=== PATIENT | female | born 2000 | race Caucasian/White ===

== ENCOUNTER 2018-07-10 19:10 | Emergency (ER) | payer MEDICAID, SELFPAY ==
[2018-07-10 20:30] LABS: Urine Blood NEGATIVE (NEG); Urine Glucose NEGATIVE (NEG); Urine Protein NEGATIVE (NEG); Urine Specific Gravity 1.015 (1.005-1.030)
[2018-07-10 20:41] LABS: ALT/SGPT 15 U/L (12-78); AST/SGOT 12 U/L (15-37); Albumin 4.1 g/dL (3.4-5.0); Alkaline Phosphatase 72 U/L (45-117); BUN Blood Urea Nitrogen 13 mg/dL (7-18); Bicarbonate 26 mmol/L (21-32); Bilirubin Direct 0.1 mg/dL (0-0.2); Bilirubin Total 0.4 mg/dL (0.2-1.0); Glucose Level 86 mg/dL (74-106); Lipase 119 U/L (73-393); Protein, Total 7.8 g/dL (6.4-8.2); Sodium Level 139 mmol/L (136-145)
[2018-07-10 20:44] LABS: Absolute Lymphocytes (CBC) 2.1 K/uL (0.7-4.9); Absolute Monocytes 0.8 K/uL (0.1-1.3); Absolute Neutrophil 5.3 K/uL (1.8-8.0); Basophils % 0.5 % (0-1.3); Eosinophils % 2.4 % (0-4.4); Hematocrit 39.5 % (36.0-45.0); MPV 7.8 fL (7.6-11.3); Monocytes % 9.6 % (3.3-12.3); RBC Red Blood Cell Count 4.46 M/uL (3.86-4.86)
--- NOTE | 2018-07-10 21:12 | EDPHYS ---
Physician Documentation [facility] Name: Lena Doty Age: 18 yrs Sex: Female : 2000 Arrival Date: 07/10/2018 Time: 19:14 Bed 7 Private MD: ED Physician Devang Garrett HPI: 07/10 19:51 This 18 yrs old Female presents to ER via Ambulatory with complaints of abd rn pain. 19:51 The patient presents with abdominal pain in the left upper quadrant. Onset: The rn symptoms/episode began/occurred today. The symptoms do not radiate. Associated signs and symptoms: Pertinent positives: constipation, Pertinent negatives: blood in stools, chest pain, fever, shortness of breath, vaginal discharge, vomiting, vomiting blood. The symptoms are described as intermittent, sharp, stabbing. Modifying factors: The symptoms are alleviated by nothing, the symptoms are aggravated by nothing. Severity of pain: At its worst the pain was mild in the emergency department the pain is unchanged. The patient has not experienced similar symptoms in the past. Reports left upper abd pain, intermittent, no fever/vomiting/diarrhea, + constipation and feels dehydrated. No chest pain/sob/cough. . 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 - Social history:: Smoking status: Patient/guardian denies using tobacco. - Ebola Screening: : Patient negative for fever greater than or equal to 101.5 degrees Fahrenheit, and additional compatible Ebola Virus Disease symptoms Patient denies exposure to infectious person Patient denies travel to an Ebola-affected area in the 21 days before illness onset No symptoms or risks identified at this time. - Family history:: not pertinent. - Hospitalizations: : No recent hospitalization is reported. ROS: 19:51 Constitutional: Negative for fever, chills, and weight loss, Eyes: Negative for injury, rn pain, redness, and discharge, Cardiovascular: Negative for chest pain, palpitations, and edema, Respiratory: Negative for shortness of breath, cough, wheezing, and pleuritic chest pain, Abdomen/GI: + abd pain, + constipation, negative for diarrhea/vomiting. MS/Extremity: Negative for injury and deformity, Skin: Negative for injury, rash, and discoloration, Neuro: Negative for headache, weakness, numbness, tingling, and seizure. Exam: 19:51 Constitutional: This is a well developed, well nourished patient who is awake, alert, rn and in no acute distress. Cardiovascular: Regular rate and rhythm, No pulse deficits. Respiratory: Lungs have equal breath sounds bilaterally, clear to auscultation, No increased work of breathing, no retractions or nasal flaring. Abdomen/GI: soft, mild LUQ tenderness, no rebound, neg abdalla Back: No spinal tenderness. No costovertebral tenderness. Full range of motion. Skin: Warm, dry with normal turgor. Normal color with no rashes, no lesions, and no evidence of cellulitis. MS/ Extremity: Pulses equal, no cyanosis. Neurovascular intact. Full, normal range of motion. Equal circumference. Neuro: Awake and alert, GCS 15, oriented to person, place, time, and situation. Cranial nerves II-XII grossly intact. Motor strength 5/5 in all extremities. Sensory grossly intact. Vital Signs: 19:29 BP 113 / 79; Pulse 71; Resp 18; Temp 98.4; Pulse Ox 99% on R/A; Weight 67.59 kg; Height aj 5 ft. 5 in. (165.10 cm); 21:17 BP 110 / 71; Pulse 68; Resp 18; Pulse Ox 99% on R/A; tl2 19:29 Body Mass Index 24.79 (67.59 kg, 165.10 cm) MDM: 19:40 Patient medically screened. rn 21:10 Differential diagnosis: gastritis, gastroesophageal reflux disease, non-specific abd rn pain, pancreatitis, Peptic Ulcer Disease, Ureterolithiasis, urinary tract infection, constipation, gas-trapping. Data reviewed: vital signs, nurses notes, lab test result(s), and as a result, I will discharge patient. Counseling: I had a detailed discussion with the patient and/or guardian regarding: the historical points, exam findings, and any diagnostic results supporting the discharge/admit diagnosis, lab results, the need for outpatient follow up, to return to the emergency department if symptoms worsen or persist or if there are any questions or concerns that arise at home. Response to treatment: the patient's symptoms have mildly improved after treatment, and as a result, I will discharge patient. Special discussion: Based on the patient's Hx, exam, and Dx evaluation, there is no indication for emergent surgery or inpatient Tx. It is understood by the patient/guardian that if the Sx's persist or worsen they need to return immediately for re-evaluation. I discussed with the patient/guardian in detail that at this point there is no indication for admission to the hospital. It is understood, however, that if the symptoms persist or worsen the patient needs to return immediately for re-evaluation. ED course: Normal bloodwork, recommended dc home with fluids/gas-x/laxatives, as constipation/gas most likely cause. . 07/10 19:51 Order name: Basic Metabolic Panel; Complete Time: 21:05 07/10 19:51 Order name: CBC with Diff; Complete Time: 21: 07/10 19:51 Order name: Hepatic Function; Complete Time: 21: 07/10 19:51 Order name: Lipase; Complete Time: 21: 07/10 20:14 Order name: Urine Dipstick--Ancillary (enter results) 07/10 20:14 Order name: Urine --Ancillary (enter results) 07/10 19:51 Order name: IV Saline Lock; Complete Time: 20:02 07/10 19:51 Order name: Labs collected and sent; Complete Time: 20:02 07/10 19:51 Order name: Urine Test (obtain specimen); Complete Time: 20:59 07/10 19:51 Order name: Urine Dipstick-Ancillary (obtain specimen); Complete Time: 20:59 rn Administered Medications: No medications were administered Disposition: 07/10/18 21:11 Discharged to Home. Impression: Constipation, unspecified, Upper abdominal pain, unspecified. - Condition is Stable. - Discharge Instructions: Abdominal Pain, Adult, Constipation, Adult. - Medication Reconciliation Form, Thank You Letter, Antibiotic Education, Prescription Opioid Use form. - Follow up: Private Physician; When: As needed; Reason: Recheck today's complaints, Re-evaluation by your physician. - Problem is new. - Symptoms have improved. Signatures: Dispatcher [employer] EDMarcelina Barksdale RN RN aj Nieto, Roman, MD MD rn Knox, Taylor, RN RN tl2 Corrections: (The following items were deleted from the chart) 21:20 21:11 07/10/2018 21:11 Discharged to Home. Impression: Constipation, unspecified; Upper tl2 abdominal pain, unspecified. Condition is Stable. Forms are Medication Reconciliation Form, Thank You Letter, Antibiotic Education, Prescription Opioid Use. Follow up: Private Physician; When: As needed; Reason: Recheck today's complaints, Re-evaluation by your physician. Problem is new. Symptoms have improved. rn
--- NOTE | 2018-07-10 21:12 | ER ---
Nurse's Notes [facility] Name: Lena Doty Age: 18 yrs Sex: Female : 2000 Arrival Date: 07/10/2018 Time: 19:14 Bed 7 Private MD: Diagnosis: Constipation, unspecified;Upper abdominal pain, unspecified Presentation: 07/10 19:28 Presenting complaint: Patient states: Reports left lower rib pain that started this am aj and is worse with movement and deep breathing. Denies recent illness or cough. Transition of care: patient was not received from another setting of care. Onset of symptoms was July 10, 2018. Risk Assessment: Do you want to hurt yourself or someone else? Patient reports no desire to harm self or others. Initial Sepsis Screen: Does the patient meet any 2 criteria? No. Patient's initial sepsis screen is negative. Does the patient have a suspected source of infection? No. Patient's initial sepsis screen is negative. Care prior to arrival: None. 19:28 Method Of Arrival: Ambulatory 19:28 Acuity: RALEIGH 4 aj 19:52 Acuity: RALEIGH 3 tl2 Triage Assessment: 19:29 General: Appears in no apparent distress. comfortable, Behavior is calm, cooperative, aj appropriate for age. Pain: Complains of pain in left ninth rib and left tenth rib. Neuro: Level of Consciousness is awake, alert, obeys commands, Oriented to person, place, time, situation, Appropriate for age. Respiratory: Airway is patent Respiratory effort is even, unlabored, Respiratory pattern is regular, symmetrical. Derm: Skin is intact, is healthy with good turgor, Skin is pink, warm \T\ dry. normal. Musculoskeletal: Reports pain in left ninth rib and left tenth rib. 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 - Social history:: Smoking status: Patient/guardian denies using tobacco. - Ebola Screening: : Patient negative for fever greater than or equal to 101.5 degrees Fahrenheit, and additional compatible Ebola Virus Disease symptoms Patient denies exposure to infectious person Patient denies travel to an Ebola-affected area in the 21 days before illness onset No symptoms or risks identified at this time. - Family history:: not pertinent. - Hospitalizations: : No recent hospitalization is reported. Screenin:03 Abuse screen: Denies threats or abuse. Nutritional screening: No deficits noted. tl2 Tuberculosis screening: No symptoms or risk factors identified. Fall Risk None identified. Assessment: 20:03 General: Appears in no apparent distress. comfortable, Behavior is calm, cooperative, tl2 appropriate for age. Pain: Complains of pain in left lateral anterior chest and left breast and left tenth rib and left ninth rib Pain does not radiate. Aggravated by deep breathing. Neuro: Level of Consciousness is awake, alert, obeys commands, Oriented to person, place, time, situation. Cardiovascular: Denies chest pain. Respiratory: Airway is patent Respiratory effort is even, unlabored, Respiratory pattern is regular, symmetrical. GI: No signs and/or symptoms were reported involving the gastrointestinal system. : No signs and/or symptoms were reported regarding the genitourinary system. Derm: Skin is pink, warm \T\ dry. 21:01 Reassessment: Patient appears in no apparent distress at this time. No changes from tl2 previously documented assessment. Patient and/or family updated on plan of care and expected duration. Pain level reassessed. Patient is alert, oriented x 3, equal unlabored respirations, skin warm/dry/pink. awaiting lab results. 21:17 Reassessment: Patient appears in no apparent distress at this time. Patient and/or tl2 family updated on plan of care and expected duration. Pain level reassessed. Patient is alert, oriented x 3, equal unlabored respirations, skin warm/dry/pink. pt verbalized understanding of discharge instructions, need for follow up. Vital Signs: 19:29 BP 113 / 79; Pulse 71; Resp 18; Temp 98.4; Pulse Ox 99% on R/A; Weight 67.59 kg; Height aj 5 ft. 5 in. (165.10 cm); 21:17 BP 110 / 71; Pulse 68; Resp 18; Pulse Ox 99% on R/A; tl2 19:29 Body Mass Index 24.79 (67.59 kg, 165.10 cm) ED Course: 19:14 Patient arrived in ED. am2 19:29 Triage completed. aj 19:29 Arm band placed on left wrist. Patient placed in waiting room, Patient notified of wait aj time. 19:40 Devang Garrett MD is Attending Physician. rn 19:51 Suzanne Hernandez, SARINA is Primary Nurse. tl2 20:03 Patient has correct armband on for positive identification. Placed in gown. Bed in low tl2 position. Call light in reach. Side rails up X 1. 20:03 Urine collected: clean catch specimen. Inserted saline lock: 22 gauge in right tl2 antecubital area, using aseptic technique. Blood collected. 21:17 No provider procedures requiring assistance completed. IV discontinued, intact, tl2 bleeding controlled, No redness/swelling at site. Pressure dressing applied. Administered Medications: No medications were administered Outcome: 21:11 Discharge ordered by . rn 21:17 Discharged to home ambulatory, with family. tl2 21:17 Condition: stable 21:17 Discharge instructions given to patient, Instructed on discharge instructions, follow up and referral plans. Demonstrated understanding of instructions, follow-up care. 21:20 Patient left the ED. tl2 Signatures: Marcelina Butterfield RN RN Devang Sy MD MD rn Knox, Taylor, RN RN tl2 Marcelina Dsouza am2
== END 2018-07-10 21:20 | disposition home or self-care (01) ==
LOC: ER 19:10
DX: K59.00 Constipation, unspecified (principal); R10.12 Left upper quadrant pain; D64.9 Anemia, unspecified
CPT/HCPCS: 36415; 80048; 80076; 81003; 81025; 83690; 85025; 99283

== ENCOUNTER 2018-07-18 18:11 | Emergency (ER) | payer SELFPAY ==
[2018-07-18] MEDS ORDERED: ACETAMINOPHEN 500 MG TAB ONE (18:58)
--- NOTE | 2018-07-18 20:09 | ER ---
Nurse's Notes [facility] Name: Lena Doty Age: 18 yrs Sex: Female : 2000 Arrival Date: 07/18/2018 Time: 18:21 Bed 11 Private MD: None, None Diagnosis: Influenza due to identified novel influenza A virus Presentation: 07/18 18:43 Presenting complaint: Patient states: fever,cough, sore throat that began yesterday. aa5 Transition of care: patient was not received from another setting of care. Onset of symptoms was July 2018. Risk Assessment: Do you want to hurt yourself or someone else? Patient reports no desire to harm self or others. Care prior to arrival: None. 18:43 Method Of Arrival: Ambulatory aa5 18:43 Acuity: RALEIGH 4 aa5 20:38 Initial Sepsis Screen: Does the patient meet any 2 criteria? Temp <36.0*C (96.8*F)) or lp1 > 38.3*C (100.9*F). HR > 90 bpm. Yes Does the patient have a suspected source of infection? Yes: Other: Flu symptoms. 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 - Social history:: Smoking status: Patient/guardian denies using tobacco. - Ebola Screening: : No symptoms or risks identified at this time. Screenin:37 Abuse screen: Denies threats or abuse. Denies injuries from another. Nutritional lp1 screening: No deficits noted. Tuberculosis screening: No symptoms or risk factors identified. Fall Risk None identified. Assessment: 20:00 General: Appears uncomfortable, ill, Behavior is appropriate for age. Pain: Complains lp1 of pain in generalized Pain currently is 8 out of 10 on a pain scale. Quality of pain is described as aching. Neuro: Level of Consciousness is awake, alert, obeys commands. Cardiovascular: Patient's skin is warm and dry. Respiratory: Airway is patent Respiratory effort is even, unlabored, Breath sounds are clear bilaterally. GI: No signs and/or symptoms were reported involving the gastrointestinal system. : No signs and/or symptoms were reported regarding the genitourinary system. EENT: No signs and/or symptoms were reported regarding the EENT system. Derm: Skin is pink, warm \T\ dry. Musculoskeletal: No signs and/or symptoms reported regarding the musculoskeletal system. 20:57 Reassessment: Patient states feeling better. Patient states symptoms have improved. lp1 Vital Signs: 18:44 BP 131 / 81; Pulse 129; Resp 24 S; Temp 103.1(O); Pulse Ox 100% on R/A; Weight 65.77 kg aa5 (R); Height 5 ft. 5 in. (165.10 cm) (R); Pain 9/10; 20:00 BP 103 / 62; Pulse 104; Resp 16; Temp 99.6(O); Pulse Ox 99% on R/A; Pain 8/10; lp1 18:44 Body Mass Index 24.13 (65.77 kg, 165.10 cm) aa5 ED Course: 18:21 Patient arrived in ED. mr 18:22 Federico Hanson MD is Private Physician. mr 18:22 None, None is Private Physician. mr 18:44 Triage completed. aa5 18:44 Arm band placed on. aa5 18:48 Flu and/or RSV swab sent to lab. Strep swab sent to lab. aa5 18:53 Lauren Wallace FNP-C [facility]. snw 18:53 Devang Garrett MD is Attending Physician. snw 19:30 Cristina Mclaughlin, SARINA is Primary Nurse. lp1 20:38 Patient has correct armband on for positive identification. lp1 20:38 No provider procedures requiring assistance completed. Patient did not have IV access lp1 during this emergency room visit. Administered Medications: 18:48 Drug: Tylenol 1000 mg Route: PO; aa5 20:00 Follow up: Response: Temperature is decreased lp1 20:25 Drug: Tamiflu 75 mg Route: PO; lp1 20:56 Follow up: Response: No adverse reaction lp1 20:25 Drug: TORadol 60 mg Route: IM; Site: left deltoid; lp1 20:56 Follow up: Response: Marked relief of symptoms lp1 Outcome: 20:09 Discharge ordered by . snw 20:57 Discharged to home ambulatory. lp1 20:57 Condition: good 20:57 Discharge instructions given to patient, Instructed on discharge instructions, follow up and referral plans. medication usage, Demonstrated understanding of instructions, follow-up care, medications, Prescriptions given X 3. 20:57 Patient left the ED. lp1 Signatures: Lauren Wallace, TUBULAR SPLITTING MACHINE TENDER-C TUBULAR SPLITTING MACHINE TENDER-Csnw Vaishnavi Mackey mr LopezZuleima, RN RN aa5 Cristina Mclaughlin RN RN lp1
--- NOTE | 2018-07-18 20:10 | EDPHYS ---
Physician Documentation [facility] Name: Lena Doty Age: 18 yrs Sex: Female : 2000 Arrival Date: 07/18/2018 Time: 18:21 Bed 11 Private MD: None, None ED Physician Devang Garrett HPI: 07/18 20:37 This 18 yrs old Female presents to ER via Ambulatory with complaints of snw Fever, Sore Throat, Cough. 20:37 The patient reports fever, not measured (subjective). Onset: The symptoms/episode snw began/occurred suddenly, last night. Modifying factors: there are no obvious modifying factors. Associated signs and symptoms: Pertinent positives: chills, cough, decreased appetite, headache, myalgias, nausea, runny nose, sore throat. Severity of symptoms: At their worst the symptoms were severe. The patient has not experienced similar symptoms in the past. The patient has not recently seen a physician. 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 - Social history:: Smoking status: Patient/guardian denies using tobacco. - Ebola Screening: : No symptoms or risks identified at this time. ROS: 20:35 Eyes: Negative for injury, pain, redness, and discharge. snw 20:35 Cardiovascular: Negative for chest pain, palpitations, and edema. 20:35 Abdomen/GI: Negative for abdominal pain, vomiting, diarrhea, and constipation, + nausea Back: Negative for injury and pain, : Negative for injury, bleeding, discharge, and swelling, MS/Extremity: Negative for injury and deformity, Skin: Negative for injury, rash, and discoloration, Neuro: Negative for headache, weakness, numbness, tingling, and seizure. 20:35 Constitutional: Positive for body aches, chills, fatigue, fever, malaise, poor PO intake. 20:35 ENT: Positive for nasal discharge. 20:35 Respiratory: Positive for cough, with no reported sputum. Exam: 20:35 Head/Face: Normocephalic, atraumatic. Eyes: Pupils equal round and reactive to light, snw extra-ocular motions intact. Lids and lashes normal. Conjunctiva and sclera are non-icteric and not injected. Cornea within normal limits. Periorbital areas with no swelling, redness, or edema. ENT: Nares patent. No nasal discharge, no septal abnormalities noted. Tympanic membranes are normal and external auditory canals are clear. Oropharynx with no redness, swelling, or masses, exudates, or evidence of obstruction, uvula midline. Mucous membranes moist. Neck: Trachea midline, no thyromegaly or masses palpated, and no cervical lymphadenopathy. Supple, full range of motion without nuchal rigidity, or vertebral point tenderness. No Meningismus. Chest/axilla: Normal chest wall appearance and motion. Nontender with no deformity. No lesions are appreciated. Cardiovascular: Regular rate and rhythm with a normal S1 and S2. No gallops, murmurs, or rubs. Normal PMI, no JVD. No pulse deficits. Respiratory: Lungs have equal breath sounds bilaterally, clear to auscultation and percussion. No rales, rhonchi or wheezes noted. No increased work of breathing, no retractions or nasal flaring. Abdomen/GI: Soft, non-tender, with normal bowel sounds. No distension or tympany. No guarding or rebound. No evidence of tenderness throughout. Back: No spinal tenderness. No costovertebral tenderness. Full range of motion. Skin: Warm, dry with normal turgor. Normal color with no rashes, no lesions, and no evidence of cellulitis. MS/ Extremity: Pulses equal, no cyanosis. Neurovascular intact. Full, normal range of motion. Neuro: Awake and alert, GCS 15, oriented to person, place, time, and situation. Cranial nerves II-XII grossly intact. Motor strength 5/5 in all extremities. Sensory grossly intact. Cerebellar exam normal. Normal gait. Psych: Awake, alert, with orientation to person, place and time. Behavior, mood, and affect are within normal limits. 20:35 Constitutional: The patient appears alert, awake, febrile, frail, listless, pale, uncomfortable. Vital Signs: 18:44 BP 131 / 81; Pulse 129; Resp 24 S; Temp 103.1(O); Pulse Ox 100% on R/A; Weight 65.77 kg aa5 (R); Height 5 ft. 5 in. (165.10 cm) (R); Pain 9/10; 20:00 BP 103 / 62; Pulse 104; Resp 16; Temp 99.6(O); Pulse Ox 99% on R/A; Pain 8/10; lp1 18:44 Body Mass Index 24.13 (65.77 kg, 165.10 cm) aa5 MDM: 19:36 Patient medically screened. snw 20:36 Data reviewed: vital signs, nurses notes. Data interpreted: Pulse oximetry: on room air snw is 99 %. Interpretation: normal. Counseling: I had a detailed discussion with the patient and/or guardian regarding: the historical points, exam findings, and any diagnostic results supporting the discharge/admit diagnosis, lab results, the need for outpatient follow up, to return to the emergency department if symptoms worsen or persist or if there are any questions or concerns that arise at home. Special discussion: Based on the history and exam findings, there is no indication for further emergent testing or inpatient evaluation. I discussed with the patient/guardian the need to see the primary care provider for further evaluation of the symptoms. 07/18 18:37 Order name: Flu; Complete Time: 19:35 snw 07/18 18:37 Order name: Strep; Complete Time: 19:35 snw 07/18 19:28 Order name: Throat Culture EDMS Administered Medications: 18:48 Drug: Tylenol 1000 mg Route: PO; aa5 20:00 Follow up: Response: Temperature is decreased lp1 20:25 Drug: Tamiflu 75 mg Route: PO; lp1 20:56 Follow up: Response: No adverse reaction lp1 20:25 Drug: TORadol 60 mg Route: IM; Site: left deltoid; lp1 20:56 Follow up: Response: Marked relief of symptoms lp1 Disposition: 07/18/18 20:09 Discharged to Home. Impression: Influenza due to identified novel influenza A virus. - Condition is Stable. - Discharge Instructions: Fever, Adult, Influenza, Adult, Rehydration, Adult. - Prescriptions for Tamiflu 75 mg Oral Capsule - take 1 capsule by ORAL route every 12 hours for 5 days; 10 capsule. Tylenol- Codeine #3 300-30 mg Oral Tablet - take 2 tablets by ORAL route every 6 hours As needed; 20 tablet. promethazine 25 mg Oral Tablet - take 1 tablet by ORAL route every 6 hours As needed; 20 tablet. - Work release form, Medication Reconciliation Form, Thank You Letter, Antibiotic Education, Prescription Opioid Use form. - Follow up: Emergency Department; When: As needed; Reason: Worsening of condition. Follow up: Private Physician; When: 2 - 3 days; Reason: Recheck today's complaints, Continuance of care, Re-evaluation by your physician. Addendum: 07/21/2018 07:18 Co-signature as Attending Physician, Devang Garrett MD. r n Signatures: Dispatcher [employer] EDMS Lauren Wallace, BAG WORKER-C BAG WORKER-Csnw Devang Garrett MD MD rn Zuleima Lopez, RN RN aa5 Cristina Mclaughlin RN RN lp1 Corrections: (The following items were deleted from the chart) 07/18 20:57 20:09 07/18/2018 20:09 Discharged to Home. Impression: Influenza due to identified lp1 novel influenza A virus. Condition is Stable. Forms are Medication Reconciliation Form, Thank You Letter, Antibiotic Education, Prescription Opioid Use. Follow up: Emergency Department; When: As needed; Reason: Worsening of condition. Follow up: Private Physician; When: 2 - 3 days; Reason: Recheck today's complaints, Continuance of care, Re-evaluation by your physician. snw
[2018-07-18] MEDS ORDERED: KETOROLAC 30 MG/ML INJ ONE (20:24)
[2018-07-18] MEDS ORDERED: OSELTAMIVIR 75 MG CAP ONE (20:24)
== END 2018-07-18 20:57 | disposition home or self-care (01) ==
LOC: ER 18:11
DX: J10.1 Influenza due to other identified influenza virus with other respiratory manifestations (principal)
CPT/HCPCS: 87070; 87081; 87804; 96372; 99283

== ENCOUNTER 2018-12-13 03:44 | Inpatient (IN) | payer OTHER, SELFPAY ==
--- OUTSIDE RECORDS SUMMARY | 2018-12-13 03:46 | XMS REPORT ---
:2000 Author Organization [facility] Address [address] [place] [address] Dr. Pearson [address] [place] [id number] Care Team Providers Name Role Phone Unavailable Unavailable Unavailable Problems This patient has no known problems. Allergies, Adverse Reactions, Alerts This patient has no known allergies or adverse reactions. Medications This patient has no known medications.
[2018-12-13] MEDS ORDERED: ACETAMINOPHEN 325 MG TABLET ONE (04:25)
[2018-12-13 05:14] LABS: Urine Blood 1+ (NEG); Urine Glucose NEGATIVE (NEG); Urine Protein 3+ (NEG)
[2018-12-13 05:17] LABS: Urine Bacteria >50 /HPF (<20)
[2018-12-13 05:18] LABS: Urine Culture Reflex Order REFLEXED; Urine RBC <5 /HPF (NONE SEEN)
[2018-12-13] MEDS ORDERED: CEFTRIAXONE/SWI 1gm 1 GM/10 ML SYR ONE (05:47)
[2018-12-13] MEDS ORDERED: NA CHLORIDE 0.9% 1,000 ML ONE ×2 (05:47→07:10)
[2018-12-13 06:01] LABS: Absolute Lymphocytes (CBC) 0.7 K/uL (0.7-4.9); Basophils % 0.7 % (0-1.3); Lymphocytes % 4.5 % (15.3-44.8); MPV 7.3 fL (7.6-11.3); RBC Red Blood Cell Count 3.93 M/uL (3.86-4.86)
[2018-12-13 06:18] LABS: BUN Blood Urea Nitrogen 10 mg/dL (7-18); Bicarbonate 21 mmol/L (21-32); Glucose Level 114 mg/dL (74-106); Potassium 3.3 mmol/L (3.5-5.1); Sodium Level 140 mmol/L (136-145)
--- NOTE | 2018-12-13 07:02 | ER ---
Nurse's Notes [facility] Name: Lena Doty Age: 18 yrs Sex: Female : 2000 Arrival Date: 12/13/2018 Time: 03:48 Bed 5 Private MD: Diagnosis: Other sepsis;Urinary tract infection, site not specified Presentation: 12/13 04:06 Presenting complaint: Patient states: Pt reports fever since yesterday, states the last ea fever she had was 100.3. Pt reports she also has nausea. Transition of care: patient was not received from another setting of care. Onset of symptoms was December 13, 2018. Risk Assessment: Do you want to hurt yourself or someone else? Patient reports no desire to harm self or others. Initial Sepsis Screen: Does the patient meet any 2 criteria? Temp <36.0*C (96.8*F)) or > 38.3*C (100.9*F). HR > 90 bpm. Yes Does the patient have a suspected source of infection? No. Patient's initial sepsis screen is negative. Care prior to arrival: Medication(s) given: Robitussin \T\ 2300. 04:06 Method Of Arrival: Ambulatory ea 04:06 Acuity: R[place] 3 ea Triage Assessment: 04:09 General: Appears uncomfortable, Behavior is calm, cooperative, appropriate for age. ea Pain: Denies pain. Neuro: Level of Consciousness is awake, alert, obeys commands, Oriented to person, place, time, situation. Respiratory: Airway is patent Respiratory effort is even, unlabored, Respiratory pattern is regular, symmetrical. Derm: Skin is pink, warm \T\ dry. 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 - Social history:: Smoking status: Patient/guardian denies using tobacco. - Ebola Screening: : No symptoms or risks identified at this time. Screenin:00 Abuse screen: Denies threats or abuse. Nutritional screening: No deficits noted. ea Tuberculosis screening: No symptoms or risk factors identified. Fall Risk None identified. Assessment: 04:20 General: Appears uncomfortable, Behavior is calm, cooperative, appropriate for age. ea Pain: Complains of pain in back. Neuro: Level of Consciousness is awake, alert, obeys commands, Oriented to person, place, time, situation. Cardiovascular: Patient's skin is warm and dry. Respiratory: Airway is patent Respiratory effort is even, unlabored, Respiratory pattern is regular, symmetrical. Derm: Skin is pink, warm \T\ dry. Musculoskeletal: Circulation, motion, and sensation intact. 05:18 Reassessment: Patient appears in no apparent distress at this time. Patient and/or cc3 family updated on plan of care and expected duration. Pain level reassessed. Patient is alert, oriented x 3, equal unlabored respirations, skin warm/dry/pink. 06:40 Reassessment: Patient appears in no apparent distress at this time. Patient and/or cc3 family updated on plan of care and expected duration. Pain level reassessed. Patient is alert, oriented x 3, equal unlabored respirations, skin warm/dry/pink. Dr. De Jesus at bedside explaining to the patient his plan of care. 07:30 Reassessment: Patient appears in no apparent distress at this time. Patient and/or hb family updated on plan of care and expected duration. Pain level reassessed. Patient is alert, oriented x 3, equal unlabored respirations, skin warm/dry/pink. 08:30 Reassessment: Patient appears in no apparent distress at this time. No changes from previously documented assessment. Patient and/or family updated on plan of care and expected duration. Pain level reassessed. Patient is alert, oriented x 3, equal unlabored respirations, skin warm/dry/pink. 09:15 Reassessment: Patient appears in no apparent distress at this time. No changes from previously documented assessment. Patient and/or family updated on plan of care and expected duration. Pain level reassessed. Patient is alert, oriented x 3, equal unlabored respirations, skin warm/dry/pink. Vital Signs: 03:58 BP 104 / 62; Pulse 95; Resp 19; Temp 101.1(O); Pulse Ox 95% on R/A; Weight 61.23 kg; ea Height 5 ft. 5 in. (165.10 cm); 04:45 BP 113 / 66; Pulse 104; Resp 19 S; Pulse Ox 98% on R/A; cc3 05:51 BP 107 / 72; Pulse 88; Resp 20 S; Temp 101.6(O); Pulse Ox 99% on R/A; cc3 06:30 BP 110 / 65; Pulse 101; Resp 18 S; Temp 101.3(O); Pulse Ox 100% on R/A; cc3 08:00 BP 106 / 64; Pulse 90; Resp 15; Pulse Ox 100% on R/A; hb 09:15 BP 98 / 60; Pulse 84; Resp 14; Temp 97.5(TE); Pulse Ox 100% on R/A; Pain 0/10; hb 03:58 Body Mass Index 22.46 (61.23 kg, 165.10 cm) ea ED Course: 03:48 Patient arrived in ED. ag3 03:51 Juan De Jesus MD is Attending Physician. gs 03:59 Patient has correct armband on for positive identification. Bed in low position. Call ea light in reach. Side rails up X2. 04:00 Daysi Magallanes is Primary Nurse. cc3 04:00 Arm band placed on right wrist. Patient placed in an exam room, on a stretcher, on ea pulse oximetry. 04:08 Triage completed. ea 05:45 Inserted saline lock: 18 gauge in right antecubital area, using aseptic technique. ea Blood collected. 07:00 Report given to SARINA Storey and SARINA Paige. cc3 07:01 Ml Sheffield MD is Hospitalizing Provider. gs 07:48 CBC with Diff Sent. sv 09:27 Grecia Aquino RN is Primary Nurse. hb 09:28 No provider procedures requiring assistance completed. Patient admitted, IV remains in hb place. Administered Medications: 04:15 Drug: Tylenol 650 mg Route: PO; cc3 05:45 Drug: NS 0.9% 1000 ml Route: IV; Rate: 1 bolus; Site: right antecubital; ea 06:50 Follow up: Response: No adverse reaction; IV Status: Completed infusion; IV Intake: cc3 1000ml 05:45 Drug: Rocephin - (cefTRIAXone) 1 grams Route: IVPB; Infused Over: 30 mins; Site: right ea antecubital; 05:50 Follow up: Response: No adverse reaction; IV Status: Completed infusion; IV Intake: [id number] 06:55 Drug: NS 0.9% 1000 ml Route: IV; Rate: 125 ml/hr; Site: right antecubital; ea 07:05 Drug: Ibuprofen 600 mg Route: PO; ea Intake: 05:50 IV: 10ml; Total: 10ml. cc3 06:50 IV: 1000ml; Total: 1010ml. cc3 Outcome: 07:01 Decision to Hospitalize by Provider. 09:28 Admitted to Med/surg accompanied by tech, family with patient, via wheelchair, room hb 229, with chart. 09:28 Condition: stable 09:28 Instructed on the need for admit, Demonstrated understanding of instructions. 10:01 Patient left the ED. Signatures: Cordelia Blankenship, Grecia Ashton RN, RN RN Kaylee Cohen RN RN ea Starr, Gregory, MD MD Daysi Magallanes Denisha Wu 3
--- NOTE | 2018-12-13 07:02 | EDPHYS ---
Physician Documentation [facility] Name: Lena Doty Age: 18 yrs Sex: Female : 2000 Arrival Date: 12/13/2018 Time: 03:48 Bed 5 Private MD: ED Physician Juan De Jesus HPI: 12/13 05:37 This 18 yrs old Female presents to ER via Ambulatory with complaints of Fever.gs 05:37 Onset: The symptoms/episode began/occurred yesterday. Modifying factors: there are no gs obvious modifying factors. Associated signs and symptoms: Pertinent positives: chills, dysuria, Pertinent negatives: altered mental status. Severity of symptoms: At their worst the symptoms were moderate in the emergency department the symptoms are unchanged. The patient has experienced similar episodes in the past, a few times. The patient has not recently seen a physician. 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 - Social history:: Smoking status: Patient/guardian denies using tobacco. - Ebola Screening: : No symptoms or risks identified at this time. ROS: 05:37 All other systems are negative. gs Exam: 05:37 Head/Face: Normocephalic, atraumatic. Eyes: Pupils equal round and reactive to light, gs extra-ocular motions intact. Lids and lashes normal. Conjunctiva and sclera are non-icteric and not injected. Cornea within normal limits. Periorbital areas with no swelling, redness, or edema. ENT: Nares patent. No nasal discharge, no septal abnormalities noted. Tympanic membranes are normal and external auditory canals are clear. Oropharynx with no redness, swelling, or masses, exudates, or evidence of obstruction, uvula midline. Mucous membranes moist. Neck: Trachea midline, no thyromegaly or masses palpated, and no cervical lymphadenopathy. Supple, full range of motion without nuchal rigidity, or vertebral point tenderness. No Meningismus. Chest/axilla: Normal chest wall appearance and motion. Nontender with no deformity. No lesions are appreciated. 05:37 Respiratory: Lungs have equal breath sounds bilaterally, clear to auscultation and percussion. No rales, rhonchi or wheezes noted. No increased work of breathing, no retractions or nasal flaring. Abdomen/GI: Soft, non-tender, with normal bowel sounds. No distension or tympany. No guarding or rebound. No evidence of tenderness throughout. Back: No spinal tenderness. No costovertebral tenderness. Full range of motion. Skin: Warm, dry with normal turgor. Normal color with no rashes, no lesions, and no evidence of cellulitis. MS/ Extremity: Pulses equal, no cyanosis. Neurovascular intact. Full, normal range of motion. Neuro: Awake and alert, GCS 15, oriented to person, place, time, and situation. Cranial nerves II-XII grossly intact. Motor strength 5/5 in all extremities. Sensory grossly intact. Cerebellar exam normal. Normal gait. 05:37 Constitutional: The patient appears alert, awake. 05:37 Cardiovascular: Rate: tachycardic, Rhythm: regular. Vital Signs: 03:58 BP 104 / 62; Pulse 95; Resp 19; Temp 101.1(O); Pulse Ox 95% on R/A; Weight 61.23 kg; ea Height 5 ft. 5 in. (165.10 cm); 04:45 BP 113 / 66; Pulse 104; Resp 19 S; Pulse Ox 98% on R/A; cc3 05:51 BP 107 / 72; Pulse 88; Resp 20 S; Temp 101.6(O); Pulse Ox 99% on R/A; cc3 06:30 BP 110 / 65; Pulse 101; Resp 18 S; Temp 101.3(O); Pulse Ox 100% on R/A; cc3 08:00 BP 106 / 64; Pulse 90; Resp 15; Pulse Ox 100% on R/A; hb 09:15 BP 98 / 60; Pulse 84; Resp 14; Temp 97.5(TE); Pulse Ox 100% on R/A; Pain 0/10; hb 03:58 Body Mass Index 22.46 (61.23 kg, 165.10 cm) ea MDM: 04:02 Patient medically screened. 05:37 Differential diagnosis: viral Infection, URI, UTI, sepsis. Data reviewed: vital signs, nurses notes. Counseling: I had a detailed discussion with the patient and/or guardian regarding: the historical points, exam findings, and any diagnostic results supporting the discharge/admit diagnosis. Response to treatment: the patient's symptoms have mildly improved after treatment. 12/13 04:02 Order name: Influenza Screen (a \T\ B); Complete Time: 06:17 12/13 04:02 Order name: Urine Microscopic Only; Complete Time: 06:17 12/13 05:01 Order name: Urine Dipstick--Ancillary (enter results); Complete Time: 05:20 ar5 12/13 05:01 Order name: Urine --Ancillary (enter results); Complete Time: 05:20 ar5 12/13 05:23 Order name: CBC with Diff 12/13 05:23 Order name: Basic Metabolic Panel 12/13 05:23 Order name: Lactate 12/13 05:23 Order name: CBC with Automated Diff; Complete Time: 06:17 EDMS 12/13 05:23 Order name: Urine Culture EDNY 12/13 04:02 Order name: Urine Dipstick-Ancillary (obtain specimen); Complete Time: 05:46 12/13 07:52 Order name: CONS Pharmacy Consult EDNY 12/13 07:52 Order name: Regular EDMS Administered Medications: 04:15 Drug: Tylenol 650 mg Route: PO; cc3 05:45 Drug: NS 0.9% 1000 ml Route: IV; Rate: 1 bolus; Site: right antecubital; ea 06:50 Follow up: Response: No adverse reaction; IV Status: Completed infusion; IV Intake: cc3 1000ml 05:45 Drug: Rocephin - (cefTRIAXone) 1 grams Route: IVPB; Infused Over: 30 mins; Site: right ea antecubital; 05:50 Follow up: Response: No adverse reaction; IV Status: Completed infusion; IV Intake: [id number] 06:55 Drug: NS 0.9% 1000 ml Route: IV; Rate: 125 ml/hr; Site: right antecubital; ea 07:05 Drug: Ibuprofen 600 mg Route: PO; ea Disposition: 12/13/18 07:01 Hospitalization ordered by Ml Sheffield for Inpatient Admission. Preliminary diagnosis are Other sepsis, Urinary tract infection, site not specified. - Bed requested for Telemetry/MedSurg (Inpatient). - Status is Inpatient Admission. hb - Condition is Stable. - Problem is new. - Symptoms have improved. UTI on Admission? Yes Signatures: Dispatcher [employer] Kate Gold, SARINA BRANCH Grecia Aquino, RN SARINA Kaylee Cohen, RN RN Juan Solares MD MD Daysi Magallanes cc3 Corrections: (The following items were deleted from the chart) 09:07 07:01 Hospitalization Ordered by Ml Sheffield MD for Inpatient Admission. Preliminary diagnosis is Other sepsis; Urinary tract infection, site not specified. Bed requested for Telemetry/MedSurg (Inpatient). Status is Inpatient Admission. Condition is Stable. Problem is new. Symptoms have improved. UTI on Admission? Yes. 10:01 09:07 12/13/2018 07:01 Hospitalization Ordered by Ml Sheffield MD for Inpatient hb Admission. Preliminary diagnosis is Other sepsis; Urinary tract infection, site not specified. Bed requested for Telemetry/MedSurg (Inpatient). Status is Inpatient Admission. Condition is Stable. Problem is new. Symptoms have improved. UTI on Admission? Yes. dw
[2018-12-13] MEDS ORDERED: IBUPROFEN 400 MG TAB ONE (07:10)
[2018-12-13] MEDS ORDERED: IBUPROFEN 200 MG TAB PO ONE (07:10)
[2018-12-13] MEDS ORDERED: MORPHINE 2 MG/ML SYR IV PRN (07:46)
[2018-12-13] MEDS ORDERED: ONDANSETRON 4 MG/2 ML VIAL IV PRN (07:46)
[2018-12-13] MEDS: NA CHLORIDE 0.9% 1,000 ML IV SCH ×4 (08:00→22:16)
[2018-12-13] MEDS: PHENAZOPYRIDINE 100MG TAB PO SCH ×3 (10:53→20:49)
[2018-12-13] MEDS: ACETAMINOPHEN 500 MG TAB PO PRN ×3 (12:42→19:18)
[2018-12-13 21:00] LABS: Urine Appearance CLEAR; Urine Blood NEGATIVE (NEG); Urine Color DK YELLOW; Urine Glucose NEGATIVE (NEG); Urine Protein 1+ (NEG); Urine Specific Gravity 1.015 (1.005-1.030); Urine Urobilinogen >=8.0 mg/dL (0.2-1.0); Urine pH 6.5 (5.0-7.0)
[2018-12-13 21:05] LABS: Urine Bilirubin NEGATIVE (NEG); Urine Microscopic Reflex ORDER UMIC
[2018-12-13 21:18] LABS: Urine Bacteria <20 /HPF (<20); Urine RBC NONE SEEN /HPF (NONE SEEN)
[2018-12-13 21:19] LABS: Urine Culture Reflex Order NOT NEEDED
[2018-12-13] MEDS ORDERED: Levofloxacin500mg IV 500 MG/100 ML BAG IV ONE (21:25)
[2018-12-13] MEDS ORDERED: KETOROLAC 30 MG/ML INJ IV ONE (21:25)
[2018-12-13] MEDS: CEFTRIAXONE/SWI 1gm 1 GM/10 ML SYR IV SCH (22:03)
[2018-12-13] MEDS ORDERED: NA CHLORIDE 0.9% 1,000 ML IV ONE (23:21)
[2018-12-14] MEDS: NA CHLORIDE 0.9% 1,000 ML IV SCH ×3 (00:37→08:16)
[2018-12-14 06:12] LABS: Absolute Lymphocytes (CBC) 1.2 K/uL (0.7-4.9); Basophils % 0.1 % (0-1.3); Eosinophils % 0.1 % (0-4.4); Hematocrit 30.5 % (36.0-45.0); Lymphocytes % 9.5 % (15.3-44.8); MPV 7.6 fL (7.6-11.3); Monocytes % 9.8 % (3.3-12.3); RBC Red Blood Cell Count 3.43 M/uL (3.86-4.86)
[2018-12-14 06:25] LABS: Magnesium 1.9 mg/dL (1.8-2.4); Phosphorus 2.3 mg/dL (2.5-4.9)
--- NOTE | 2018-12-14 06:26 | P.HP ---
Certification for Inpatient Patient admitted to: Observation With expected LOS: <2 Midnights Patient will require the following post-hospital care: None Practitioner: I am a practitioner with admitting privileges, knowledge of patient current condition, hospital course, and medical plan of care. Services: Services provided to patient in accordance with Admission requirements found in Title 42 Section 412.3 of the Code of Federal Regulations Patient History Date of Service: 12/13/18 Reason for admission: Fever/pyelonephritis/sepsis History of Present Illness: Patient is a 18-year-old female came to the hospital with fever, shakes, and chills. She has also been having some flank tenderness. Her symptoms have been getting gradually worse so she came into the ER. In the emergency room showed a temp of a 102 with heart rate in the 120s. She was having a lot of tenderness in her flank region. Her UA came back positive for urinary tract infection. She also had a leukocytosis. Her lactate was normal. She was admitted to the hospital for UTI with possible pyelonephritis and systemic inflammatory response syndrome. She will be treated with IV antibiotics and IV hydration. Will reassess in 12-24 hr and if she is improving possibly discharge her home. If she is not she may need inpatient hospitalization. Allergies No Known Drug Allergies Allergy (Verified 12/13/18 10:42) Unknown No Known All Allergy (Uncoded 12/13/18 10:42) Unknown No Known Allergies Allergy (Uncoded 12/13/18 10:42) Unknown Home Medications: NK [No Home Meds] 12/13/18 - Past Medical/Surgical History Has patient received pneumonia vaccine in the past: No Diabetic: No -: anemia -: on october 16 - Family History Father History Unknown: Yes Mother History Unknown: Yes - Social History Smoking Status: Never smoker Alcohol use: No CD- Drugs: No Caffeine use: Yes Place of Residence: Home Review of Systems 10-point ROS is otherwise unremarkable Physical Examination - Vital Signs Temperature: 97.5 F Blood Pressure: 109/59 Pulse: 85 Respirations: 18 Pulse Ox (%): 97 - Physical Exam General: Alert, In no apparent distress, Oriented x3 HEENT: Atraumatic, PERRLA, Mucous membr. moist/pink, EOMI, Sclerae nonicteric Neck: Supple, 2+ carotid pulse no bruit, No LAD, Without JVD or thyroid abnormality Respiratory: Clear to auscultation bilaterally, Normal air movement Cardiovascular: Regular rate/rhythm, Normal S1 S2 Gastrointestinal: Normal bowel sounds, Soft and benign, Non-distended, Tenderness (Flank tenderness) Musculoskeletal: No clubbing, No swelling, No tenderness Integumentary: No rashes Neurological: Normal gait, Normal speech, Normal strength at 5/5 x4 extr, Normal tone, Sensation intact, Cranial nerves 3-12 intact, Normal affect Lymphatics: No axilla or inguinal lymphadenopathy - Studies Microbiology Data (last 24 hrs): 12/13/18 04:10 Nasopharnyx Influenza Type A Antigen Screen - Final 12/13/18 04:10 Nasopharnyx Influenza Type B Antigen Screen - Final Assessment & Plan - Problems (Diagnosis) (1) UTI (urinary tract infection) Current Visit: Yes Status: Acute (2) Pyelonephritis Current Visit: Yes Status: Acute (3) Systemic inflammatory response syndrome Current Visit: Yes Status: Acute - Plan Plan: 1. IV hydration 2. IV antibiotics 3. Pain control 4. Monitor labs closely 5. If continues to have fever with tachycardia and elevated white count and patient may need inpatient hospitalization. Otherwise if she improves and we may be able to discharge her under observation care 6. GI and DVT prophylaxis Discharge Plan: Home Plan to discharge in: 48 Hours - Advance Directives Does patient have a Living Will: No Does patient have a Durable POA for Healthcare: No - Code Status/Comfort Care Code Status Assessed: Yes Code Status: Full Code Critical Care: No Time Spent Managing PTS Care (In Minutes): 45
[2018-12-14 06:29] LABS: ALT/SGPT 13 U/L (12-78); AST/SGOT 12 U/L (15-37); Albumin 2.7 g/dL (3.4-5.0); Alkaline Phosphatase 63 U/L (45-117); BUN Blood Urea Nitrogen 8 mg/dL (7-18); Bicarbonate 24 mmol/L (21-32); Bilirubin Total 0.5 mg/dL (0.2-1.0); Glucose Level 105 mg/dL (74-106); Potassium 4.1 mmol/L (3.5-5.1); Protein, Total 6.4 g/dL (6.4-8.2); Sodium Level 144 mmol/L (136-145)
--- NOTE | 2018-12-14 07:01 | P.PN ---
Date of Service: 12/13/18 [id number]
--- NOTE | 2018-12-14 07:20 | PN ---
Was notified by nursing staff that patient had spiked a temp of 102.6. Her heart rate was in the 100 s. Admitted her this morning for similar issues. She was found to have a UTI with possible pyelonep hritis. Her lactic acid came back elevated. We are going to go ahead and broaden her antibiotic cov erage and bolus her with IV fluids, repeat lactic acid level. The patient is clinically feeling bett er, but at this time we will go ahead and broaden her coverage for antibiotics. Reassess her in the morning. She, at this time, is admitted under observation care. We may be able to change this to in patient stay if she is not improving. She may even need a dedicated CT scan. VLADIMIR Voice ID: [id number] Report ID: [id number]
[2018-12-14] MEDS ORDERED: IBUPROFEN 400 MG TAB PO PRN (07:46)
[2018-12-14] MEDS: ACETAMINOPHEN 500 MG TAB PO PRN ×2 (08:15→23:35)
[2018-12-14] MEDS: CEFTRIAXONE/SWI 1gm 1 GM/10 ML SYR IV SCH ×2 (08:15→20:36)
[2018-12-14] MEDS: PHENAZOPYRIDINE 100MG TAB PO SCH ×3 (08:16→20:36)
[2018-12-14] MEDS ORDERED: HYDROCODONE/APAP 7.5/325 MG TAB PO PRN (11:28)
[2018-12-14] MEDS ORDERED: TRAMADOL HCL 50 MG TAB PO PRN (11:28)
--- NOTE | 2018-12-14 11:34 | P.PN ---
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 ([facility]) Chief Complaint: Fever/pyelonephritis/sepsis Subjective: Improving (T-max 101.6) Physical Examination - Vital Signs Temperature: 99 F Blood Pressure: 128/74 Pulse: 120 Respirations: 17 Pulse Ox (%): 100 - Physical Exam General: Alert, In no apparent distress, Oriented x3, Cooperative HEENT: Atraumatic Neck: Supple Respiratory: Clear to auscultation bilaterally, Normal air movement Cardiovascular: Abnormal pulses (Sinus tachycardia) Gastrointestinal: Normal bowel sounds, Non-distended, No masses, No rebound, No guarding, Tenderness (Flank pain improved) Musculoskeletal: No erythema, No tenderness, No warmth Neurological: Normal speech, Normal strength at 5/5 x4 extr, Normal tone, Normal affect - Studies Laboratory Data (last 24 hrs) 12/14/18 05:57: Phosphorus 2.3 L, Magnesium 1.9 12/14/18 05:57: Sodium 144, Potassium 4.1, BUN 8, Creatinine 0.60, Glucose 105, Total Bilirubin 0.5, AST 12 L, ALT 13, Alkaline Phosphatase 63 12/14/18 05:57: WBC 12.7 H D, Hgb 10.5 L, Hct 30.5 L, Plt Count 176 D Assessment & Plan Discharge Plan: Home Plan to discharge in: 48 Hours Physician Review Additional Text: Impression: Bilateral pyelonephritis with systemic inflammatory response syndrome Plan: Will continue with IV antibiotic therapy. IV fluids adjusted. Blood and urine cultures obtained. So far urine culture positive for Gram negative rods. Await culture results. Will provide medication for pain, fever. Likely home in the next 48 hr or without fever for at least 24 hr with culture results. Time Spent Managing Pts Care (In Minutes): 55
[2018-12-14] MEDS: NACHLORIDE 0.45% 1,000 ML IV SCH ×2 (12:29→20:37)
[2018-12-14] MEDS ORDERED: ENOXAPARIN 40 MG/0.4 ML SQ SCH (17:00)
[2018-12-15] MEDS: NACHLORIDE 0.45% 1,000 ML IV SCH ×2 (04:25→12:00)
[2018-12-15 05:40] LABS: Absolute Lymphocytes (CBC) 1.3 K/uL (0.7-4.9); Basophils % 0.2 % (0-1.3); Eosinophils % 0.5 % (0-4.4); Lymphocytes % 13.9 % (15.3-44.8); MPV 7.9 fL (7.6-11.3); Monocytes % 10.3 % (3.3-12.3); RBC Red Blood Cell Count 3.16 M/uL (3.86-4.86)
[2018-12-15] MEDS: ACETAMINOPHEN 500 MG TAB PO PRN ×2 (05:44→11:38)
[2018-12-15 05:59] LABS: BUN Blood Urea Nitrogen 3 mg/dL (7-18); Bicarbonate 24 mmol/L (21-32); Glucose Level 97 mg/dL (74-106); Magnesium 1.9 mg/dL (1.8-2.4); Potassium 3.7 mmol/L (3.5-5.1); Sodium Level 141 mmol/L (136-145)
[2018-12-15] MEDS: CEFTRIAXONE/SWI 1gm 1 GM/10 ML SYR IV SCH (08:01)
[2018-12-15] MEDS: PHENAZOPYRIDINE 100MG TAB PO SCH (08:01)
--- NOTE | 2018-12-15 09:43 | P.DS ---
Admission Date: 12/14/18 Discharge Date: 12/15/18 Primary Care Provider: [employer] CONSULTANT-Dr. Lux ([facility]) Disposition: ROUTINE DISCHARGE Discharge Condition: GOOD Reason for Admission: Fever/pyelonephritis/sepsis Consultations: none Procedures: Medical problem list: Bilateral pyelonephritis with systemic inflammatory response syndrome, urine culture positive for E coli Anemia likely iron deficient Brief History of Present Illness: 18-year-old female presented to the emergency room with fever, chills and flank pain. Patient found to have pyelonephritis. Patient was admitted for treatment. Hospital Course: Patient presented with pyelonephritis with systemic inflammatory response syndrome. Patient was treated with IV antibiotic therapy and IV fluids. Patient has done well. White count now within normal range. Patient afebrile for at least 24 hr. Patient without significant pain at this time. Urine culture positive for E. coli. At discharge patient will continue with Bactrim DS 1 pill twice daily for a total of 14 days. Recommend to follow up with her pretzel cooker in 1-2 weeks to follow up this hospitalization. Recommend recheck urine culture to monitor resolution. UTI prevention education will be provided. Patient had mild anemia. Prior to discharge iron and B12 levels will be obtained. Will recommend multi vitamin. Recommend to recheck CBC in 2-4 weeks to monitor her progress. Vital Signs/Physical Exam: Temp Pulse Resp BP Pulse Ox 98.6 F 72 17 106/59 L 99 12/15/18 07:59 12/15/18 07:59 12/15/18 07:59 12/15/18 07:59 12/15/18 07:59 General: Alert, In no apparent distress, Oriented x3, Cooperative HEENT: Atraumatic Neck: Supple Respiratory: Clear to auscultation bilaterally, Normal air movement Cardiovascular: Normal pulses, Regular rate/rhythm Gastrointestinal: Normal bowel sounds, Soft and benign, Non-distended, No tenderness, No masses, No rebound, No guarding Musculoskeletal: No erythema, No tenderness, No warmth Integumentary: No tenderness/swelling, No erythema, No warmth, No cyanosis Neurological: Normal speech, Normal strength at 5/5 x4 extr, Normal tone, Normal affect Laboratory Data at Discharge: WBC 9.6 K/uL (4.3-10.9) D 12/15/18 05:30 Hgb 10.2 g/dL (12.0-15.0) L 12/15/18 05:30 Hct 28.0 % (36.0-45.0) L 12/15/18 05:30 Plt Count 197 K/uL (152-406) 12/15/18 05:30 Sodium 141 mmol/L (136-145) 12/15/18 05:30 Potassium 3.7 mmol/L (3.5-5.1) 12/15/18 05:30 BUN 3 mg/dL (7-18) L 12/15/18 05:30 Creatinine 0.54 mg/dL (0.55-1.3) L 12/15/18 05:30 Glucose 97 mg/dL (74-106) 12/15/18 05:30 Phosphorus 2.3 mg/dL (2.5-4.9) L 12/14/18 05:57 Magnesium 1.9 mg/dL (1.8-2.4) 12/15/18 05:30 Total Bilirubin 0.5 mg/dL (0.2-1.0) 12/14/18 05:57 AST 12 U/L (15-37) L 12/14/18 05:57 ALT 13 U/L (12-78) 12/14/18 05:57 Alkaline Phosphatase 63 U/L (45-117) 12/14/18 05:57 Home Medications: Pnv No.122/Iron/Folic Acid [ Multi Tablet] 1 each PO DAILY #30 tablet Sulfamethoxazole/Trimethoprim [Bactrim Ds Tablet] 1 each PO BID #28 tablet 12/15 New Medications: Pnv No.122/Iron/Folic Acid [ Multi Tablet] 1 each PO DAILY #30 tablet Sulfamethoxazole/Trimethoprim [Bactrim Ds Tablet] 1 each PO BID #28 tablet Patient Discharge Instructions: 1. Recommend to establish care with a PCP to follow up this hospitalization. Otherwise patient can follow up with her pretzel cooker. 2. Patient presented with pyelonephritis with systemic inflammatory response syndrome. Patient was treated with IV antibiotic therapy and IV fluids. Patient has done well. White count now within normal range. Patient afebrile for at least 24 hr. Patient without significant pain at this time. Urine culture positive for E. coli. At discharge patient will continue with Bactrim DS 1 pill twice daily for a total of 14 days. Recommend to follow up with her pretzel cooker in 1-2 weeks to follow up this hospitalization. Recommend recheck urine culture to monitor resolution. UTI prevention education will be provided. 3. Patient had mild anemia. Prior to discharge iron and B12 levels will be obtained. Will recommend multi vitamin. Recommend to recheck CBC in 2-4 weeks to monitor her progress. Diet: Regular Activity: Ad iza Time spent managing pt's care (in minutes): 55
[2018-12-15 10:36] LABS: Ferritin 112.9 ng/mL (8-388)
== END 2018-12-15 13:00 | disposition home or self-care (01) | DRG 690 ==
LOC: ER 03:44 → OBSVTOIN 07:49 → INTOOBSV 07:49 → ERHOLD 07:49 → 2ND 09:51 → OBSVTOIN 12-14 07:15 → 4TH 12-14 21:54
PROVIDERS: ADMIT Hospitalist; ATTEND Hospitalist
DX: N10 Acute pyelonephritis (principal); R65.10 Systemic inflammatory response syndrome (SIRS) of non-infectious origin without acute organ dysfunction; B96.20 Unspecified Escherichia coli [E. coli] as the cause of diseases classified elsewhere; D50.9 Iron deficiency anemia, unspecified
CPT/HCPCS: 36415; 80048; 80053; 81003; 81015; 81025; 82607; 82728; 83540; 83605; 83735; 84100; 84466; 85025; 87040; 87077; 87086; 87088; 87186; 87804; 96361; 96374; 99285; G0378; J0696; J1650; J2270; J2405; J7030

== ENCOUNTER 2019-07-10 15:29 | Emergency (ER) | payer OTHER, SELFPAY ==
--- OUTSIDE RECORDS SUMMARY | 2019-07-10 15:31 | XMS REPORT ---
:2000 [facility] Address [address] [place] [address] Dr. Pearson [address] [place] [address] Care Team Providers Name Role Phone Unavailable Unavailable Unavailable Problems This patient has no known problems. Allergies, Adverse Reactions, Alerts This patient has no known allergies or adverse reactions. Medications This patient has no known medications.
--- OUTSIDE RECORDS SUMMARY | 2019-07-10 15:32 | XMS REPORT | Summary of Care ---
:2000 Author Organization [facility] Address [address] [place] [address] Care Team Providers Name Role Phone Jcak Elizalde MD Primary Care Provider Reason for Visit Reason Comments SPOTTING LMP 11/29/18 Encounter Details Date Type Department Care Team Description 01/15/2019 Telephone [facility] Women's OlguinMiranda MD SPOTTING (LMP 11/29/18) Healthcare- [address] [id number] [phone] Allergies No Known Allergiesdocumented as of this encounter (statuses as of 01/15/2019) Medications Medication Sig Dispensed Refills Start Date End Date Status vitamin w/FA Take 1 tablet by 100 tablet 3 11/04/2017 Active tablet mouth daily. sulfamethoxazole-trime TAKE 1 TABLET BY 0 12/15/2018 Active thoprim 800-160 mg per MOUTH TWICE A DAY tablet FOLIC ACID ORAL Take by mouth. 0 Active documented as of this encounter (statuses as of 01/15/2019) Active Problems Problem Noted Date examination or test, positive result 11/08/2018 Overview: 11/08/18 - HCG 61 11/12/18 - HCG 31 11/12/18 - Ultrasound revealed a uterus measuring 8.9 x 5.5 x 6.3 cm. The endometrial stripe is normal and measures 4 mm. Small amount of fluid is seen in the endometrial cavity. Both ovaries are normal. 11/20/18 - HCG 12/12/18 - HCG <2 documented as of this encounter (statuses as of 01/15/2019) Resolved Problems Problem Noted Date Resolved Date Anemia 11/03/2017 11/08/2018 Multigravida 11/02/2017 11/08/2018 Supervision of high risk in third trimester 11/02/2017 11/08/2018 35 weeks gestation of 11/02/2017 11/08/2018 Liveborn infant by vaginal delivery 11/02/2017 11/08/2018 labor 10/23/2017 11/08/2018 34 weeks gestation of 10/22/2017 11/02/2017 labor in third trimester 10/22/2017 11/08/2018 documented as of this encounter (statuses as of 01/15/2019) Social History Tobacco Use Types Packs/Day Years Used Date Never Smoker Smokeless Tobacco: Never Used Alcohol Use Drinks/Week oz/Week Comments No Sex Assigned at Date Recorded Not on file Job Start Date Occupation Industry Not on file Not on file Not on file Travel History Travel Start Travel End No recent travel history available. documented as of this encounter Last Filed Vital Signs Not on filedocumented in this encounter Plan of Treatment Date Type Specialty Care Team Description 01/17/2019 Initial Obstetrics & Miranda Olguin MD Visit Gynecology [address] [place] [address]. [address] [address] [phone] 02/12/2019 Office Visit Obstetrics & Larisa Vazquez, Gynecology PA-C [address] [place] [phone] Health Maintenance Due Date Last Done Comments MENINGOCOCCAL B VACCINES (1 of 2 - 02/21/2008 Risk Bexsero 2-dose series) VARICELLA VACCINES (1 of 2 - 13+ 2011 2-dose series) HPV VACCINES (1 - Female 3-dose 2013 series) DTaP,Tdap,and Td Vaccines (1 - 2017 Tdap) CHLAMYDIA SCREENING 10/22/2018 10/22/2017 INFLUENZA VACCINE 02/10/2019 MENINGOCOCCAL VACCINE Aged Out No longer eligible based on patient's age to complete this topic PNEUMOCOCCAL 0-64 YEARS COMBINED Aged Out No longer eligible based on SERIES patient's age to complete this topic documented as of this encounter Results Not on filedocumented in this encounter Insurance Payer Benefit Plan / Subscriber ID Effective Phone Address Type Group Dates [facility] [place]-Jake [place] Medicaid HEALTH CHOICE - HEALTH [employer] [id number] [place], [place] MEDICAID [phone] documented as of this encounter Advance Directives Name Relationship Healthcare Agent Relationship Communication Jorge Ayon Spouse Primary healthcare agent
--- OUTSIDE RECORDS SUMMARY | 2019-07-10 15:32 | XMS REPORT | Summary of Care ---
:2000 Author Organization [facility] Address [address] [place] [address] Care Team Providers Name Role Phone Jack Elizalde MD Primary Care Provider Reason for Referral Radiology Services (STAT) Status Reason Specialty Diagnoses / Referred By Referred To Procedures Contact Contact New Request Diagnostic Diagnoses Vaginal bleeding in [place], Alondra Radiology Procedures US FIRST TRIMESTER LESS THAN 14 WEEKS WITH TRANSVAGINAL R, EMNP [address] [place] [address] Radiology Services (STAT) Status Reason Specialty Diagnoses / Referred By Referred To Procedures Contact Contact New Request Diagnostic Diagnoses Vaginal bleeding in [place], Alondra Radiology Procedures US FIRST TRIMESTER LESS THAN 14 WEEKS WITH TRANSVAGINAL R, EMNP [address] [address] Reason for Visit Reason Comments Vaginal Bleeding Auth/Cert Status Reason Specialty Diagnoses / Referred By Referred To Procedures Contact Contact [facility] [address] [place] [address] [place] [address] Encounter Details Date Type Department Care Team Description 01/15/2019 Emergency [facility]-Emergency [place], Alondra R, Vaginal bleeding in (Primary Dx); Department EMNP Threatened miscarriage [address] [place] [address] [address] [place] [address] [facility] [phone] [place] [phone] Allergies No Known Allergiesdocumented as of this [...] Both ovaries are normal. 11/20/18 - HCG 24 12/12/18 - HCG <2 documented as of this encounter (statuses as of 01/15/2019) Resolved Problems Problem Noted Date Resolved Date Anemia 11/03/2017 11/08/2018 Multigravida 11/02/2017 11/08/2018 Supervision of high risk in third trimester 11/02/2017 11/08/2018 35 weeks gestation of 11/02/2017 11/08/2018 Liveborn by vaginal delivery 11/02/2017 11/08/2018 labor 10/23/2017 [...] of this encounter Last Filed Vital Signs Vital Sign Reading Time Taken Comments Blood Pressure 103/73 01/15/2019 2:13 PM CDT Pulse 58 01/15/2019 2:13 PM CDT Temperature 36.9 C (98.4 F) 01/15/2019 11:59 AM CDT Respiratory Rate 18 01/15/2019 2:13 PM CDT Oxygen Saturation 100% 01/15/2019 2:13 PM CDT Inhaled Oxygen Concentration - - Weight 59 kg (130 lb) 01/15/2019 11:59 AM CDT Height - - Body Mass Index - - documented in this encounter Discharge Instructions Alondra Mcguire EMNP - 01/15/2019NO LIFE-THREATENING FINDINGS ON TODAY'S EXAM. SPECIAL INSTRUCTIONS: 1. You will need to contact Dr Olguin's office and schedule visit for beta in 48 hours 2. May take 2 tylenol every 4 hours for pain 3. See attached information 4. Pelvic rest until cleared by Dr Olguin FOLLOW-UP RECOMMENDATIONS: RECOMMEND FOLLOW-UP WITH A PRIMARY CARE PROVIDER OR SPECIALIST IN 2-5 DAYS, ESPECIALLY IF NO IMPROVEMENT IN SYMPTOMS. TO FOLLOW-UP WITHIN THE [facility], TRY THESE OPTIONS (CLINIC APPOINTMENTS AVAILABLE ON [id number] BASIS): 1. SCHEDULE AN APPOINTMENT ONLINE AT [email or web address][facility] 2. OR CALL THE [facility]ESS C[facility] AT OR 3. OR CALL YOUR [facility] PHYSICIAN'S OFFICE DIRECTLY IF YOU ARE ALREADY AN ESTABLISHED [facility] PATIENT. OR, YOU MAY FOLLOW-UP WITH A PROVIDER OF YOUR CHOICE, SUCH : 1. A PHYSICIAN OF YOUR CHOICE 2. [facility], . LOCATIONS IN [facility] 3. [facility], [address] [place] [address]; RETURN TO ER FOR WORSENING OF SYMPTOMS. AttachmentsThe following attachments cannot be sent through Care Everywhere.Possible Miscarriage (Threatened ) (British)Miscarriage, Understanding: During a Miscarriage (British), Bleeding During Early ( British)documented in this encounter Plan of Treatment Date Type Specialty Care Team Description 01/17/2019 Initial Obstetrics & Miranda Olguin MD Visit Gynecology [address] [place] [address] DR. Patel [address] [place] [address] 02/12/2019 Office Visit Obstetrics & Larisa Vazquez, Gynecology PA-C [address] [phone] Health Maintenance Due Date Last Done Comments [...] this topic documented as of this encounter Procedures Procedure Name Priority Date/Time Associated Comments Diagnosis US FIRST STAT 01/15/2019 1:34 Vaginal bleeding in Results for this TRIMESTER LESS THAN PM CDT procedure are in 14 WEEKS WITH the results TRANSVAGINAL section. CBC WITH DIFFERENTIAL STAT 01/15/2019 12:22 Vaginal bleeding in Results for this PM CDT procedure are in the results section. URINALYSIS STAT 01/15/2019 12:22 Vaginal bleeding in Results for this PM CDT procedure are in the results section. TOTAL BETA HCG ASSAY STAT 01/15/2019 12:22 Vaginal bleeding in Results for this PM CDT procedure are in the results section. POCT TEST JAZZY 01/15/2019 12:21 Vaginal bleeding in Results for this PM CDT procedure are in the results section. NOTICE OF PRIVACY Routine 01/15/2019 11:52 PRACTICES AM CDT NOTICE OF PRIVACY Routine 01/15/2019 11:52 PRACTICES AM CDT CONSENT/REFUSAL FOR Routine 01/15/2019 11:51 DIAGNOSIS AND AM CDT TREATMENT documented in this encounter Results US FIRST TRIMESTER LESS THAN 14 WEEKS WITH TRANSVAGINAL (01/15/2019 1 :34 PM CDT) Specimen Impressions Performed At PACS/VR/DOSE No definite intrauterine gestational sac. Continued follow-up with beta-hCG is recommended. Narrative Performed At HISTORY: vaginal bleeding , LMP 11/29/2018, Beta Hcg 13 PACS/VR/DOSE PELVIC ULTRASOUND, TRANSABDOMINAL AND TRANSVAGINAL COMPARISON: Pelvic ultrasound 11/12/2018 FINDINGS: The uterus measures 8.7 x 5.4 by cm. The endometrium has smooth margins and measures 8 mm in thickness. No definite intrauterine gestational sac. Small cystic foci adjacent to the endometrium may represent vessels. Both ovaries appear normal. The right ovary measures 3.3 x 1.2 x 2.5 cm. The left ovary measures 3.6 x 1.8 x 2.9 cm. Trace free fluid is visualized within the pelvis. Procedure Note [facility], Radiant Results Inft User - 01/15/2019 1:47 PM CDT HISTORY: vaginal bleeding , LMP 11/29/2018, Beta Hcg 13 PELVIC ULTRASOUND, TRANSABDOMINAL AND TRANSVAGINAL COMPARISON: Pelvic ultrasound 11/12/2018 FINDINGS: The uterus measures 8.7 x 5.4 by cm. The endometrium has smooth margins and measures 8 mm in thickness. No definite intrauterine gestational sac. Small cystic foci adjacent to the endometrium may represent vessels. Both ovaries appear normal. The right ovary measures 3.3 x 1.2 x 2.5 cm. The left ovary measures 3.6 x 1.8 x 2.9 cm. Trace free fluid is visualized within the pelvis. IMPRESSION No definite intrauterine gestational sac. Continued follow-up with beta-hCG is recommended. Performing Organization Address City/State/Zipcode Phone Number PACS/VR/DOSE TOTAL BETA HCG ASSAY (01/15/2019 12:22 PM CDT) BETA HCG 13.14 Non- female [facility] and male patients: <5 LABORATORY mIU/mL Specimen Blood - ARM, RIGHT Narrative Performed At Gestational AgeRange [facility] (mIU/mL) 1-10Weeks [id number] 11-15 [id number] 16-22 [id number] 1954 23-40 [id number] 1566 Biotin has been reported to cause a negative bias, interpret results relative to patient's use of biotin. Performing Organization Address City/State/Zipcode Phone Number [facility] CLIA: [id number], [address] [place] [address] URINALYSIS (01/15/2019 12:22 PM CDT) APPEARANCE Clear Clear [facility] COLOR Yellow Yellow [facility] PH 6.0 4.8 - 8.0 [facility] SP GRAVITY 1.025 1.003 - 1.030 [facility] GLU U QUAL Negative Negative [facility] BLOOD Moderate (A) Negative [facility] KETONES Negative Negative [facility] PROTEIN Negative Negative [facility] UROBILIN 0.2 mg/dL 0-1.0 mg/dL [facility] BILIRUBIN Negative Negative [facility] NITRITE Negative Negative [facility] LEUK CECY Negative Negative [facility] RBC/HPF >50 (H) 0 - 3 HPF [facility] WBC/HPF 2 0 - 5 HPF [facility] BACTERIA Moderate (A) Negative [facility] MUCOUS Marked (A) Negative LPF [facility] SQ EPITH 2 HPF [facility] CA OXALATE 3 (H) <=1 HPF [facility] Specimen Urine - URINE, CLEAN CATCH Performing Organization Address City/State/Zipcode Phone Number [facility] CLIA: [id number], [address] [place] [address] CBC WITH DIFFERENTIAL (01/15/2019 12:22 PM CDT) WBC 6.23 4.30 - 11.10 [facility] 10*3/L [facility] RBC 3.88 (L) 3.93 - 5.25 [facility] 10*6/L [facility] HGB 11.7 11.6 - 15.0 [facility] g/dL [facility] HCT 35.3 (L) 35.7 - 45.2 % [facility] MCV 91.0 80.6 - 95.5 fL [facility] MCH 30.2 25.9 - 32.8 pg [facility] MCHC 33.1 31.6 - 35.1 [facility] g/dL [facility] RDW-SD 42.6 39.0 - 49.9 fL [facility] RDW-CV 13.0 12.0 - 15.5 % [facility] PLT 260 166 - 358 [facility] 10*3/L [facility] MPV 9.4 (L) 9.5 - 12.9 fL [facility] NRBC/100 WBC 0.0 0.0 - 10.0 /100 [facility] WBCs [facility] NRBC x10^3 <0.01 10*3/L [facility] GRAN MAT (NEUT) % 53.4 % [facility] IMM GRAN % 0.50 % [facility] LYMPH % 32.1 % [facility] MONO % 10.9 % [facility] EOS % 2.6 % [facility] BASO % 0.5 % [facility] GRAN MAT x10^3(ANC) 3.33 1.88 - 7.09 [facility] 10*3/uL [facility] IMM GRAN x10^3 0.03 0.00 - 0.06 [facility] 10*3/uL HOSPITAL LABORATORY LYMPH x10^3 2.00 1.32 - 3.29 [facility] 10*3/uL HOSPITAL LAB[facility]ATORY MONO x10^3 0.68 0.33 - 0.92 [facility] 10*3/uL [facility] EOS x10^3 0.16 0.03 - 0.39 [facility] 10*3/uL HOSPITAL LABORATORY BASO x10^3 0.03 0.01 - 0.07 [facility] 10*3/uL [facility] Specimen Blood - ARM, RIGHT Performing Organization Address City/State/Zipcode Phone Number [facility] CLIA: [id number], [address] [place] [address] POCT TEST (01/15/2019 12:21 PM CDT) POCT PREG Positive On board controls acceptable Yes with C Line POCT PREG LOT # [id number] POCT PREG TEST DATE 06/11/2020 Specimen Urine - URINE, CLEAN CATCH documented in this encounter Visit Diagnoses Diagnosis Vaginal bleeding in - Primary Unspecified antepartum hemorrhage, unspecified as to episode of care Threatened miscarriage Threatened , unspecified as to episode of care documented in this encounter Insurance Payer Benefit Plan / Subscriber ID Effective Phone Address Type Group Dates [facility] xxxxxxxxx 2018-Jake [address] Medicaid HEALTH CHOICE - [place]ALTH CHOICE [place] [id number] MANAGED MEDICAID [place], [place] MEDICAID [phone] documented as of this encounter Advance Directives Name Relationship Healthcare Agent Relationship Communication Jorge Ayon Spouse Primary healthcare agent
[2019-07-10 16:30] LABS: Urine Blood NEGATIVE (NEG); Urine Glucose NEGATIVE (NEG); Urine Protein NEGATIVE (NEG); Urine pH 8.5 (5.0-7.0)
[2019-07-10] MEDS ORDERED: NA CHLORIDE 0.9% 1,000 ML ONE (16:58)
[2019-07-10 17:03] LABS: Absolute Lymphocytes (CBC) 1.4 K/uL (0.7-4.9); Basophils % 0.3 % (0-1.3); Hematocrit 31.3 % (36.0-45.0); Lymphocytes % 22.2 % (15.3-44.8); MPV 7.6 fL (7.6-11.3); RBC Red Blood Cell Count 3.54 M/uL (3.86-4.86)
[2019-07-10 17:27] LABS: BUN Blood Urea Nitrogen 4 mg/dL (7-18); Bicarbonate 25 mmol/L (21-32); Glucose Level 102 mg/dL (74-106); HCG, Quantitative 5952 mIU/mL (1-3); Potassium 3.8 mmol/L (3.5-5.1); Sodium Level 139 mmol/L (136-145)
[2019-07-10] MEDS ORDERED: CEFTRIAXONE/SWI 1gm 1 GM/10 ML SYR ONE (17:47)
--- NOTE | 2019-07-10 17:48 | RAD REPORT ---
EXAM DESCRIPTION: US - OB Limited - 07/10/2019 5:03 pm CLINICAL HISTORY: ABD CRAMPING, age. COMPARISON: Transvaginal OB dated 01/25/2017 FINDINGS: A limited obstetrical ultrasound was requested by referring physician. A single variable presenting gestation is identified. Heart rate normal. Placenta is anterior without previa or abruption. Estimated age is 19 weeks 4 days. Amniotic fluid volume is subjectively n ormal. Cervix is closed.
--- NOTE | 2019-07-10 19:34 | ER ---
Nurse's Notes [facility] Name: Lena Doty Age: 19 yrs Sex: Female : 2000 Arrival Date: 07/10/2019 Time: 15:32 Bed 19 Private MD: Diagnosis: Dysuria; related conditions, unspecified, second trimester Presentation: 07/10 15:49 Presenting complaint: Patient states: I've been having a UTI since March, had jl7 antibiotics but it hasn't gotten any better, now I have green discharge, I haven't been to the doctor since I was 10 week because I'm trying to get on Medicaid. Transition of care: patient was not received from another setting of care. Onset of symptoms was March 2019. Risk Assessment: Do you want to hurt yourself or someone else? Patient reports no desire to harm self or others. Initial Sepsis Screen: Does the patient meet any 2 criteria? No. Patient's initial sepsis screen is negative. Does the patient have a suspected source of infection? No. Patient's initial sepsis screen is negative. Care prior to arrival: None. 15:49 Method Of Arrival: Ambulatory jl7 15:49 Acuity: [place] 3 jl7 15:51 Presenting complaint: Patient states: Pt also reports lower abdominal cramping started jl7 2 days ago. CARE MANAGEMENT COORDINATOR: 15:51 LMP 02/19/2019 jl7 17:37 7, Full Term 2, Premature 0, 4, Living 2 edwar Historical: - Allergies: 15:51 No Known Allergies; jl7 - Home Meds: 15:51 None [Active]; jl7 - PMHx: 15:51 Anemia; jl7 - PSHx: 15:51 Tonsillectomy; jl7 - Immunization history:: Adult Immunizations not up to date. - Coronavirus screen:: The patient has NOT traveled to [place], [place], or [place] in the past 14 days. Proceed with normal triage process as indicated. - Social history:: Smoking status: Patient denies any tobacco usage or history of. - Family history:: not pertinent. - Ebola Screening: : No symptoms or risks identified at this time. Screenin:57 Abuse screen: Denies threats or abuse. Denies injuries from another. Nutritional ph screening: No deficits noted. Tuberculosis screening: No symptoms or risk factors identified. Fall Risk None identified. Assessment: 17:04 General: Appears in no apparent distress. uncomfortable, slender, well groomed, ph Behavior is calm, cooperative, appropriate for age. Pain: Complains of pain in back and abdomen Quality of pain is described as crampy. Neuro: Level of Consciousness is awake, alert, obeys commands, Oriented to person, place, time, situation. Cardiovascular: Capillary refill < 3 seconds in bilateral fingers Patient's skin is warm and dry. Respiratory: Airway is patent Respiratory effort is even, unlabored, Respiratory pattern is regular, symmetrical. GI: Abdomen is round Bowel sounds present X 4 quads. Reports lower abdominal pain, nausea. : Reports cramping, in bilateral lower quadrant(s) lower back discharge, from vagina that is green, yellow, urinary frequency, Denies vaginal bleeding. Derm: Skin is intact, is healthy with good turgor, Skin is pink, warm \T\ dry. 19:15 Reassessment: Patient appears in no apparent distress at this time. Patient and/or wh family updated on plan of care and expected duration. Pain level reassessed. Patient is alert, oriented x 3, equal unlabored respirations, skin warm/dry/pink. 19:15 GI: Abd is soft and non tender. Vital Signs: 15:51 BP 119 / 66; Pulse 75; Resp 16 S; Temp 98.4(O); Pulse Ox 99% on R/A; Weight 63.5 kg jl7 (R); Height 5 ft. 5 in. (165.10 cm) (R); Pain 8/10; 19:15 BP 104 / 63; Pulse 63; Resp 18; Pulse Ox 100% ; wh 15:51 Body Mass Index 23.30 (63.50 kg, 165.10 cm) jl7 ED Course: 15:32 Patient arrived in ED. as 15:50 Triage completed. jl7 15:51 Arm band placed on right wrist. 7 15:54 Jeet Staples MD is Attending Physician. [facility] 15:54 Chrissy Celeste, SARINA is Primary Nurse. ph 16:00 Urine collected: clean catch specimen, cloudy. dh3 16:50 Inserted saline lock: 22 gauge in right antecubital area, using aseptic technique. ph Blood collected. 16:57 Patient has correct armband on for positive identification. Placed in gown. Bed in low ph position. Call light in reach. Side rails up X 1. Pulse ox on. NIBP on. Door closed. Noise minimized. Warm blanket given. 17:03 US OB Limited In Process Unspecified. EDWI 19:34 Jack Isbell MD is Referral Physician. [facility] 19:54 No provider procedures requiring assistance completed. IV discontinued, intact, bleeding controlled, No redness/swelling at site. Administered Medications: 17:14 Drug: NS 0.9% 1000 ml Route: IV; Rate: 1 bolus; Site: right antecubital; ph 19:55 Follow up: Response: No adverse reaction; IV Status: Completed infusion 17:45 Drug: Rocephin 1 grams Route: IV; Rate: per protocol; Site: right antecubital; ph 19:56 Follow up: IV Status: Completed infusion Outcome: 19:34 Discharge ordered by . [facility] 19:55 Discharged to home ambulatory. 19:55 Condition: stable 19:55 Discharge instructions given to patient, Instructed on discharge instructions, follow up and referral plans. medication usage, POC Demonstrated understanding of instructions, follow-up care, medications, POC Prescriptions given X 2. 19:57 Patient left the ED. Signatures: Dispatcher [employer] Jeet Osorio MD MD cha Martinez, Amelia as Hall, Patricia, RN RN Tea Green RN RN jl7 Clarissa Hardy [facility] Isreal Carter
--- NOTE | 2019-07-10 19:34 | EDPHYS ---
Physician Documentation [facility] Name: Lena Doty Age: 19 yrs Sex: Female : 2000 Arrival Date: 07/10/2019 Time: 15:32 Bed 19 Private MD: ED Physician Jeet Staples HPI: 07/10 17:37 This 19 yrs old Female presents to ER via Ambulatory with complaints of edwar Urinary Problem, Vaginal Discharge, Abdominal Cramping - 19 wks preg. 17:37 The patient presents with flank pain, bilaterally, vaginal discharge. Onset: The edwar symptoms/episode began/occurred 2 day(s) ago. Modifying factors: The symptoms are alleviated by nothing, the symptoms are aggravated by nothing. Associated signs and symptoms: The patient has no apparent associated signs or symptoms. Severity of symptoms: At their worst the symptoms were mild, in the emergency department the symptoms are unchanged. The patient is sexually active, reportedly has a single partner. 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 - Coronavirus screen:: The patient has NOT traveled to [place], [place], or [place] in the past 14 days. Proceed with normal triage process as indicated. - Social history:: Smoking status: Patient denies any tobacco usage or history of. - Family history:: not pertinent. - Ebola Screening: : No symptoms or risks identified at this time. ROS: 17:37 Constitutional: Negative for fever, chills, and weight loss, Eyes: Negative for injury, edwar pain, redness, and discharge, ENT: Negative for injury, pain, and discharge, Neck: Negative for injury, pain, and swelling, Cardiovascular: Negative for chest pain, palpitations, and edema, Respiratory: Negative for shortness of breath, cough, wheezing, and pleuritic chest pain, : Negative for injury, bleeding, discharge, and swelling, MS/Extremity: Negative for injury and deformity, Skin: Negative for injury, rash, and discoloration, Neuro: Negative for headache, weakness, numbness, tingling, and seizure, Psych: Negative for depression, anxiety, suicide ideation, homicidal ideation, and hallucinations, Allergy/Immunology: Negative for hives, rash, and allergies, Endocrine: Negative for neck swelling, polydipsia, polyuria, polyphagia, and marked weight changes, Hematologic/Lymphatic: Negative for swollen nodes, abnormal bleeding, and unusual bruising. 17:37 Abdomen/GI: Positive for abdominal cramps. 17:37 Back: Positive for pain at rest. Exam: 17:37 Constitutional: This is a well developed, well nourished patient who is awake, alert, edwar and in no acute distress. Head/Face: Normocephalic, atraumatic. Eyes: Pupils equal round and reactive to light, extra-ocular motions intact. Lids and lashes normal. Conjunctiva and sclera are non-icteric and not injected. Cornea within normal limits. Periorbital areas with no swelling, redness, or edema. ENT: Nares patent. No nasal discharge, no septal abnormalities noted. Tympanic membranes are normal and external auditory canals are clear. Oropharynx with no redness, swelling, or masses, exudates, or evidence of obstruction, uvula midline. Mucous membranes moist. Neck: Trachea midline, no thyromegaly or masses palpated, and no cervical lymphadenopathy. Supple, full range of motion without nuchal rigidity, or vertebral point tenderness. No Meningismus. Chest/axilla: Normal chest wall appearance and motion. Nontender with no deformity. No lesions are appreciated. Cardiovascular: Regular rate and rhythm with a normal S1 and S2. No gallops, murmurs, or rubs. Normal PMI, no JVD. No pulse deficits. Respiratory: Lungs have equal breath sounds bilaterally, clear to auscultation and percussion. No rales, rhonchi or wheezes noted. No increased work of breathing, no retractions or nasal flaring. Back: No spinal tenderness. No costovertebral tenderness. Full range of motion. Skin: Warm, dry with normal turgor. Normal color with no rashes, no lesions, and no evidence of cellulitis. MS/ Extremity: Pulses equal, no cyanosis. Neurovascular intact. Full, normal range of motion. Neuro: Awake and alert, GCS 15, oriented to person, place, time, and situation. Cranial nerves II-XII grossly intact. Motor strength 5/5 in all extremities. Sensory grossly intact. Cerebellar exam normal. Normal gait. 17:37 Abdomen/GI: Inspection: distension, gravid appearance, is noted, Bowel sounds: normal, Palpation: abdomen is soft and non-tender, Liver: no appreciated palpable abnormalities, Hernia: not appreciated. Vital Signs: 15:51 BP 119 / 66; Pulse 75; Resp 16 S; Temp 98.4(O); Pulse Ox 99% on R/A; Weight 63.5 kg jl7 (R); Height 5 ft. 5 in. (165.10 cm) (R); Pain 8/10; 19:15 BP 104 / 63; Pulse 63; Resp 18; Pulse Ox 100% ; wh 15:51 Body Mass Index 23.30 (63.50 kg, 165.10 cm) jl7 MDM: 15:54 Patient medically screened. [facility] 17:39 Data reviewed: vital signs, nurses notes, lab test result(s), radiologic studies, [facility] ultrasound. 07/10 15:54 Order name: Urine Culture [facility] 07/10 16:10 Order name: Quantitative Hcg; Complete Time: 17:35 [facility] 07/10 16:10 Order name: Abo/rh Typing [facility] 07/10 16:10 Order name: Basic Metabolic Panel; Complete Time: 17:35 [facility] 07/10 16:10 Order name: CBC with Diff; Complete Time: 17:35 [facility] 07/10 16:23 Order name: Urine Dipstick--Ancillary (enter results); Complete Time: 17:35 07/10 15:54 Order name: Urine Dipstick-Ancillary (obtain specimen); Complete Time: 16:22 [facility] 07/10 16:10 Order name: IV Saline Lock; Complete Time: 16:44 [facility] 07/10 16:10 Order name: Labs collected and sent; Complete Time: 16:44 [facility] 07/10 16:10 Order name: US OB Limited; Complete Time: 18:05 [facility] 07/10 16:23 Order name: Urine --Ancillary (enter results); Complete Time: 17:35 07/10 16:10 Order name: NPO; Complete Time: 16:44 [facility] Administered Medications: 17:14 Drug: NS 0.9% 1000 ml Route: IV; Rate: 1 bolus; Site: right antecubital; ph 19:55 Follow up: Response: No adverse reaction; IV Status: Completed infusion 17:45 Drug: Rocephin 1 grams Route: IV; Rate: per protocol; Site: right antecubital; ph 19:56 Follow up: IV Status: Completed infusion Disposition: 07/10/19 19:34 Discharged to Home. Impression: Dysuria, related conditions, unspecified, second trimester. - Condition is Stable. - Discharge Instructions: Dysuria, First Trimester of , [id number], First Trimester of , Pelvic Rest. - Prescriptions for Vitamin 27- 0.8 mg Oral Tablet - take 1 tablet by ORAL route once daily; 30 tablet. Macrobid 100 mg Oral Capsule - take 1 capsule by ORAL route every 12 hours for 7 days; 14 capsule. - Medication Reconciliation Form, Thank You Letter, Antibiotic Education, Prescription Opioid Use form. - Follow up: Private Physician; When: 2 - 3 days; Reason: Recheck today's complaints, Continuance of care, Re-evaluation by your physician. Follow up: Jack Isbell; When: 2 - 3 days; Reason: Recheck today's complaints, Re-evaluation by your physician. - Problem is new. - Symptoms have improved. Signatures: Dispatcher [employer] Jeet Osorio MD MD cha Hall, Patricia RN RN Tea Green RN RN [facility] Isreal Carter Corrections: (The following items were deleted from the chart) 17:10 15:54 T's ordered. [facility] 19:57 19:34 07/10/2019 19:34 Discharged to Home. Impression: Dysuria; related conditions, unspecified, second trimester. Condition is Stable. Discharge Instructions: Dysuria, First Trimester of , [id number], First Trimester of , Pelvic Rest. Prescriptions for Vitamin 27-0.8 mg Oral Tablet - take 1 tablet by ORAL route once daily; 30 tablet, Macrobid 100 mg Oral Capsule - take 1 capsule by ORAL route every 12 hours for 7 days; 14 capsule. and Forms are Medication Reconciliation Form, Thank You Letter, Antibiotic Education, Prescription Opioid Use. Follow up: Private Physician; When: 2 - 3 days; Reason: Recheck today's complaints, Continuance of care, Re-evaluation by your physician. Follow up: Jack Isbell; When: 2 - 3 days; Reason: Recheck today's complaints, Re-evaluation by your physician. Problem is new. Symptoms have improved. edwar
[2019-07-11 09:45] VITALS: TEMP 98.4
[2019-07-11 09:46] VITALS: BP 104/63; O2SAT 100
== END 2019-07-10 19:57 | disposition home or self-care (01) ==
LOC: ER 15:29
DX: O26.892 Other specified pregnancy related conditions, second trimester (principal); Z3A.19 19 weeks gestation of pregnancy
CPT/HCPCS: 36415; 76815; 80048; 81003; 81025; 84702; 85025; 86900; 86901; 87086; 87088; 96361; 96365; 96366; 99284; J0696; J7030

== ENCOUNTER 2020-12-03 01:16 | Emergency (ER) | payer SELFPAY ==
--- OUTSIDE RECORDS SUMMARY | 2020-12-03 01:20 | XMS REPORT | Continuity of Care Document ---
:2000 Author Organization [facility] t Address [address] [place] [address] Care Team Providers Name Role Phone Asked, Pcp Primary Care Physician Unavailable MD SHRUTHI MARIE Attending Clinician Unavailable Shruthi Marie MD Attending Clinician Delbert WARREN Attending Clinician DELBERT Attending Clinician Unavailable Selma Brewer MD Attending Clinician SELMA BREWER Attending Clinician Unavailable Doctor Unassigned, Name Attending Clinician Unavailable Enrique Mcneill MD Attending Clinician Lavon VARGAS, R Attending Clinician MD SHRUTHI MARIE Admitting Clinician Unavailable Enrique Mcneill MD Admitting Clinician Payers Payer Name Policy Type Policy Effective Date Expiration Date Sour ce Number FORMERLY [facility] [id number] 2019 [facility] 00:00:00 [facility] CHC/STAR [id number] 20-[facility] MEDICAID - [id number] [address] [facility] - MEDICAID MGD 00:00:00 [facility] [id number] aid Contracted Problems Condition Condition Condition Status Onset Resolution Last Treating Co mments Source Name Details Category Date Date Treatment Clinician Date Menorrhagi Problem Active 2020-09-25 M emoria a with 02:51:28 l regular [place] cycle Menorrhagi a with regular cycle Active Problem 09/25/2020 [facility] [place] Excessive Problem Active 2020-09-25 Me moria bleeding 02:51:28 l in [place] premenopau Excessive tomer period bleeding in premenopau tomer period Active Problem 09/25/2020 [facility] [place] Dysmenorrh Problem Active 2020-09-25 M emoria ea 02:51:28 l Jose Raul Dysmenorrh ea Active Problem [facility] [place] Allergies, Adverse Reactions, Alerts Allergy Allergy Status Severity Reaction(s) Onset Inactive Treating Comm ents Source Name Type Date Date Clinician No Known DA Active [facility] [place] s 00:00: [facility] 00 are [place] N.K.D.A. N.K.D.A. Active Info Not Alberto clem Available 02-23 l 00:00: [place] 00 No Known DA Active U [facility] 01-23 [place] s 00:00: [facility] 00 are [place] Social History Social Habit Start Date Stop Date Quantity Comments Source Sex Assigned At [facility] Tobacco use and 2020-03-08 2020-03-08 Never used [facility] - exposure 00:00:00 00:00:00 [facility] Alcohol intake 2020-03-08 2020-03-08 Current drinker [facility] - 00:00:00 00:00:00 of alcohol [facility] Center (finding) Alcohol Comment 2020-02-18 2020-02-18 soically [facility] - 00:00:00 00:00:00 Medical Center Smoking Status Start Date Stop Date Source Never smoker [facility] Medications Ordered Filled Start Stop Current Ordering Indication Dosage Frequency Signature Comments Components Source Medication Medication Date Date Medication? Clinician (SIG) Name Name cephalexin 2020- No 500mg [id number] Take [address] [facility] (KEFLEX) 03-08 [id number] capsule L ukes - 500 MG 00:00: 23:59 3D (500 mg Medical capsule 00 :00 total) by Center mouth 3 (three) times daily for 7 days. traMADoL Yes 50mg Take [address] [facility] [address] (ULTRAM) 50 02-17 by mouth Luke s - mg tablet 20:42: every 6 Medic al 34 (six) Center hours as needed for Pain. Vital Signs Vital Name Observation Time Observation Value Comments Source Systolic blood 2020-09-29 10:30:00 117 mm[Hg] [place] [facility] pressure Diastolic blood 2020-09-29 10:30:00 76 mm[Hg] [place] [facility] pressure Heart rate 2020-09-29 10:30:00 106 /min Mohan [facility] Respiratory rate 2020-09-29 10:30:00 10 /min [place] [facility] Oxygen saturation in 2020-09-29 10:30:00 99 /min [place] [facility] Arterial blood by Pulse oximetry Body temperature 2020-09-29 10:12:00 38.89 Enma Linda eid [facility] Body height 2020-09-29 09:56:00 167.6 cm [place] [facility] Body weight 2020-09-29 09:56:00 63.504 kg [place] [facility] BMI 2020-09-29 09:56:00 22.60 kg/m2 [place] [facility] Systolic blood 2020-03-08 13:42:00 106 mm[Hg] [facility] Diastolic blood 2020-03-08 13:42:00 58 mm[facility]Hg[facility] Heart rate 2020-03-08 13:42:00 82 /min [facility] Body temperature 2020-03-08 13:42:[address] [facility] Respiratory rate 2020-03-08 13:42:00 16 /min [facility] Oxygen saturation in 2020-03-08 13:10:00 99 /min [facility] - Arterial blood by Medical Ce nter Pulse oximetry Body height 2020-03-08 11:56:[address] [facility] Body weight 2020-03-08 11:56:00 64.864 kg [facility] BMI 2020-03-08 11:56:00 23.08 kg/m2 [facility] Weight 2020-02-24 20:30:00 [facility] Raul Diastolic (mm Hg) 2020-02-24 20:30:00 Mem orial [place] Systolic (mm Hg) 2020-02-24 20:30:00 Alberto rial [place] Procedures Procedure Date / Time Performing Clinician Source Performed URINALYSIS, AUTOMATED 2020-09-29 10:48:00 Leodan Marie WITH MICROSCOPY Shruthi HCG QUALITATIVE, URINE 2020-09-29 10:48:00 Leodan Marie [facility] SCREEN Shruthi COVID-19 QUALITATIVE PCR 2020-09-29 10:37:00 Leodan Marie INFLUENZA ANTIGEN 2020-09-29 10:35:00 Leodan Marie XR CHEST 1 VW PORTABLE 2020-09-29 10:18:58 Leodan Marie [facility] Jane CBC W/PLT COUNT & AUTO 2020-03-08 13:02:00 Delbert [facility] BASIC METABOLIC PANEL 2020-03-08 13:02:00 Delbert [facility] URINE CULTURE 2020-03-08 11:48:00 Delbert [facility] SCREEN, URINE 2020-03-08 11:48:00 Delbert [facility] URINALYSIS W/ 2020-03-08 11:48:00 Delbert [facility] TRANSFUSION SERVICE 2020 18:08:04 Provider, Default [facility] - REPORT - SCAN Scanning [facility] TRANSFUSION SERVICE 2020-02-19 18:07:38 Provider, Default [facility] REPORT - SCAN Scanning [facility] US PELVIS WITH ENDOVAG 2020-02-19 00:14:00 Saji Brewer [facility] - WITH DOPPLER [facility] ABORH, MANUAL 2020-02-18 23:15:[address] [facility] URINALYSIS W/ REFLEX 2020-02-18 21:16:00 Saji Brewer [facility] URINE CULTURE [facility] CBC W/PLT COUNT & AUTO 2020-02-18 21:15:[address] [facility] DIFFERENTIAL [facility] COMPREHENSIVE METABOLIC 2020-02-18 21:15:00 Saji Brewer [facility] PANEL [facility] HCG, SERUM, QUALITATIVE 2020-02-18 21:15:[address] [facility] TYPE AND SCREEN, 2020-02-18 21:15:00 Saji Brewer [facility] AUTOMATED [facility] Plan of Care Planned Activity Planned Date Details Comments Source Future Scheduled 2029-10-17 DTAP/TDAP/TD [facility] - Test 00:00:00 VACCINES (2 - Td) Medical Ce nter [code = DTAP/TDAP/TD VACCINES (2 - Td)] Future Scheduled 2021-01-10 INFLUENZA VACCINE [place] [facility] Test 00:00:00 [code = INFLUENZA VACCINE] Future Scheduled 2020-06-[address] [facility] - Test 00:00:00 (12+) [code = [facility] DEPRESSION SCREENING (12+)] Future Scheduled 2020-02-[address] [facility] - Test 00:00:00 (#1) [code = [facility] INFLUENZA VACCINE (#1)] Future Scheduled 2019 Screening for [facility]an [facility] Test 00:00:00 malignant neoplasm of cervix (procedure) [code = 199955759] Future Scheduled [address] [facility] - Test 00:00:00 malignant neoplasm Medical C enter of cervix (procedure) [code = 485887567] Future Scheduled 2016-02-21 Hepatitis C Mohan [facility] Test 00:00:00 screening (procedure) [code = 844882638] Future Scheduled 2016-02-[address] [facility] - Test 00:00:00 SCREENING [code = Medical Ce nter HEPATITIS C SCREENING] Future Scheduled 2014 CHLAMYDIA SCREENING [place] [facility] Test 00:00:00 [code = CHLAMYDIA SCREENING] Future Scheduled 2010 COVID-19 VACCINE (1) Susana ston [facility] Test 00:00:00 [code = COVID-19 VACCINE (1)] Encounters Start End Encounter Admission Attending Care Care Encounter Source Date/Time Date/Time Type Type Clinicians Facility Department ID 2020-09-29 2020-09-29 Emergency BRITTANY, [facility] [id number] [place] 00:00:00 00:00:00 LEODAN 344 Method i 2020-02-24 2020-02-24 Outpatient Jordan Pierce [id number] [facility]inic 15:30:00 15:30:00 Aron Sharp MD al Works PA PA 2020-02-18 2020-02-19 Emergency [facility] [id number] [place] 00:00:00 00:00:00 672 Method i 2019-12-24 2019-12-24 Orders Doctor CARLOS [id number] 00:00:00 00:00:00 Only UnassignedJIM 350.1.13.10 [facility] 4.2.7.2.686 [id number] 2019-11-18 2019-11-21 Hospital CARLOS Mcneill [id number] 18:15:00 13:26:00 Encounter Pelon FERNANDEZ 350.1.13.10 HOSPITAL 4.2.7.2.686 [id number] 2019-11-19 2019-11-19 Telephone DollJOHNNY [id number] 00:00:00 00:00:00 Jenelle Olson [employer] 350.1.13.10 [facility] 4.2.7.2.686 MATERNAL [id number] & CHILD [address] [place] [address] 2019-11-19 2019-11-19 Orders Doctor CARLOS [id number] 00:00:00 00:00:00 Only UnassignedJIM 350.1.13.10 [facility] 4.2.7.2.686 [id number] 2019-11-18 2019-11-18 Orders Doctor CARLOS [id number] 00:00:00 00:00:00 Only UnassignedJIM 350.1.13.10 [facility] 4.2.7.2.686 [id number] Results Test Description Test Time Test Comments Results Result Comments Source SARS-CoV-2 (COVID-19) RNA [Presence] in Respiratory sp ecimen by 2020-09-29 18:08:26 MARLY with probe detection Test Item Value Reference Range Interpretation Comme nts SARS-CoV-2 (COVID-19) RNA [Presence] in Respiratory Detected No t-Detected specimen by MARLY with probe detection (test code = 75392-0) Whether 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 There is no focal consolidation, pleural effusion or pneumothorax. Cardiac silhouette is normal. Visualized osseous structures are without acute abnormality.[id number] [facility]- XR PELVIS 1/2 [id number] 09:11:00 [facility] 2000 Sex: FPatient Name: ALMAS DEY Unit No: [id number] EXAMS: CPT: [id number] XR PELVIS 1/2 VIEWS 18565 Clinical History: Buttock pain. Exam: - XR PELVIS 1/2 VIEWS Technique: AP supine view of the pelvis Comparison: None. Findings: No significant radiographic abnormalities are seen of the pelvic ring, visualized portions of the lower lumbar spine and proximal femurs, joint spaces, and visualized soft tissues. Impression: No significant radiographic abnormalities of the pelvis seen. at 0911 Reported and signed by: Edith Wellington MD CC: MANOLO BELL MD Technologist: MONIQUE JEFF Trscr Dt/Tm: 07/30/2020 (910) by:[email or web address] Orig Print D/T: S: 07/30/2020 (913) BATCH NO: N/A Name: ALMAS DEY Emergency Dept Phys: [facility].21 [place] [address] [facility] : 2000 Age: 20 Sex: [place] [id number] Loc: DELIA Exam Date: 07/30/2020 Status: PRE ER PH: [phone] FAX: PAGE 1 Signed ReportURINALYSIS DIPSTICK POC 2020-07-30 08:51:00 Test Item Value Reference Range Interpretation Comments UA COLOR (test code Yellow YELLOW = COLU) UA APPEARANCE (test Clear CLEAR code = APPU) UA GLUCOSE DIPSTICK NEGATIVE MG/AL NEGATIVE (test code = DGLUU) UA BILIRUBIN 1+ NEGATIVE A DIPSTICK (test code = BILU) UA KETONE DIPSTICK NEGATIVE MG/DL NEGATIVE (test code = KETU) UA SPECIFIC GRAVITY >=1.030 1.000-1.030 (test code = SGU) UA BLOOD DIPSTICK 2+ NEGATIVE A (test code = MICHAEL) UA PH DIPSTICK (test 5.5 4.5-8.5 code = LEROY) UA PROTEIN DIPSTICK NEGATIVE NEGATIVE (test code = PROU) UA UROBILINOGEN 0.2 EU/dL See_Comment [Automated DIPSTICK (test code message] The system = URO) which generated this result transmitted reference range : <=1.0. The reference range was not used to interpret this result as normal/abnormal . UA NITRITE DIPSTICK NEGATIVE NEGATIVE (test code = PETER) UA LEUKOCYTE NEGATIVE NEGATIVE ESTERASE DIPSTICK (test code = LEUU) UA MICROSCOPIC YES NEEDED? (test code = UAMICRO) UA [id number] 08:51:00 Test Item Value Reference Range Interpretation Comments UA WBC (test code = WBCU) NONE SEEN /HPF 0-3 UA RBC (test code = RBCU) 3-5 /HPF 0-3 A UA EPITHELIAL CELLS (test code FEW /LPF NONE-FEW = EPIU) UA BACTERIA (test code = BACU) FEW /HPF NONE SEEN UA MUCUS (test code = MUCU) 1+ /LPF NONE-FEW A URINALYSIS DIPSTICK [id number] 08:43:00 Test Item Value Reference Range Interpretation Comments UA COLOR (test code Yellow YELLOW = COLU) UA APPEARANCE (test Clear CLEAR code = APPU) UA GLUCOSE DIPSTICK NEGATIVE MG/AL NEGATIVE (test code = DGLUU) UA BILIRUBIN 1+ NEGATIVE A DIPSTICK (test code = BILU) UA KETONE DIPSTICK NEGATIVE MG/DL NEGATIVE (test code = KETU) UA SPECIFIC GRAVITY >=1.030 1.000-1.030 (test code = SGU) UA BLOOD DIPSTICK 2+ NEGATIVE A (test code = MICHAEL) UA PH DIPSTICK (test 5.5 4.5-8.5 code = LEROY) UA PROTEIN DIPSTICK NEGATIVE NEGATIVE (test code = PROU) UA UROBILINOGEN 0.2 EU/dL See_Comment [Automated DIPSTICK (test code message] The system = URO) which generated this result transmitted reference range : <=1.0. The reference range was not used to interpret this result as normal/abnormal . UA NITRITE DIPSTICK NEGATIVE NEGATIVE (test code = PETER) UA LEUKOCYTE NEGATIVE NEGATIVE ESTERASE DIPSTICK (test code = LEUU) UA MICROSCOPIC YES NEEDED? (test code = UAMICRO) URINALYSIS DIPSTICK [id number] 08:43:00 Test Item Value Reference Range Interpretation Comments UA COLOR (test code Yellow YELLOW = COLU) UA APPEARANCE (test Clear CLEAR code = APPU) UA GLUCOSE DIPSTICK NEGATIVE MG/AL NEGATIVE (test code = DGLUU) UA BILIRUBIN 1+ NEGATIVE A DIPSTICK (test code = BILU) UA KETONE DIPSTICK NEGATIVE MG/DL NEGATIVE (test code = KETU) UA SPECIFIC GRAVITY >=1.030 1.000-1.030 (test code = SGU) UA BLOOD DIPSTICK 2+ NEGATIVE A (test code = MICHAEL) UA PH DIPSTICK (test 5.5 4.5-8.5 code = LEROY) UA PROTEIN DIPSTICK NEGATIVE NEGATIVE (test code = PROU) UA UROBILINOGEN 0.2 EU/dL See_Comment [Automated DIPSTICK (test code message] The system = URO) which generated this result transmitted reference range : <=1.0. The reference range was not used to interpret this result as normal/abnormal . UA NITRITE DIPSTICK NEGATIVE NEGATIVE (test code = PETER) UA LEUKOCYTE NEGATIVE NEGATIVE ESTERASE DIPSTICK (test code = LEUU) UA MICROSCOPIC YES NEEDED? (test code = UAMICRO) UR HCG [id number] 08:43:00 Test Item Value Reference Range Interpretation Comments UR HCG QUAL (test code = HCGQLU) NEGATIVE NEGATIVE URINALYSIS DIPSTICK [id number] 08:42:00 Test Item Value Reference Range Interpretation Comments UA COLOR (test code Yellow YELLOW = COLU) UA APPEARANCE (test Clear CLEAR code = APPU) UA GLUCOSE DIPSTICK NEGATIVE MG/AL NEGATIVE (test code = DGLUU) UA BILIRUBIN 1+ NEGATIVE A DIPSTICK (test code = BILU) UA KETONE DIPSTICK NEGATIVE MG/DL NEGATIVE (test code = KETU) UA SPECIFIC GRAVITY >=1.030 1.000-1.030 (test code = SGU) UA BLOOD DIPSTICK 2+ NEGATIVE A (test code = MICHAEL) UA PH DIPSTICK (test 5.5 4.5-8.5 code = LEROY) UA PROTEIN DIPSTICK NEGATIVE NEGATIVE (test code = PROU) UA UROBILINOGEN 0.2 EU/dL See_Comment [Automated DIPSTICK (test code message] The system = URO) which generated this result transmitted reference range : <=1.0. The reference range was not used to interpret this result as normal/abnormal . UA NITRITE DIPSTICK NEGATIVE NEGATIVE (test code = PETER) UA LEUKOCYTE NEGATIVE NEGATIVE ESTERASE DIPSTICK (test code = LEUU) URINE [id number] 10:40:00 Test Item Value Reference Range Interpretation Comments CULTURE (BEAKER) (test ESCHERICHIA COLI A > 100,000 col/mL code = 1095) Escherichia col i Amikacin (test code = S 1) Ampicillin + Sulbactam R (test code = 6) Aztreonam (test code = S 32) Cefazolin (test code = S 9) Cefepime (test code = S 51) Cefoxitin (test code = S 68) Ceftazidime (test code S = 27) Ceftriaxone (test code S = 52) Ertapenem (test code = S 38) Gentamicin (test code S = 18) Levofloxacin (test S code = 22) Meropenem (test code = S 34) Nitrofurantoin (test S code = 23) Piperacillin + S Tazobactam (test code = 29) Tobramycin (test code S = 25) Trimethoprim + S Sulfamethoxazole (test code = 47) 20-29,000 col/mL skin floraBasic Metabolic [id number] 13:18:00 Test Item Value Reference Range Interpretation Comments Sodium (test code = 134 meq/L 135-148 L 2951-2) Potassium (test code = 4.1 meq/L 3.6-5.5 2823-3) Chloride (test code = 103 meq/L 98-106 2075-0) CO2 (test code = 27 meq/L 24-32 2028-9) BUN (test code = 10 mg/dL 10-26 3094-0) Creatinine (test code = 0.61 mg/dL 0.5-1.2 2160-0) Glucose (test code = 98 mg/dL 70-110 2345-7) Calcium (test code = 9.0 mg/dL 8.5-10.5 89194-8) EGFR (test code = 123 mL/min/1.73 [place] [address]-7) NOT ACCURATE CREATININE CLEARANCE IN PREDICTING GLOMERULAR FILTRATION RATE . ESTIMATED GFR I S NOT APPLICABLE FOR DIALYSIS PATIEN TS. Lab Interpretation Abnormal (test code = 64777-8) [facility] [id number] 13:18:00 Test Item Value Reference Range Interpretation Comments SODIUM (BEAKER) 134 meq/L 135-148 L (test code = 381) POTASSIUM (BEAKER) 4.1 meq/L 3.6-5.5 (test code = 379) CHLORIDE (BEAKER) 103 meq/L 98-106 (test code = 382) CO2 (BEAKER) (test 27 meq/L 24-32 code = 355) BLOOD UREA NITROGEN 10 mg/dL 10-26 (BEAKER) (test code = 354) CREATININE (BEAKER) 0.61 mg/dL 0.50-1.20 (test code = 358) GLUCOSE RANDOM 98 mg/dL 70-110 (BEAKER) (test code = 652) CALCIUM (BEAKER) 9.0 mg/dL 8.5-10.5 (test code = 697) EGFR (BEAKER) (test 123 mL/min/1.73 ESTIM ATED GFR IS code = 1092) sq m NOT ACCURATE CREATININE CLEARANCE IN PREDICTING GLOMERULAR FILTRATION RATE . ESTIMATED GFR I S NOT APPLICABLE FOR DIALYSIS PATIEN TS. CBC with platelet count + automated [id number] 13:08:00 Test Item Value Reference Range Interpretation Comments WBC (test code = 6690-2) 9.4 See_Comment [A utomated message] The system [employer] generated this result transmitted ref erence range: 4.0 - 10 .0 K/L. The refe rence range was not u sed to interpret this result as normal/abnor mal. RBC (test code = 789-8) 3.96 See_Comment L [Au tomated message] The system [employer] generated this result transmitted ref erence range: 4.00 - 5 .00 M/L. The refe rence range was not u sed to interpret this result as normal/abnor mal. MCHC (test code = 786-4) 34.9 See_Comment [A utomated message] The system [employer] generated this result transmitted ref erence range: 32.0 - 3 6.0 GM/DL. The refe rence range was not u sed to interpret this result as normal/abnor mal. Hematocrit (test code = 34.4 % 36-46 L 4544-3) MCV (test code = 787-2) 86.9 fL 82-99 MCH (test code = 785-6) 30.3 pg 27-33 RDW (test code = 788-0) 12.7 % 12-15 Platelets (test code = 264 See_Comment [Aut omated message] 777-3) The system [employer] generated this result transmitted ref erence range: 150 - 43 0 K/CU MM. The referen ce range was not u sed to interpret this result as normal/abnor mal. MPV (test code = 9.0 fL 6-11.5 26417-2) nRBC (test code = 413) 0 See_Comment [Aut omated message] The system [employer] generated this result transmitted ref erence range: 0 - 0 /1 00 WBC. The refere nce range was not u sed to interpret this result as normal/abnor mal. % Neutros (test code = 79 % 429) % Lymphs (test code = 11 % 430) % Monos (test code = 8 % 431) % Eos (test code = 432) 1 % % Baso (test code = 437) 0 % # Neutros (test code = 7.45 See_Comment [Aut omated message] 670) The system [employer] generated this result transmitted ref erence range: 1.80 - 8 .00 K/L. The refe rence range was not u sed to interpret this result as normal/abnor mal. # Lymphs (test code = 1.05 See_Comment L [Auto mated message] 414) The system [employer] generated this result transmitted ref erence range: 1.48 - 4 .50 K/L. The refe rence range was not u sed to interpret this result as normal/abnor mal. # Monos (test code = 0.76 See_Comment [Autom ated message] 415) The system [employer] generated this result transmitted ref erence range: 0.00 - 1 .30 K/L. The refe rence range was not u sed to interpret this result as normal/abnor mal. # Eos (test code = 416) 0.10 See_Comment [Au tomated message] The system [employer] generated this result transmitted ref erence range: 0.00 - 0 .50 K/L. The refe rence range was not u sed to interpret this result as normal/abnor mal. # Baso (test code = 417) 0.02 See_Comment [A utomated message] The system [employer] generated this result transmitted ref erence range: 0.00 - 0 .20 K/L. The refe rence range was not u sed to interpret this result as normal/abnor mal. Immature 0 % 0-0 Granulocytes-Relative (test code = 2801) Lab Interpretation (test Abnormal code = 42439-7) [facility] W/PLT COUNT & AUTO [id number] 13:08:00 Test Item Value Reference Range Interpretation Comments WHITE BLOOD CELL COUNT (BEAKER) 9.4 K/ L 4.0-10.0 (test code = 775) RED BLOOD CELL COUNT (BEAKER) 3.96 M/ L 4.00-5.00 L (test code = 761) HEMOGLOBIN (BEAKER) (test code = 12.0 GM/DL 12.0-15.5 410) HEMATOCRIT (BEAKER) (test code = 34.4 % 36.0-46.0 L 411) MEAN CORPUSCULAR VOLUME (BEAKER) 86.9 fL 82.0-99.0 (test code = 753) MEAN CORPUSCULAR HEMOGLOBIN 30.3 pg 27.0-33.0 (BEAKER) (test code = 751) MEAN CORPUSCULAR HEMOGLOBIN CONC 34.9 GM/DL 32.0-36.0 (BEAKER) (test code = 752) RED CELL DISTRIBUTION WIDTH 12.7 % 12.0-15.0 (BEAKER) (test code = 412) PLATELET COUNT (BEAKER) (test 264 K/CU MM 150-430 code = 756) MEAN PLATELET VOLUME (BEAKER) 9.0 fL 6.0-11.5 (test code = 754) NUCLEATED RED BLOOD CELLS 0 /100 WBC 0-0 (BEAKER) (test code = 413) NEUTROPHILS RELATIVE PERCENT 79 % (BEAKER) (test code = 429) LYMPHOCYTES RELATIVE PERCENT 11 % (BEAKER) (test code = 430) MONOCYTES RELATIVE PERCENT 8 % (BEAKER) (test code = 431) EOSINOPHILS RELATIVE PERCENT 1 % (BEAKER) (test code = 432) BASOPHILS RELATIVE PERCENT 0 % (BEAKER) (test code = 437) NEUTROPHILS ABSOLUTE COUNT 7.45 K/ L 1.80-8.00 (BEAKER) (test code = 670) LYMPHOCYTES ABSOLUTE COUNT 1.05 K/ L 1.48-4.50 L (BEAKER) (test code = 414) MONOCYTES ABSOLUTE COUNT (BEAKER) 0.76 K/ L 0.00-1.30 (test code = 415) EOSINOPHILS ABSOLUTE COUNT 0.10 K/ L 0.00-0.50 (BEAKER) (test code = 416) BASOPHILS ABSOLUTE COUNT (BEAKER) 0.02 K/ L 0.00-0.20 (test code = 417) IMMATURE GRANULOCYTES-RELATIVE 0 % 0-0 PERCENT (BEAKER) (test code = 2801) Urinalysis w/[id number] 12:23:00 Test Item Value Reference Range Interpretation Comments Color, UA (test code = Yellow 5778-6) Clarity, UA (test code = Cloudy 5767-9) Specific [place], UA 1.025 1.001-1.035 (test code = 5811-5) pH, UA (test code = 6.5 5.0-8.0 5803-2) Protein, UA (test code = 100 mg/dL Negative A 23218-2) Glucose, UA (test code = Negative Negative 365) Ketones, UA (test code = Negative Negative 2514-8) Bilirubin, UA (test code Negative Negative = 92371-8) Blood, UA (test code = Large Negative A 17071-1) Nitrite, UA (test code = Positive Negative A 5802-4) Leukocytes, UA (test Moderate Negative A code = 5799-2) Urobilinogen, UA (test 0.2 mg/dL 0.2-1 code = 30201-6) Bacteria, UA (test code Many = 25734-6) RBC, UA (test code = 20-50 See_Comment [Autom ated message] 799-7) The system [employer] generated this result transmit silvia reference range : /HPF. The refer ence range was not u sed to interpret th is result as normal/abnormal . WBC, UA (test code = >100 See_Comment [Autom ated message] 42448-1) The system Sense.[employer] generated this result transmit silvia reference range : /HPF. The refer ence range was not u sed to interpret th is result as normal/abnormal . SQUAMOUS EPITHELIAL 5-10 See_Comment [Automa silvia message] (test code = 44606-5) The sy stem which generated this result transmit silvia reference range : /HPF. The refer ence range was not u sed to interpret th is result as normal/abnormal . Specimen Source (test code = 2795) Lab Interpretation (test Abnormal code = 72091-8) [facility] [id number] 12:23:00 Test Item Value Reference Range Interpretation Comments COLOR (BEAKER) (test code = 470) Yellow CLARITY (BEAKER) (test code = 469) Cloudy SPECIFIC GRAVITY UA (BEAKER) (test 1.025 1.001-1.035 code = 468) PH UA (BEAKER) (test code = 467) 6.5 5.0-8.0 PROTEIN UA (BEAKER) (test code = 100 mg/dL Negative A 464) GLUCOSE UA (BEAKER) (test code = Negative Negative 365) KETONES UA (BEAKER) (test code = Negative Negative 371) BILIRUBIN UA (BEAKER) (test code = Negative Negative 462) BLOOD UA (BEAKER) (test code = Large Negative A 461) NITRITE UA (BEAKER) (test code = Positive Negative A 465) LEUKOCYTE ESTERASE UA (BEAKER) Moderate Negative A (test code = 466) UROBILINOGEN UA (BEAKER) (test 0.2 mg/dL 0.2-1.0 code = 463) BACTERIA (BEAKER) (test code = Many 517) RBC UA-MANUAL (BEAKER) (test code 20-50 /HPF = 1659) WBC UA-MANUAL (BEAKER) (test code >100 /HPF = 1661) SQUAMOUS EPITHELIAL MANUAL 5-10 /HPF (BEAKER) (test code = 1663) SOURCE(BEAKER) (test code = 2795) Screen, [id number] 11:56:00 Test Item Value Reference Range Interpretation Comments Preg Test, Ur (test code = 2112-1) Negative [facility], [id number] 11:56:00 Test Item Value Reference Range Interpretation Comments TEST URINE (BEAKER) (test Negative code = 583) U/S, PELVIS, WITH ENDOVAG AND [id number] 00:46:00Reason for exam:- >VAGINAL BLEEDING and discomfort post tubal ligationFINAL REPORT U/S, PELVIS, WITH ENDOVAG AND DOPPLER CLINICAL INDICATION: VAGINAL BLEEDING and discomfort post tubal ligation COMPARISON: None TECHNIQUE: Ultrasound imaging of the pelvis was performed transabdominally followed by transvaginal examination. Color and spectral Doppler evaluation was also performed. FINDINGS: Uterus Size: 9.4 x 5.5 x 6.8 cm Masses: None Endometrial thickness: 0.9 cm. Cervix: Unremarkable Adnexa: Right Ovary: Size: 5.4 x 3.3x 3.3cm. Echogenicity: Normal Vascular flow: Preserved Left Ovary: Size: 3.3 x 2.1 x 2.7cm. Echogenicity: Normal Vascular flow: Preserved Free fluid: Moderate volume within the cul-de-sac. Additional findings: None IMPRESSION: Moderate volume free pelvic fluid possibly physiologic. Otherwise, no acute findings. Signed: Toni Lan Verified Date/Time: 02/19/2020 00:46:24 US pelvis with endovag with doppler 2020-02-19 00:46:00Interface, External Ris In - 02/19/2020 12:48 AM CDTFINAL REPORT U/S, PELVIS,WITH ENDOVAG AND DOPPLER CLINICAL INDICATION: VAGINAL BLEEDING and discomfort post tubal ligation COMPARISON: None TECHNIQUE: Ultrasound imaging of the pelvis was performed transabdominally followedby transvaginal examination. Color and spectral Doppler evaluation was also performed. FINDINGS: Uterus Size: 9.4 x 5.5 x 6.8 cm Masses: None Endometrial thickness: 0.9 cm. Cervix: Unremarkable Adnexa: Right Ovary: Size: 5.4 x 3.3 x 3.3cm. Echogenicity: Normal Vascular flow: Preserved Left Ovary: Size: 3.3 x 2.1 x 2.7cm. Echogenicity: Normal Vascular flow: Preserved Free fluid: Moderate volume within the cul-de-sac. Additional findings: None IMPRESSION: Moderate volume free pelvic fluid possibly physiologic. Otherwise, no acute findings. Signed: Toni Lan MDReport Verified Date/Time: 02/19/2020 00:46:24 [facility] ABORH, [id number] 00:09:00 Test Item Value Reference Range Interpretation Comments ABO Grouping (test code = 2588) O Rh Factor (test code = 2589) POS [facility], automated ([facility] and [facility] only) 2020-02-18 22:58:00 Test Item Value Reference Range Interpretation Comments ABO/RH AUTOMATED (BEAKER) (test O POSITIVE code = 2260) Ab Scrn (test code = 890-4) NEGATIVE [facility] CenterComprehensive metabolic [id number] 21:48:00 Test Item Value Reference Range Interpretation Comments Protein, Total (test 8.3 See_Comment [Autom ated code = 2885-2) message] The system which generated this result transmit silvia reference range : 6.0 - 8.5 gm/dL . The reference range was not u sed to interpret th is result as normal/abnormal . Albumin (test code = 4.9 g/dL 3.5-5 83930-3) Alkaline Phosphatase 85 U/L 30-115 (test code = 6768-6) Total Bilirubin (test 0.4 mg/dL 0.1-1.3 code = 1975-2) Sodium (test code = 139 meq/L 607-730 9860-2) Potassium (test code 3.6 meq/L 3.5-5.5 = 2823-3) Chloride (test code = 105 meq/L 98-106 2075-0) CO2 (test code = 23 meq/L 20-31 2028-9) BUN (test code = 7 mg/dL 10-26 L 3094-0) Creatinine (test code 0.71 mg/dL 0.5-1.2 = 2160-0) Glucose (test code = 82 mg/dL 70-110 2345-7) Calcium (test code = 9.9 mg/dL 8.5-10.5 41048-5) AST (test code = 20 U/L 5-40 1920-8) ALT (test code = 12 U/L 6-50 1742-6) EGFR (test code = 104 mL/min/1.73 [place] [address]-4) NOT ACCURATE CREATININE CLEARANCE IN PREDICTING GLOMERULAR FILTRATION RATE . ESTIMATED GFR I S NOT APPLICABLE FOR DIALYSIS PATIEN TS. BEBETO (test code = BEBETO) Assisted Sales Representative ID - [id number] Lab Interpretation Abnormal (test code = 06488-5) [facility] CenterhCG, serum, [id number] 21:48:00 Test Item Value Reference Range Interpretation Comments Preg Test, Serum (test code = Negative 2110-5) [facility] CenterHCG, SERUM, [id number] 21:48:00 Test Item Value Reference Range Interpretation Comments TEST SERUM (BEAKER) (test Negative code = 584) COMPREHENSIVE METABOLIC [id number] 21:48:00 Test Item Value Reference Range Interpretation Comments TOTAL PROTEIN 8.3 gm/dL 6.0-8.5 (BEAKER) (test code = 770) ALBUMIN (BEAKER) 4.9 g/dL 3.5-5.0 (test code = 1145) ALKALINE PHOSPHATASE 85 U/L 30-115 (BEAKER) (test code = 346) BILIRUBIN TOTAL 0.4 mg/dL 0.1-1.3 (BEAKER) (test code = 377) SODIUM (BEAKER) (test 139 meq/L 135-148 code = 381) POTASSIUM (BEAKER) 3.6 meq/L 3.5-5.5 (test code = 379) CHLORIDE (BEAKER) 105 meq/L 98-106 (test code = 382) CO2 (BEAKER) (test 23 meq/L 20-31 code = 355) BLOOD UREA NITROGEN 7 mg/dL 10-26 L (BEAKER) (test code = 354) CREATININE (BEAKER) 0.71 mg/dL 0.50-1.20 (test code = 358) GLUCOSE RANDOM 82 mg/dL 70-110 (BEAKER) (test code = 652) CALCIUM (BEAKER) 9.9 mg/dL 8.5-10.5 (test code = 697) AST (SGOT) (BEAKER) 20 U/L 5-40 (test code = 353) ALT (SGPT) (BEAKER) 12 U/L 6-50 (test code = 347) EGFR (BEAKER) (test 104 ESTIMATE D GFR IS code = 1092) mL/min/1.73 sq NOT ACCURA TE m CREATININE CLEARANCE IN PREDICTING GLOMERULAR FILTRATION RATE . ESTIMATED GFR I S NOT APPLICABLE FOR DIALYSIS PATIEN TS. Assisted Sales Representative ID - [id number] w/Microscopic + Reflex to [id number] 21:39:00 Test Item Value Reference Range Interpretation Comments Color, UA (test code Red = 5778-6) Clarity, UA (test Cloudy code = 5767-9) Specific [place], UA 1.013 1.001-1.035 (test code = 5811-5) pH, UA (test code = 6.0 5.0-8.0 5803-2) Protein, UA (test 100 mg/dL Negative A code = 19877-2) Glucose, UA (test Negative Negative code = 365) Ketones, UA (test Negative Negative code = 2514-8) Bilirubin, UA (test Negative Negative code = 92739-9) Blood, UA (test code Large Negative A = 94979-3) Nitrite, UA (test Negative Negative code = 5802-4) Leukocytes, UA (test Negative Negative code = 5799-2) Urobilinogen, UA <1.0 0.2-1 (test code = 08115-0) RBC, UA (test code = 3664 See_Comment [Autom ated 67627-4) message] The system which generated this result transmitted reference range : /HPF. The reference range was not used to interpret this result as normal/abnormal . WBC, UA (test code = 4 See_Comment [Autom ated 5821-4) message] The system which generated this result transmitted reference range : /HPF. The reference range was not used to interpret this result as normal/abnormal . Bacteria, UA (test Rare code = 00482-4) Mucus (test code = Rare 8247-9) Squam Epithel, UA 2 See_Comment [Automate d (test code = message] The 09714-4) system which generated this result transmitted reference range : /HPF. The reference range was not used to interpret this result as normal/abnormal . Specimen Source (test code = 2795) BEBETO (test code = Assisted Sales Representative ID - BEBETO) [auto]Assisted Sales Representative ID - techOperator ID - tech Lab Interpretation Abnormal (test code = 63778-4) [facility]/ REFLEX URINE [id number] 21:39:00 Test Item Value Reference Range Interpretation Comments COLOR (BEAKER) (test code = 470) Red CLARITY (BEAKER) (test code = 469) Cloudy SPECIFIC GRAVITY UA (BEAKER) (test 1.013 1.001-1.035 code = 468) PH UA (BEAKER) (test code = 467) 6.0 5.0-8.0 PROTEIN UA (BEAKER) (test code = 100 mg/dL Negative A 464) GLUCOSE UA (BEAKER) (test code = Negative Negative 365) KETONES UA (BEAKER) (test code = Negative Negative 371) BILIRUBIN UA (BEAKER) (test code = Negative Negative 462) BLOOD UA (BEAKER) (test code = 461) Large Negative A NITRITE UA (BEAKER) (test code = Negative Negative 465) LEUKOCYTE ESTERASE UA (BEAKER) Negative Negative (test code = 466) UROBILINOGEN UA (BEAKER) (test code < mg/dL 0.2-1.0 = 463) RBC UA (BEAKER) (test code = 519) 3664 /HPF WBC UA (BEAKER) (test code = 520) 4 /HPF BACTERIA (BEAKER) (test code = 517) Rare MUCUS (BEAKER) (test code = 1574) Rare SQUAMOUS EPITHELIAL (BEAKER) (test 2 /HPF code = 516) SOURCE(BEAKER) (test code = 2795) Assisted Sales Representative ID - [auto]Assisted Sales Representative ID - techOperator ID - techCBC W/PLT COUNT & AUTO [id number] 21:29:00 Test Item Value Reference Range Interpretation Comments WHITE BLOOD CELL COUNT (BEAKER) 7.6 K/ L 4.0-10.0 (test code = 775) RED BLOOD CELL COUNT (BEAKER) 4.64 M/ L 4.00-5.00 (test code = 761) HEMOGLOBIN (BEAKER) (test code = 13.8 GM/DL 12.0-15.5 410) HEMATOCRIT (BEAKER) (test code = 40.7 % 36.0-46.0 411) MEAN CORPUSCULAR VOLUME (BEAKER) 87.7 fL 82.0-99.0 (test code = 753) MEAN CORPUSCULAR HEMOGLOBIN 29.7 pg 27.0-33.0 (BEAKER) (test code = 751) MEAN CORPUSCULAR HEMOGLOBIN CONC 33.9 GM/DL 32.0-36.0 (BEAKER) (test code = 752) RED CELL DISTRIBUTION WIDTH 13.9 % 12.0-15.0 (BEAKER) (test code = 412) PLATELET COUNT (BEAKER) (test 324 K/CU MM 150-430 code = 756) MEAN PLATELET VOLUME (BEAKER) 9.0 fL 6.0-11.5 (test code = 754) NUCLEATED RED BLOOD CELLS 0 /100 WBC 0-0 (BEAKER) (test code = 413) NEUTROPHILS RELATIVE PERCENT 62 % (BEAKER) (test code = 429) LYMPHOCYTES RELATIVE PERCENT 28 % (BEAKER) (test code = 430) MONOCYTES RELATIVE PERCENT 7 % (BEAKER) (test code = 431) EOSINOPHILS RELATIVE PERCENT 2 % (BEAKER) (test code = 432) BASOPHILS RELATIVE PERCENT 0 % (BEAKER) (test code = 437) NEUTROPHILS ABSOLUTE COUNT 4.76 K/ L 1.80-8.00 (BEAKER) (test code = 670) LYMPHOCYTES ABSOLUTE COUNT 2.14 K/ L 1.48-4.50 (BEAKER) (test code = 414) MONOCYTES ABSOLUTE COUNT (BEAKER) 0.51 K/ L 0.00-1.30 (test code = 415) EOSINOPHILS ABSOLUTE COUNT 0.18 K/ L 0.00-0.50 (BEAKER) (test code = 416) BASOPHILS ABSOLUTE COUNT (BEAKER) 0.02 K/ L 0.00-0.20 (test code = 417) IMMATURE GRANULOCYTES-RELATIVE 0 % 0-0 PERCENT (BEAKER) (test code = 2801) - XR WRIST 3 + V [id number] 03:53:00Patient Name: ALMAS DEY Unit No: [id number] EXAMS: CPT: [id number] XR WRIST 3 + V [place] [address]19 LEFT WRIST 4 VIEWS: CLINICAL HISTORY: Fall FINDINGS:There is a nondisplaced fracture of the distal radial metaphysis with intra-articular involvement.. A nondisplaced fracture of the base of the ulnar styloid process is also present. No joint or soft tissue abnormalities are seen. IMPRESSION: Nondisplaced distal radial and ulnar fractures. at 0353 Reported and signed by: Nilay Fernando MD CC: Eric Mccabe DO Technologist: Edna Grossman Trscr Dt/Tm: 01/24/2020 (0353) by:[email or web address] Orig Print D/T: S:01/24/2020 (0356) BATCH NO: N/A Name: ALMAS DEY Emergency Dept Phys: JOHANNY MccabeParisa [id number] [address] : 1991 Age: 28 Sex: F [place] [address] Loc: T.CELSOS Exam Date: 01/24/2020 Status: REG ER PH: [phone] FAX: PAGE 1 Signed Report- CT C-SPINE W/O [id number] 03:52:00Patient Name: ALMAS DEY Unit No: [id number] EXAMS: CPT: [id number] CT C-SPINE W/O CONT 35513 CT CERVICAL SPINE WITHOUT IV CONTRAST: CLINICAL HISTORY: Fall COMPARISON: None. TECHNIQUE: Axial CT of the cervical spine without contrast was performed. Coronal and sagittal reformatted images are submitted. FINDINGS: Alignment is anatomic. No acute fractures are seen. Disc space and vertebral body heights are well-preserved. [ ] No soft tissue abnormalities are seen. The partially visualized lung apices are clear. IMPRESSION: Negative CT of the cervical spine.. DLP: 312.96 mGy-cm CT dose optimization is achieved for this examination by the use of a CT protocol in accordance with ACR practice standards and adherence to analytical tech's recommendations with automated exposure control. at 0352 Reported and signed by:Nilay Fernando MD CC: Eric Mccabe DO Technologist: Edna Grossman CTDI: 14.84 DLP: 312.96 Trscr Dt/Tm: 01/24/2020 (035) by:[email or web address] Orig Print D/T: S: 01/24/2020 (0355) BATCH NO: N/A Name: ALMAS DEY Emergency Dept Phys: HARLAN[place] [id number] [address] : 1991 Age: 28 Sex: [place] [address] Loc: TLuciaCERS Exam Date: 01/24/2020 Status: REG ER PH: [phone] FAX: PAGE 1 Signed Report- CT HEAD/BRAIN W/O CONT 2020-01-24 03:50:00Patient Name: ALMAS DEY Unit No: [id number] EXAMS: CPT: [id number] CT HEAD/BRAIN W/O CONT 08652 CT HEAD WITHOUT CONTRAST: CLINICAL HISTORY: Fall TECHNIQUE: Axial CT imaging of the brain was performed without IV contrast. Sagittal and coronal reformatted images are submitted. FINDINGS: The ventricles are normal in size and shape. No evidence of an intra-axial or extra-axial mass is seen, and no shift of the midline structures is present. There is no intracranial hemorrhage or extra-axial fluid collection. No calvarial fracture is seen. The visualized paranasal sinuses are clear. IMPRESSION: Negative CT of the brain. DLP: 290.78 mGy-cm CT dose optimization is achieved for this examination by the use of a CT protocol in accordance with ACR practice standards and adherence to analytical tech's recommendations with automated exposure control. at 0350 Reported and signed by: Nilay Fernando MD CC: Eric Mccabe DO Technologist: Edna Grossman CTDI: 20.39 DLP: 290.78 Trscr Dt/Tm: 01/24/2020 (0350) by:[email or web address] Orig Print D/T: S: 01/24/2020 (0353) BATCH NO: N/A Name: ALMAS DEY [facility] Emergency Dept Phys: [place] [address] [facility] : 1991 Age: 28 Sex: [place] [address] Loc: ApoloniaLuciaDEON Exam Date: 01/24/2020 Status: REG ER PH: [phone] FAX: PAGE 1 Signed Report
[2020-12-03 02:04] LABS: Absolute Lymphocytes (CBC) 2.6 K/uL (0.7-4.9); Basophils % 0.5 % (0-1.3); Hematocrit 38.5 % (36.0-45.0); Lymphocytes % 29.7 % (15.3-44.8); MPV 7.7 fL (7.6-11.3); RBC Red Blood Cell Count 4.44 M/uL (3.86-4.86)
[2020-12-03 02:16] LABS: Protime INR 0.9
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
--- NOTE | 2020-12-03 02:20 | EDPHYS ---
Physician Documentation [facility] Name: Lena Doty Age: 20 yrs Sex: Female : 2000 Arrival Date: 12/03/2020 Time: : Bed 2 Private MD: ED Physician Jeet Staples HPI: 12/03 01:33 This 20 yrs old Female presents to ER via Unassigned with complaints of edwar vomiting, cough and ams. 01:33 The patient presents to the emergency department with nausea, vomiting, that is edwar continuous. Onset: The symptoms/episode began/occurred just prior to arrival. Possible causes: etoh, drugs. The symptoms are aggravated by nothing. The symptoms are alleviated by nothing. The patient or guardian reports cough. Onset: The symptoms/episode began/occurred yesterday. Severity of symptoms: At their worst the symptoms were mild, in the emergency department the symptoms are unchanged. Associated signs and symptoms: Pertinent positives: nausea, vomiting. Modifying factors: The symptoms are alleviated by nothing. Severity of symptoms: At their worst the symptoms were mild moderate in the emergency department the symptoms have improved moderately. Associated signs and symptoms: Pertinent positives: vomiting. Historical: - Allergies: 01:30 No Known Allergies; jb4 - Home Meds: 01:30 None [Active]; jb4 - PMHx: 01:30 Anemia; jb4 - PSHx: 01:30 Tonsillectomy; jb4 - Immunization history:: Adult Immunizations up to date. - Social history:: Smoking status: unknown. - Family history:: not pertinent. ROS: 01:33 Constitutional: Negative for fever, chills, and weight loss, Eyes: Negative for injury, edwar pain, redness, and discharge, ENT: Negative for injury, pain, and discharge, Neck: Negative for injury, pain, and swelling, Cardiovascular: Negative for chest pain, palpitations, and edema, Respiratory: Negative for shortness of breath, cough, wheezing, and pleuritic chest pain, Abdomen/GI: Negative for abdominal pain, nausea, vomiting, diarrhea, and constipation, Back: Negative for injury and pain, : Negative for injury, bleeding, discharge, and swelling, MS/Extremity: Negative for injury and deformity, Skin: Negative for injury, rash, and discoloration, Psych: Negative for depression, anxiety, suicide ideation, homicidal ideation, and hallucinations, Allergy/Immunology: Negative for hives, rash, and allergies, Endocrine: Negative for neck swelling, polydipsia, polyuria, polyphagia, and marked weight changes, Hematologic/Lymphatic: Negative for swollen nodes, abnormal bleeding, and unusual bruising. :33 Neuro: Positive for altered mental status, weakness. Exam: :33 Constitutional: This is a well developed, well nourished patient who is awake, alert, edwar and in no acute distress. Head/Face: Normocephalic, atraumatic. Eyes: Pupils equal round and reactive to light, extra-ocular motions intact. Lids and lashes normal. Conjunctiva and sclera are non-icteric and not injected. Cornea within normal limits. Periorbital areas with no swelling, redness, or edema. ENT: Nares patent. No nasal discharge, no septal abnormalities noted. Tympanic membranes are normal and external auditory canals are clear. Oropharynx with no redness, swelling, or masses, exudates, or evidence of obstruction, uvula midline. Mucous membranes moist. Neck: Trachea midline, no thyromegaly or masses palpated, and no cervical lymphadenopathy. Supple, full range of motion without nuchal rigidity, or vertebral point tenderness. No Meningismus. Chest/axilla: Normal chest wall appearance and motion. Nontender with no deformity. No lesions are appreciated. Cardiovascular: Regular rate and rhythm with a normal S1 and S2. No gallops, murmurs, or rubs. Normal PMI, no JVD. No pulse deficits. Respiratory: Lungs have equal breath sounds bilaterally, clear to auscultation and percussion. No rales, rhonchi or wheezes noted. No increased work of breathing, no retractions or nasal flaring. Abdomen/GI: Soft, non-tender, with normal bowel sounds. No distension or tympany. No guarding or rebound. No evidence of tenderness throughout. Back: No spinal tenderness. No costovertebral tenderness. Full range of motion. Female : Normal external genitalia. Skin: Warm, dry with normal turgor. Normal color with no rashes, no lesions, and no evidence of cellulitis. MS/ Extremity: Pulses equal, no cyanosis. Neurovascular intact. Full, normal range of motion. Psych: Awake, alert, with orientation to person, place and time. Behavior, mood, and affect are within normal limits. 01:33 Neuro: Orientation: to person, place, situation, Not oriented to situation, Mentation: slow to respond, Memory: unable to test, Cranial nerves: is grossly normal based on the patient's age, no acute changes, Cerebellar function: unable to test, Motor: moves all fours, Sensation: no obvious gross deficits, appropriate no acute changes, numbness, Gait: not tested. Deep tendon reflexes are 2+ (normal) in the bilateral brachioradialis, bicep, tricep and patellar and Achilles tendons, Babinski testing is normal, seizure activity, is not displayed by the patient. Vital Signs: 01:30 BP 123 / 82; Pulse 90; Resp 16; Temp 98.1(O); Pulse Ox 100% ; Weight 63.5 kg (R); jb4 Height 5 ft. 0 in. (152.40 cm) (R); Pain 0/10; 03:00 BP 117 / 77; Pulse 92; Resp 16; Pulse Ox 100% on R/A; 4 01:30 Body Mass Index 27.34 (63.50 kg, 152.40 cm) 4 MDM: 01:28 Patient medically screened. edwar 01:37 Differential diagnosis: gastritis. Differential Diagnosis: Bronchitis Viral Syndrome edwar Pneumonia. Data reviewed: vital signs, nurses notes, lab test result(s), radiologic studies, plain films. Data interpreted: manager monitoring: rate is 100 beats/min, rhythm is regular, Pulse oximetry: on room air is 95 %. Test interpretation: by ED physician or midlevel provider: ECG, plain radiologic studies. Counseling: I had a detailed discussion with the patient and/or guardian regarding: the historical points, exam findings, and any diagnostic results supporting the discharge/admit diagnosis, lab results, radiology results, the need for outpatient follow up, for definitive care, a family practitioner. 12/03 01:29 Order name: Acetaminophen [facility] 12/03 00: Order name: Basic Metabolic Panel 12/03: Order name: CBC with Diff 12/03: Order name: ETOH Level 12/03: Order name: Hepatic Function 12/03: Order name: PT-INR [facility] 12/03 00: Order name: Ptt, Activated [facility] 06/24 01:29 Order name: Salicylate [facility] 12/03 01:29 Order name: Urine Drug Screen [facility] 12/03 01:29 Order name: Acetaminophen [facility] 12/03 01:29 Order name: Basic Metabolic Panel [facility] 12/03 01:29 Order name: CBC with Diff [facility] 12/03 01:29 Order name: ETOH Level [facility] 12/03 01:29 Order name: Hepatic Function [facility] 12/03 01:29 Order name: PT-INR [facility] 12/03 01:29 Order name: Ptt, Activated [facility] 12/03 01:29 Order name: Salicylate [facility] 12/03 01:29 Order name: Urine Drug Screen [facility] 12/03 02:11 Order name: CBC with Automated Diff; Complete Time: 02:19 EDMS 12/03 02:24 Order name: Salicylates Level; Complete Time: 02:26 EDFL 12/03 02:25 Order name: Alcohol Serum/Plasma; Complete Time: 02:26 EDMS 12/03 02:29 Order name: Protime (+INR); Complete Time: 02:40 EDFL 12/03 02:29 Order name: PTT, Activated Partial Thromb; Complete Time: 02:40 EDMS 12/03 02:32 Order name: Urine Dipstick-Ancillary; Complete Time: 02:40 EDMS 12/03 02:37 Order name: Basic Metabolic Panel; Complete Time: 02:40 EDMS 12/03 02:37 Order name: Liver (Hepatic) Function; Complete Time: 02:40 EDMS 12/03 02:37 Order name: Acetaminophen Level; Complete Time: 02:40 EDMS 12/03 02:41 Order name: Urine --Ancillary (enter results) [facility] 12/03 02:48 Order name: Urine --Ancillary EDFL 12/03 03:01 Order name: Urine Drug Screen [facility] 12/03 01:29 Order name: EKG; Complete Time: 01:30 [facility] 12/03 01:29 Order name: IV Saline Lock; Complete Time: 02:57 [facility] 12/03 01:29 Order name: Labs collected and sent; Complete Time: 02:57 [facility] 12/03 01:29 Order name: Urine Dipstick-Ancillary (obtain specimen); Complete Time: 02:57 [facility] 12/03 01:29 Order name: Urine Test (obtain specimen); Complete Time: 02:57 [facility] 12/03 01:29 Order name: EKG; Complete Time: 01:30 [facility] 12/03 01:29 Order name: Suicide Screening ([place]); Complete Time: 02:57 [facility] 12/03 01:33 Order name: Chest Single View XRAY [facility] Administered Medications: 02:56 Not Given (Patient Refused): NS 0.9% 1000 ml IV at 1 bolus Per protocol; 1000 mL bolus jb4 Disposition: 12/03/20 02:20 Discharged to Home. Impression: Altered mental status, unspecified, Alcohol abuse. - Condition is Stable. - Discharge Instructions: Alcohol Intoxication, Confusion, Substance Use Disorder, Alcohol Abuse and Nutrition. - Medication Reconciliation Form, Thank You Letter, Antibiotic Education, Prescription Opioid Use form. - Follow up: Private Physician; When: 2 - 3 days; Reason: Recheck today's complaints, Continuance of care, Re-evaluation by your physician. - Problem is new. - Symptoms have improved. Signatures: Dispatcher [employer] EDFL Jeet Staples MD MD cha Bryson, James RN RN jb4 Corrections: (The following items were deleted from the chart) 02:25 01:29 EKG - Nurse/Tech ordered. [facility] jb4 02:57 01:29 EKG - Nurse/Tech ordered. [facility] jb 02:57 01:29 IV Saline Lock ordered. [email or web address] 02:57 01:29 Labs collected and sent ordered. [email or web address] 02:58 01:29 Urine Dipstick-Ancillary ordered. [facility] jb4 03:10 02:20 12/03/2020 02:20 Discharged to Home. Impression: Altered mental status, jb4 unspecified; Alcohol abuse. Condition is Stable. Discharge Instructions: Alcohol Intoxication, Confusion, Substance Use Disorder, Alcohol Abuse and Nutrition. Forms are Medication Reconciliation Form, Thank You Letter, Antibiotic Education, Prescription Opioid Use. Follow up: Private Physician; When: 2 - 3 days; Reason: Recheck today's complaints, Continuance of care, Re-evaluation by your physician. Problem is new. Symptoms have improved. [facility]
[2020-12-03 02:32] LABS: Urine Blood Negative (Negative); Urine Glucose Negative (Negative); Urine Protein Negative (Negative)
[2020-12-03 02:36] LABS: ALT/SGPT 17 U/L (12-78); AST/SGOT 14 U/L (15-37); Albumin 4.1 g/dL (3.4-5.0); Alkaline Phosphatase 75 U/L (45-117); BUN Blood Urea Nitrogen 8 mg/dL (7-18); Bicarbonate 26 mmol/L (21-32); Bilirubin Direct < 0.1 mg/dL (0-0.2); Bilirubin Total 0.2 mg/dL (0.2-1.0); Glucose Level 83 mg/dL (74-106); Potassium 3.8 mmol/L (3.5-5.1); Protein, Total 8.3 g/dL (6.4-8.2); Sodium Level 143 mmol/L (136-145)
[2020-12-03 03:01] LABS: Barbiturates NEGATIVE (NEGATIVE); Benzodiazepines NEGATIVE (NEGATIVE); Cocaine NEGATIVE (NEGATIVE); METHAMPHETAM NEGATIVE (NEGATIVE); Methadone NEGATIVE (NEGATIVE); Opiates NEGATIVE (NEGATIVE); Phencyclidine NEGATIVE (NEGATIVE); THC Cannibis NEGATIVE (NEGATIVE)
[2020-12-03 03:25] VITALS: TEMP 98.1; O2SAT 100
[2020-12-03 03:28] VITALS: BP 117/77
--- NOTE | 2020-12-03 08:49 | RAD REPORT ---
EXAM DESCRIPTION: RAD - Chest Single View - 12/03/2020 2:02 am CLINICAL HISTORY: COUGH Chest pain. COMPARISON: No comparisons FINDINGS: Portable technique limits examination quality. The lungs are grossly clear. The heart is normal in size. No displaced fractures. IMPRESSION: No acute intrathoracic process suspected.
== END 2020-12-03 03:10 | disposition home or self-care (01) ==
LOC: ER 01:16
DX: F10.10 Alcohol abuse, uncomplicated (principal)
CPT/HCPCS: 36415; 71045; 80048; 80076; 80307; 80320; 80329; 81003; 81025; 85025; 85610; 85730

== ENCOUNTER 2020-12-21 16:26 | Emergency (ER) | payer OTHER ==
--- OUTSIDE RECORDS SUMMARY | 2020-12-21 16:30 | XMS REPORT | Continuity of Care Document ---
:2000 Author Organization [facility] t Address [address] [place] [address] Care Team Providers Name Role Phone Asked, [...] Effective Date Expiration Date Sour ce Number [facility] [id number] 2019 [facility] 00:00:00 Scientologist CHC/STAR JHCmvanh34253/07/01 [facility] MEDICAID - [id number] 2020 [facility] - MEDICAID MGD 00:00:00 [facility] [id number]/-PresentMedic aid Contracted Problems Condition Condition Condition Status Onset Resolution Last Treating Co mments Source Name Details Category Date Date Treatment Clinician Date Menorrhagi Problem Active 2020-09-25 M emoria a with 02:51:28 l regular Jose Raul cycle Menorrhagi a with regular cycle Active Problem 09/25/2020 [facility] [place] Excessive Problem Active 2020-09-25 Me moria bleeding 02:51:28 l in [place] premenopau Excessive tomer period bleeding in pre[place]op[place] tomer period Active Problem 09/25/2020 [facility] Meza Dysmenorrh Problem Active 2020-09-25 M emoria ea 02:51:28 l [place] Dysmenorrh ea Active Problem [facility] Allergies, Adverse Reactions, Alerts Allergy Allergy Status Severity Reaction(s) Onset Inactive Treating Comm ents Source Name Type Date Date Clinician No Known DA Active U [facility] 2[facility] [facility] 00:00: Health 00 are [place] N.K.D.A. N.K.D.A. Active Info Not Alberto clem Available 9-14 l 00:00: [place] 00 No Known DA Active U [facility] Allergie [address] [facility] 00:00: Health 00 are [place] Social History Social Habit Start Date Stop Date Quantity Comments Source Sex Assigned At [facility] Tobacco use and 2020-03-08 2020-03-08 Never used [facility] - exposure 00:00:00 00:00:00 Medical Center Alcohol intake 2020-03-08 2020-03-08 Current drinker [facility] Reji Hall - 00:00:00 00:00:00 of alcohol Medical Center (finding) Alcohol Comment 2020-02-18 2020-02-18 soically [facility] - 00:00:00 00:00:00 Medical Center Smoking Status Start Date Stop Date Source Never smoker [facility] Medications Ordered Filled Start Stop Current Ordering Indication Dosage Frequency Signature Comments Components Source Medication Medication Date Date Medication? Clinician (SIG) Name Name cephalexin 2020-0 2020- No 500mg [id number] Take [address] [facility] (KEFLEX) 03-08 [id number] capsule L ukes - 500 MG 00:00: [...] blood 2020-09-29 10:30:00 117 mm[Hg] Lindato n Scientologist pressure Diastolic blood 2020-09-29 10:30:00 76 mm[Hg] Elder on Scientologist pressure Heart rate 2020-09-29 10:30:00 106 /min Mohan Scientologist Respiratory rate 2020-09-29 10:30:00 10 /min [place] Scientologist Oxygen saturation in 2020-09-29 10:30:00 99 /min [place] Scientologist Arterial blood by Pulse oximetry Body temperature 2020-09-29 10:12:00 38.89 Enma Linda eid Scientologist Body height 2020-09-29 09:56:00 167.6 cm [place] Scientologist Body weight 2020-09-29 09:56:00 63.504 kg [place] Scientologist BMI 2020-09-29 09:56:00 22.60 kg/m2 [place] Scientologist Systolic blood 2020-03-08 13:42:00 106 mm[Hg] [facility] Diastolic blood 2020-03-08 13:42:00 58 mm[Hg] [facility] Heart rate 2020-03-08 13:42:00 82 /min [facility] Body temperature 2020-03-08 13:42:[address] [facility] Respiratory rate 2020-03-08 13:42:00 16 /min [facility] Oxygen saturation in 2020-03-08 13:10:00 99 /min [facility] - Arterial blood by Medical Ce nter Pulse oximetry Body height 2020-03-08 11:56:[address] [facility] Body weight 2020-03-08 11:56:00 64.864 kg [facility] BMI 2020-03-08 11:56:00 23.08 kg/m2 [facility] Weight 2020-02-24 20:30:00 [facility] Raul Diastolic (mm Hg) 2020-02-24 20:30:00 Mem orial [place] Systolic (mm Hg) 2020-02-24 20:30:00 Alberto rial [place] Procedures Procedure Date / Time Performing Clinician Source Performed URINALYSIS, AUTOMATED 2020-09-29 10:48:00 Leodan Marieist WITH MICROSCOPY Shruthi HCG QUALITATIVE, URINE 2020-09-29 10:48:00 Leodan Marie Scientologist SCREEN Shruthi COVID-19 QUALITATIVE 2020-09-29 10:37:00 Leodan Marie on Scientologist RT-PCR Shruthi INFLUENZA ANTIGEN 2020-09-29 10:35:00 Leodan Marie XR CHEST 1 VW PORTABLE 2020-09-29 10:18:58 Leodan Marie Scientologist Shruthi CBC W/PLT COUNT & AUTO 2020-03-08 13:02:00 Delbert [facility] BASIC METABOLIC PANEL 2020-03-08 13:02:00 Delbert [facility]mer (7) [facility] URINE CULTURE 2020-03-08 11:48:00 Delbert [facility] SCREEN, URINE 2020-03-08 11:48:00 Delbert [facility] URINALYSIS W/ 2020-03-08 11:48:00 Delbert [facility] TRANSFUSION SERVICE 2020 18:08:04 Provider, Default [facility] - REPORT - SCAN Scanning [facility] TRANSFUSION SERVICE 2020-02-19 18:07:38 Provider, Default [facility] REPORT - SCAN Scanning [facility] US PELVIS WITH ENDOVAG 2020-02-19 00:14:00 Saji Brewer [facility] - WITH DOPPLER [facility] ABORH, MANUAL 2020-02-18 23:15:00 Zay Montez [facility] URINALYSIS W/ REFLEX 2020-02-18 21:16:[address] [facility] URINE CULTURE [facility] CBC W/PLT COUNT & AUTO 2020-02-18 21:15:[address] [facility] DIFFERENTIAL [facility] COMPREHENSIVE METABOLIC 2020-02-18 21:15:[address] [facility] PANEL [facility] HCG, SERUM, QUALITATIVE 2020-02-18 21:15:00 Saji Brewer [facility] TYPE AND SCREEN, 2020-02-18 21:15:[address] [facility] AUTOMATED [facility] Plan of Care Planned Activity Planned Date Details Comments Source Future Scheduled 2029-10-17 DTAP/TDAP/TD [facility] Test 00:00:00 VACCINES (2 - Td) Medical Ce nter [code = DTAP/TDAP/TD VACCINES (2 - Td)] Future Scheduled 2021-01-10 INFLUENZA VACCINE [place] Scientologist Test 00:00:00 [code = INFLUENZA VACCINE] Future Scheduled 2020-06-[address] [facility] - Test 00:00:00 (12+) [code = [facility] DEPRESSION SCREENING (12+)] Future Scheduled 2020-02-[address] [facility] - Test 00:00:00 (#1) [code = [facility] INFLUENZA VACCINE (#1)] Future Scheduled 2019 Screening for Mohan Me thodist Test 00:00:00 malignant neoplasm of cervix (procedure) [code = 132580151] Future Scheduled [address] [facility] - Test 00:00:00 malignant neoplasm Medical C enter of cervix (procedure) [code = 349351770] Future Scheduled 2016-02-21 Hepatitis C Mohan Met hodist Test 00:00:00 screening (procedure) [code = 184505467] Future Scheduled 2016-02-[address] [facility] Test 00:00:00 SCREENING [code = Medical Ce nter HEPATITIS C SCREENING] Future Scheduled 2014 CHLAMYDIA SCREENING [place] Scientologist Test 00:00:00 [code = CHLAMYDIA SCREENING] Future Scheduled 2010 COVID-19 VACCINE (1) Susana ston Scientologist Test 00:00:00 [code = COVID-19 VACCINE (1)] Encounters Start End Encounter Admission Attending Care Care Encounter Source Date/Time Date/Time Type Type Clinicians Facility Department ID 2020-09-29 2020-09-29 Emergency [place] [address] [id number] [place] 00:00:00 00:00:[address] 2020-02-24 2020-02-24 Outpatient Jordan Pierce [id number] [facility] 15:30:00 15:30:00 Aron Sharp MD al Works PA PA 2020-02-18 2020-02-19 Emergency [facility] [id number] [place] 00:00:00 00:00:00 672 Method i 2019-12-24 2019-12-24 Orders Doctor CARLOS [id number] 00:00:00 00:00:00 Only Unassigned, JIM 350.1.13.10 [facility] 4.2.7.2.686 [id number] 2019-11-18 2019-11-21 Hospital CARLOS Mcneill 1.2.840.114 [id number] 18:15:00 13:26:00 Encounter Pelon Enrique JIM 350.1.13.10 [facility] 4.2.7.2.686 [id number] 2019-11-19 2019-11-19 Telephone JOHNNY Doll [id number] 00:00:00 00:00:00 Jenelle Olson CNA CAREGIVER 350.1.13.10 [facility] 4.2.7.2.686 MATERNAL [id number] & CHILD [address] [place] [address] 2019-11-19 2019-11-19 Orders Doctor CARLOS 1.2.840.114 [id number] 00:00:00 00:00:00 Only Unassigned, JIM 350.1.13.10 [facility] 4.2.7.2.686 [id number] 2019-11-18 2019-11-18 Orders Doctor CARLOS 1.2.840.114 [id number] 00:00:00 00:00:00 Only Unassigned, JIM 350.1.13.10 [facility] 4.2.7.2.686 [id number] Results Test Description Test Time Test Comments Results Result Comments Source SARS-CoV-2 (COVID-19) RNA [Presence] in Respiratory sp ecimen by 2020-09-29 18:08:26 MARLY with probe detection Test Item Value Reference Range Interpretation Comme nts SARS-CoV-2 (COVID-19) RNA [Presence] in Respiratory Detected No t-Detected specimen by MARLY with probe detection (test code = 28496-9) Whether patient is employed in a healthcare setting (test code = 80843-6) Whether the patient has symptoms related to condition of interest (test code = 39130-3) Patient was hospitalized because of this condition (test code = 16666-0) Whether the patient was admitted to intensive care unit (ICU) for condition of interest (test code = 67767-2) Whether patient resides in a congregate care setting (test code = 92035-1) XR Chest 1 Vw [id number] 10:20:04Hm Interface, Radiology Results Incoming - 09/29/2020 10:23 AM CDT Study:XR CHEST 1 VW PORTABLEHistory: coughCOMPARISON: None.IMPRESSION:A single view of the chest. There is no focal consolidation, pleural effusion or pneumothorax. Cardiac silhouette is normal. Visualized osseous structures are without acute abnormality.[id number] Scientologist- XR PELVIS 1/2 [id number] 09:11:00 [facility] 2000 Sex: FPatient Name: ALMAS DEY Unit No: [id number] EXAMS: CPT: [id number] XR PELVIS 1/2 VIEWS 83908 Clinical History: Buttock pain. Exam: - XR [...] N/A Name: ALMAS DEY Emergency Dept Phys: [facility].21 [place] [address] [facility] : 2000 Age: 20 Sex: F [place], [place] [id number] Ex[facility] Date: 07/30/2020 Status: PRE ER PH: [phone] FAX: PAGE 1 Signed ReportURINALYSIS DIPSTICK POC [...] YES NEEDED? (test code = UAMICRO) UA [id number] 08:51:00 Test Item Value Reference Range Interpretation Comments UA WBC (test code = WBCU) NONE SEEN /HPF 0-3 UA RBC (test code = RBCU) 3-5 /HPF 0-3 A UA EPITHELIAL CELLS (test code FEW /LPF NONE-FEW = EPIU) UA BACTERIA (test code = BACU) FEW /HPF NONE SEEN UA MUCUS (test code = MUCU) 1+ /LPF NONE-FEW A URINALYSIS DIPSTICK [id number] 08:43:00 Test Item Value Reference Range Interpretation [...] NEEDED? (test code = UAMICRO) URINALYSIS DIPSTICK [id number] 08:43:00 Test Item Value Reference Range Interpretation [...] NEEDED? (test code = UAMICRO) UR HCG [id number] 08:43:00 Test Item Value Reference Range Interpretation Comments UR HCG QUAL (test code = HCGQLU) NEGATIVE NEGATIVE URINALYSIS DIPSTICK [id number] 08:42:00 Test Item Value Reference Range Interpretation [...] ESTERASE DIPSTICK (test code = LEUU) URINE [id number] 10:40:00 Test Item Value Reference Range Interpretation [...] = 47) 20-29,000 col/mL skin floraBasic Metabolic [id number] 13:18:00 Test Item Value Reference Range Interpretation [...] Calcium (test code = 9.0 mg/dL 8.5-10.5 01823-2) EGFR (test code = 123 mL/min/1.73 [place] [address]-8) NOT ACCURATE CREATININE CLEARANCE IN PREDICTING GLOMERULAR FILTRATION RATE . ESTIMATED GFR I S NOT APPLICABLE FOR DIALYSIS PATIEN TS. Lab Interpretation Abnormal (test code = 84604-8) [facility] [id number] 13:18:00 Test Item Value Reference Range Interpretation [...] TS. CBC with platelet count + automated [id number] 13:08:00 Test Item Value Reference Range Interpretation Comments WBC (test code = 6690-2) 9.4 See_Comment [A utomated message] The system [employer] generated this result transmitted ref erence range: 4.0 - 10 .0 K/L. The refe rence range was not u sed to interpret this result as normal/abnor mal. RBC (test code = 789-8) 3.96 See_Comment L [Au tomated message] The system [employer] generated this result transmitted ref erence range: 4.00 - 5 .00 M/L. The refe rence range was not u sed to interpret this result as normal/abnor mal. MCHC (test code = 786-4) 34.9 See_Comment [A utomated message] The system [employer] generated this result transmitted ref erence range: [...] See_Comment [Aut omated message] 777-3) The system [employer] generated this result transmitted ref erence range: 150 - 43 0 K/CU MM. The referen ce range was not u sed to interpret this result as normal/abnor mal. MPV (test code = 9.0 fL 6-11.5 61410-5) nRBC (test code = 413) 0 See_Comment [Aut omated message] The system [employer] generated this result transmitted ref erence range: [...] See_Comment [Aut omated message] 670) The system [employer] generated this result transmitted ref erence range: 1.80 - 8 .00 K/L. The refe rence range was not u sed to interpret this result as normal/abnor mal. # Lymphs (test code = 1.05 See_Comment L [Auto mated message] 414) The system [employer] generated this result transmitted ref erence range: 1.48 - 4 .50 K/L. The refe rence range was not u sed to interpret this result as normal/abnor mal. # Monos (test code = 0.76 See_Comment [Autom ated message] 415) The system [employer] generated this result transmitted ref erence range: 0.00 - 1 .30 K/L. The refe rence range was not u sed to interpret this result as normal/abnor mal. # Eos (test code = 416) 0.10 See_Comment [Au tomated message] The system [employer] generated this result transmitted ref erence range: 0.00 - 0 .50 K/L. The refe rence range was not u sed to interpret this result as normal/abnor mal. # Baso (test code = 417) 0.02 See_Comment [A utomated message] The system [employer] generated this result transmitted ref erence range: 0.00 - 0 .20 K/L. The refe rence range was not u sed to interpret this result as normal/abnor mal. Immature 0 % 0-0 Granulocytes-Relative (test code = 2801) Lab Interpretation (test Abnormal code = 61049-3) [facility] W/PLT COUNT & AUTO [id number] 13:08:00 Test Item Value Reference Range Interpretation [...] PERCENT (BEAKER) (test code = 2801) Urinalysis w/[id number] 12:23:00 Test Item Value Reference Range Interpretation Comments Color, UA (test code = Yellow 5778-6) Clarity, UA (test code = Cloudy 5767-9) Specific [place], UA 1.025 1.001-1.035 (test code = 5811-5) pH, UA (test code = 6.5 5.0-8.0 5803-2) Protein, UA (test code = 100 mg/dL Negative A 21245-6) Glucose, UA (test code = Negative Negative 365) Ketones, UA (test code = Negative Negative 2514-8) Bilirubin, UA (test code Negative Negative = 31731-3) Blood, UA (test code = Large Negative A 53088-9) Nitrite, UA (test code = Positive Negative A 5802-4) Leukocytes, UA (test Moderate Negative A code = 5799-2) Urobilinogen, UA (test 0.2 mg/dL 0.2-1 code = 58200-1) Bacteria, UA (test code Many = 11894-8) RBC, UA (test code = 20-50 See_Comment [Autom ated message] 799-7) The system [employer] generated this result transmit silvia reference range : /HPF. The refer ence range was not u sed to interpret th is result as normal/abnormal . WBC, UA (test code = >100 See_Comment [Autom ated message] 88747-7) The system [employer] generated this result transmit silvia reference range : /HPF. The refer ence range was not u sed to interpret th is result as normal/abnormal . SQUAMOUS EPITHELIAL 5-10 See_Comment [Automa silvia message] (test code = 03786-3) The sy stem which generated this result transmit silvia reference range : /HPF. The refer ence range was not u sed to interpret th is result as normal/abnormal . Specimen Source (test code = 2795) Lab Interpretation (test Abnormal code = 18139-1) [facility]/ [id number] 12:23:00 Test Item Value Reference Range Interpretation [...] 1663) SOURCE(BEAKER) (test code = 2795) Screen, [id number] 11:56:00 Test Item Value Reference Range Interpretation Comments Preg Test, Ur (test code = 2112-1) Negative [facility] CenterPREG[facility]NCY SCREEN, [id number] 11:56:00 Test Item Value Reference Range Interpretation Comments TEST URINE (BEAKER) (test Negative code = 583) U/S, PELVIS, WITH ENDOVAG AND [id number] 00:46:00Reason for exam:- >VAGINAL BLEEDING and discomfort [...] physiologic. Otherwise, no acute findings. Signed: Toni Lanort Verified Date/Time: 02/19/2020 00:46:24 US pelvis with [...] Toni Lan MDReport Verified Date/Time: 02/19/2020 00:46:24 [facility] ABORH, [id number] 00:09:00 Test Item Value Reference Range Interpretation Comments ABO Grouping (test code = 2588) O Rh Factor (test code = 2589) POS [facility] and screen, automated ([facility] and [facility] only) 2020-02-18 22:58:00 Test Item Value Reference Range Interpretation Comments ABO/RH AUTOMATED (BEAKER) (test O POSITIVE code = 2260) Ab Scrn (test code = 890-4) NEGATIVE [facility] CenterComprehensive metabolic [id number] 21:48:00 Test Item Value Reference Range Interpretation Comments Protein, Total (test 8.3 See_Comment [Autom ated code = 2885-2) message] The system which generated this result transmit silvia reference range : 6.0 - 8.5 gm/dL . The reference range was not u sed to interpret th is result as normal/abnormal . Albumin (test code = 4.9 g/dL 3.5-5 47936-3) Alkaline Phosphatase 85 U/L 30-115 (test code = 6768-6) Total Bilirubin (test 0.4 mg/dL 0.1-1.3 code = 1975-2) Sodium (test code = 139 meq/L 688-871 4184-2) Potassium (test code 3.6 meq/L 3.5-5.5 = 2823-3) Chloride (test code = 105 meq/L 98-106 2075-0) CO2 (test code = 23 meq/L 20-31 8-9) BUN (test code = 7 mg/dL 10-26 L 3094-0) Creatinine (test code 0.71 mg/dL 0.5-1.2 = 2160-0) Glucose (test code = 82 mg/dL 70-110 2345-7) Calcium (test code = 9.9 mg/dL 8.5-10.5 00370-3) AST (test code = 20 U/L 5-40 1920-8) ALT (test code = 12 U/L 6-50 1742-6) EGFR (test code = 104 mL/min/1.[place] [address]-4) NOT ACCURATE CREATININE CLEARANCE IN PREDICTING GLOMERULAR FILTRATION RATE . ESTIMATED GFR I S NOT APPLICABLE FOR DIALYSIS PATIEN TS. BEBETO (test code = BEBETO) Gas Appliance Adjuster ID - [id number] Lab Interpretation Abnormal (test code = 20054-6) [facility], serum, [id number] 21:48:00 Test Item Value Reference Range Interpretation Comments Preg Test, Serum (test code = Negative 2110-5) [facility], SERUM, [id number] 21:48:00 Test Item Value Reference Range Interpretation Comments TEST SERUM (BEAKER) (test Negative code = 584) COMPREHENSIVE METABOLIC [id number] 21:48:00 Test Item Value Reference Range Interpretation [...] S NOT APPLICABLE FOR DIALYSIS PATIEN TS. Gas Appliance Adjuster ID - [id number] w/Microscopic + Reflex to [id number] 21:39:00 Test Item Value Reference Range Interpretation Comments Color, UA (test code Red = 5778-6) Clarity, UA (test Cloudy code = 5767-9) Specific [place], UA 1.013 1.001-1.035 (test code = 5811-5) pH, UA (test code = 6.0 5.0-8.0 5803-2) Protein, UA (test 100 mg/dL Negative A code = 07997-3) Glucose, UA (test Negative Negative code = 365) Ketones, UA (test Negative Negative code = 2514-8) Bilirubin, UA (test Negative Negative code = 44608-8) Blood, UA (test code Large Negative A = 75361-4) Nitrite, UA (test Negative Negative code = 5802-4) Leukocytes, UA (test Negative Negative code = 5799-2) Urobilinogen, UA <1.0 0.2-1 (test code = 75510-4) RBC, UA (test code = 3664 See_Comment [Autom ated 84840-4) message] The system which generated this result [...] . Bacteria, UA (test Rare code = 39489-1) Mucus (test code = Rare 8247-9) Squam Epithel, UA 2 See_Comment [Automate d (test code = message] The 26951-3) system which generated this result transmitted reference range : /HPF. The reference range was not used to interpret this result as normal/abnormal . Specimen Source (test code = 2795) BEBETO (test code = Gas Appliance Adjuster ID - BEBETO) [auto]Gas Appliance Adjuster ID - techOperator ID - tech Lab Interpretation Abnormal (test code = 04256-2) [facility]/ REFLEX URINE [id number] 21:39:00 Test Item Value Reference Range Interpretation [...] = 516) SOURCE(BEAKER) (test code = 2795) Gas Appliance Adjuster ID - [auto]Gas Appliance Adjuster ID - techOperator [facility] AUTO [id number] 21:29:00 Test Item Value Reference Range Interpretation [...] 2801) - XR WRIST 3 + V [id number] 03:53:00Patient Name: ALMAS DEY Unit No: [id number] EXAMS: CPT: [id number] XR WRIST 3 + [place] [address] LEFT WRIST 4 VIEWS: CLINICAL HISTORY: Fall [...] N/A Name: ALMAS DEY Emergency Dept Phys: George VickAna Cristina [address] : 1991 Age: 28 Sex: F [place] [address] Loc: T.CERS Exam Date: 01/24/2020 Status: REG ER PH: [phone] FAX: PAGE 1 Signed Report- CT C-SPINE W/O [id number] 03:52:00Patient Name: ALMAS DEY Unit No: [id number] EXAMS: CPT: [id number] CT C-SPINE W/O CONT [address] CT CERVICAL SPINE WITHOUT IV CONTRAST: CLINICAL [...] with ACR practice standards and adherence to cdl b driver's recommendations with automated exposure control. at 0352 Reported and signed by:Nilay Fernando MD CC: Eric Mccbae DO Technologist: Edna Grossman CTDI: 14.84 DLP: 312.96 [facility] Dt/Tm: 01/24/2020 (035) by:[email or web address] Orig Print D/T: S: 01/24/2020 (0355) BATCH NO: N/A Name: ALMAS DEY Emergency Dept Phys: [place] [address] : 1991 Age: 28 Sex: [place] [address] Loc: T.CERS Exam Date: 01/24/2020 Status: REG ER PH: [phone] FAX: PAGE 1 Signed Report- CT HEAD/BRAIN W/O CONT 2020-01-24 03:50:00Patient Name: ALMAS DEY Unit No: [id number] EXAMS: CPT: [id number] CT HEAD/BRAIN W/O CONT 11485 CT HEAD WITHOUT CONTRAST: CLINICAL HISTORY: Fall [...] with ACR practice standards and adherence to cdl b driver's recommendations with automated exposure control. at 0350 Reported and signed by: Nilay Fernando MD CC: Eric Mccabe DO Technologist: Edna Grossman CTDI: 20.39 DLP: 290.78 Trscr Dt/Tm: 01/24/2020 (0350) by:[email or web address] Orig Print D/T: S: 01/24/2020 (0353) BATCH NO: N/A Name: ALMAS DEY [facility] Emergency Dept Phys: [place] [address] [facility] : 1991 Age: 28 Sex: [place] [address] Loc: T.CERS Exam Date: 01/24/2020 Status: REG ER PH: [phone] FAX: PAGE 1 Signed Report
[2020-12-21 17:06] LABS: Urine Blood Negative (Negative); Urine Glucose Negative (Negative); Urine Protein 1+ (Negative); Urine pH 6.5 (5.0-7.0)
[2020-12-21 20:40] LABS: Absolute Lymphocytes (CBC) 0.6 K/uL (0.7-4.9); Basophils % 0.1 % (0-1.3); Hematocrit 32.7 % (36.0-45.0); Lymphocytes % 7.9 % (15.3-44.8); MPV 7.8 fL (7.6-11.3)
[2020-12-21] MEDS ORDERED: NA CHLORIDE 0.9% 1,000 ML ONE (20:46)
[2020-12-21] MEDS ORDERED: ONDANSETRON 4 MG/2 ML VIAL ONE (20:46)
[2020-12-21] MEDS ORDERED: KETOROLAC 30 MG/ML INJ ONE (20:46)
--- NOTE | 2020-12-21 21:18 | RAD REPORT ---
EXAM DESCRIPTION: CT - Abdomen Pelvis W Contrast - 12/21/2020 9:00 pm CLINICAL HISTORY: ABD PAIN COMPARISON: No comparisons TECHNIQUE: Biphasic, helical CT imaging of the abdomen and pelvis was performed following 100 ml non -ionic IV contrast. No oral contrast administered. All CT scans are performed using dose optimization technique as appropriate and may include automated exposure control or mA/KV adjustment according to patient size. FINDINGS: No suspicious findings in the lung bases. The liver, spleen, and pancreas show no suspicious findings. Gallbladder and biliary tree are also wi thout suspicious finding. Benign calcifications are seen in the liver parenchyma. Symmetric renal function is seen with no hydronephrosis or suspicious renal mass. No obstructing or n onobstructing calculi. No pyelonephritis or acute parenchymal process. No bladder abnormalities. No a drenal abnormalities. Retroflexed and possibly retroverted uterus normal size. No gross endometrial or myometrial significa nt finding. Ovarian detail is somewhat limited. No dominant ovarian or adnexal finding seen. There is a physiological quantity of free fluid present in the cul de sac. No dilated bowel loops or bowel wall thickening. Appendix remains closely approximated to tip of the cecum. Acute appendicitis is not suspected. Patient has a few diverticula but no diverticulitis. No f ree air, free fluid or inflammatory stranding. No hernia, mass or bulky lymphadenopathy. No suspicious bony findings. IMPRESSION: Contrast enhanced CT abdomen and pelvis showing no acute or emergent finding.
[2020-12-21 21:21] LABS: ALT/SGPT 15 U/L (12-78); AST/SGOT 14 U/L (15-37); Albumin 3.6 g/dL (3.4-5.0); Alkaline Phosphatase 72 U/L (45-117); BUN Blood Urea Nitrogen 10 mg/dL (7-18); Bicarbonate 27 mmol/L (21-32); Bilirubin Direct 0.1 mg/dL (0-0.2); Bilirubin Total 0.8 mg/dL (0.2-1.0); Glucose Level 105 mg/dL (74-106); Lipase 58 U/L (73-393); Potassium 3.3 mmol/L (3.5-5.1); Protein, Total 7.4 g/dL (6.4-8.2); Sodium Level 138 mmol/L (136-145)
--- NOTE | 2020-12-21 21:33 | ER ---
Nurse's Notes [facility] Name: Lena Doty Age: 20 yrs Sex: Female : 2000 Arrival Date: 12/21/2020 Time: 16:30 Bed 28 Private MD: Diagnosis: Nausea with vomiting, unspecified;Diarrhea, unspecified Presentation: 12/21 16:40 Chief complaint: Patient states: R flank pain, N/V/D since yesterday. Fever today. ca1 Ibuprofen taken at 1200. Denies urinary symptoms. Coronavirus screen: Client denies travel out of the [place] in the last 14 days. diarrhea, nausea, vomiting. Client presents with at least one sign or symptom that may indicate coronavirus-19. Standard/surgical mask placed on the client. Provider contacted for isolation considerations. Ebola Screen: Patient negative for fever greater than or equal to 101.5 degrees Fahrenheit, and additional compatible Ebola Virus Disease symptoms Patient denies exposure to infectious person. Patient denies travel to an Ebola-affected area in the 21 days before illness onset. No symptoms or risks identified at this time. Initial Sepsis Screen: Does the patient meet any 2 criteria? No. Patient's initial sepsis screen is negative. Does the patient have a suspected source of infection? No. Patient's initial sepsis screen is negative. Risk Assessment: Do you want to hurt yourself or someone else? Patient reports no desire to harm self or others. Onset of symptoms was December 21, 2020. 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 Flu vaccine is not up to date. - Social history:: Smoking status: Patient denies any tobacco usage or history of. Screenin:33 Abuse screen: Denies threats or abuse. Nutritional screening: No deficits noted. em Tuberculosis screening: No symptoms or risk factors identified. Fall Risk None identified. Assessment: 20:34 General: Appears in no apparent distress. comfortable, Behavior is appropriate for age. em Pain: Complains of pain in anterior aspect of right lateral abdomen. Neuro: Level of Consciousness is awake, alert, obeys commands, Oriented to person, place, time, situation. Cardiovascular: Capillary refill < 3 seconds Patient's skin is warm and dry. Respiratory: Airway is patent Respiratory effort is even, unlabored, Respiratory pattern is regular, symmetrical. GI: Abdomen is flat, Reports nausea, vomiting. : Denies burning with urination. Derm: Skin is intact, is healthy with good turgor, Skin is pink, warm \T\ dry. Musculoskeletal: Capillary refill < 3 seconds, Range of motion: intact in all extremities. 21:39 Reassessment: Patient appears in no apparent distress at this time. Patient and/or em family updated on plan of care and expected duration. Pain level reassessed. Patient is alert, oriented x 3, equal unlabored respirations, skin warm/dry/pink. Vital Signs: 16:40 BP 103 / 63; Pulse 106; Resp 18 S; Temp 98.6(O); Pulse Ox 98% on R/A; Weight 65.77 kg ca1 (R); Height 5 ft. 5 in. (165.10 cm) (R); Pain 8/10; 20:30 BP 112 / 71; Pulse 87; Resp 18; Pulse Ox 99% on R/A; em 16:40 Body Mass Index 24.13 (65.77 kg, 165.10 cm) ca1 ED Course: 16:30 Patient arrived in ED. mr 16:42 Triage completed. ca1 16:42 Arm band placed on right wrist. ca1 19:27 Jeet Devries PA is PHCP. cp 19:27 Devang Garrett MD is Attending Physician. cp 19:33 Jhon Green, RN is Primary Nurse. em 19:33 Patient has correct armband on for positive identification. em 19:37 Attending Physician role handed off by Devang Garrett MD [facility] 19:37 Jeet Staples MD is Attending Physician. [facility] 21:00 CT Abd/Pelvis - IV Contrast Only In Process Unspecified. EDMS 21:39 No provider procedures requiring assistance completed. IV discontinued, intact, em bleeding controlled, No redness/swelling at site. Pressure dressing applied. Administered Medications: 20:31 Drug: Zofran (Ondansetron) 4 mg Route: IVP; Site: left antecubital; em 21:25 Follow up: Response: No adverse reaction em 20:31 Drug: Ketorolac 15 mg Route: IVP; Site: left antecubital; em 21:25 Follow up: Response: No adverse reaction; Marked relief of symptoms em 20:31 Drug: NS 0.9% 1000 ml Route: IV; Rate: 1 bolus; Site: left antecubital; em 21:40 Follow up: IV Status: Completed infusion; IV Intake: 1000ml em 21:31 Drug: Potassium Effervescent Tablet 50 mEq Route: PO; em 21:39 Follow up: Response: No adverse reaction em 21:39 Drug: fentaNYL (PF) 25 mcg Route: IVP; Site: left antecubital; em 21:40 Follow up: Response: No adverse reaction; Marked relief of symptoms; Pain is decreased em 21:39 Drug: Bentyl (dicyclomine) 20 mg Route: PO; em 21:40 Follow up: Response: Medication administered at discharge. em Intake: 21:40 IV: 1000ml; Total: 1000ml. em Outcome: 21:33 Discharge ordered by . cp 21:46 Discharged to home ambulatory. em 21:46 Condition: improved 21:46 Discharge instructions given to patient, Instructed on discharge instructions, follow up and referral plans. medication usage, Demonstrated understanding of instructions, follow-up care, medications, Prescriptions given X 1. 21:46 Patient left the ED. em Signatures: Dispatcher [employer] Jeet Osorio MD MD cha Rivera Vaishnavi Jhon Lang RN RN em Jeet Devries PA PA cp Rajani Camejo RN RN ca1 Corrections: (The following items were deleted from the chart) 16:43 16:42 Home Meds: Unable to obtain; ca1 ca1
--- NOTE | 2020-12-21 21:33 | EDPHYS ---
Physician Documentation [facility] Name: Lena Doty Age: 20 yrs Sex: Female : 2000 Arrival Date: 12/21/2020 Time: 16:30 Bed 28 Private MD: MADDIE Physician Jeet Staples HPI: 12/21 19:55 This 20 yrs old Female presents to ER via Ambulatory with complaints of Back cp Pain, Vomiting, Fever. 19:55 The patient presents with pain that is acute, with no known mechanism of injury. The cp symptoms are located in the right flank. 19:55 Onset: The symptoms/episode began/occurred yesterday. The pain does not radiate. cp Associated signs and symptoms: Pertinent positives: abdominal pain, fever, nausea, vomiting, 1 episode of diarrhea, Pertinent negatives: constipation, dysuria. The problem was sustained from unknown cause. 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 Flu vaccine is not up to date. - Social history:: Smoking status: Patient denies any tobacco usage or history of. ROS: 20:00 Constitutional: Negative for fever. cp 20:00 Eyes: Negative for injury, pain, redness, and discharge. cp 20:00 ENT: Negative for ear pain, sore throat, difficulty swallowing, difficulty handling secretions. 20:00 Cardiovascular: Negative for chest pain, palpitations. 20:00 Respiratory: Negative for cough, shortness of breath, wheezing. 20:00 Abdomen/GI: Positive for abdominal pain, nausea, vomiting, diarrhea, Negative for constipation, active vomiting. 20:00 Back: Positive for flank pain, on the right. 20:00 : Negative for urinary symptoms, vaginal bleeding, vaginal discharge. 20:00 Skin: Negative for rash. 20:00 Neuro: Negative for altered mental status, headache, weakness. 20:00 All other systems are negative. Exam: 20:05 Constitutional: The patient appears in no acute distress, alert, awake, non-toxic, well cp developed, well nourished. 20:05 Head/Face: Normocephalic, atraumatic. cp 20:05 Eyes: Periorbital structures: appear normal, Conjunctiva: normal, no exudate, no injection, Sclera: no appreciated abnormality, Lids and lashes: appear normal, bilaterally. 20:05 ENT: External ear(s): are unremarkable, Nose: is normal, Mouth: Lips: moist, Oral mucosa: moist, Posterior pharynx: Airway: no evidence of obstruction, patent. 20:05 Chest/axilla: Inspection: normal, Palpation: is normal, no crepitus, no tenderness. 20:05 Cardiovascular: Rate: tachycardic, Rhythm: regular. 20:05 Respiratory: the patient does not display signs of respiratory distress, Respirations: normal, no use of accessory muscles, no retractions, labored breathing, is not present, Breath sounds: are clear throughout, no decreased breath sounds. 20:05 Abdomen/GI: Inspection: abdomen appears normal, Bowel sounds: active, all quadrants, Palpation: soft, in all quadrants, moderate abdominal tenderness, in the right lower quadrant and left lower quadrant, rebound tenderness, is not appreciated, voluntary guarding, is elicited in the right lower quadrant and left lower quadrant. 20:05 Back: pain, that is moderate, of the right mid back, ROM is normal. 20:05 Neuro: Orientation: to person, place \T\ time. Mentation: is normal, Motor: moves all fours, strength is normal, Sensation: is normal. Vital Signs: 16:40 BP 103 / 63; Pulse 106; Resp 18 S; Temp 98.6(O); Pulse Ox 98% on R/A; Weight 65.77 kg ca1 (R); Height 5 ft. 5 in. (165.10 cm) (R); Pain 8/10; 20:30 BP 112 / 71; Pulse 87; Resp 18; Pulse Ox 99% on R/A; em 16:40 Body Mass Index 24.13 (65.77 kg, 165.10 cm) ca1 MDM: 19:37 Patient medically screened. [facility] 21:33 Data reviewed: vital signs, nurses notes, lab test result(s), radiologic studies, CT cp scan. 21:33 Counseling: I had a detailed discussion with the patient and/or guardian regarding: the cp historical points, exam findings, and any diagnostic results supporting the discharge/admit diagnosis, lab results, radiology results, to return to the emergency department if symptoms worsen or persist or if there are any questions or concerns that arise at home. 12/21 17:06 Order name: Urine Dipstick-Ancillary; Complete Time: 19:27 EDHI 12/21 17:10 Order name: Urine --Ancillary (enter results); Complete Time: 19:27 eb 12/21 19:49 Order name: Basic Metabolic Panel 12/21 19:49 Order name: CBC with Diff; Complete Time: 21:09 cp 12/21 21:09 Interpretation: Normal except: HGB 11.4; RBC 3.80; HCT 32.7; ALLEY% 86.2; LYM% 7.9; LYMA cp 0.6. 12/21 19:49 Order name: Hepatic Function; Complete Time: 21:22 cp 12/21 21:23 Interpretation: Normal except: AST 14; GLOB 3.8; A/G 0.9. 12/21 19:49 Order name: Lipase; Complete Time: 21:22 12/21 19:49 Order name: CT Abd/Pelvis - IV Contrast Only; Complete Time: 21:21 cp 12/21 19:49 Order name: Basic Metabolic Panel; Complete Time: 21:22 EDHI 12/21 21:23 Interpretation: Normal except: K 3.3. 12/21 19:49 Order name: IV Saline Lock; Complete Time: 20:20 cp 12/21 19:49 Order name: Labs collected and sent; Complete Time: 20:20 cp Administered Medications: 20:31 Drug: Zofran (Ondansetron) 4 mg Route: IVP; Site: left antecubital; em 21:25 Follow up: Response: No adverse reaction em 20:31 Drug: Ketorolac 15 mg Route: IVP; Site: left antecubital; em 21:25 Follow up: Response: No adverse reaction; Marked relief of symptoms em 20:31 Drug: NS 0.9% 1000 ml Route: IV; Rate: 1 bolus; Site: left antecubital; em 21:40 Follow up: IV Status: Completed infusion; IV Intake: 1000ml em 21:31 Drug: Potassium Effervescent Tablet 50 mEq Route: PO; em 21:39 Follow up: Response: No adverse reaction em 21:39 Drug: fentaNYL (PF) 25 mcg Route: IVP; Site: left antecubital; em 21:40 Follow up: Response: No adverse reaction; Marked relief of symptoms; Pain is decreased em 21:39 Drug: Bentyl (dicyclomine) 20 mg Route: PO; em 21:40 Follow up: Response: Medication administered at discharge. em Disposition: 12/22 13:18 Co-signature as Attending Physician, Jeet Staples MD I agree with the assessment and edwar plan of care. Disposition Summary: 12/21/20 21:33 Discharge Ordered Location: Home cp Problem: new cp Symptoms: have improved cp Condition: Stable cp Diagnosis - Nausea with vomiting, unspecified cp - Diarrhea, unspecified cp Followup: cp - With: Private Physician - When: 2 - 3 days - Reason: Worsening of condition Discharge Instructions: - Discharge Summary Sheet cp - Food Choices to Help Relieve Diarrhea, Adult cp - Diarrhea, Adult cp - Nausea and Vomiting, Adult cp Forms: - Medication Reconciliation Form cp - Thank You Letter cp - Antibiotic Education cp - Prescription Opioid Use cp Prescriptions: - promethazine 25 mg Oral Tablet - take 1 tablet by ORAL route every 6 hours As needed; 20 tablet; Refills: 0, cp Product Selection Permitted Signatures: Dispatcher [employer] Jeet Osorio MD MD cha Munoz, Edgar, RN RN em Jeet Devries PA PA cp Rajani Camejo RN RN ca1 Corrections: (The following items were deleted from the chart) 12/21 16:43 16:42 Home Meds: Unable to obtain; ca1 ca1 21:01 19:50 UA MICROSCOPIC+U.LAB.BRZ ordered. EDHI EDMS
[2020-12-21] MEDS ORDERED: POTASSIUM 25 MEQ EFFERV TAB ONE (21:49)
[2020-12-21 21:50] VITALS: TEMP 98.6
[2020-12-21 21:52] VITALS: BP 112/71; O2SAT 99
[2020-12-21] MEDS ORDERED: FENTANYL CITR 100 MCG/2 ML ONE (21:57)
[2020-12-21] MEDS ORDERED: DICYCLOMINE HCL 10 MG CAP ONE (21:57)
[2020-12-24] MEDS ORDERED: ALBUTEROL 2.5 MG/3 ML NEB SOL ONE (21:08)
[2020-12-24] MEDS ORDERED: IPRATROPIUM BROM 0.5MG/2.5ML ONE (21:09)
== END 2020-12-21 21:46 | disposition home or self-care (01) ==
LOC: ER 16:26
DX: R19.7 Diarrhea, unspecified (principal)
CPT/HCPCS: 85025; 80048; 36415; 81025; 80076; 81003; 83690; 74177; J3010; J7030; J2405; 96361; 96374; 96375; 99283

== ENCOUNTER 2021-03-05 16:46 | Emergency (ER) | payer OTHER ==
[2021-03-05 17:59] LABS: Absolute Lymphocytes (CBC) 1.1 K/uL (0.7-4.9); Basophils % 0.2 % (0-1.3); Lymphocytes % 17.4 % (15.3-44.8); MPV 7.4 fL (7.6-11.3); RBC Red Blood Cell Count 2.36 M/uL (3.86-4.86)
[2021-03-05 18:02] LABS: BUN Blood Urea Nitrogen 4 mg/dL (7-18); Bicarbonate 23 mmol/L (21-32); Glucose Level 109 mg/dL (74-106); Potassium 3.8 mmol/L (3.5-5.1); Sodium Level 139 mmol/L (136-145)
[2021-03-05 18:06] LABS: Hematocrit 20.5 % (36.0-45.0)
[2021-03-05] MEDS ORDERED: METOCLOPRAMIDE 10 MG/2mL INJ ONE (18:38)
[2021-03-05] MEDS ORDERED: DIPHENHYDRAMINE 50 MG/ML VIAL ONE (18:39)
[2021-03-05] MEDS ORDERED: KETOROLAC 30 MG/ML INJ ONE (18:39)
[2021-03-05] MEDS ORDERED: NA CHLORIDE 0.9% 1,000 ML ONE (18:40)
[2021-03-05 20:33] LABS: Urine Blood Negative (Negative); Urine Glucose Negative (Negative); Urine Protein Negative (Negative); Urine Specific Gravity 1.015 (1.005-1.030); Urine pH 7.5 (5.0-7.0)
[2021-03-05 20:33] LABS: Protime INR 1.09
[2021-03-05 21:05] LABS: Urine Specific Gravity/Preg 1.015 (1.005-1.030)
[2021-03-06] MEDS ORDERED: NA CHLORIDE 0.9% 250 ML ONE (00:19)
--- NOTE | 2021-03-06 05:59 | EDPHYS ---
Physician Documentation [facility] Name: Lena Doty Age: 21 yrs Sex: Female : 2000 Arrival Date: 03/05/2021 Time: 16:49 Bed 30 Private MD: ED Physician Abdirahman Ayoub HPI: 03/05 17:48 This 21 yrs old Female presents to ER via Ambulatory with complaints of kb Headache, Nausea. 17:48 The patient has not recently seen a physician. kb 17:48 The patient has not experienced similar symptoms in the past. kb 17:49 Pt reports she was recently hospitalized for vaginal bleeding and anemia. States she kb was started on hormones and the bleeding resolved. She tested positive for covid while hospitalized but reports she was asymptomatic. Presents today for dyspnea on exertion, nausea and headache. . 17:50 The patient complains of pain to the forehead. The patient describes the headache as kb constant. Onset: The symptoms/episode began/occurred today. Associated signs and symptoms: Pertinent positives: nausea, FLAHERTY. Severity of symptoms: At its worst the pain was mild, moderate, in the emergency department the pain is unchanged. Headache History: Denies prior headaches. The symptoms are alleviated by nothing. the symptoms are aggravated by nothing. 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 - Social history:: Smoking status: Patient denies any tobacco usage or history of. Patient uses alcohol, occasionally. Patient/guardian denies using alcohol, street drugs. ROS: 17:46 Constitutional: Negative for fever, chills, and weight loss. kb 17:46 Respiratory: Positive for dyspnea on exertion. 17:46 Abdomen/GI: Positive for nausea, Negative for abdominal pain, vomiting, diarrhea. 17:46 Neuro: Positive for headache. 17:46 All other systems are negative. Exam: 17:46 Constitutional: This is a well developed, well nourished patient who is awake, alert, kb and in no acute distress. Head/Face: Normocephalic, atraumatic. ENT: Moist Mucous membranes Respiratory: Respirations even and unlabored. No increased work of breathing, no retractions or nasal flaring. Skin: Warm, dry with normal turgor. Normal color. MS/ Extremity: Pulses equal, no cyanosis. Neurovascular intact. Full, normal range of motion. Neuro: Awake and alert, GCS 15, oriented to person, place, time, and situation. Moves all extremities. Normal gait. Psych: Awake, alert, with orientation to person, place and time. Behavior, mood, and affect are within normal limits. Vital Signs: 16:53 BP 106 / 60; Pulse 96; Resp 19; Temp 99.5; Pulse Ox 96% on R/A; Weight 63.5 kg; Height ap3 5 ft. 5 in. (165.10 cm); Pain 7/10; 18:29 BP 111 / 65; Pulse 107 MON; Resp 20 S; Pulse Ox 100% on R/A; kh1 19:30 BP 101 / 58; Pulse 101; Resp 18; Temp 99.0; Pulse Ox 100% on R/A; cc4 03/06 00:25 BP 95 / 58; Pulse 91; Resp 18; Temp 99.0(O); Pulse Ox 100% on R/A; cc4 00:30 BP 94 / 54; Pulse 89; Resp 18; Temp 98.9; Pulse Ox 100% on R/A; cc4 00:40 BP 98 / 72; Pulse 84; Resp 18; Temp 98.8; Pulse Ox 100% on R/A; cc4 00:45 BP 98 / 65; Pulse 96; Resp 18; Temp 98.6; Pulse Ox 100% on R/A; cc4 01:00 BP 98 / 68; Pulse 97; Resp 18; Temp 98.7(O); Pulse Ox 100% on R/A; cc4 01:25 BP 106 / 59; Pulse 98; Resp 20; Temp 98.3; Pulse Ox 100% on R/A; cc4 01:55 BP 103 / 72; Pulse 90; Resp 16; Temp 98.4; Pulse Ox 100% on R/A; cc4 02:25 BP 108 / 65; Pulse 86; Resp 16; Temp 98.4(O); Pulse Ox 100% on R/A; cc4 02:45 BP 103 / 61; Pulse 96; Resp 18; Temp 98.4(O); Pulse Ox 100% on R/A; cc4 04:20 BP 105 / 63; Pulse 84; Resp 18; Temp 98.6; Pulse Ox 100% on R/A; cc4 04:25 BP 100 / 59; Pulse 90; Resp 18; Temp 98.5; Pulse Ox 100% on R/A; cc4 04:30 BP 101 / 59; Pulse 86; Resp 16; Temp 98.5; Pulse Ox 100% ; cc4 04:45 BP 89 / 59; Pulse 82; Resp 16; Temp 98.2; Pulse Ox 100% on R/A; cc4 05:00 BP 106 / 63; Pulse 86; Resp 16; Temp 98.6; Pulse Ox 100% on R/A; cc4 05:30 BP 97 / 60; Pulse 89; Resp 16; Temp 98.1; Pulse Ox 100% on R/A; cc4 06:00 BP 97 / 59; Pulse 98; Resp 18; Temp 98.2(O); Pulse Ox 100% on R/A; cc4 06:15 BP 103 / 66; Pulse 95; Resp 18; Temp 98.3(O); Pulse Ox 100% on R/A; cc4 03/05 16:53 Body Mass Index 23.30 (63.50 kg, 165.10 cm) ap3 [place] Coma Score: 03/05 17:46 Eye Response: spontaneous(4). Verbal Response: oriented(5). Motor Response: obeys kb commands(6). Total: 15. MDM: 17:18 Patient medically screened. kb 17:46 Data reviewed: vital signs, nurses notes. Data interpreted: Pulse oximetry: on room air kb is 96 %. Interpretation: normal. 18:00 Transition of care: After a detail discussion of the patient's case, care is kb transferred to Giuliano Gutierrez MD. 03/06 05:53 Differential diagnosis: cluster headache, migraine, tension headache, Anemia. mh7 Counseling: I had a detailed discussion with the patient and/or guardian regarding: the historical points, exam findings, and any diagnostic results supporting the discharge/admit diagnosis, lab results, the need for outpatient follow up, an plaster molder, an OB/Gyne specialist, to return to the emergency department if symptoms worsen or persist or if there are any questions or concerns that arise at home. Response to treatment: the patient's symptoms have resolved after treatment, the patient's blood pressure is in an acceptable range, mental status has returned to baseline, the patient no longer shows bradycardia, the patient is not short of breath, the patient is not tachycardic, the patient's pain is gone, the patient's temperature has normalized. ED course: Feels better, well-appearing, no acute distress, vital signs stable, no focal neurological deficits. Headache and nausea have resolved. No vaginal bleeding, chest pain, abdominal pain, shortness of breath. Transfusion has completed with 2 units packed red blood cells. Patient request to be discharged from the ED at this time.. 03/05 17:22 Order name: CBC with Diff; Complete Time: 19:04 03/05 17:22 Order name: Basic Metabolic Panel; Complete Time: 19:04 03/05 19:37 Order name: [facility] (+inr) [facility] 03/05 19:37 Order name: Ptt, Activated [facility] 03/05 19:37 Order name: Protime (+INR); Complete Time: 20:51 [facility] 03/05 19:37 Order name: PTT, Activated Partial Thromb; Complete Time: 20:51 [facility] 03/05 19:38 Order name: PRBC [facility] 03/05 19:38 Order name: ABO/RH typing [facility] 03/05 19:38 Order name: Antibody Screen [facility] 03/05 20:33 Order name: Urine Dipstick-Ancillary; Complete Time: 20:51 [facility] 03/05 20:38 Order name: Urine --Ancillary (enter results); Complete Time: 22:11 [facility] 03/05 17:22 Order name: IV Start; Complete Time: 18:26 03/05 19:36 Order name: Urine Dipstick-Ancillary (obtain specimen); Complete Time: 20:35 [facility] 03/05 19:36 Order name: Urine Test (obtain specimen); Complete Time: 20:35 [facility] 03/05 19:38 Order name: Transfuse [facility] Administered Medications: 06:50 Discontinued: NS 0.9% 1000 ml IV at 1000 ml once cc4 03/05 18:25 Drug: Ketorolac 15 mg Route: IVP; Site: right antecubital; 1 19:30 Follow up: Response: No adverse reaction; Marked relief of symptoms cc4 18:26 Drug: NS 0.9% 1000 ml Route: IV; Rate: 1000 ml; Site: right antecubital; kh1 18:26 Drug: Reglan (metoCLOPramide) 10 mg Route: IVP; Site: right antecubital; 1 19:30 Follow up: Response: No adverse reaction; Marked relief of symptoms cc4 18:26 Drug: Benadryl (diphenhydrAMINE) 12.5 mg Route: IVP; Site: right antecubital; 1 19:30 Follow up: Response: No adverse reaction; Marked relief of symptoms cc4 Disposition: 03/06 17:00 Co-signature as Attending Physician, Giuliano Gutierrez MD I agree with the assessment and kdr plan of care. Disposition Summary: 03/06/21 05:58 Discharge Ordered Location: Home [facility] Problem: an ongoing problem [facility] Symptoms: have improved 7 Condition: Stable 7 Diagnosis - Anemia, unspecified mh7 - Other specified abnormal uterine and vaginal bleeding - Fibroids 7 Followup: 7 - With: Private Physician - When: 1 - 2 days - Reason: Worsening of condition, Recheck today's complaints, Continuance of care, Re-evaluation by your physician Followup: [facility] - With: Hope Muse MD - When: 1 - 2 days - Reason: Worsening of condition, Recheck today's complaints Discharge Instructions: - Discharge Summary Sheet 7 - Anemia mh7 - Blood Transfusion, Adult mh7 - Uterine Fibroids, [id number] mh7 - Metrorrhagia, [id number] [facility] Forms: - Medication Reconciliation Form 7 - Thank You Letter mh7 - Antibiotic Education 7 - Prescription Opioid Use [facility] Signatures: Dispatcher [employer] Shabana Hernandez, SAM-C SAM-Giuliano Wilkins MD MD kdr Prokisch, Amanda, RN RN [email or web address] Abdirahman Ayoub MD MD 7 Sushma Garcia [facility] Farzaneh Topete RN cc4 Corrections: (The following items were deleted from the chart) 03/05 20:23 19:37 TYPE AND SCREEN+BB.LAB.BRZ ordered. EDMS EDMS
--- NOTE | 2021-03-06 05:59 | ER ---
Nurse's Notes [facility] Name: Lena Doty Age: 21 yrs Sex: Female : 2000 Arrival Date: 03/05/2021 Time: 16:49 Bed 30 Private MD: Diagnosis: Anemia, unspecified;Other specified abnormal uterine and vaginal bleeding-Fibroids Presentation: 03/05 16:53 Chief complaint: Patient states: she was recently seen at [address] and was informed there that she has fibroids on her uterus. patient states "they told me my blood was a 7, but they didn't want to infuse because it stabilized". Patient also states that she is COVID positive. She came in today due to increased nausea and headache. Coronavirus screen: Client reports previous positive COVID test result. Date of collection: February 28, 2021. Ebola Screen: No symptoms or risks identified at this time. Initial Sepsis Screen: Does the patient meet any 2 criteria? HR > 90 bpm. Yes Does the patient have a suspected source of infection? Yes: Productive cough/pneumonia. Risk Assessment: Do you want to hurt yourself or someone else? Patient reports no desire to harm self or others. Onset of symptoms was March 04, 2021. 16:53 Method Of Arrival: Ambulatory ap3 16:53 Acuity: [place] 3 ap3 Triage Assessment: 16:57 Headache History: The patient has had previous headaches and this one is more severe ap3 than previous episodes. General: Appears uncomfortable, Behavior is calm, cooperative. Pain: Complains of pain in head Pain currently is 7 out of 10 on a pain scale. Pain began gradually, 1 day ago. Alleviated by rest, Aggravated by increased activity, repositioning, Also complains of nausea. Neuro: Level of Consciousness is awake, alert, obeys commands, Oriented to person, place, time, situation, Appropriate for age Moves all extremities. Speech is normal. Respiratory: Airway is patent Respiratory effort is even, unlabored, Respiratory pattern is regular, symmetrical, Denies cough, shortness of breath. GI: Parent/caregiver reports the patient having nausea, vomiting. 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 - Social history:: Smoking status: Patient denies any tobacco usage or history of. Patient uses alcohol, occasionally. Patient/guardian denies using alcohol, street drugs. Screenin:59 Abuse screen: Denies threats or abuse. Nutritional screening: No deficits noted. ap3 Tuberculosis screening: No symptoms or risk factors identified. 03/06 06:15 Fall Risk None identified. cc4 Assessment: 03/05 19:30 Reassessment: Patient appears in no apparent distress at this time. Received AA\\T\\Ox4; cc4 voices no complaints; awaiting lab results;. 23:50 Reassessment: Patient appears in no apparent distress at this time. No changes from cc4 previously documented assessment. Awakened from sleep; AA\\T\\O x 3; instructed on need for blood with hemoglobin level of 6.9, v/u; consent signed; awaiting T\\T\\CM. 03/06 00:25 Reassessment: No changes from previously documented assessment. Unit # [id number] cc4 PRBC's received from blood bank \\T\\ hung transfusing right AC \\T\\ 100ml/hr/pump with no difficulty. 00:45 Reassessment: No changes from previously documented assessment. Transfusion rate cc4 increased to 150ml/hr/pump; sleeping; VSS; no reactions noted to PRBC's. 02:45 Reassessment: Patient appears in no apparent distress at this time. No changes from cc4 previously documented assessment. Sleeping; arouses easily; reports feeling better; transfusion complete with second unit PRBC's ordered from blood bank; VSS (see vital signs); NADN. 04:20 Reassessment: Patient appears in no apparent distress at this time. No changes from cc4 previously documented assessment. Unit # [id number] PRBC's received from blood bank \\T\\ hung, transfusing \\T\\ 150ml/hr/pump right AC with no difficulty; see posted vital signs; VSS; sleeping; arouses easily; voices no complaints. 06:00 Reassessment: Patient appears in no apparent distress at this time. VSS; sleeping; cc4 arouses easily; reports feeling better; transfusion complete, brett. well. 06:15 Reassessment: Patient appears in no apparent distress at this time. Awake/alert \\T\\ cc4 oriented x 4; VSS; saline lock removed right AC with no bleeding noted \\T\\ dsg applied to site; discharge instructions given with v/u; discharged to home with family; NADN. Vital Signs: 03/05 16:53 BP 106 / 60; Pulse 96; Resp 19; Temp 99.5; Pulse Ox 96% on R/A; Weight 63.5 kg; Height ap3 5 ft. 5 in. (165.10 cm); Pain 7/10; 18:29 BP 111 / 65; Pulse 107 MON; Resp 20 S; Pulse Ox 100% on R/A; kh1 19:30 BP 101 / 58; Pulse 101; Resp 18; Temp 99.0; Pulse Ox 100% on R/A; cc4 03/06 00:25 BP 95 / 58; Pulse 91; Resp 18; Temp 99.0(O); Pulse Ox 100% on R/A; cc4 00:30 BP 94 / 54; Pulse 89; Resp 18; Temp 98.9; Pulse Ox 100% on R/A; cc4 00:40 BP 98 / 72; Pulse 84; Resp 18; Temp 98.8; Pulse Ox 100% on R/A; cc4 00:45 BP 98 / 65; Pulse 96; Resp 18; Temp 98.6; Pulse Ox 100% on R/A; cc4 01:00 BP 98 / 68; Pulse 97; Resp 18; Temp 98.7(O); Pulse Ox 100% on R/A; cc4 01:25 BP 106 / 59; Pulse 98; Resp 20; Temp 98.3; Pulse Ox 100% on R/A; cc4 01:55 BP 103 / 72; Pulse 90; Resp 16; Temp 98.4; Pulse Ox 100% on R/A; cc4 02:25 BP 108 / 65; Pulse 86; Resp 16; Temp 98.4(O); Pulse Ox 100% on R/A; cc4 02:45 BP 103 / 61; Pulse 96; Resp 18; Temp 98.4(O); Pulse Ox 100% on R/A; cc4 04:20 BP 105 / 63; Pulse 84; Resp 18; Temp 98.6; Pulse Ox 100% on R/A; cc4 04:25 BP 100 / 59; Pulse 90; Resp 18; Temp 98.5; Pulse Ox 100% on R/A; cc4 04:30 BP 101 / 59; Pulse 86; Resp 16; Temp 98.5; Pulse Ox 100% ; cc4 04:45 BP 89 / 59; Pulse 82; Resp 16; Temp 98.2; Pulse Ox 100% on R/A; cc4 05:00 BP 106 / 63; Pulse 86; Resp 16; Temp 98.6; Pulse Ox 100% on R/A; cc4 05:30 BP 97 / 60; Pulse 89; Resp 16; Temp 98.1; Pulse Ox 100% on R/A; cc4 06:00 BP 97 / 59; Pulse 98; Resp 18; Temp 98.2(O); Pulse Ox 100% on R/A; cc4 06:15 BP 103 / 66; Pulse 95; Resp 18; Temp 98.3(O); Pulse Ox 100% on R/A; cc4 03/05 16:53 Body Mass Index 23.30 (63.50 kg, 165.10 cm) ap3 Susi Coma Score: 03/05 17:46 Eye Response: spontaneous(4). Verbal Response: oriented(5). Motor Response: obeys kb commands(6). Total: 15. ED Course: 16:49 Patient arrived in ED. mr 16:56 Triage completed. ap3 16:59 Arm band placed on left wrist. ap3 16:59 Patient has correct armband on for positive identification. Pulse ox on. NIBP on. ap3 17:18 Shabana Marley FNP-C is PHCP. kb 17:18 Giuliano Gutierrez MD is Attending Physician. kb 17:20 Romelia Pagan, SARINA is Primary Nurse. ss 19:04 Attending Physician role handed off by Giuliano Gutierrez MD 7 19:04 Abdirahman Ayoub MD is Attending Physician. 7 19:30 No provider procedures requiring assistance completed. cc4 20:28 ABO/RH typing Sent. kh1 20:28 Antibody Screen Sent. kh1 20:28 Protime (+INR) Sent. 1 20:28 PTT, Activated Partial Thromb Sent. kh1 20:28 Protime (+inr) Sent. 1 20:28 Ptt, Activated Sent. [facility] 03/06 05:56 Hope Muse MD is Referral Physician. [facility] 06:15 IV discontinued, intact, bleeding controlled, No redness/swelling at site. Pressure cc4 dressing applied. Administered Medications: 06:50 Discontinued: NS 0.9% 1000 ml IV at 1000 ml once cc4 03/05 18:25 Drug: Ketorolac 15 mg Route: IVP; Site: right antecubital; [facility] 19:30 Follow up: Response: No adverse reaction; Marked relief of symptoms 4 18:26 Drug: NS 0.9% 1000 ml Route: IV; Rate: 1000 ml; Site: right antecubital; [facility] 18:26 Drug: Reglan (metoCLOPramide) 10 mg Route: IVP; Site: right antecubital; [facility] 19:30 Follow up: Response: No adverse reaction; Marked relief of symptoms 4 18:26 Drug: Benadryl (diphenhydrAMINE) 12.5 mg Route: IVP; Site: right antecubital; [facility] 19:30 Follow up: Response: No adverse reaction; Marked relief of symptoms cc4 Outcome: 03/06 05:58 Discharge ordered by . [facility] 06:15 Discharged to home with family. cc4 06:15 Condition: improved 06:15 Discharge instructions given to patient, Instructed on discharge instructions, follow up and referral plans. Demonstrated understanding of instructions, follow-up care. 07:16 Patient left the ED. cc4 Signatures: Shabana Marley, CHIEF OPERATOR LOCK TENDER-C CHIEF OPERATOR LOCK TENDER-Ckangel Vaishnavi Mackey mr Romelia Pagan RN SARINA ss Marcelina Laughlin RN RN ap3 Abdirahman Ayoub MD MD [facility] Sushma Garcia [facility] Farzaneh Topete RN RN cc4
[2021-03-06 07:35] VITALS: O2SAT 100
[2021-03-06 08:00] VITALS: BP 103/66; TEMP 98.3
== END 2021-03-06 07:16 | disposition home or self-care (01) ==
LOC: ER 16:46
PROC: 30233N1 Transfusion of Nonautologous Red Blood Cells into Peripheral Vein, Percutaneous Approach (ICD-10-PCS; principal; 2021-03-06)
DX: D64.9 Anemia, unspecified (principal); N93.9 Abnormal uterine and vaginal bleeding, unspecified; D25.9 Leiomyoma of uterus, unspecified
CPT/HCPCS: 85025; 80048; 36415; 86900; 86850; 81025; 85610; 86901; 85730; 81003; 96375; 96374; 99284; 36430; J2765; J1200; P9016 ×2; J7030

== ENCOUNTER 2021-11-29 07:25 | Emergency (ER) | payer OTHER ==
[~2021-11-29 07:25] MED LIST: NA CHLORIDE 0.9% 250 ML ONE
--- OUTSIDE RECORDS SUMMARY | 2021-11-29 07:29 | XMS REPORT | Continuity of Care Document ---
:2000 Author Organization [facility] t Address [address] [place] [address] Care Team Providers Name Role Phone Asked, Pcp Primary Care Physician Unavailable Carito CRYSTAL Attending Clinician Unavailable RACHAEL Attending Clinician Unavailable RACHAEL Attending Clinician Unavailable Rachael DO Attending Clinician Alesha BRANCH Attending Clinician Unavailable Only, Db Test Attending Clinician Unavailable Mateo VARGSA Attending Clinician MATEO Attending Clinician Unavailable Bonilla VARGAS N Attending Clinician Hemanth BRANCH, A Attending Clinician Unavailable Samantha COTTO Attending Clinician Unavailable BELKYS VILLAREAL Attending Clinician Unavailable KATHARINA OTT Attending Clinician Unavailable Ronaldo Bar Attending Clinician Unavailable Frank WARREN, Shruthi Attending Clinician Delbert WARREN Attending Clinician SELMA ALFONSO Attending Clinician Unavailable Doctor Unassigned, Name Attending Clinician Unavailable Osito WARREN, F Attending Clinician Lavon VARGAS, R Attending Clinician Physician, Primary or Family Admitting Clinician UnavailSamantha Griffith Admitting Clinician Unavailable BELKYS VILLAREAL Admitting Clinician Unavailable Enrique Mcneill MD Admitting Clinician Payers Payer Name Policy Type Policy Number Effective Date Expiration Date Reji murillo [facility] [id number] 2019 [facility] MEDICAID 00:00:00 MEDICAID OF [place] [id number] 2020 00:00:00 Problems Condition Condition Condition Status Onset Resolution Last Treating Co mments Source Name Details Category Date Date Treatment Clinician Date H/O tubal H/O tubal Disease Active Uni vers ligation ligation 9-30 ity of 00:00: [place] 00 Medical [facility] Disease Active U nivers anemia anemia 9-30 ity of 00:00: [place] 00 Medical Branch Menorrhagi Menorrhagi Disease Active U nivers a with a with 9-30 ity of regular regular 00:00: [place] cycle cycle 00 Medical Branch Menorrhagi Problem Active 2020-09-25 M emoria a with 02:51:28 l regular Jose Raul cycle Menorrhagi a with regular cycle Active Problem 09/25/2020 [facility] [place] Excessive Problem Active 2020-09-25 Me moria bleeding 02:51:28 l in [place] pre[place] Excessive tomer period bleeding in premenop[place] tomer period Active Problem 09/25/2020 [facility] [place] Dysmenorrh Problem Active 2020-09-25 M emoria ea 02:51:28 l [place] Dysmenorrh ea Active Problem [facility] [place] Allergies, Adverse Reactions, Alerts Allergy Allergy Status Severity Reaction(s) Onset Inactive Treating Comm ents Source Name Type Date Date Clinician No Known DA Active U [facility] Allergie 2-18 [facility] 00:[facility]: [facility] 00 are [place] No Known DA Active U [facility] Allergie 2-18 Mohan s 00:00: Health 00 are [place] No Known DA Active U 0 [facility] Allergie 8 Rice s 00:00: Health 00 are [place] No Known DA Active U 0 [facility] Allergie 8-14 Rice s 00:00: [facility] 00 are [place] NO KNOWN Drug Active Univers ALLERGIE Class ity of S [facility] NO KNOWN Allergy Active [facility] ALLERGIE S Social History Social Habit Start Date Stop Date Quantity Comments Source History SDOH [facility] Alcohol Frequency [facility] History SDOH [facility] Alcohol Std Medical Cent[facility] r Drinks History SDOH [facility] Alcohol Binge Medical [place] ter Exposure to 2021-10-21 2021-10-31 Not sure [facility]-CoV-2 00:00:00 07:20:00 [facility] (event[facility] Branch Alcohol intake 2021-04-22 2021-04-22 Current University of 00:00:00 00:00:00 non-drinker of [facility] alcohol [facility] (finding) Alcohol Comment 2020-02-18 2020-02-[address] [facility] 00:00:00 00:00:00 [facility] Tobacco use and 2018-11-08 2018-11-08 Never used Universit y of exposure 00:00:00 00:00:00 [facility] [place] [facility] Sex Assigned At [birth year] Universit y of 00:00:00 00:00:00 [facility] [place] [facility] Smoking Status Start Date Stop Date Source Never smoker [facility] Medications Ordered Filled Start Stop Current Ordering Indication Dosage Frequency Signature Comments Components Source Medication Medication Date Date Medication? Clinician (SIG) Name Name NaCl 0.9% 2021- No 1000mL at 999 Uni vers (NS) bolus -22 05-22 mL/hr, ity of infusion 14:15: 14:25 1,000 mL, [place] 1,000 mL 00 :00 IV Medical Infusion, Branch ONCE, 1 dose, On 10/31/21 at 0915, JAZZY medroxyPROG 2020-0 Yes 20mg Take 20 mg Univers ESTERone 10 9-21 by mouth 2 it y of mg tablet 00:00: (two) [place] 00 times Medical daily. Branch medroxyPROG 1-0 Yes 20mg Take 20 mg Univers ESTERone 10 9-21 by mouth 2 it y of mg tablet 00:00: (two) [place] 00 times Medical daily. Branch medroxyPROG 1-0 Yes 20mg Take 20 mg Univers ESTERone 10 9-21 by mouth 2 it y of mg tablet 00:00: (two) [place] 00 times Medical daily. Branch medroxyPROG 2021-0 Yes 20mg Take 20 mg Univers ESTERone 10 9-21 by mouth 2 it y of mg tablet 00:00: (two) [place] 00 times Medical daily. Branch medroxyPROG 2021-0 Yes 20mg Take 20 mg Univers ESTERone 10 9-21 by mouth 2 it y of mg tablet 00:00: (two) [place] 00 times Medical daily. Branch medroxyPROG 2021-0 Yes 20mg Take 20 mg Univers ESTERone 10 9-21 by mouth 2 it y of mg tablet 00:00: (two) [place] 00 times Medical daily. Branch medroxyPROG 2021-0 Yes 20mg Take 20 mg Univers ESTERone 10 9-21 by mouth 2 it y of mg tablet 00:00: (two) [place] 00 times Medical daily. Branch cephalexin 2020-0 2020- No 500mg [id number] Take [address] (KEFLEX) 9-27 10-04 [id number] capsule L ukes 500 MG 00:00: 23:59 3D (500 mg Medical capsule 00 :00 total) by Center mouth 3 (three) times daily for 7 days. traMADoL 2020-0 Yes 50mg Take [address] (ULTRAM) 50 9-08 by mouth Luke s mg tablet 20:42: every 6 Medic al 34 (six) Center hours as needed for Pain. ferrous 2020-0 Yes [id number] 325mg Take 1 Un alexandru sulfate 325 6-11 tablet by ity of mg (65 mg 00:00: mouth 2 [place] iron) 00 (two) Medical tablet times Branch daily. ferrous 2020-0 Yes [id number] 325mg Take 1 Un alexandru sulfate 325 6-11 tablet by ity of mg (65 mg 00:00: mouth 2 [place] iron) 00 (two) Medical tablet times Branch daily. ferrous 2020-0 Yes [id number] 325mg Take 1 Un alexandru sulfate 325 6-11 tablet by ity of mg (65 mg 00:00: mouth 2 [place] iron) 00 (two) Medical tablet times Branch daily. ferrous 2020-0 Yes [id number] 325mg Take 1 Un alexandru sulfate 325 6-11 tablet by ity of mg (65 mg 00:00: mouth 2 [place] iron) 00 (two) Medical tablet times Branch daily. ferrous 2020-0 Yes [id number] 325mg Take 1 Un alexandru sulfate 325 6-11 tablet by ity of mg (65 mg 00:00: mouth 2 [place] iron) 00 (two) Medical tablet times Branch daily. ferrous 2020-0 Yes [id number] 325mg Take 1 Un alexandru sulfate 325 6-11 tablet by ity of mg (65 mg 00:00: mouth 2 [place] iron) 00 (two) Medical tablet times Branch daily. ferrous 2020-0 Yes [id number] 325mg Take 1 Un alexandru sulfate 325 6-11 tablet by ity of mg (65 mg 00:00: mouth 2 [place] iron) 00 (two) Medical tablet times Branch daily. No known No Methodi medications [facility] l Immunizations Ordered Filled Immunization Date Status Comments [facility] e Immunization Name Name TD 2019-10-18 Completed University of 00:00:00 [facility] [place] [facility] TDAP 2019-10-18 Completed University of 00:00:00 [facility] [place] [facility] TDAP 2019-10-18 Completed University of 00:00:00 [facility] [place] [facility] TDAP 2019-10-18 Completed University [facility] 00:00:00 [facility] TDAP 2019-10-18 Completed University of 00:00:00 [facility] TDAP 2019-10-18 Completed University of 00:00:00 [facility] [place] [facility] TDAP 2019-10-18 Completed University of 00:00:00 [facility] HPV 2018-06-19 Completed University of 00:00:00 [place] [facility] HPV 2018-06-19 Completed University of 00:00:00 [place] [facility] HPV 2018-06-19 Completed University of 00:00:00 [place] [facility] HPV 2018-06-19 Completed University of 00:00:00 [place] [facility] HPV 2018-06-19 Completed University of 00:00:00 [place] [facility] HPV 2018-06-19 Completed University of 00:00:00 [place] [facility] HPV 2018-06-19 Completed University of 00:00:00 [facility] HPV 2012-03-19 Completed University of 00:00:00 [place] [facility] HPV 2012-03-19 Completed University of 00:00:00 [place] [facility] HPV 2012-03-19 Completed University of 00:00:00 [place] [facility] HPV 2012-03-19 Completed University of 00:00:00 [place] [facility] HPV 2012-03-19 Completed University of 00:00:00 [place] [facility] HPV 2012-03-19 Completed University of 00:00:00 [facility] [place] [facility] HPV 2012-03-19 Completed University of 00:00:00 [facility] [place] [facility] Vital Signs Vital Name Observation Time Observation Value Comments Source Systolic blood 2021-10-31 14:25:33 120 mm[Hg] Univer sity of pressure [facility] Diastolic blood 2021-10-31 14:25:33 77 mm[Hg] Unive rsity of [facility] Heart rate 2021-10-31 14:25:33 104 /min [facility] Body temperature 2021-10-31 14:25:33 37 [facility] Res[facility] rate 2021-10-31 14:25:33 17 /min [facility] Oxygen saturation in 2021-10-31 14:25:33 100 /min University Arterial blood by [facility] Pulse oximetry [facility] Body weight 2021-10-31 12:21:00 67.132 kg [facility] BMI 2021-10-31 12:21:00 24.63 kg/m2 [facility] HEIGHT 2020-03-08 00:00:00 167.6 cm WEIGHT 2020-03-08 00:00:00 64.864 kg HEIGHT 2020-03-08 00:00:00 167.6 cm WEIGHT 2020-03-08 00:00:00 64.864 kg HEIGHT 2020-02-18 00:00:00 167.6 cm WEIGHT 2020-02-18 00:00:00 64.9 kg HEIGHT 2020-02-18 00:00:00 167.6 cm WEIGHT 2020-02-18 00:00:00 64.9 kg Systolic blood 2020-09-29 15:30:00 117 mm[Hg] Method ist [facility] pressure Diastolic blood 2020-09-29 15:30:00 76 mm[Hg] [facility] pressure Heart rate 2020-09-29 15:30:00 106 /min [facility] Respiratory rate 2020-09-29 15:30:00 10 /min [facility] Oxygen saturation in 2020-09-29 15:30:00 99 /min [facility] Arterial blood by Pulse oximetry Body temperature 2020-09-29 15:12:00 38.89 Enma [facility] Body weight 2020-09-29 14:56:00 63.504 kg [facility] BMI 2020-09-29 14:56:00 22.60 kg/m2 [facility] Body height 2020-09-29 14:56:00 167.6 cm [facility] Systolic blood 2020-03-08 13:42:00 106 mm[Hg] [facility] Diastolic blood 2020-03-08 13:42:00 58 mm[Hg] [facility] Heart rate 2020-03-08 13:42:00 82 /min [facility] Body temperature 2020-03-08 13:42:00 37.11 Enma [facility] Respiratory rate 2020-03-08 13:42:00 16 /min [facility] Oxygen saturation in 2020-03-08 13:10:00 99 /min [facility] Arterial blood by Medical Ce nter Pulse oximetry Body height 2020-03-08 11:56:00 167.6 cm [facility] Body weight 2020-03-08 11:56:00 64.864 kg [facility] BMI 2020-03-08 11:56:00 23.08 kg/m2 [facility] Systolic (mm Hg) 2020-02-24 20:30:00 Alberto hager [place] Weight 2020-02-24 20:30:00 [facility] Diastolic (mm Hg) 2020-02-24 20:30:00 [facility] [place] Procedures Procedure Date / Time Performing Clinician Source Performed POCT TEST 2021-10-31 14:29:00 [facility] 2021-10-31 13:25:00 Rachael [facility] LIPASE 2021-10-31 13:25:00 [facility]EL 2021-10-31 13:25:00 Benny Can[facility] ([id number] (ALB,T.PRO,BILI Medical Branch T,BU/BC,ALT,AST,ALK PHOS) BASIC METABOLIC PANEL 2021-10-31 13:25:00 Rachael, [facility] (NA, K, CL, CO2, Medical Branch GLUCOSE, BUN, CREATININE, CA) ETHANOL 2021-10-31 13:25:00 Rachael [facility] CBC WITH DIFF 2021-10-31 13:25:00 Rachael, [facility] URINALYSIS 2021-10-31 13:25:00 Rachael [facility] URINE DRUG (IMMUNOASSAY) 2021-10-31 13:25:00 Rachael [facility] SCREEN W/O REFLEX URINALYSIS, AUTOMATED 2020-09-29 15:48:00 [facility] WITH MICROSCOPY Shruthi HCG QUALITATIVE, URINE 2020-09-29 15:48:00 [facility] SCREEN Shruthi COVID-19 QUALITATIVE 2020-09-29 15:37:00 [facility] RT-PCR Shruthi INFLUENZA ANTIGEN 2020-09-29 15:35:00 [facility] Shruthi XR CHEST 1 VW PORTABLE 2020-09-29 15:18:58 [facility] Shruthi CBC W/PLT COUNT & AUTO 2020-03-08 13:02:00 [facility] DIFFERENTIAL Center BASIC METABOLIC PANEL 2020-03-08 13:02:00 [facility] (7) Center CBC W/PLT COUNT & AUTO 2020-03-08 13:02:00 [facility] DIFFERENTIAL Center URINE CULTURE 2020-03-08 11:48:00 [facility] SCREEN, URINE 2020-03-08 11:48:00 [facility] URINALYSIS W/ 2020-03-08 11:48:00 [facility] Center Plan of Care Planned Activity Planned Date Details Comments Source Future Scheduled 2029-10-17 DTAP/TDAP/TD [facility] Test 00:00:00 VACCINES (2 - Td) Medical Ce nter [code = DTAP/TDAP/TD VACCINES (2 - Td)] Future Scheduled 2020-06-[address] [facility] Test 00:00:00 (12+) [code = Medical Center DEPRESSION SCREENING (12+)] Future Scheduled 2020-02-[address] [facility] Test 00:00:00 (#1) [code = Medical Center INFLUENZA VACCINE (#1)] Future Scheduled [address] [facility] Test 00:00:00 malignant neoplasm Medical C enter of cervix (procedure) [code = 336521006] Future Scheduled 2016-02-[address] [facility] Test 00:00:00 SCREENING [code = Medical Ce nter HEPATITIS C SCREENING] Future Scheduled CHLAMYDIA [facility]CREENING [facility] Test [code = CHLAMYDIA SCREENING] Future Scheduled COVID-19 VACCINE (1) [facility] Test [code = COVID-19 VACCINE (1)] Future Scheduled [facility] Test screening (procedure) [code = 882369913] Future Scheduled [facility] for [facility] Test malignant neoplasm of cervix (procedure) [code = 579703496] Future Scheduled INFLUENZA VACCINE Method [facility] Hospital Test [code = INFLUENZA VACCINE] Encounters Start End Encounter Admission Attending Care Care Encounter Source Date/Time Date/Time Type Type Clinicians Facility Department ID 2021-02-26 Outpatient [id number] Memoria 18:42:48 [id number] Jose Raul [id number] 2021-02-26 Inpatient HCANC ELOINA [id number] [facility] 18:28:00 [id number] [facility] are [place] 2020-11-06 Inpatient HCATB EO3 [id number] [facility] 20:24:00 [id number] [facility] are [place] 2020-07-30 Inpatient HCATB EO3 [id number] [facility] 08:23:00 [id number] [facility] are [place] 2020-01-24 Inpatient HCATB EO3 [id number] [facility] 03:04:00 [id number] [facility] are [place] 2022-03-11 2022-03-11 Outpatient R BONILLA [facility] [id number] Univers 13:00:00 13:00:00 LAUREN ity of [facility] [place] [facility] 2021-10-31 2021-10-31 Emergency X ANDREW CANO [facility] ERT 1 [id number] Univers 07:22:00 10:50:00 ANDREW CANO ity of [facility] [place] [facility] 2021-10-31 2021-10-31 Emergency Rachael, TRAUMA [id number] Univers 07:22:00 10:50:00 [facility] 350.1.13.10 ity [place]686 [place] [id number] [address] 2021-07-13 2021-07-13 Telephone CARLOS Eduardo [id number] Univers 00:00:00 00:00:00 Viridiana MAXWELLY 350.1.13.10 it y of [facility] 4.2.7.2.686 [place] [id number] [address] 2021-07-12 2021-07-12 Laboratory Only, Ang Db Test [facility] 1.2.8 40.114 [id number] Univers 11:30:00 11:45:00 Only Margaret Galindo [facility] 350.1.13.10 ity of [place] 4.2.7.2.686 [place] NELLA?BLEA [id number] [address] MEDICAL OFFICE BUILDING 2021-07-12 2021-07-12 Outpatient R [facility] [id number] Univers 11:30:00 11:30:00 [id number] ity of [facility] [place] [facility] 2021-07-12 2021-07-12 Outpatient [facility] [id number] Univers 11:30:00 11:30:00 MARGARET stporfirio o f [facility] 2021-06-05 2021-06-05 Telephone CARLOS Eduardo [id number] Univers 00:00:00 00:00:00 Viridiana FERNANDEZ 350.1.13.10 it y of [facility] 4.2.7.2.686 [place] [id number] [address] 2021-06-04 2021-06-04 Outpatient R [facility] [id number] Univers 17:45:00 17:45:00 ity [facility] 2021-06-04 2021-06-04 Laboratory Only, Ang Db Test [facility] 1.2.8 40.114 [id number] Univers 12:30:00 12:45:00 Only Mateo, [facility].1.13.10 [facility] 4.2.7.2.686 [place] NELLA?BLEA [phone] [address] MEDICAL OFFICE BUILDING 2021-06-04 2021-06-04 Outpatient R [facility] [id number] Univers 12:30:00 12:30:00 [id number] ity [facility] 2021-06-04 2021-06-04 Outpatient R [facility] [id number] Univers 12:30:00 12:30:00 [facility] o f [facility] 2021-05-27 2021-05-27 Outpatient R [facility] [id number] Univers 14:15:00 14:15:00 [id number] ity [facility] 2021-05-27 2021-05-27 Outpatient R [facility] [id number] Univers 14:15:00 14:15:00 ity [facility] 2021-05-14 2021-05-14 Outpatient R [facility] [id number] Univers 09:00:00 09:00:00 [id number] [facility] 2021-04-29 2021-04-29 Telephone Bonilla [facility] 1.2.840.114 [id number] Univers 00:00:00 00:00:00 Lauren Arzate SPECIALTY MOLDER 350.1.13.10 it y of [facility] 4.2.7.2.686 [place] MATERNAL [phone] Med ical & CHILD [address] [place] [address] 2021-04-22 2021-04-22 Nurse CARLOS Saxena 1.2.840.114 [id number] Univers 00:00:00 00:00:00 Triage Erica FERNANDEZ 350.1.13.10 i ty [facility] 4.2.7.2.686 [facility] [id number] [place] [address] Branch 2021-04-21 2021-04-21 Outpatient R KIRTI, [facility] 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 [id number] Univers 14:08:00 19:24:00 CHRISTINA elias [facility] 2021-03-01 2021-03-01 Outpatient E MONO HERZOG [facility] MED [id number] [facility] 00:34:00 23:15:00 2021-02-27 2021-02-27 Emergency E CHELSI, [facility] NW 7505 [facility] 13:37:00 20:23:00 AMINAH 2021-02-26 2021-02-26 Emergency EM YosvanyBaljinder [facility] [id number] [facility] 18:28:00 20:22:[address] [place] [address] 2020-09-29 2020-09-29 Emergency Nojanuszinger, 1.2.840.1 [id number] Methodi 09:51:00 13:15:00 Carla Hawkins 26808.1.1 344 s t 3.430.2.7 Hospit a .[id number] l .8 2020-09-29 2020-09-29 Travel 1.2.840.1 [id number] [id number] Methodi 00:00:00 00:00:[address] 3.430.2.7 0.2.7.3.698 Ho spita .[id number] 084.8 l .8 2020-03-08 2020-03-08 Emergency ER Delbert, [facility] [id number] 11:45:27 13:46:00 [facility] 2020-03-08 2020-03-08 Emergency ER [facility] Emergency [id number] [facility] 11:39:00 11:39:00 2020-03-08 2020-03-08 Travel [facility] [id number] [facility] 00:[facility] 00:00:00 [facility] 2020-02-18 2020-02-18 Emergency ER [facility] Emergency [id number] [facility] 20:19:00 20:19:00 2019-12-24 2019-12-24 Orders Doctor CARLOS 1.2.840.114 [id number] 00:00:00 00:00:00 Only Unassigned, JIM 350.1.13.10 [facility] .2.7.2.686 [id number] 2019-11-18 2019-11-21 Hospital CARLOS Mcneill 1.2.840.114 [id number] 18:15:00 13:26:00 Encounter Pelon Nunez JIM [address].1.13.[address] [id number] [id number] 2019-11-19 2019-11-19 Telephone JOHNNY Doll [id number] 00:00:00 00:00:00 Jenelle Olson SPECIALTY MOLDER [address].1.13.[address]686 MATERNAL [id number] & CHILD [address] [place] [address] 2019-11-19 2019-11-19 Orders Doctor CARLOS Nicholson.2.840.114 [id number] 00:00:00 00:00:00 Only Unassigned, JIM 350.1.13.10 [facility] [address]686 [id number] [id number] 2019-11-18 2019-11-18 Orders Doctor CARLOS 1.2.840.114 [id number] 00:00:00 00:00:00 Only Unassigned, JIM 350.1.13.10 [facility] [address]686 [id number] [id number] Results Test Description Test Time Test Comments Results Result Comments Source POCT TEST 2021-10-31 14:29:00 Test Item Value Reference Range Interpretation Comme nts On board controls acceptable with C Line (test code = 3574) NEGATIV E POCT PREG LOT # (test code = 3575) [id number] POCT PREG TEST DATE (test code = 3576) 03/11/2023 Lab Interpretation (test code = 28397-1) Normal [facility] METABOLIC PANEL (NA, K, CL, CO2, GLUCOSE, BUN, CREATININE, CA)2021-10-31 13:48:54 Test Item Value Reference Range Interpretation Comments NA (test code = 143 mmol/L 135-145 4842885832) K (test code = 3.2 mmol/L 3.5-5.0 L 1751541761) CL (test code = 108 mmol/L 98-108 1688956279) CO2 TOTAL (test code = 24 mmol/L 23-31 3361532475) AGAP (test code = 2-16 5224232875) BUN (test code = 2 mg/dL 7-23 L 0525493775) GLUCOSE (test code = 102 mg/dL 70-110 3196348702) CREATININE (test code = 0.66 mg/dL 0.50-1.04 9578478895) CALCIUM (test code = 8.9 mg/dL 8.6-10.6 6613488240) eGFR (test code = mL/min/1.73m2 3657580679) BEBETO (test code = BEBETO) Association of Glomerular Filtration Rate (GFR) and Staging of Kidney Disease* + --+ --+ ------+| GFR (mL/min/1.73 m2) ?| With Kidney Damage ?| ?Without Kidney Damage+ --------+ --------+ +| ?>90 ?| ?Stage one ?| ? Normal ?+ ---+ ---+ -------+| ?60-89 ?| ?Stage two ?| ? Decreased GFR ? + --+ --+ ------+| ?30-59 ?| ?Stage three ?| ? Stage three ? + --+ --+ ------+| ?15-29 ?| ?Stage four ? | ? Stage four ?+ ---+ ---+ -------+| ?<15 (or dialysis) ? ?| ?Stage five ? | ? Stage five ?+ ---+ ---+ -------+ *Each stage assumes the associated GFR level has been in effect for at least three months. ?Stages 1 to 5, with or without kidney disease, indicate chronic kidney disease. Notes: Determination of stages one and two (with eGFR >59mL/min/1.73 m2) requires estimation of kidney damage for at least three months as defined by structural or functional abnormalities of the kidney, manifested by either:Pathological abnormalities or Markers of kidney damage (including abnormalities in the composition of the blood or urine or abnormalities in imaging tests). Lab Interpretation Abnormal (test code = 48363-6) [facility] (ALB,T.PRO,BILI T,BU/BC,ALT,AST,ALK PHOS)2021-10-31 13:48:54 Test Item Value Reference Range Interpretation Comments TOTAL BILI (test code = 9696966680) 0.7 mg/dL 0.1-1.1 BILI UNCON (test code = 7209928740) 0.6 mg/dL 0.1-1.1 BILI CONJ (test code = 3944439344) 0.0 mg/dL 0.0-0.3 T PROTEIN (test code = 6995083263) 7.4 g/dL 6.3-8.2 ALBUMIN (test code = 3162784204) 4.6 g/dL 3.5-5.0 ALK PHOS (test code = 9597408591) 79 U/L 34-122 ALTv (test code = 1742-6) 20 U/L 5-35 AST(SGOT) (test code = 4311486077) 37 U/L 13-40 Lab Interpretation (test code = Normal 37932-5) [facility]54 Test Item Value Reference Range Interpretation Comments LIPASE (test code = 1433435049) 18 U/L 0-220 Lab Interpretation (test code = Normal 06206-6) [facility] 13:48:54 Test Item Value Reference Range Interpretation Comments ALCOHOL (test code = 120 mg/dL 5822905877) BEBETO (test code = Toxic Greater than or BEBETO) equal to 80 mg/dL. NOTE: Whole blood values are approximately 10% to 15% lower than serum and plasma. [facility] [id number] 13:48:54 Test Item Value Reference Range Interpretation Comments CK (test code = 1295594352) 490 U/L 33-194 H Lab Interpretation (test code = Abnormal 45743-9) [facility] WITH [id number] 13:40:37 Test Item Value Reference Range Interpretation Comments WBC (test code = See_Comment [Automated 2890-2) message] The sy stem which generated this result transmitted reference range : 4.30 - 11.10 10*3/?L. The reference range was not used to interpret this result as normal/abnormal . RBC (test code = See_Comment [Automated 789-8) message] The sy stem which generated this result transmitted reference range : 3.93 - 5.25 10*6/?L. The reference range was not used to interpret this result as normal/abnormal . HGB (test code = 10.2 g/dL 11.6-15.0 L 718-7) HCT (test code = 32.5 % 35.7-45.2 L 4544-3) MCV (test code = 81.3 fL 80.6-95.5 787-2) MCH (test code = 25.5 pg 25.9-32.8 L 785-6) MCHC (test code = 31.4 g/dL 31.6-35.1 L 786-4) RDW-SD (test code = 42.3 fL 39.0-49.9 62660-5) RDW-CV (test code = 14.4 % 12.0-15.5 788-0) PLT (test code = See_Comment [Automated 777-3) message] The sy stem which generated this result transmitted reference range : 166 - 358 10*3/ ?L. The reference r evie was not used to interpret this result as normal/abnormal . MPV (test code = 9.4 fL 9.5-12.9 L 87596-6) NRBC/100 WBC (test See_Comment [Automat ed code = 4687358357) message] The system which generated this result transmitted reference range : 0.0 - 10.0 /100 WBCs. The refer ence range was not u sed to interpret th is result as normal/abnormal . NRBC x10^3 (test code <0.01 See_Comment [Auto mated = 4454819206) message] The s ystem which generated this result transmitted reference range : 10*3/?L. The reference range was not used to interpret this result as normal/abnormal . GRAN MAT (NEUT) % 71.1 % (test code = 770-8) IMM GRAN % (test code 0.30 % = 6350125546) LYMPH % (test code = 18.3 % 736-9) MONO % (test code = 9.6 % 5905-5) EOS % (test code = 0.4 % 713-8) BASO % (test code = 0.3 % 706-2) GRAN MAT x10^3(ANC) 5.50 10*3/uL 1.88-7.09 (test code = 8104544769) IMM GRAN x10^3 (test <0.03 0.00-0.06 code = 2255775346) LYMPH x10^3 (test code 1.41 10*3/uL 1.32-3.29 = 731-0) MONO x10^3 (test code 0.74 10*3/uL 0.33-0.92 = 742-7) EOS x10^3 (test code = 0.03 10*3/uL 0.03-0.39 711-2) BASO x10^3 (test code <0.03 0.01-0.07 = 704-7) Lab Interpretation Abnormal (test code = 68623-8) [facility] RFLX MICR CULT IF [id number] 19:43:00 Test Item Value Reference Range Interpretation Comments UA COLOR (test code PEGGY YELLOW A = COLU) UA APPEARANCE (test CLOUDY CLEAR A code = APPU) UA GLUCOSE DIPSTICK NEGATIVE NEGATIVE (test code = DGLUU) UA BILIRUBIN NEGATIVE NEGATIVE DIPSTICK (test code = BILU) UA KETONE DIPSTICK 1+ NEGATIVE A (test code = KETU) UA SPECIFIC GRAVITY 1.017 1.005-1.025 N (test code = SGU) UA BLOOD DIPSTICK 2+ NEGATIVE A (test code = MICHAEL) UA PH DIPSTICK (test 7.0 5.0-8.0 code = LEROY) UA PROTEIN DIPSTICK 2+ NEGATIVE A (test code = PROU) UA UROBILINOGEN NEGATIVE EU/dL 0.1-0.2 DIPSTICK (test code = URO) UA NITRITE DIPSTICK NEGATIVE NEGATIVE (test code = PETER) UA LEUKOCYTE TRACE NEGATIVE A ESTERASE DIPSTICK (test code = LEUU) UA MICROSCOPIC YES NO A NEEDED? (test code = UAMICRO) UA WBC (test code = 3-5 /hpf 0-3 A WBCU) UA RBC (test code = TOO NUMEROUS TO 0-3 A RBCU) CNT /hpf UA BACTERIA (test MANY /HPF NEGATIVE Previously code = BACU) reported result : RARE /HPFEdited by: NCL.AZUL on 02/26/21:1943~~ Corrected Repor t ~~Reason (required): UA SQUAMOUS CELLS Many /HPF FEW (test code = SQU) Indication for culture: Suprapubic PainSpecimen Description: CLEAN CATCHUR HCG [id number] 19:23:00 Test Item Value Reference Range Interpretation Comments UR HCG QUAL (test code = HCGQLU) NEGATIVE NEGATIVE XR Chest 1 Vw [id number] 15:20:04Study:XR CHEST 1 VW PORTABLE History: cough COMPARISON: None. IMPRESSION: A single view of the chest. There is no focal consolidation, pleural effusion or pneumothorax. Cardiac silhouette is normal. Visualized osseous structures are without acute abnormality. [facility]- [id number] Interface, Radiology Results Incoming - 09/29/2020 10:23 AM CDT Study:XR CHEST 1 VW PORTABLEHistory: coughCOMPARISON: None.IMPRESSION:A single view of the chest. There is no focal consolidation, pleural effusion or pneumothorax. Cardiac silhouette is normal. Visualized osseous structures are without acute abnormality.[id number]- [facility]R PELVIS 1/2 [id number] 09:11:00[facility] : 2000 Sex: FPatient Name: ALMAS DEY Unit No: [id number] EXAMS: CPT: [id number] XR PELVIS 1/2 VIEWS 27713 Clinical History: Buttock pain. Exam: - XR [...] (910) by:[email or web address] Orig Print D/T: S: 07/30/2020 (09) BATCH NO: N/A Name: ALMAS DEY Emergency Dept Phys: [facility] [place] [id number] [facility] : 2000 Age: 20 Sex: [place] [address] Loc: [facility] Exam Date: 07/30/2020 Status: PRE ER PH: [phone] FAX: PAGE 1 Signed ReportURINALYSIS DIPSTICK POC [...] YES NEEDED? (test code = UAMICRO) UA [id number] 08:51:00 Test Item Value Reference Range Interpretation Comments UA WBC (test code = WBCU) NONE SEEN /HPF 0-3 UA RBC (test code = RBCU) 3-5 /HPF 0-3 A UA EPITHELIAL CELLS (test code FEW /LPF NONE-FEW = EPIU) UA BACTERIA (test code = BACU) FEW /HPF NONE SEEN UA MUCUS (test code = MUCU) 1+ /LPF NONE-FEW A URINALYSIS DIPSTICK [id number] 08:43:00 Test Item Value Reference Range Interpretation [...] NEEDED? (test code = UAMICRO) URINALYSIS DIPSTICK [id number] 08:43:00 Test Item Value Reference Range Interpretation [...] NEEDED? (test code = UAMICRO) UR HCG [id number] 08:43:00 Test Item Value Reference Range Interpretation Comments UR HCG QUAL (test code = HCGQLU) NEGATIVE NEGATIVE URINALYSIS DIPSTICK [id number] 08:42:00 Test Item Value Reference Range Interpretation [...] ESTERASE DIPSTICK (test code = LEUU) URINE [id number] 10:40:00 Test Item Value Reference Range Interpretation [...] (test code = 47) 20-29,000 col/mL skin floraBASIC METABOLIC [id number] 13:18:00 Test Item Value Reference Range Interpretation [...] NOT APPLICABLE FOR DIALYSIS PATIEN TS. CBC W/PLT COUNT & AUTO [id number] 13:08:00 Test Item Value Reference Range Interpretation [...] 0-0 PERCENT (BEAKER) (test code = 2801) URINALYSIS W/ [id number] 12:23:00 Test Item Value Reference Range Interpretation [...] = 1663) SOURCE(BEAKER) (test code = 2795) SCREEN, [id number] 11:56:00 Test Item Value Reference Range Interpretation Comments TEST URINE (BEAKER) (test Negative code = 583) U/S, PELVIS, WITH ENDOVAG AND [id number] 00:46:00Reason for exam:- >VAGINAL BLEEDING and discomfort [...] Toni Lan MDReport Verified Date/Time: 02/19/2020 00:46:24 HCG, SERUM, [id number] 21:48:00 Test Item Value Reference Range Interpretation Comments TEST SERUM (BEAKER) (test Negative code = 584) COMPREHENSIVE METABOLIC [id number] 21:48:00 Test Item Value Reference Range Interpretation [...] S NOT APPLICABLE FOR DIALYSIS PATIEN TS. Special Needs Tutor ID - [id number] W/ REFLEX URINE [id number] 21:39:00 Test Item Value Reference Range Interpretation [...] = 516) SOURCE(BEAKER) (test code = 2795) Special Needs Tutor ID - [auto]Special Needs Tutor ID - techOperator ID - techCBC W/PLT COUNT & AUTO [id number] 21:29:00 Test Item Value Reference Range Interpretation [...] 2801) - XR WRIST 3 + V [id number] 03:53:00Patient Name: ALMAS DEY Unit No: [id number] EXAMS: CPT: [id number] XR WRIST 3 + V LT [address] LEFT WRIST 4 VIEWS: CLINICAL HISTORY: Fall [...] CC: Eric Mccabe DO Technologist: Edna Grossman [facility] Dt/Tm: 01/24/2020 (035) by:[email or web address] Orig Print D/T: S:01/24/2020 (0356) BATCH NO: N/A Name: ALMAS DEY Emergency Dept Phys: Berny Rome EstelleParisa [address] [place] : 1991 Age: 28 Sex: [place] [address] Loc: [facility] Exam Date: 01/24/2020 Status: REG ER PH: [phone] FAX: PAGE 1 Signed Report- CT C-SPINE W/O [id number] 03:52:00Patient Name: ALMAS DEY Unit No: [id number] EXAMS: CPT: [id number] CT C-SPINE W/O CONT [address] CT CERVICAL SPINE WITHOUT IV CONTRAST: CLINICAL [...] with ACR practice standards and adherence to foaming machine operator's recommendations with automated exposure control. at 0352 Reported and signed by:Nilay Fernando MD CC: Eric Mccabe DO Technologist: Edna Grossman CTDI: 14.84 DLP: 312.96 [facility] Dt/Tm: 01/24/2020 (035) by:[email or web address] Orig Print D/T: S: 01/24/2020 (0355) BATCH NO: N/A Name: ALMAS DEY [facility] Dept Phys: 06 [place] [address] Sandy Saldaña : 1991 Age: 28 Sex: F [place] [address] Loc: T.[facility] Exam Date: 01/24/2020 Status: REG ER PH: [phone] FAX: PAGE 1 Signed Report- CT HEAD/BRAIN W/O CONT 2020-01-24 03:50:00Patient Name: ALMAS DEY Unit No: [id number] EXAMS: CPT: [id number] CT HEAD/BRAIN W/O CONT 54266 CT HEAD WITHOUT CONTRAST: CLINICAL HISTORY: Fall [...] with ACR practice standards and adherence to foaming machine operator's recommendations with automated exposure control. at 0350 Reported and signed by: Nilay Fernando MD CC: Eric Mccabe DO Technologist: Edna Grossman CTDI: 20.39 DLP: 290.78 Trscr Dt/Tm: 01/24/2020 (0350) by:[email or web address] Orig Print D/T: S: 01/24/2020 (0353) BATCH NO: N/A Name: ALMAS DEY [facility] Phys: [place] [address] Sandy Saldaña : 1991 Age: 28 Sex: [place] [address] Loc: [facility] Exam Date: 01/24/2020 Status: REG ER PH: [phone] FAX: PAGE 1 Signed Report"
[2021-11-29] MEDS ORDERED: IBUPROFEN 400 MG TAB ONE (08:05)
[2021-11-29] MEDS ORDERED: IBUPROFEN 200 MG TAB PO ONE (08:05)
[2021-11-29] MEDS ORDERED: NA CHLORIDE 0.9% 1,000 ML ONE (08:05)
[2021-11-29 08:18] LABS: Urine Blood 2+ (Negative); Urine Glucose Negative (Negative); Urine Protein Negative (Negative); Urine Specific Gravity 1.015 (1.005-1.030); Urine pH 8.5 (5.0-7.0)
--- NOTE | 2021-11-29 08:33 | RAD REPORT ---
EXAM DESCRIPTION: RAD - Chest Single View - 11/29/2021 8:20 am CLINICAL HISTORY: COUGH, fever, sore throat COMPARISON: Portable December 03 TECHNIQUE: AP portable chest image was obtained 11/29/2021 8:20 am . FINDINGS: Lungs are clear. Heart and vasculature are normal. No measurable pleural effusion and no p neumothorax. No acute bony abnormality seen. No acute aortic findings suspected. IMPRESSION: No acute cardiopulmonary process.
[2021-11-29 08:37] LABS: Absolute Lymphocytes (CBC) 0.8 K/uL (0.7-4.9); Hematocrit 30.8 % (36.0-45.0); Lymphocytes % 7.4 % (15.3-44.8); MPV 7.4 fL (7.6-11.3); RBC Red Blood Cell Count 3.94 M/uL (3.86-4.86)
[2021-11-29 09:12] LABS: Potassium 3.8 mmol/L (3.5-5.1)
[2021-11-29 09:19] LABS: Albumin 3.7 g/dL (3.4-5.0); Bilirubin Total 0.3 mg/dL (0.2-1.0); Protein, Total 7.5 g/dL (6.4-8.2)
--- NOTE | 2021-11-29 09:36 | ER ---
Nurse's Notes [facility] Name: Lena Doty Age: 21 yrs Sex: Female : 2000 Arrival Date: 11/29/2021 Time: 07:26 Bed 19 Private MD: Diagnosis: Acute upper respiratory infection, unspecified;Fever, unspecified Presentation: 11/29 07:35 Chief complaint: Patient states: fever, weakness, neck pain, sore throat, abdominal maurer pain x2 days. Coronavirus screen: Vaccine status: Patient reports being unvaccinated. Ebola Screen: Patient denies travel to an Ebola-affected area in the 21 days before illness onset. Initial Sepsis Screen: Does the patient meet any 2 criteria? HR > 90 bpm. Does the patient have a suspected source of infection? No. Patient's initial sepsis screen is negative. Risk Assessment: Do you want to hurt yourself or someone else? Patient reports no desire to harm self or others. Onset of symptoms was November 27, 2021. 07:35 Method Of Arrival: Ambulatory maurer 07:35 Acuity: RALEIGH 3 maurer Triage Assessment: 07:40 General: Appears in no apparent distress. Behavior is calm, cooperative. Pain: maurer Complains of pain in abdomen and neck. EENT: Throat is reddened Reports pain when swallowing Pain is 6 out of 10 on a pain scale. Historical: - Allergies: 07:40 No Known Allergies; maurer - Home Meds: 07:40 progesterone micronized Oral [Active]; maurer - PMHx: 07:42 Anemia; maurer - PSHx: 07:40 Ligation of fallopian tube; Tonsillectomy; maurer - Immunization history:: Adult Immunizations up to date. - Social history:: Smoking status: Reported history of juuling and/or vaping. Screenin:41 Abuse screen: Denies threats or abuse. Denies injuries from another. Nutritional maurer screening: No deficits noted. Tuberculosis screening: No symptoms or risk factors identified. Fall Risk None identified. Assessment: 07:41 Respiratory: Airway is patent Respiratory effort is even, unlabored, Breath sounds are maurer clear bilaterally. Vital Signs: 07:35 BP 121 / 76; Pulse 101; Resp 18; Temp 101(O); Pulse Ox 99% on R/A; Weight 68.04 kg; maurer Height 5 ft. 6 in. (167.64 cm); 07:35 Body Mass Index 24.21 (68.04 kg, 167.64 cm) maurer ED Course: 07:26 Patient arrived in ED. am2 07:29 Jeet Staples MD is Attending Physician. edwar 07:33 Grecia Horowitz, RN is Primary Nurse. maurer 07:40 Triage completed. maurer 07:40 Arm band placed on. maurer 07:41 Patient has correct armband on for positive identification. Bed in low position. maurer 07:41 No provider procedures requiring assistance completed. maurer 08:22 Chest Single View XRAY In Process Unspecified. EDMS 10:06 IV discontinued, intact, Pressure dressing applied. maurer Administered Medications: 07:57 CANCELLED (Duplicate Order): Compazine (prochlorperazine) Suppository 25 mg GA once [facility] 08:02 Drug: Motrin (ibuprofen) 600 mg Route: PO; maurer 08:04 Follow up: Response: No adverse reaction maurer 08:21 Drug: NS 0.9% 1000 ml Route: IV; Rate: 1 bolus; Site: right antecubital; maurer Medication: 07:41 VIS not applicable for this client. maurer Outcome: 09:35 Discharge ordered by . [facility] 10:05 Discharged to home ambulatory. maurer 10:05 Condition: good 10:05 Discharge instructions given to patient, Prescriptions given X 1. 10:06 Patient left the ED. maurer Signatures: Dispatcher [employer] EDJeet Zuniga MD MD cha Moreno, Amanda am2 Grecia Horowitz, SARINA RN maurer
--- NOTE | 2021-11-29 09:36 | EDPHYS ---
Physician Documentation [facility] Name: Lena Doty Age: 21 yrs Sex: Female : 2000 Arrival Date: 11/29/2021 Time: 07:26 Bed 19 Private MD: ED Physician Jeet Staples HPI: 11/29 07:56 This 21 yrs old Female presents to ER via Ambulatory with complaints of edwar Fever, Near Syncope, Sore Throat, Neck Pain, <24hrs Old. Historical: - Allergies: 07:40 No Known Allergies; maurer - Home Meds: 07:40 progesterone micronized Oral [Active]; maurer - PMHx: 07:42 Anemia; maurer - PSHx: 07:40 Ligation of fallopian tube; Tonsillectomy; maurer - Immunization history:: Adult Immunizations up to date. - Social history:: Smoking status: Reported history of juuling and/or vaping. ROS: 07:59 Eyes: Negative for injury, pain, redness, and discharge, Neck: Negative for injury, edwar pain, and swelling, Cardiovascular: Negative for chest pain, palpitations, and edema, Respiratory: Negative for shortness of breath, cough, wheezing, and pleuritic chest pain, Abdomen/GI: Negative for abdominal pain, nausea, vomiting, diarrhea, and constipation, Back: Negative for injury and pain, : Negative for injury, bleeding, discharge, and swelling, MS/Extremity: Negative for injury and deformity, Skin: Negative for injury, rash, and discoloration, Neuro: Negative for headache, weakness, numbness, tingling, and seizure, Psych: Negative for depression, anxiety, suicide ideation, homicidal ideation, and hallucinations, Allergy/Immunology: Negative for hives, rash, and allergies, Endocrine: Negative for neck swelling, polydipsia, polyuria, polyphagia, and marked weight changes. 07:59 Constitutional: Positive for body aches, chills, fatigue, fever, malaise. 07:59 ENT: Positive for sinus congestion, sinus pain, sore throat. Exam: 07:59 Head/Face: Normocephalic, atraumatic. Eyes: Pupils equal round and reactive to light, edwar extra-ocular motions intact. Lids and lashes normal. Conjunctiva and sclera are non-icteric and not injected. Cornea within normal limits. Periorbital areas with no swelling, redness, or edema. Neck: Trachea midline, no thyromegaly or masses palpated, and no cervical lymphadenopathy. Supple, full range of motion without nuchal rigidity, or vertebral point tenderness. No Meningismus. Chest/axilla: Normal chest wall appearance and motion. Nontender with no deformity. No lesions are appreciated. Cardiovascular: Regular rate and rhythm with a normal S1 and S2. No gallops, murmurs, or rubs. Normal PMI, no JVD. No pulse deficits. Respiratory: Lungs have equal breath sounds bilaterally, clear to auscultation and percussion. No rales, rhonchi or wheezes noted. No increased work of breathing, no retractions or nasal flaring. Abdomen/GI: Soft, non-tender, with normal bowel sounds. No distension or tympany. No guarding or rebound. No evidence of tenderness throughout. Back: No spinal tenderness. No costovertebral tenderness. Full range of motion. Skin: Warm, dry with normal turgor. Normal color with no rashes, no lesions, and no evidence of cellulitis. MS/ Extremity: Pulses equal, no cyanosis. Neurovascular intact. Full, normal range of motion. Neuro: Awake and alert, GCS 15, oriented to person, place, time, and situation. Cranial nerves II-XII grossly intact. Motor strength 5/5 in all extremities. Sensory grossly intact. Cerebellar exam normal. Normal gait. Psych: Awake, alert, with orientation to person, place and time. Behavior, mood, and affect are within normal limits. 07:59 Constitutional: The patient appears febrile. 07:59 ENT: Posterior pharynx: Airway: normal, no evidence of obstruction, Tonsils: are normal in appearance, Uvula: normal, swelling, is not appreciated, erythema, that is mild, peritonsillar mass, is not appreciated, pooling of secretions, is not appreciated. Vital Signs: 07:35 BP 121 / 76; Pulse 101; Resp 18; Temp 101(O); Pulse Ox 99% on R/A; Weight 68.04 kg; maurer Height 5 ft. 6 in. (167.64 cm); 07:35 Body Mass Index 24.21 (68.04 kg, 167.64 cm) maurer MDM: 07:29 Patient medically screened. edwar 08:04 Differential diagnosis: viral Infection, bacterial infection, URI, bronchitis, edwar pneumonia UTI, gastroenteritis. Data reviewed: vital signs, nurses notes, lab test result(s), radiologic studies, plain films. Data interpreted: monitor car operator: rate is 101 beats/min, rhythm is regular, Pulse oximetry: on room air is 99 %. Test interpretation: by ED physician or midlevel provider: plain radiologic studies. Counseling: I had a detailed discussion with the patient and/or guardian regarding: the historical points, exam findings, and any diagnostic results supporting the discharge/admit diagnosis, lab results, radiology results. 11/29 07:55 Order name: CBC with Diff; Complete Time: 08:52 [facility] 11/29 07:55 Order name: Flu; Complete Time: 09:30 [facility] 11/29 07:55 Order name: Strep; Complete Time: 09:30 [facility] 11/29 07:55 Order name: SARS-COV-2 RT PCR (Document "Date of Onset" if Symptomatic); Complete Time: [facility] 09:36 11/29 07:58 Order name: Comprehensive Metabolic Panel; Complete Time: 09:30 [facility] 11/29 08:17 Order name: Urine --Ancillary (enter results) bd 11/29 07:55 Order name: Chest Single View XRAY; Complete Time: 08:52 [facility] 11/29 07:55 Order name: Urine Dipstick-Ancillary (obtain specimen); Complete Time: 08:21 [facility] 11/29 08:18 Order name: Urine Dipstick-Ancillary; Complete Time: 08:52 [facility] 11/29 09:22 Order name: Throat Culture [facility] 11/29 07:55 Order name: Urine Test (obtain specimen); Complete Time: 08:21 [facility] Administered Medications: 07:57 CANCELLED (Duplicate Order): Compazine (prochlorperazine) Suppository 25 mg CO once edwar 08:02 Drug: Motrin (ibuprofen) 600 mg Route: PO; maurer 08:04 Follow up: Response: No adverse reaction maurer 08:21 Drug: NS 0.9% 1000 ml Route: IV; Rate: 1 bolus; Site: right antecubital; maurer Disposition Summary: 11/29/21 09:35 Discharge Ordered Location: Home edwar Problem: new edwar Symptoms: have improved edwar Condition: Stable edwar Diagnosis - Acute upper respiratory infection, unspecified edwar - Fever, unspecified edwar Followup: edwar - With: Private Physician - When: 2 - 3 days - Reason: Recheck today's complaints, Continuance of care, Re-evaluation by your physician Discharge Instructions: - Discharge Summary Sheet edwar - Fever, Adult edwar - Upper Respiratory Infection, Adult edwar - Viral Respiratory Infection edwar - Cool Mist Vaporizer edwar - Upper Respiratory Infection, Adult, Pifn-oh-Khsy edwar - Cough, Adult [facility] Forms: - Medication Reconciliation Form [facility] - Thank You Letter edwar - Antibiotic Education edwar - Prescription Opioid Use [facility] - Work release form Prescriptions: - Zithromax Z-Joseph 250 mg Oral Tablet - take 1 tablet by ORAL route as directed for 5 days Day 1 - take two (2) tablets edwar one time. Day 2, 3, 4 , 5 take one (1) tablet once daily.; 6 tablet; Refills: 0, Product Selection Permitted Signatures: Dispatcher [employer] Jeet Osorio MD MD cha Au-Stager, Heather, RN RN Corrections: (The following items were deleted from the chart) 07:57 07:55 Compazine (prochlorperazine) Suppository 25 mg CO once ordered. edwar vann
[2021-11-29 09:47] LABS: Urine Specific Gravity/Preg 1.015 (1.005-1.030)
[2021-11-29] MEDS ORDERED: AZITHROMYCIN 250 MG TAB ONE (09:52)
[2021-11-29 10:11] VITALS: BP 121/76; TEMP 101; O2SAT 99
== END 2021-11-29 10:06 | disposition home or self-care (01) ==
LOC: ER 07:25
DX: J06.9 Acute upper respiratory infection, unspecified (principal); Z20.822 Contact with and (suspected) exposure to COVID-19
CPT/HCPCS: 87070; 85025; 36415; 81025; 87081; 81003; 80053; 87804 ×2; 71045; U0003; J7050; J7030; 99283

== ENCOUNTER 2021-12-03 13:41 | Emergency (ER) | payer OTHER ==
--- OUTSIDE RECORDS SUMMARY | 2021-12-03 13:46 | XMS REPORT | Continuity of Care Document ---
:2000 Author Organization [facility] t Address [address] [place] [address] Care Team Providers Name Role Phone Asked, Pcp Primary Care Physician Unavailable Carito CRYSTAL Attending Clinician Unavailable RACHAEL Attending Clinician Unavailable RACHAEL Attending Clinician Unavailable Rachael DO Attending Clinician Alesha BRANCH Attending Clinician Unavailable Only, Db Test Attending Clinician Unavailable Mateo VARGAS Attending Clinician MATEO Attending Clinician Unavailable Crow VARGAS, N Attending Clinician Hemanth BRANCH, A Attending [...] Admitting Clinician UnavailSamantha Griffith Admitting Clinician Unavailable VILLAREALSEUNH Admitting Clinician Unavailable Osito WARREN, F Admitting Clinician Payers Payer Name Policy Type Policy Number Effective Date Expiration Date Reji murillo FORMERLY [facility] [id number] 2019 CHOICE MEDICAID 00:00:00 MEDICAID [facility] [id number] 2020 00:00:00 Problems Condition Condition Condition Status Onset Resolution Last Treating Co mments Source Name Details Category Date Date Treatment Clinician Date H/O tubal H/O tubal Disease Active Uni vers ligation ligation 9-30 ity of 00:00: [place] 00 Medical Branch Disease Active U nivers anemia anemia 9-30 ity of 00:00: [place] 00 Medical Branch Menorrhagi Menorrhagi Disease Active U nivers a with a with 9-30 ity of regular regular 00:00: [place] cycle cycle 00 Medical Branch Menorrhagi Problem Active 2020-09-25 M emoria a with 02:51:28 l regular [place] cycle Menorrhagi a with regular cycle Active Problem 09/25/2020 [facility] of N [place] Excessive Problem Active 2020-09-25 Me moria bleeding 02:51:28 l in Jose Raul premenopau Excessive tomer period bleeding in premenopau [...] Known DA Active U [facility]18 [place] 00:[facility]: Health 00 are [place] No Known DA Active U [facility] 2-18 [place] 00:[facility]: Health 00 are [place] No Known DA Active U 0 [facility] 8-14 [place] 00:00: Health 00 are [place] No Known DA Active U 2019-0 [facility]ie 8-14 [place] 00:[facility]: Health 00 are [place] NO KNOWN Drug Active Univers ALLERGIE Class ity of S [facility] NO KNOWN Allergy Active [facility] ALLERGIE S Social History Social Habit Start Date Stop Date Quantity Comments Source History SDOH [facility] History SDOH [facility] Alcohol Std Medical Cente r Drinks History SDOH [facility] Alcohol Binge Medical [address] ter Exposure to 2021-10-21 2021-10-31 Not sure [facility]-CoV-2 00:00:00 07:20:00 [facility] (event) Branch Alcohol intake 2021-04-22 2021-04-22 Current University of 00:00:00 00:00:00 non-drinker of [facility] alcohol [place] (finding) Alcohol Comment 2020-02-18 2020-02-18 soically ELISABETH Arevalo kes 00:00:00 00:00:00 [facility] Tobacco use and 2018-11-08 2018-11-08 Never used Universit y of exposure 00:00:00 00:00:00 [facility] Sex Assigned At [birth year] Universit y of 00:00:00 00:00:00 [facility] Smoking Status Start Date Stop Date Source Never smoker [facility] Medications Ordered Filled Start Stop Current Ordering Indication Dosage Frequency Signature Comments Components Source Medication Medication Date Date Medication? Clinician (SIG) Name Name NaCl 0.9% 2021- No 1000mL at 999 Uni vers (NS) bolus 10-31 05-22 mL/hr, ity of infusion 14:15: 14:25 [...] [place] 00 times Medical daily. Branch medroxyPROG 1-0 [...] (two) [place] 00 times Medical daily. Branch cephalexin 2020-0 2020- No 500mg [id number] Take [address] [facility] (KEFLEX) 9-27 10-04 [id number] capsule L ukes 500 MG 00:00: 23:59 3D (500 mg Medical capsule 00 :00 total) by Center mouth 3 (three) times daily for 7 days. traMADoL 2020-0 Yes 50mg Take [address] [facility] (ULTRAM) 50 9-08 by mouth Luke s mg tablet 20:42: every 6 Medic al 34 (six) Center hours as needed for Pain. ferrous 2020-0 Yes [id number] 325mg Take 1 Un alexandru sulfate 325 6-11 tablet by ity of mg (65 mg 00:00: mouth 2 [place] iron) 00 (two) Medical tablet times Branch daily. ferrous 2020-0 Yes [id number] 325mg Take 1 Un alexandru sulfate 325 6-11 tablet by ity of mg (65 mg 00:00: mouth 2 [place] iron) 00 (two) Medical tablet times Branch daily. ferrous 2020-0 Yes [id number] 325mg Take 1 Un alexandru sulfate 325 6-11 tablet by ity of mg (65 mg 00:00: mouth 2 [place] iron) 00 (two) Medical tablet times Branch daily. ferrous 2020-0 Yes [id number] 325mg Take 1 Un alexandru sulfate 325 6-11 tablet by ity of mg (65 mg 00:00: mouth 2 [place] iron) 00 (two) Medical tablet times Branch daily. ferrous 2020-0 Yes [id number] 325mg Take 1 Un alexandru sulfate 325 6-11 tablet by ity of mg (65 mg 00:00: mouth 2 [place] iron) 00 (two) Medical tablet times Branch daily. ferrous 2020-0 Yes [id number] 325mg Take 1 Un alexandru sulfate 325 6-11 tablet by ity of mg (65 mg 00:00: mouth 2 [place] iron) 00 (two) Medical tablet times Branch daily. ferrous 2020-0 Yes [id number] 325mg Take 1 Un alexandru sulfate 325 6-11 tablet by ity of mg (65 mg 00:00: mouth 2 [place] iron) 00 (two) Medical tablet times Branch daily. No known No Methodi medications [facility] l Immunizations Ordered Filled Immunization Date Status Comments [facility] e Immunization Name Name TDAP 2019-10-18 Completed University of 00:00:00 [facility] Branch TDAP 2019-10-18 Completed University of 00:00:00 [facility] Branch TDAP 2019-10-18 Completed University of 00:00:00 [facility] Branch TDAP 2019-10-18 Completed University of 00:00:00 [facility] Branch TDAP 2019-10-18 Completed University of 00:00:00 [facility] Branch TDAP 2019-10-18 Completed University of 00:00:00 [facility] Branch TDAP 2019-10-18 Completed University of 00:00:00 [facility] Branch HPV 2018-06-19 Completed University of 00:00:00 [place] [facility] HPV 2018-06-19 Completed University of 00:00:00 [place] [facility] HPV 2018-06-19 Completed University of 00:00:00 [place] [facility] HPV 2018-06-19 Completed University of 00:00:00 [place] [facility] HPV 2018-06-19 Completed University of 00:00:00 [place] [facility] HPV 2018-06-19 Completed University of 00:00:00 [place] [facility] HPV 2018-06-19 Completed University of 00:00:00 [place] [facility] HPV 2012-03-19 Completed University of 00:00:00 [place] [facility] HPV 2012-03-19 Completed University of 00:00:00 [place] [facility] HPV 2012-03-19 Completed University of 00:00:00 [place] [facility] HPV 2012-03-19 Completed University of 00:00:00 [place] [facility] HPV 2012-03-19 Completed University of 00:00:00 [place] [facility] HPV 2012-03-19 Completed University of 00:00:00 [place] [facility] HPV 2012-03-19 Completed University of 00:00:00 [facility] Vital Signs Vital Name Observation Time Observation Value Comments Source Systolic blood 2021-10-31 14:25:33 120 mm[Hg] Univer sity of pressure [facility] Diastolic blood 2021-10-31 14:25:33 77 mm[Hg] Unive rsity of [facility] Heart rate 2021-10-31 14:25:33 104 /min [facility] Body temperature 2021-10-31 14:25:[address] [facility] Respiratory rate 2021-10-31 14:25:33 17 /min [facility] Oxygen saturation in 2021-10-31 14:25:33 100 /min University Arterial blood by [facility] Pulse oximetry [place] Body weight 2021-10-31 12:21:00 67.132 kg [facility] BMI 2021-10-31 12:21:00 24.63 kg/m2 [facility] HEIGHT 2020-03-08 00:00:00 167.6 cm WEIGHT 2020-03-08 00:00:00 64.864 kg HEIGHT 2020-03-08 00:00:00 167.6 cm WEIGHT 2020-03-08 00:00:00 64.864 kg HEIGHT 2020-02-18 00:00:00 167.6 cm WEIGHT 2020-02-18 00:00:00 64.9 kg HEIGHT 2020-02-18 00:00:00 167.6 cm WEIGHT 2020-02-18 00:00:00 64.9 kg Systolic blood 2020-09-29 15:30:00 117 mm[Hg] [facility] pressure Diastolic blood 2020-09-29 15:30:00 76 mm[Hg] [facility] pressure Heart rate 2020-09-29 15:30:00 106 /min [facility] Respiratory rate 2020-09-29 15:30:00 10 /min [facility] Oxygen saturation in 2020-09-29 15:30:00 99 /min [facility] Arterial blood by Pulse oximetry Body temperature 2020-09-29 15:12:[address] [facility] BMI 2020-09-29 14:56:00 22.60 kg/m2 [facility] Body height 2020-09-29 14:56:00 167.6 cm [facility] Body weight 2020-09-29 14:56:00 63.504 kg [facility] Systolic blood 2020-03-08 13:42:00 106 mm[Hg] [facility] Diastolic blood 2020-03-08 13:42:00 58 mm[Hg] [facility] Heart rate 2020-03-08 13:42:00 82 /min [facility] Body temperature 2020-03-08 13:42:00 37.11 Enma [facility] Respiratory rate 2020-03-08 13:42:00 16 /min [facility] Oxygen saturation in 2020-03-08 13:10:00 99 /min [facility] Arterial blood by Medical Ce nter Pulse oximetry Body height 2020-03-08 11:56:00 167.6 cm [facility] Body weight 2020-03-08 11:56:00 64.864 kg [facility] BMI 2020-03-08 11:56:00 23.08 kg/m2 [facility] Diastolic (mm Hg) 2020-02-24 20:30:00 Mem orial [place] Systolic (mm Hg) 2020-02-24 20:30:00 Alberto rial [address] Weight 2020-02-24 20:30:00 [facility] Procedures Procedure Date / Time Performing Clinician Source Performed POCT TEST 2021-10-31 14:29:00 [facility] 2021-10-31 13:25:00 Rachael [facility] LIPASE 2021-10-31 13:25:00 Rachael, [facility] HEPATIC FUNCTION PANEL 2021-10-31 13:25:00 [id number] (ALB,T.PRO,BILI Medical Branch T,BU/BC,ALT,AST,ALK PHOS) BASIC METABOLIC PANEL 2021-10-31 13:25:00 Rachael, [facility] (NA, K, CL, CO2, Medical Branch GLUCOSE, BUN, CREATININE, CA) ETHANOL 2021-10-31 13:25:00 Rachael [facility] CBC WITH DIFF 2021-10-31 13:25:00 Rachael, [facility] URINALYSIS 2021-10-31 13:25:00 Rachael, [facility] URINE DRUG (IMMUNOASSAY) 2021-10-31 13:25:[address] [facility] SCREEN W/O REFLEX URINALYSIS, AUTOMATED 2020-09-29 15:48:00 [facility] WITH MICROSCOPY Shruthi HCG QUALITATIVE, URINE 2020-09-29 15:48:00 [facility] SCREEN Shruthi COVID-19 QUALITATIVE 2020-09-29 15:37:00 [facility] RT-PCR Shruthi INFLUENZA ANTIGEN 2020-09-29 15:35:00 [facility] Shruthi XR CHEST 1 VW PORTABLE 2020-09-29 15:18:58 [facility] Shruthi CBC W/PLT COUNT & AUTO 2020-03-08 13:02:00 [facility] DIFFERENTIAL [place] BASIC METABOLIC PANEL 2020-03-08 13:02:00 [facility] (7) [place] CBC W/PLT COUNT & AUTO 2020-03-08 13:02:00 [facility] DIFFERENTIAL Center URINE CULTURE 2020-03-08 11:48:00 [facility] SCREEN, URINE 2020-03-08 11:48:00 [facility] URINALYSIS W/ 2020-03-08 11:48:00 [facility] Center Plan of Care Planned Activity Planned Date Details Comments Source Future Scheduled 2029-10-17 DTAP/TDAP/TD [facility] Test 00:00:00 VACCINES (2 - Td) Medical Ce nter [code = DTAP/TDAP/TD VACCINES (2 - Td)] Future Scheduled 2020-06-[address] [facility] Test 00:00:00 (12+) [code = [facility] DEPRESSION SCREENING (12+)] Future Scheduled 2020-02-[address] [facility] Test 00:00:00 (#1) [code = Medical Center INFLUENZA VACCINE (#1)] Future Scheduled [address] [facility] Test 00:00:00 malignant neoplasm Medical C enter of cervix (procedure) [code = 978394153] Future Scheduled 2016-02-[address] [facility] Test 00:00:00 SCREENING [code = Medical Ce nter HEPATITIS C SCREENING] Future Scheduled [facility]LAMYDIA [facility] Test [code = CHLAMYDIA SCREENING] Future Scheduled COVID-19 VACCINE (1) [facility] Test [code = COVID-19 VACCINE (1)] Future Scheduled [facility] screening (procedure) [code = 696664215] Future Scheduled Screening for [facility] Test malignant neoplasm of cervix (procedure) [code = 167759178] Future Scheduled INFLUENZA VACCINE [facility] Test [code = INFLUENZA VACCINE] Encounters Start End Encounter Admission Attending Care Care Encounter Source Date/Time Date/Time Type Type Clinicians Facility Department ID 2021-02-26 Outpatient [id number] Memoria 18:42:48 [id number] 2021-02-26 Inpatient HCANC ELOINA [id number] [facility] 18:28:00 [id number] [facility] are [place] 2020-11-06 Inpatient HCATB EO3 [id number] [facility] 20:24:00 [id number] [facility] are [place] 2020-07-30 Inpatient HCATB EO3 [id number] [facility] 08:23:00 [id number] [facility] are [place] 2020-01-24 Inpatient HCATB EO3 [id number] [facility] 03:04:00 [id number] [facility] are [place] 2022-03-11 2022-03-11 Outpatient Whitney CRYSTAL MSPOOJA [facility] [id number] [place] 13:00:00 13:00:00 LAUREN sty of [facility] 2021-10-31 2021-10-31 Emergency X ANDREW CANO [facility] ERT 1 [id number] Univers 07:22:00 10:50:00 ANDREW CANO ity of [facility] 2021-10-31 2021-10-31 Emergency Rachael, TRAUMA [id number] Univers 07:22:00 10:50:00 [facility] 350.1.13.10 ity of [place]2.686 [place] [id number] [facility] 014 [place] 2021-07-13 2021-07-13 Telephone CARLOS Eduardo 1.2.366.035 [id number] Univers 00:00:00 00:00:00 Viridiana FERNANDEZ 350.1.13.10 it y of [facility] 4.2.7.2.686 [place] [id number] [address] 2021-07-12 2021-07-12 Laboratory Only, Ang Db Test [facility] 1.2.8 40.114 [id number] Univers 11:30:00 11:45:00 Only Mateo [facility] 350.1.13.10 ity of [place] 4.2.7.2.686 [place] NELLA?BLEA [id number] [address] MEDICAL OFFICE BUILDING 2021-07-12 2021-07-12 Outpatient [facility] [id number] Univers 11:30:00 11:30:00 [id number] ity of [facility] 2021-07-12 2021-07-12 [facility] [id number] Univers 11:30:00 11:30:00 MARGARET elias o f [facility] 2021-06-05 2021-06-05 Telephone CARLOS Eduardo [id number] Univers 00:00:00 00:00:00 Viridiana FERNANDEZ 350.1.13.10 it y of [facility] 4.2.7.2.686 [place] [id number] [address] 2021-06-04 2021-06-04 Outpatient R [facility] [id number] Univers 17:45:00 17:45:00 ity [facility] 2021-06-04 2021-06-04 Laboratory Only, Ang Db Test [facility] 1.2.8 40.114 [id number] Univers 12:30:00 12:45:00 Only Margaret Galindo [facility] 350.1.13.10 ity [facility] 4.2.7.2.686 [place] NELLA?BLEA [id number] [facility] [address] MEDICAL OFFICE BUILDING 2021-06-04 2021-06-04 Outpatient R [facility] [id number] Univers 12:30:00 12:30:00 [id number] ity [facility] 2021-06-04 2021-06-04 Outpatient [facility] [id number] Univers 12:30:00 12:30:00 MARGARET ity o f [facility] 2021-05-27 2021-05-27 Outpatient R [facility] [id number] Univers 14:15:00 14:15:00 [id number] ity [facility] 2021-05-27 2021-05-27 Outpatient R [facility] [id number] Univers 14:15:00 14:15:00 ity [facility] 2021-05-14 2021-05-14 Outpatient R [facility] [id number] Univers 09:00:00 09:00:00 [id number] ity [facility] 2021-04-29 2021-04-29 Telephone Crow [facility] 1.2.840.114 [id number] Univers 00:00:00 00:00:00 Lauren Arzate ICU MANAGER 350.1.13.10 it y of [facility] 4.2.7.2.686 [place] MATERNAL [id number] Med ical & CHILD [address] [place] [address] 2021-04-22 2021-04-22 Nurse CARLOS Saxena 1.2.840.114 [id number] Univers 00:00:00 00:00:00 Triage Erica Lashell JIM 350.1.13.10 i ty of [facility] 4.2.7.2.686 [place] [id number] [address] 2021-04-21 2021-04-21 Outpatient R KIRTI, [facility] DOCUMENT PREPARER MICROFILMING [id number] Univers 14:08:00 19:24:00 CHRISTINA elias [facility] 2021-03-01 2021-03-01 Outpatient E ROSENDA VILLAREAL [facility] [id number] [facility] 00:34:00 23:15:00 2021-02-27 2021-02-27 Emergency E LATOYA OTT N [id number] NW 13:37:00 20:23:00 AMINAH 2021-02-26 2021-02-26 Emergency EM YosvanyBaljinder [facility] [id number] [facility] 18:28:00 20:22:[address] [place] [address] 2020-09-29 2020-09-29 Emergency Nojanuszinger, 1.2.840.1 [id number] Methodi 09:51:00 13:15:00 Carla Hawkins 14764.1.1 344 s t 3.430.2.7 Hospit a .3.937526 l .8 2020-09-29 2020-09-29 Travel 1.2.840.1 [id number] [id number] Methodi 00:00:00 00:00:[address] 3.430.2.7 0.2.7.3.698 Ho spita .3.832672 084.8 l .8 2020-03-08 2020-03-08 Emergency ER Delbert [facility] [id number] 11:45:27 13:46:00 [facility] 2020-03-08 2020-03-08 Emergency ER [facility] Emergency [id number] [facility] 11:39:00 11:39:00 2020-03-08 2020-03-[address] [facility] [id number] [facility] 00:[facility] 00:00:00 [facility] 2020-02-18 2020-02-18 Emergency ER [facility] Emergency [id number] [facility] 20:19:00 20:19:00 2019-12-24 2019-12-24 Orders Doctor CARLOS 1.2.840.114 [id number] 00:00:00 00:00:00 Only Unassigned, JIM 350.1.13.10 [place] [address].2.7.2.686 [id number] 2019-11-18 2019-11-21 Hospital CARLOS Mcneill 1.2.840.114 [id number] 18:15:00 13:26:00 Encounter Pelon Nunez JIM [address].1.13.[address]686 [id number] 2019-11-19 2019-11-19 Telephone Lavon [facility] [id number] [id number] 00:00:00 00:00:00 Jenelle Olson ICU MANAGER [address].1.13.[address]686 MATERNAL [id number] & CHILD [address] [place] [address] 2019-11-19 2019-11-19 Orders Doctor CARLOS 1.2.840.114 [id number] 00:00:00 00:00:00 Only Unassigned, JIM 350.1.13.10 [place] [address]686 [id number] 009 2019-11-18 2019-11-18 Orders Doctor CARLOS 1.2.840.114 [id number] 00:00:00 00:00:00 Only Unassigned, JIM 350.1.13.10 [place] [address]686 [id number] [id number] Results Test Description Test Time Test Comments Results Result Comments Source POCT TEST 2021-10-31 14:29:00 Test Item Value Reference Range Interpretation Comme nts On board controls acceptable with C Line (test code = 3574) NEGATIV E POCT PREG LOT # (test code = 3575) [id number] POCT PREG TEST DATE (test code = 3576) 03/11/2023 Lab Interpretation (test code = 58839-9) Normal [facility] METABOLIC PANEL (NA, K, CL, CO2, GLUCOSE, BUN, CREATININE, CA)2021-10-31 13:48:54 Test Item Value Reference Range Interpretation Comments NA (test code = 143 mmol/L 135-145 6224579799) K (test code = 3.2 mmol/L 3.5-5.0 L 9983133234) CL (test code = 108 mmol/L 98-108 3777809205) CO2 TOTAL (test code = 24 mmol/L 23-31 7640795103) AGAP (test code = 2-16 8750370136) BUN (test code = 2 mg/dL 7-23 L 5434942993) GLUCOSE (test code = 102 mg/dL 70-110 2588239630) CREATININE (test code = 0.66 mg/dL 0.50-1.04 1257086553) CALCIUM (test code = 8.9 mg/dL 8.6-10.6 2390562189) eGFR (test code = mL/min/1.73m2 0968304034) BEBETO (test code = BEBETO) Association of [...] tests). Lab Interpretation Abnormal (test code = 04958-0) [facility] (00338[facility] (ALB,T.PRO,BILI T,BU/BC,ALT,AST,ALK PHOS)2021-10-31 13:48:54 Test Item Value Reference Range Interpretation Comments TOTAL BILI (test code = 1629083987) 0.7 mg/dL 0.1-1.1 BILI UNCON (test code = 5002369568) 0.6 mg/dL 0.1-1.1 BILI CONJ (test code = 0274321805) 0.0 mg/dL 0.0-0.3 T PROTEIN (test code = 1708149090) 7.4 g/dL 6.3-8.2 ALBUMIN (test code = 4853001275) 4.6 g/dL 3.5-5.0 ALK PHOS (test code = 5152739053) 79 U/L 34-122 ALTv (test code = 1742-6) 20 U/L 5-35 AST(SGOT) (test code = 7950989321) 37 U/L 13-40 Lab Interpretation (test code = Normal 58389-8) [facility] 13:48:54 Test Item Value Reference Range Interpretation Comments LIPASE (test code = 6935517968) 18 U/L 0-220 Lab Interpretation (test code = Normal 42839-9) [facility]22-[facility]22 13:48:54 Test Item Value Reference Range Interpretation Comments ALCOHOL (test code = 120 mg/dL 3831388825) BEBETO (test code = Toxic Greater than or BEBETO) equal to 80 mg/dL. NOTE: Whole blood values are approximately 10% to 15% lower than serum and plasma. [facility] ChildrenCREATINE [id number] 13:48:54 Test Item Value Reference Range Interpretation Comments CK (test code = 2787193124) 490 U/L 33-194 H Lab Interpretation (test code = Abnormal 06982-4) [facility] ChildrenCBC WITH [id number] 13:40:37 Test Item Value Reference Range Interpretation Comments WBC (test code = See_Comment [Automated 6690-2) message] The sy stem which generated this [...] RDW-SD (test code = 42.3 fL 39.0-49.9 71752-5) RDW-CV (test code = 14.4 % 12.0-15.5 788-0) PLT (test code = See_Comment [Automated 777-3) message] The sy stem which generated this result transmitted reference range : 166 - 358 10*3/ ?L. The reference r evie was not used to interpret this result as normal/abnormal . MPV (test code = 9.4 fL 9.5-12.9 L 94977-5) NRBC/100 WBC (test See_Comment [Automat ed code = 9738242352) message] The system which generated this result transmitted reference range : 0.0 - 10.0 /100 WBCs. The refer ence range was not u sed to interpret th is result as normal/abnormal . NRBC x10^3 (test code <0.01 See_Comment [Auto mated = 7756229863) message] The s ystem which generated this result transmitted reference range : 10*3/?L. The reference range was not used to interpret this result as normal/abnormal . GRAN MAT (NEUT) % 71.1 % (test code = 770-8) IMM GRAN % (test code 0.30 % = 1821318376) LYMPH % (test code = 18.3 % 736-9) MONO % (test code = 9.6 % 5905-5) EOS % (test code = 0.4 % 713-8) BASO % (test code = 0.3 % 706-2) GRAN MAT x10^3(ANC) 5.50 10*3/uL 1.88-7.09 (test code = 7564189393) IMM GRAN x10^3 (test <0.03 0.00-0.06 code = 2688630297) LYMPH x10^3 (test code 1.41 10*3/uL 1.32-3.29 = 731-0) MONO x10^3 (test code 0.74 10*3/uL 0.33-0.92 = 742-7) EOS x10^3 (test code = 0.03 10*3/uL 0.03-0.39 711-2) BASO x10^3 (test code <0.03 0.01-0.07 = 704-7) Lab Interpretation Abnormal (test code = 69610-3) [facility] Children[facility] RFLX MICR CULT IF [id number] 19:43:00 Test Item Value Reference Range Interpretation [...] BACU) reported result : RARE /HPFEdited by: [email or web address] on 02/26/21:1943~~ Corrected Repor t ~~Reason (required): UA SQUAMOUS CELLS Many /HPF FEW (test code = SQU) Indication for culture: Suprapubic PainSpecimen Description: CLEAN CATCHUR HCG [id number] 19:23:00 Test Item Value Reference Range Interpretation Comments UR HCG QUAL (test code = HCGQLU) NEGATIVE NEGATIVE XR Chest 1 Vw [id number] 15:20:04Study:XR CHEST 1 VW PORTABLE History: cough COMPARISON: None. IMPRESSION: A single view of the chest. There is no focal consolidation, pleural effusion or pneumothorax. Cardiac silhouette is normal. Visualized osseous structures are without acute abnormality. [facility]- [id number] Interface, Radiology Results - 09/29/2020 10:23 AM CDT Study:XR CHEST 1 VW PORTABLEHistory: coughCOMPARISON: None.IMPRESSION:A single view of the chest. There is no focal consolidation, pleural effusion or pneumothorax. Cardiac silhouette is normal. Visualized osseous structures are without acute abnormality.[facility]-[id number] [facility]- XR PELVIS 1/2 [id number] 09:11:00[facility] : 2000 Sex: FPatient Name: ALMAS DEY Unit No: [id number] EXAMS: CPT: [id number] XR PELVIS 1/2 VIEWS 18963 Clinical History: Buttock pain. Exam: - XR [...] MD Technologist: MONIQUE JEFF Trscr Dt/Tm: 07/30/2020 (09) by:[email or web address] Orig Print D/T: S: 07/30/2020 (0914) BATCH NO: N/A Name: ALMAS DEY Emergency Dept Phys: [facility].21 [place] [id number] [facility] : 2000 Age: 20 Sex: [place] [id number] [facility] Date: 07/30/2020 Status: PRE ER PH: [phone] FAX: PAGE 1 Signed ReportURINALYSIS DIPSTICK POC [...] YES NEEDED? (test code = UAMICRO) UA [id number] 08:51:00 Test Item Value Reference Range Interpretation Comments UA WBC (test code = WBCU) NONE SEEN /HPF 0-3 UA RBC (test code = RBCU) 3-5 /HPF 0-3 A UA EPITHELIAL CELLS (test code FEW /LPF NONE-FEW = EPIU) UA BACTERIA (test code = BACU) FEW /HPF NONE SEEN UA MUCUS (test code = MUCU) 1+ /LPF NONE-FEW A URINALYSIS DIPSTICK [id number] 08:43:00 Test Item Value Reference Range Interpretation [...] NEEDED? (test code = UAMICRO) URINALYSIS DIPSTICK [id number] 08:43:00 Test Item Value Reference Range Interpretation [...] NEEDED? (test code = UAMICRO) UR HCG [id number] 08:43:00 Test Item Value Reference Range Interpretation Comments UR HCG QUAL (test code = HCGQLU) NEGATIVE NEGATIVE URINALYSIS DIPSTICK [id number] 08:42:00 Test Item Value Reference Range Interpretation [...] ESTERASE DIPSTICK (test code = LEUU) URINE [id number] 10:40:00 Test Item Value Reference Range Interpretation [...] = 47) 20-29,000 col/mL skin floraBASIC METABOLIC [id number] 13:18:00 Test Item Value Reference Range Interpretation [...] PATIEN TS. CBC W/PLT COUNT & AUTO [id number] 13:08:00 Test Item Value Reference Range Interpretation [...] (BEAKER) (test code = 2801) URINALYSIS W/ [id number] 12:23:00 Test Item Value Reference Range Interpretation [...] 1663) SOURCE(BEAKER) (test code = 2795) SCREEN, [id number] 11:56:00 Test Item Value Reference Range Interpretation Comments TEST URINE (BEAKER) (test Negative code = 583) U/S, PELVIS, WITH ENDOVAG AND [id number] 00:46:00Reason for exam:- >VAGINAL BLEEDING and discomfort [...] MDReport Verified Date/Time: 02/19/2020 00:46:24 HCG, SERUM, [id number] 21:48:00 Test Item Value Reference Range Interpretation Comments TEST SERUM (BEAKER) (test Negative code = 584) COMPREHENSIVE METABOLIC [id number] 21:48:00 Test Item Value Reference Range Interpretation [...] S NOT APPLICABLE FOR DIALYSIS PATIEN TS. [employer] ID - [id number] W/ REFLEX URINE [id number] 21:39:00 Test Item Value Reference Range Interpretation [...] = 516) SOURCE(BEAKER) (test code = 2795) [employer] ID - [auto][employer] ID - techOperator ID - techCBC W/PLT COUNT & AUTO [id number] 21:29:00 Test Item Value Reference Range Interpretation [...] 2801) - XR WRIST 3 + V [id number] 03:53:00Patient Name: ALMAS DEY Unit No: [id number] EXAMS: CPT: [id number] XR WRIST 3 + [place] [address] LEFT WRIST 4 VIEWS: CLINICAL HISTORY: Fall [...] CC: Eric Mccabe DO Technologist: Edna Grossman [facility] Dt/Tm: 01/24/2020 (035) by:[email or web address] Orig Print D/T: S:01/24/2020 (0356) BATCH NO: N/A Name: ALMAS DEY Emergency Dept Phys: JOHANNY MccabeParisa [address] Sandy Saldaña : 1991 Age: 28 Sex: F [place] [id number] [facility] Exam Date: 01/24/2020 Status: REG ER PH: [phone] FAX: PAGE 1 Signed Report- CT C-SPINE W/O [id number] 03:52:00Patient Name: ALMAS DEY Unit No: [id number] EXAMS: CPT: [id number] CT C-SPINE W/O CONT 89421 CT CERVICAL SPINE WITHOUT IV CONTRAST: CLINICAL [...] with ACR practice standards and adherence to risk professional's recommendations with automated exposure control. at 0352 Reported and signed by:Nilay Fernando MD CC: Eric Mccabe DO Technologist: Edna Grossman CTDI: 14.84 DLP: [phone] [facility] Dt/Tm: 01/24/2020 (035) by:[email or web address] Orig Print D/T: S: 01/24/2020 (0355) BATCH NO: N/A Name: ALMAS DEYloc Emergency Dept Phys: [place] [address] Sandy Saldaña : 1991 Age: 28 Sex: [place] [address] Loc: T.CELSOS Exam Date: 01/24/2020 Status: REG ER PH: [phone] FAX: PAGE 1 Signed Report- CT HEAD/BRAIN W/O CONT 2020-01-24 03:50:00Patient Name: ALMAS DEY Unit No: [id number] EXAMS: CPT: [id number] CT HEAD/BRAIN W/O CONT 86725 CT HEAD WITHOUT CONTRAST: CLINICAL HISTORY: Fall [...] with ACR practice standards and adherence to risk professional's recommendations with automated exposure control. at 0350 Reported and signed by: Nilay Fernando MD CC: Eric Mccabe DO Technologist: Edna Grossman CTDI: 20.39 DLP: [phone] Trscr Dt/Tm: 01/24/2020 (0350) by:[email or web address] Orig Print D/T: S: 01/24/2020 (0353) BATCH NO: N/A Name: ALMAS DEY [facility] Emergency Dept Phys: [place] [id number] [place] : 1991 Age: 28 Sex: [place] [address] Loc: T.CERS Exam Date: 01/24/2020 Status: REG ER PH: [phone] FAX: PAGE 1 Signed Report"
--- NOTE | 2021-12-03 14:19 | EDPHYS ---
Physician Documentation [facility] Name: Lena Doty Age: 21 yrs Sex: Female : 2000 Arrival Date: 12/03/2021 Time: 14:11 Bed Waiting Private MD: ED Physician MDM: 12/03 14:19 Medical screening is not applicable. kb Administered Medications: No medications were administered Disposition Summary: 12/03/21 14:19 Eloped Disposition: Before Triage kb Reason: wait time kb Signatures: Shabana Marley, GABRIELA Benitez
== END 2021-12-03 14:20 | disposition left against medical advice (07) ==
LOC: ER 13:41
DX: Z02.9 Encounter for administrative examinations, unspecified (principal)

== ENCOUNTER 2022-01-19 06:22 | Emergency (ER) | payer OTHER ==
--- OUTSIDE RECORDS SUMMARY | 2022-01-19 06:27 | XMS REPORT | Continuity of Care Document ---
:2000 Author Organization [facility] t Address [address] [place] [address] Care Team Providers Name Role Phone Asked, No Pcp Primary Care Physician Unavailable LAUREN CRYSTAL Attending Clinician Unavailable BOGDAN BARTON Attending Clinician Unavailable LEEANN WILSON Attending Clinician Unavailable Leeann Cole Attending Clinician ANDREW CANO Attending Clinician Unavailable ANDREW CANO Attending Clinician Unavailable Andrew Cano DO Attending Clinician Viridiana Eduardo RN Attending Clinician Unavailable Only, Ang Db Test Attending Clinician Unavailable Margaret Pritchard Attending Clinician MARGARET BLAND Attending Clinician Unavailable Lauren Dior Attending Clinician Erica Saxena RN Attending Clinician Unavailable CHRISTINA COTTO Attending Clinician Unavailable ROSENDA VILLAREAL Attending Clinician Unavailable AMINAH GAGNON Attending Clinician Unavailable Baljinder Bar Attending Clinician Unavailable Frank WARREN, Carla Hawkins Attending Clinician [phone] Phill Youssef MD Attending Clinician VENESSA ALFONSO Attending Clinician Unavailable Doctor Unassigned, [place] Attending Clinician Unavailable Pelon Mcneill MD Attending Clinician Jenelle Amezquita Attending Clinician Physician, No Primary or Family Admitting Clinician UnavailCHRISTINA Vicente Admitting Clinician Unavailable ROSENDA VILLAREAL Admitting Clinician Unavailable Pelon Mcneill MD Admitting Clinician Payers Payer Name Policy Type Policy Number Effective Date Expiration Date [facility] [id number] 2019 CHOICE MEDICAID 00:00:00 [place] OF [place] [id number] 2020 00:00:00 Problems Condition Condition Condition Status Onset Resolution Last Treating Co mments Source Name Details Category Date Date Treatment Clinician Date H/O tubal H/O tubal Disease Active 2020-0 Uni vers ligation ligation 9-30 ity of 00:00: [place] [address] [facility] Disease Active 2020-0 U nivers anemia anemia 9-30 ity of 00:00: [place] [address] [facility] Menorrhagi Menorrhagi Disease Active 2020-0 U nivers a with a with 9-30 ity of regular regular 00:00: [place] cycle cycle [address] [facility] Menorrhagi Menorrhag Problem Active 2020-09-25 Memoria a with ia with 02:51:28 l regular regular [place] cycle cycle Active Problem 09/25/2020 [facility] [place] Excessive Excessive Problem Active 2020-09-25 Memoria bleeding bleeding 02:51:28 l in in [place] premenopau premenopau tomer period [place]mer period Active Problem 09/25/2020 [facility] [place] Dysmenorrh Dysmenorr Problem Active 2020-09-25 Memoria ea hea Active 02:51:28 l Problem [place] 09/25/2020 [facility] [place] Allergies, Adverse Reactions, Alerts Allergy Allergy Status Severity Reaction(s) Onset Inactive Treating Comm ents Source Name Type Date Date Clinician No Known DA Active [facility] All[facility]ie 2-18 [facility] s 00:[facility]: [facility] 00 are [place] No Known DA Active U [facility] Allergie 2-18 Mohan s 00:00: [facility] 00 are [place] No Known DA Active U [facility] Allergie 8-14 Victor s 00:00: [facility] 00 are [place] No Known DA Active U [facility] Allergie 8-14 Victor s 00:00: [facility] 00 are [place] NO KNOWN Drug Active Univers ALLERGIE Class ity of S [facility] NO KNOWN Allergy Active [facility] ALLERGIE S Social History Social Habit Start Date Stop Date Quantity Comments Source History SDOH [facility] Alcohol Frequency [facility] History SDOH [facility] Alcohol Std Medical Cent[facility] r Drinks History SDOH [facility] Alcohol Binge Medical [address] ter Exposure to 2021-11-23 2021-12-03 Unable to assess Univers ity of SARS-CoV-2 00:00:00 14:47:00 [facility] (event) Branch Alcohol intake 2021-12-03 2021-12-03 Current University of 00:00:00 00:00:00 non-drinker of [facility] alcohol Branch (finding) Alcohol Comment 2020-02-18 2020-02-[address] [facility] 00:00:00 00:00:00 [facility] Tobacco use and 2018-11-08 2018-11-08 Never used Universit y of exposure 00:00:00 00:00:00 [facility] Sex Assigned At [birth year] Universit y of 00:00:00 00:00:00 [facility] Smoking Status Start Date Stop Date Source Never smoker [facility] Medications Ordered Filled Start Stop Current Ordering Indication Dosage Frequency Signature Comments Components Source Medication Medication Date Date Medication? Clinician (SIG) Name Name valACYclovi No 1000mg 1,000 mg, Univers r (VALTREX) 12-04 Oral, ONCE i ty of tablet 00:00: 22:56 NOW, 1 [place] 1,000 mg 00 :00 dose, On Medical Fri Branch 12/03/21 at 1900, JAZZY lidocaine No 15mL 15 mL, Unive rs 2% viscous 12-04 Oral, ONCE it y of (LIDOCAINE 00:00: 22:58 NOW, 1 [place] VISCOUS) 2 00 :00 dose, On Medic al % solution Fri Branch 15 mL 12/03/21 at 1900, JAZZY HYDROcodone 2021- No 1{tbl} 1 tablet, Univers -acetaminop 12-04 Oral, ity of hen (NORCO 00:00: 22:56 ONCE, 1 [place] 5) 5-325 mg 00 :00 dose, On Medi [place] tablet 1 Fri Branch tablet 12/03/21 at 1900, JAZZY lidocaine 5 Yes [id number] Apply to Univers % gel 12-03 area(s) ity of 00:00: every 6 [place] 00 (six) Medical hours as Branch needed for Pain (scale 7-10). lidocaine 5 Yes [id number] Apply to Univers % gel 12-03 area(s) ity of 00:00: every 6 [place] 00 (six) Medical hours as Branch needed for Pain (scale 7-10). valACYclovi 2021- Yes [id number] 1g Take 1 Univers r (VALTREX) 12-03-05 tablet by it y of 1 gram 00:00: 04:59 mouth 2 [place] tablet 00 :00 (two) Medical times Branch daily for 10 days. valACYclovi 2021- Yes [id number] 1g Take 1 Univers r (VALTREX) 12-03-05 tablet by it y of 1 gram 00:00: 04:59 mouth 2 [place] tablet 00 :00 (two) Medical times Branch daily for 10 days. acetaminoph 2021- Yes [id number] 1{tbl} Take 1 U nivers en-codeine 12-03- tablet by ity of 300-30 mg 00:00: 04:59 mouth [place] tablet 00 :00 every 6 Medical (six) Branch hours as needed for Pain (scale 7-10) for up to 7 days. Indication s: acute pain acetaminoph 2021- Yes [id number] 1{tbl} Take 1 U nivers en-codeine 12-03 tablet by ity of 300-30 mg 00:00: 04:59 mouth [place] tablet 00 :00 every 6 Medical (six) Branch hours as needed for Pain (scale 7-10) for up to 7 days. Indication s: acute pain NaCl 0.9% 2-0 2- No 1000mL at 999 Uni vers (NS) bolus 5-22 05-22 mL/hr, ity of infusion 14:15: 14:25 1,000 mL, [place] 1,000 mL 00 :00 IV Medical Infusion, Branch ONCE, 1 dose, On 10/31/21 at 0915, JAZZY medroxyPROG 2021-0 Yes 20mg Take 20 mg Univers ESTERone 10 9-21 by mouth 2 it y of mg tablet 00:00: (two) [place] 00 times Medical daily. Branch medroxyPROG 2021-0 Yes 20mg Take 20 mg Univers ESTERone 10 9-21 by mouth 2 it y of mg tablet 00:00: (two) [place] 00 times Medical daily. Branch medroxyPROG 2021-0 Yes 20mg Take 20 mg Univers ESTERone 10 9-21 by mouth 2 it y of mg tablet 00:00: (two) [place] 00 times Medical daily. Branch medroxyPROG 2021-0 Yes 20mg Take 20 mg Univers ESTERone 10 9-21 by mouth 2 it y of mg tablet 00:00: (two) [place] 00 times Medical daily. Branch medroxyPROG 2021-0 [...] daily. Branch cephalexin 2020-0 2020- No 500mg [id number] Take [address] [facility] (KEFLEX) 9-27 10-04 [id number] capsule L ukes 500 MG 00:00: 23:59 3D (500 mg Medical capsule 00 :00 total) by Center mouth 3 (three) times daily for 7 days. traMADoL 2020-0 Yes 50mg Take [address] [facility] (ULTRAM) 50 9-08 by mouth Luke s mg tablet 20:42: every 6 Medic al 34 (six) Center hours as needed for Pain. ferrous 2020-0 Yes [id number] 325mg Take 1 Un alexandru sulfate 325 6-11 tablet by ity of mg (65 mg 00:00: mouth 2 [place] iron) 00 (two) Medical tablet times Branch daily. ferrous 2020-0 Yes [id number] 325mg Take 1 Un alexandru sulfate 325 6-11 tablet by ity of mg (65 mg 00:00: mouth 2 [place] iron) 00 (two) Medical tablet times Branch daily. ferrous 2020-0 Yes [id number] 325mg Take 1 Un alexandru sulfate 325 6-11 tablet by ity of mg (65 mg 00:00: mouth 2 [place] iron) 00 (two) Medical tablet times Branch daily. ferrous 2020-0 Yes [id number] 325mg Take 1 Un alexandru sulfate 325 6-11 tablet by ity of mg (65 mg 00:00: mouth 2 [place] iron) 00 (two) Medical tablet times Branch daily. ferrous 2020-0 Yes [id number] 325mg Take 1 Un alexandru sulfate 325 6-11 tablet by ity of mg (65 mg 00:00: mouth 2 [place] iron) 00 (two) Medical tablet times Branch daily. ferrous 2020-0 Yes [id number] 325mg Take 1 Un alexandru sulfate 325 6-11 tablet by ity of mg (65 mg 00:00: mouth 2 [place] iron) 00 (two) Medical tablet times Branch daily. ferrous 2020-0 Yes [id number] 325mg Take 1 Un alexandru sulfate 325 6-11 tablet by ity of mg (65 mg 00:00: mouth 2 [place] iron) 00 (two) Medical tablet times Branch daily. ferrous 2020-0 Yes [id number] 325mg Take 1 Un alexandru sulfate 325 6-11 tablet by ity of mg (65 mg 00:00: mouth 2 [place] iron) 00 (two) Medical tablet times Branch daily. ferrous 2020-0 Yes [id number] 325mg Take 1 Un alexandru sulfate 325 6-11 tablet by ity of mg (65 mg 00:00: mouth 2 [place] iron) 00 (two) Medical tablet times Branch daily. No known No [facility] Immunizations Ordered Filled Immunization Date Status Comments Sour e Immunization Name Name TDAP 2019-10-18 Completed University of 00:00:00 [facility] Branch TDAP 2019-10-18 Completed University of 00:00:00 [facility] Branch TDAP 2019-10-18 Completed University of 00:00:00 [facility] Branch TDAP 2019-10-18 Completed University of 00:00:00 [facility] Branch TDAP 2019-10-18 Completed University of 00:00:00 [facility] Branch TDAP 2019-10-18 Completed University of 00:00:00 [facility] Branch TDAP 2019-10-18 Completed University of 00:00:00 [facility] Branch TDAP 2019-10-18 Completed University of 00:00:00 [facility] TDAP 2019-10-18 Completed University of 00:00:00 [facility] Branch HPV 2018-06-19 Completed University of 00:00:00 [facility] Branch HPV 2018-06-19 Completed University of 00:00:00 [facility] Branch HPV 2018-06-19 Completed University of 00:00:00 [facility] Branch HPV 2018-06-19 Completed University of 00:00:00 [facility] Branch HPV 2018-06-19 Completed University of 00:00:00 [facility] Branch HPV 2018-06-19 Completed University of 00:00:00 [facility] Branch HPV 2018-06-19 Completed University of 00:00:00 [facility] Branch HPV 2018-06-19 Completed University of 00:00:00 [facility] Branch HPV 2018-06-19 Completed University of 00:00:00 [facility] Branch HPV 2012-03-19 Completed University of 00:00:00 [facility] Branch HPV 2012-03-19 Completed University of 00:00:00 [facility] Branch HPV 2012-03-19 Completed University of 00:00:00 [facility] Branch HPV 2012-03-19 Completed University of 00:00:00 [facility] Branch HPV 2012-03-19 Completed University of 00:00:00 [facility] Branch HPV 2012-03-19 Completed University of 00:00:00 [facility] Branch HPV 2012-03-19 Completed University of 00:00:00 [place] [facility] HPV 2012-03-19 Completed University of 00:00:00 [place] [facility] HPV 2012-03-19 Completed University 00:00:00 [facility] Vital Signs Vital Name Observation Time Observation Value Comments Source Systolic blood 2021-12-03 22:30:00 114 mm[Hg] Univer sity of pressure [place] [facility] Diastolic blood 2021-12-03 22:30:00 82 mm[Hg] Unive rsity of pressure [place] [facility] Heart rate 2021-12-03 22:30:00 78 /min [facility]i ty [facility] [place] [facility] Respiratory rate 2021-12-03 22:30:00 14 /min Univ ersity of [place] [facility] Oxygen saturation in 2021-12-03 22:30:00 99 /min University of Arterial blood by Eqlim Pulse oximetry Branch Body temperature 2021-12-03 20:01:00 36.56 Enma Univ ersity [facility] [place] [facility] Body height 2021-12-03 20:01:00 165.1 cm Universi ty [facility] [place] [facility] [place] Body weight 2021-12-03 20:01:00 67.132 kg [facility] [place] [facility] BMI 2021-12-03 20:01:00 24.63 kg/m2 [facility] [place] [facility] Systolic blood 2021-10-31 14:25:33 120 mm[Hg] Univer sity of pressure [place] [facility] Diastolic blood 2021-10-31 14:25:33 77 mm[Hg] Unive rsity of pressure [place] [facility] Heart rate 2021-10-31 14:25:33 104 /min [facility] [place] [facility] Body temperature 2021-10-31 14:25:33 37 Enma Univ ersity [facility] [place] [facility] Respiratory rate 2021-10-31 14:25:33 17 /min Univ ersity of [place] [facility] Oxygen saturation in 2021-10-31 14:25:33 100 /min University of Arterial blood by Eqlim Pulse oximetry Branch Body weight 2021-10-31 12:21:00 67.132 kg [facility] [place] [facility] BMI 2021-10-31 12:21:00 24.63 kg/m2 [facility] [place] [facility] HEIGHT 2020-03-08 00:00:00 167.6 cm WEIGHT 2020-03-08 00:00:00 64.864 kg HEIGHT 2020-03-08 00:00:00 167.6 cm WEIGHT 2020-03-08 00:00:00 64.864 kg HEIGHT 2020-02-18 00:00:00 167.6 cm WEIGHT 2020-02-18 00:00:00 64.9 kg HEIGHT 2020-02-18 00:00:00 167.6 cm WEIGHT 2020-02-18 00:00:00 64.9 kg Systolic blood 2020-09-29 15:30:00 117 mm[Hg] [facility] pressure Diastolic blood 2020-09-29 15:30:00 76 mm[Hg] [facility] pressure Heart rate 2020-09-29 15:30:00 106 /min [facility] Respiratory rate 2020-09-29 15:30:00 10 /min [facility] Oxygen saturation in 2020-09-29 15:30:00 99 /min [facility] Arterial blood by Pulse oximetry Body temperature 2020-09-29 15:12:00 38.89 Enma [facility] BMI 2020-09-29 14:56:00 22.60 kg/m2 [facility] Body height 2020-09-29 14:56:00 167.6 cm [facility] Body weight 2020-09-29 14:56:00 63.504 kg [facility] Systolic blood 2020-03-08 13:42:00 106 mm[Hg] [facility] Diastolic blood 2020-03-08 13:42:00 58 mm[Hg] [facility] Heart rate 2020-03-08 13:42:00 82 /min [facility] Body temperature 2020-03-08 13:42:00 37.11 Enma [facility] Respiratory rate 2020-03-08 13:42:00 16 /min [facility] Oxygen saturation in 2020-03-08 13:10:00 99 /min [facility] Arterial blood by Medical Ce nter Pulse oximetry Body height 2020-03-08 11:56:00 167.6 cm [facility] Body weight 2020-03-08 11:56:00 64.864 kg [facility] BMI 2020-03-08 11:56:00 23.08 kg/m2 [facility] Diastolic (mm Hg) 2020-02-24 20:30:00 Benito Blunt Systolic (mm Hg) 2020-02-24 20:30:00 Alberto Blunt Weight 2020-02-24 20:30:00 [facility] [place] Procedures Procedure Date / Time Performing Clinician Source Performed POCT TEST 2021-12-03 20:55:00 Leeann Wilson [facility] BASIC METABOLIC PANEL 2021-12-03 20:54:00 Leeann Wilson [facility] (NA, K, CL, CO2, Medical Branch GLUCOSE, BUN, CREATININE, CA) CBC WITH DIFF 2021-12-03 20:54:00 Marisol [facility] URINALYSIS 2021-12-03 20:54:00 [facility] NOTICE OF PRIVACY 2021-12-03 19:48:20 Doctor Unassigned, No [facility] PRACTICES Name [facility] CONSENT/REFUSAL FOR 2021-12-03 19:47:54 Doctor Unassigned, No [facility] DIAGNOSIS AND TREATMENT Name [facility] POCT TEST 2021-10-31 14:29:00 Rachael [facility] CREATINE KINASE 2021-10-31 13:25:00 Rachael [facility] LIPASE 2021-10-31 13:25:00 Rachael, [facility] HEPATIC FUNCTION PANEL 2021-10-31 13:25:00 Rachael, [facility] ([id number]) (ALB,T.PRO,BILI [facility] T,BU/BC,ALT,AST,ALK PHOS) BASIC METABOLIC PANEL 2021-10-31 13:25:00 Rachael [facility] (NA, K, CL, CO2, Medical Branch GLUCOSE, BUN, CREATININE, CA) ETHANOL 2021-10-31 13:25:00 Rachael [facility] CBC WITH DIFF 2021-10-31 13:25:00 Rachael, [facility] URINALYSIS 2021-10-31 13:25:00 Andrew Cano o f [facility] URINE DRUG (IMMUNOASSAY) 2021-10-31 13:25:00 Andrew Cano [facility] SCREEN W/O REFLEX URINALYSIS, AUTOMATED 2020-09-29 15:48:00 [facility] WITH MICROSCOPY Shruthi HCG QUALITATIVE, URINE 2020-09-29 15:48:00 [facility] SCREEN Shruthi COVID-19 QUALITATIVE 2020-09-29 15:37:00 [facility] RT-PCR Shruthi INFLUENZA ANTIGEN 2020-09-29 15:35:00 [facility] Shruthi XR CHEST 1 VW PORTABLE 2020-09-29 15:18:58 [facility] Shruthi CBC W/PLT COUNT & AUTO 2020-03-08 13:02:00 [facility] DIFFERENTIAL [place] BASIC METABOLIC PANEL 2020-03-08 13:02:00 [facility] (7) [place] CBC W/PLT COUNT & AUTO 2020-03-08 13:02:00 [facility] DIFFERENTIAL [place] URINE CULTURE 2020-03-08 11:48:00 [facility] SCREEN, URINE 2020-03-08 11:48:00 [facility] URINALYSIS W/ 2020-03-08 11:48:00 [facility] Plan of Care Planned Activity Planned Date Details Comments Source Future Scheduled 2029-10-17 DTAP/TDAP/TD [facility] Test 00:00:00 VACCINES (2 - Td) Medical Ce nter [code = DTAP/TDAP/TD VACCINES (2 - Td)] Future Scheduled 2020-06-[address] [facility] Test 00:00:00 (12+) [code = [facility] DEPRESSION SCREENING (12+)] Future Scheduled 2020-02-[address] [facility] Test 00:00:00 (#1) [code = [facility] INFLUENZA VACCINE (#1)] Future Scheduled [address] [facility] Test 00:00:00 malignant neoplasm Medical C enter of cervix (procedure) [code = 230183607] Future Scheduled 2016-02-[address] [facility] Test 00:00:00 SCREENING [code = Medical Ce nter HEPATITIS C SCREENING] Future Scheduled CHLAMYDIA SCREENING [facility] Test [code = CHLAMYDIA SCREENING] Future Scheduled COVID-19 VACCINE (1) [facility] Test [code = COVID-19 VACCINE (1)] Future Scheduled [facility] screening (procedure) [code = 437491175] Future Scheduled [facility] Test malignant neoplasm of cervix (procedure) [code = 660886759] Future Scheduled INFLUENZA VACCINE [facility] Test [code = INFLUENZA VACCINE] Encounters Start End Encounter Admission Attending Care Care Encounter Source Date/Time Date/Time Type Type Clinicians Facility Department ID 2021-02-26 Outpatient [id number] [place] 18:42:48 [id number] [place] [id number] 2021-02-26 Inpatient HCANC ELOINA [id number] [facility] 18:28:00 [id number] [facility] 2020-11-06 Inpatient HCATB EO3 [id number] [facility] 20:24:00 [id number] [facility] are [place] 2020-07-30 Inpatient HCATB EO3 [id number] [facility] 08:23:00 [id number] [facility] are [place] 2020-01-24 Inpatient HCATB EO3 [id number] [facility] 03:04:00 [id number] [facility] are [place] 2022-03-11 2022-03-11 Outpatient Whitney CRYSTAL [facility] [id number] Univers 10:30:00 10:30:00 [facility]EN [facility] 2022-01-19 2022-01-19 Outpatient R MICK [facility] [id number] Univers 12:45:00 12:45:00 BOGDAN [id number] jada dillon [facility] 2022-01-19 2022-01-19 Outpatient R AKINSIPE, [facility] [id number] Univers 12:45:00 12:45:00 BOGDAN ity o f [facility] 2021-12-03 2021-12-03 Emergency X STEVE, [facility] ERT [id number] Univers 15:03:00 18:18:00 LEEANN [facility] 2021-12-03 2021-12-03 Emergency [facility] [id number] Univers 15:03:00 18:18:00 Leeann CHOI [id number] i ty of [id number] [id number] [place] [id number] [place] 2021-12-03 2021-12-03 [address] [facility] [id number] Univers 00:00:00 00:00:00 Leeann CHOI [id number] i ty of [place] 4[place]2.[place] [id number] [place] [id number] Branch 2021-10-31 2021-10-31 Emergency X RACHAELANDREW [facility] ERT 1 [id number] Univers 07:22:00 10:50:00 RACHAELANDREW [facility] 2021-10-31 2021-10-31 Emergency Rachael, [place] [id number] Univers 07:22:00 10:50:00 [facility] [id number] [place] [id number] [facility] 014 Branch 2021-07-13 2021-07-13 Telephone CARLOS Eduardo [id number] Univers 00:00:00 00:00:00 Viridiana FERNANDEZ [id number] it y of [facility] [id number] [place] [id number] [facility] 019 Branch 2021-07-12 2021-07-12 Laboratory Only, Ang Db Test [facility] 1.2.8 [id number] [id number] Univers 11:30:00 11:45:00 Only Margaret Bland [id number] ity of [place] 4.2.7.2.686 [place] NELLA?BLEA [id number] [facility] [address] MEDICAL OFFICE [facility] 2021-07-12 2021-07-12 Outpatient R [facility] [id number] Univers 11:30:00 11:30:00 [id number] [facility] 2021-07-12 2021-07-12 Outpatient [facility] [id number] Univers 11:30:00 11:30:00 MARGARET elias o f [facility] 2021-06-05 2021-06-05 Telephone Alesha CARLOS [id number] Univers 00:00:00 00:00:00 Viridiana FERNANDEZ 350.1.13.10 it y of [facility] [id number] [place] [id number] [address] 2021-06-04 2021-06-04 Outpatient R [facility] [id number] Univers 17:45:00 17:45:00 [facility] 2021-06-04 2021-06-04 Laboratory Only, Ang Db Test [facility] 1.2.8 [id number] [id number] Univers 12:30:00 12:45:00 Only Margaret Bland [id number] ity of [place] [id number] [place] NELLA?BLEA [id number] [address] MEDICAL OFFICE [facility] 2021-06-04 2021-06-04 Outpatient R [facility] [id number] Univers 12:30:00 12:30:00 [id number] [facility] 2021-06-04 2021-06-04 [facility] [id number] Univers 12:30:00 12:30:00 MARGARET ity o f [facility] 2021-05-27 2021-05-27 Outpatient R [facility] [id number] Univers 14:15:00 14:15:00 [id number] [facility] 2021-05-27 2021-05-27 Outpatient R [facility] [id number] Univers 14:15:00 14:15:00 [facility] 2021-05-14 2021-05-14 Outpatient R [facility] [id number] Univers 09:00:00 09:00:00 [id number] [facility] 2021-04-29 2021-04-29 Telephone [facility] [facility] 1.2.840.114 [id number] Univers 00:00:00 00:00:00 Lauren Arzate PULLBOAT ENGINEER 350.1.13.10 it y [facility] 4.2.7.2.686 [place] as MATERNAL [id number] Med ical & CHILD [address] [place] [address] 2021-04-22 2021-04-22 Nurse CARLOS Saxena 1.2.840.114 [id number] Univers 00:00:00 00:00:00 Triage Erica Lobo JIM 350.1.13.10 i ty [facility] 4.2.7.2.686 [place] as [phone] [address] 2021-04-21 2021-04-21 Outpatient R 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 [id number] Univers 14:08:00 19:24:00 CHRISTINA [facility] 2021-03-01 2021-03-01 Outpatient E ROSENDA VILLAREAL [facility] 7506 [facility]NW 00:34:00 23:15:00 2021-02-27 2021-02-27 Emergency E LATOYA GAGNON [address] [facility]NW 13:37:00 20:23:00 AMINAH 2021-02-26 2021-02-26 Emergency EM Baljinder Bar [facility] [id number] [facility] 18:28:00 20:22:[address] [place] [address] 2020-09-29 2020-09-29 Emergency Frank, 1.2.840.1 [id number] Methodi 09:51:00 13:15:00 Fiordaliza 94965.1.1 344 s t 3.430.2.7 Hospit a .3.627940 l .8 2020-09-29 2020-09-29 Travel 1.2.840.1 1.2.712.521 [id number] Methodi 00:00:00 00:00:[address] 3.430.2.7 0.2.7.3.698 Ho spita .3.827853 084.8 l .8 2020-03-08 2020-03-08 [id number] [facility] 11:45:27 13:46:00 [facility] 2020-03-08 2020-03-08 Emergency ER [facility] Emergency [id number] [facility] 11:39:00 11:39:00 2020-03-08 2020-03-08 Travel [facility] [id number] [facility] 00:00:00 00:00:00 [facility] 2020-02-18 2020-02-18 Emergency ER [facility] Emergency [id number] [facility] 20:19:00 20:19:00 2019-12-24 2019-12-24 Orders Doctor CARLOS 1.2.840.114 [id number] 00:00:00 00:00:00 Only Unassigned, JIM 350.1.13.10 [facility] 4.2.7.2.686 [id number] 009 2019-11-18 2019-11-21 Hospital CARLOS Mcneill 1.2.840.114 [id number] 18:15:00 13:26:00 Encounter Pelon FERNANDEZ 350.1.13.10 HOSPITAL 4.2.7.2.686 [id number] 2019-11-19 2019-11-19 Telephone Lavon [facility] 1.2.154.333 [id number] 00:00:00 00:00:00 Jenelle Olson PULLBOAT ENGINEER 350.1.13.10 [facility] 4.2.7.2.686 MATERNAL [id number] & CHILD [address] [place] [address] 2019-11-19 2019-11-19 Orders Doctor CARLOS 1Lucia2.840.114 [id number] 00:00:00 00:00:00 Only UnassignedJIM 350.1.13.10 [facility] 4.2.7.2.686 [id number] 009 2019-11-18 2019-11-18 Orders Doctor CARLOS 1.2.840.114 [id number] 00:00:00 00:00:00 Only Unassigned, JIM 350.1.13.10 [place] [facility] 4.2.7.2.686 [id number] 009 Results Test Description Test Time Test Comments Results Result Comments Source BASIC METABOLIC PANEL (NA, K, CL, CO2, GLUCOSE, BUN, 2021-11 21:15:39 CREATININE, [place]) Test Item Value Reference Range Interpretation Comme nts NA (test code = 9186869695) 139 mmol/L 135-145 K (test code = 3538496437) 5.0 mmol/L 3.5-5.0 CL (test code = 0773756640) 101 mmol/L 98-108 CO2 TOTAL (test code = 1993170653) 26 mmol/L 23-31 AGAP (test code = 1039166007) 2-16 BUN (test code = 0785309621) 13 mg/dL 7-23 GLUCOSE (test code = 7722579934) 115 mg/dL 70-110 H CREATININE (test code = 0.66 mg/dL 0.50-1.04 7027547101) CALCIUM (test code = 3083369877) 9.8 mg/dL 8.6-10.6 eGFR (test code = 5556678752) mL/min/1.73m2 BEBETO (test code = BEBETO) Association of Glomerular Filtration Rate (GFR) and Staging of Kidney Disease* + +-------- + ------+| GFR (mL/min/1.73 m2) ?| With Kidney Damage ?| ?Without Kidney Damage+ +-- + +| ?>90 ?| ?Stage one ?| ? Normal ?+ +------- + -------+| ?60-89 ?| ?Stage two ?| ? Decreased GFR ? + +-------- + ------+| ?30-59 ?| ?Stage three ?| ? Stage three ? + +-------- + ------+| ?15-29 ?| ?Stage four ? | ? Stage four ?+ +------- + -------+| ?<15 (or dialysis) ? ?| ?Stage five ? | ? Stage five ?+ +------- + -------+ *Each stage assumes the associated GFR [...] or abnormalities in imaging tests). Lab Interpretation (test code = Abnormal 79852-9) [facility] WITH [id number] 21:08:40 Test Item Value Reference Range Interpretation Comments WBC (test code = See_Comment [Automated 9190-2) message] The sy stem which generated this result transmitted reference range : 4.30 - 11.10 10*3/?L. The reference range was not used to interpret this result as normal/abnormal . RBC (test code = See_Comment [Automated 099-8) message] The sy stem which generated this result transmitted reference range : 3.93 - 5.25 10*6/?L. The reference range was not used to interpret this result as normal/abnormal . HGB (test code = 11.2 g/dL 11.6-15.0 L 718-7) HCT (test code = 36.0 % 35.7-45.2 4544-3) MCV (test code = 81.4 fL 80.6-95.5 787-2) MCH (test code = 25.3 pg 25.9-32.8 L 785-6) MCHC (test code = 31.1 g/dL 31.6-35.1 L 786-4) RDW-SD (test code = 43.1 fL 39.0-49.9 43175-9) RDW-CV (test code = 14.6 % 12.0-15.5 788-0) PLT (test code = See_Comment H [Automated 777-3) message] The sy stem which generated this result transmitted reference range : 166 - 358 10*3/ ?L. The reference r evie was not used to interpret this result as normal/abnormal . MPV (test code = 9.2 fL 9.5-12.9 L 27934-9) NRBC/100 WBC (test See_Comment [Automat ed code = 3905650430) message] The system which generated this result transmitted reference range : 0.0 - 10.0 /100 WBCs. The refer ence range was not u sed to interpret th is result as normal/abnormal . NRBC x10^3 (test code <0.01 See_Comment [Auto mated = 9602333513) message] The s ystem which generated this result transmitted reference range : 10*3/?L. The reference range was not used to interpret this result as normal/abnormal . GRAN MAT (NEUT) % 64.2 % (test code = 770-8) IMM GRAN % (test code 0.50 % = 2035757398) LYMPH % (test code = 25.5 % 736-9) MONO % (test code = 7.5 % 5905-5) EOS % (test code = 2.0 % 713-8) BASO % (test code = 0.3 % 706-2) GRAN MAT x10^3(ANC) 4.22 10*3/uL 1.88-7.09 (test code = 0945247027) IMM GRAN x10^3 (test 0.03 10*3/uL 0.00-0.06 code = 9807082547) LYMPH x10^3 (test code 1.67 10*3/uL 1.32-3.29 = 731-0) MONO x10^3 (test code 0.49 10*3/uL 0.33-0.92 = 742-7) EOS x10^3 (test code = 0.13 10*3/uL 0.03-0.39 711-2) BASO x10^3 (test code <0.03 0.01-0.07 = 704-7) Lab Interpretation Abnormal (test code = 04241-3) [facility] [id number] 20:55:00 Test Item Value Reference Range Interpretation Comments POCT PREG (test code = 1605) negative On board controls acceptable with present C Line (test code = 3574) POCT PREG LOT # (test code = 3575) [id number] POCT PREG TEST DATE (test code = 3576) Lab Interpretation (test code = Normal 61366-0) [facility] [id number] 14:29:00 Test Item Value Reference Range Interpretation Comments On board controls acceptable with NEGATIVE C Line (test code = 3574) POCT PREG LOT # (test code = 3575) [id number] POCT PREG TEST DATE (test 03/11/2023 code = 3576) Lab Interpretation (test code = Normal 11138-6) [facility] METABOLIC PANEL (NA, K, CL, CO2, GLUCOSE, BUN, CREATININE, [place])2021-10-31 13:48:54 Test Item Value Reference Range Interpretation Comments NA (test code = 143 mmol/L 135-145 3130433540) K (test code = 3.2 mmol/L 3.5-5.0 L 0901816552) CL (test code = 108 mmol/L 98-108 6694405812) CO2 TOTAL (test code = 24 mmol/L 23-31 2209250623) AGAP (test code = 2-16 1392585504) BUN (test code = 2 mg/dL 7-23 L 8354025123) GLUCOSE (test code = 102 mg/dL 70-110 3534402755) CREATININE (test code = 0.66 mg/dL 0.50-1.04 8334403519) CALCIUM (test code = 8.9 mg/dL 8.6-10.6 5774228656) eGFR (test code = mL/min/1.73m2 6728714162) BEBETO (test code = BEBETO) Association of [...] tests). Lab Interpretation Abnormal (test code = 12837-8) [facility] (94136) (ALB,T.PRO,BILI T,BU/BC,ALT,AST,ALK PHOS)2021-10-31 13:48:54 Test Item Value Reference Range Interpretation Comments TOTAL BILI (test code = 3229114956) 0.7 mg/dL 0.1-1.1 BILI UNCON (test code = 9090821093) 0.6 mg/dL 0.1-1.1 BILI CONJ (test code = 2104282924) 0.0 mg/dL 0.0-0.3 T PROTEIN (test code = 1019963379) 7.4 g/dL 6.3-8.2 ALBUMIN (test code = 0032687838) 4.6 g/dL 3.5-5.0 ALK PHOS (test code = 9959376320) 79 U/L 34-122 ALTv (test code = 1742-6) 20 U/L 5-35 AST(SGOT) (test code = 6443820729) 37 U/L 13-40 Lab Interpretation (test code = Normal 29404-1) [facility]2022-[facility]-22 13:48:54 Test Item Value Reference Range Interpretation Comments LIPASE (test code = 6347846502) 18 U/L 0-220 Lab Interpretation (test code = Normal 78777-8) [facility]2022-05-22 13:48:54 Test Item Value Reference Range Interpretation Comments ALCOHOL (test code = 120 mg/dL 1870963598) BEBETO (test code = Toxic Greater than or BEBETO) equal to 80 mg/dL. NOTE: Whole blood values are approximately 10% to 15% lower than serum and plasma. [facility]lake[facility]AT[facility] [id number] 13:48:54 Test Item Value Reference Range Interpretation Comments CK (test code = 4413551236) 490 U/L 33-194 H Lab Interpretation (test code = Abnormal 04323-0) [facility] WITH [id number] 13:40:37 Test Item Value Reference Range Interpretation [...] RDW-SD (test code = 42.3 fL 39.0-49.9 53381-7) RDW-CV (test code = 14.4 % 12.0-15.5 788-0) PLT (test code = See_Comment [Automated 777-3) message] The sy stem which generated this result transmitted reference range : 166 - 358 10*3/ ?L. The reference r evie was not used to interpret this result as normal/abnormal . MPV (test code = 9.4 fL 9.5-12.9 L 07617-5) NRBC/100 WBC (test See_Comment [Automat ed code = 3683218275) message] The system which generated this result transmitted reference range : 0.0 - 10.0 /100 WBCs. The refer ence range was not u sed to interpret th is result as normal/abnormal . NRBC x10^3 (test code <0.01 See_Comment [Auto mated = 8491091092) message] The s ystem which generated this result transmitted reference range : 10*3/?L. The reference range was not used to interpret this result as normal/abnormal . GRAN MAT (NEUT) % 71.1 % (test code = 770-8) IMM GRAN % (test code 0.30 % = 0986603105) LYMPH % (test code = 18.3 % 736-9) MONO % (test code = 9.6 % 5905-5) EOS % (test code = 0.4 % 713-8) BASO % (test code = 0.3 % 706-2) GRAN MAT x10^3(ANC) 5.50 10*3/uL 1.88-7.09 (test code = 0946235321) IMM GRAN x10^3 (test <0.03 0.00-0.06 code = 0803814343) LYMPH x10^3 (test code 1.41 10*3/uL 1.32-3.29 = 731-0) MONO x10^3 (test code 0.74 10*3/uL 0.33-0.92 = 742-7) EOS x10^3 (test code = 0.03 10*3/uL 0.03-0.39 711-2) BASO x10^3 (test code <0.03 0.01-0.07 = 704-7) Lab Interpretation Abnormal (test code = 34272-7) [facility]lake[facility] RFLX MICR CULT IF [id number] 19:43:00 Test Item Value Reference Range Interpretation [...] BACU) reported result : RARE /HPFEdited by: RS on 02/26/21:194~~ Corrected Repor t ~~Reason (required): UA SQUAMOUS CELLS Many /HPF FEW (test code = SQU) Indication for culture: Suprapubic PainSpecimen Description: CLEAN CATCHUR HCG [id number] 19:23:00 Test Item Value Reference Range Interpretation Comments UR HCG QUAL (test code = HCGQLU) NEGATIVE NEGATIVE XR Chest 1 Vw [id number] 15:20:04Study:XR CHEST 1 VW PORTABLE History: cough COMPARISON: None. IMPRESSION: A single view of the chest. There is no focal consolidation, pleural effusion or pneumothorax. Cardiac silhouette is normal. Visualized osseous structures are without acute abnormality. [facility]- [id number] Interface, Radiology Results Incoming - 09/29/2020 10:23 AM CDT Study:XR CHEST 1 VW PORTABLEHistory: coughCOMPARISON: None.IMPRESSION:A single view of the chest. There is no focal consolidation, pleural effusion or pneumothorax. Cardiac silhouette is normal. Visualized osseous structures are without acute abnormality.[facility]-[id number] Hospital- XR PELVIS 1/2 [id number] 09:11:00[facility]Y : 2000 Sex: FPatientName: ALMAS DEY Unit No: [id number] EXAMS: CPT: [id number] XR PELVIS 1/2 VIEWS 02094 Clinical History: Buttock pain. Exam: - XR PELVIS 1/2 VIEWS Technique: AP supine view of the pelvis Comparison:None. Findings: No significant radiographic abnormalities are seen of the pelvic ring, visualized portions of the lower lumbar spine and proximal femurs, joint spaces, and visualized soft tissues. Impression: No significant radiographic abnormalities of the pelvis seen. at 0911 Reported and signed by: Edith Wellington MD CC: MANOLO BELL MD Technologist: MONIQUE JEFF Trs Dt/Tm: 07/30/2020 (910) by:[email or web address] Orig Print D/T: S: 07/13 (0914) BATCH NO: N/A Name: ALMAS DEY [facility]: [facility] [place] [address] [facility] : 2000 Age: 20 Sex: [place] [address] Loc: [facility] Exam Date: 07/30/2020 Status: PRE ER PH: [phone] FAX: PAGE 1 Signed ReportURINALYSIS DIPSTICK POC [...] YES NEEDED? (test code = UAMICRO) UA [id number] 08:51:00 Test Item Value Reference Range Interpretation Comments UA WBC (test code = WBCU) NONE SEEN /HPF 0-3 UA RBC (test code = RBCU) 3-5 /HPF 0-3 A UA EPITHELIAL CELLS (test code FEW /LPF NONE-FEW = EPIU) UA BACTERIA (test code = BACU) FEW /HPF NONE SEEN UA MUCUS (test code = MUCU) 1+ /LPF NONE-FEW A URINALYSIS DIPSTICK [id number] 08:43:00 Test Item Value Reference Range Interpretation [...] NEEDED? (test code = UAMICRO) URINALYSIS DIPSTICK [id number] 08:43:00 Test Item Value Reference Range Interpretation [...] NEEDED? (test code = UAMICRO) UR HCG [id number] 08:43:00 Test Item Value Reference Range Interpretation Comments UR HCG QUAL (test code = HCGQLU) NEGATIVE NEGATIVE URINALYSIS DIPSTICK [id number] 08:42:00 Test Item Value Reference Range Interpretation [...] ESTERASE DIPSTICK (test code = LEUU) URINE [id number] 10:40:00 Test Item Value Reference Range Interpretation [...] = 47) 20-29,000 col/mL skin floraBASIC METABOLIC [id number] 13:18:00 Test Item Value Reference Range Interpretation [...] PATIEN TS. CBC W/PLT COUNT & AUTO [id number] 13:08:00 Test Item Value Reference Range Interpretation [...] (BEAKER) (test code = 2801) URINALYSIS W/ [id number] 12:23:00 Test Item Value Reference Range Interpretation [...] 1663) SOURCE(BEAKER) (test code = 2795) SCREEN, [id number] 11:56:00 Test Item Value Reference Range Interpretation Comments TEST URINE (BEAKER) (test Negative code = 583) U/S, PELVIS, WITH ENDOVAG AND [id number] 00:46:00Reason for exam:- >VAGINAL BLEEDING and discomfort [...] x 2.1 x 2.7cm. Echogenicity: Normal Vascular flow:Preserved Free fluid: Moderate volume within the cul-de-sac. Additional findings: None IMPRESSION: Moderate volume free pelvic fluid possibly physiologic. Otherwise, no acute findings. Signed: Toni Lan MDRepsaint j[facility] Verified Date/Time: 02/19/2020 00:46:24 HCG, SERUM, [id number] 21:48:00 Test Item Value Reference Range Interpretation Comments TEST SERUM (BEAKER) (test Negative code = 584) COMPREHENSIVE METABOLIC [id number] 21:48:00 Test Item Value Reference Range Interpretation [...] S NOT APPLICABLE FOR DIALYSIS PATIEN TS. [employer]on Lettering Machine Operator ID - [id number] W/ REFLEX URINE [id number] 21:39:00 Test Item Value Reference Range Interpretation [...] code = 516) SOURCE(BEAKER) (test code = 7854) [employer] Let[employer] Machine Operator ID - [auto]Carton Lettering Machine Operator ID - techOperator ID - techCBC W/PLT COUNT & AUTO [id number] 21:29:00 Test Item Value Reference Range Interpretation [...] 2801) - XR WRIST 3 + V [id number] 03:53:00Patient Name: ALMAS DEY Unit No: [id number] EXAMS: CPT: [id number] XR WRIST 3 + [place] [address]77 LEFT WRIST 4 VIEWS: CLINICAL HISTORY: Fall FINDINGS: There is a nondisplaced fracture of the distal radial metaphysis with intra-articular involvement.. A nondisplaced fracture of the base of the ulnar styloid process is also present. No joint or soft tissue abnormalities are seen. IMPRESSION: Nondisplaceddistal radial and ulnar fractures. at 0353 Reported and signed by: Nilay Fernando MD CC: Eric Mccabe DO Technologist: Edna Grossman Trscr Dt/Tm: 01/24/2020 (0353) by:[email or web address] Orig Print D/T: S: 01/24/2020 (0356) BATCH NO: N/A Name: ALMAS DEY [facility] [place]: [place] [address] [facility] : 1991Age: 28 Sex: [place] [address] Loc: [facility] Exam Date: 01/24/2020 Status: REG PH: [phone] FAX: PAGE 1 Signed Report- CT C-SPINE W/O CONT 2020-01-24 03:52:00Patient Name: ALMAS DEY Unit No: [id number] EXAMS: CPT: [id number] CT C-SPINE W/O CONT 68409 CTCERVICAL SPINE WITHOUT IV CONTRAST: CLINICAL HISTORY: Fall [...] cervical spine.. DLP: 312.96 mGy-cm CT dose optimizationis achieved for this examination by the use of a CT protocol in accordance with ACR practice standards and adherence to lumber piler's recommendations with automated exposure control. ElectronicallySigned by Nilay Fernando MD on 01/24/2020 at 0352 Reported and signed by: Nilay Fernando MD CC: Eric Mccabe DO Technologist: Edna Grossman CTDI: 14.84 DLP: 312.96 Trscr Dt/Tm: 01/24/2020 (0352) by:[email or web address] Orig Print D/T: S: 01/24/2020 (0355) BATCH NO: N/A Name: [facility] Phys: [place] [address] [facility] : 1991 Age: 28 Sex: [place], [place] [address]Crgn No: [id number] Loc: [facility] Exam Date: 01/24/2020 Status: REG ER PH: [phone] FAX: PAGE 1 Signed Report- CT HEAD/BRAIN W/O [id number] 03:50:00Patient Name: ALMAS DEY Unit No: [id number] EXAMS: CPT: [id number] CT HEAD/BRAIN W/O CONT 48865IV HEAD WITHOUT CONTRAST: CLINICAL HISTORY: Fall TECHNIQUE: [...] with ACR practice standards and adherence to lumber piler's recommendations with automated exposure control. at 0350 Reported and signed by: Nilay Fernando MD CC: Eric Mccabe DO Technologist: Edna Crews CTDI: 20.39 DLP: 290.78 Trscr Dt/Tm: 01/24/2020 (0350) by:[email or web address] Orig Print D/T: S: 01/24/2020(0353) BATCH NO: N/A Name: ALMAS DEY Emergency Dept Phys: TUAN.06 - [place] [address] [facility] : 1991 Age: 28 Sex: [place] [address] Loc: [facility] Exam Date: 01/24/2020 Status: REG ER PH: [phone] FAX: PAGE 1 Signed Report"
[2022-01-19 07:11] LABS: Hematocrit 31.4 % (36.0-45.0); Lymphocytes % 28.1 % (15.3-44.8); MCV 78.5 fL (80-100); MPV 7.3 fL (7.6-11.3)
[2022-01-19 07:22] LABS: Potassium 3.8 mmol/L (3.5-5.1)
--- NOTE | 2022-01-19 07:25 | RAD REPORT ---
EXAM DESCRIPTION: US - Transvaginal Study Probe - 01/19/2022 7:09 am CLINICAL HISTORY: heavy bleeding, eval for fibroids Pelvic pain. COMPARISON: No comparisons FINDINGS: The uterus is normal in size, shape and echotexture. The uterus measures 8.6 cm The endometrial stripe measures 5 mm, normal. Both ovaries are normal in size, shape and echotexture. The right ovary measures 3.8 x 1.8 x 2.1 cm with volume of 7.5 cc. The left ovary measures 3.6 x 1.8 x 2 cm with volume of 6.8 cc. No ovarian or parovarian lesions. No adnexal masses. Normal Doppler blood flow was demonstrated to both ovaries. Small volume of complex free fluid. IMPRESSION: Pelvic ultrasound is within normal limits for patient's age. Bilateral ovarian blood anmol w. Small volume of free fluid which may be physiologic.
[2022-01-19 07:28] LABS: Protime INR 0.99
--- NOTE | 2022-01-19 07:53 | ER ---
Nurse's Notes [facility] Name: Lena Doty Age: 21 yrs Sex: Female : 2000 Arrival Date: 01/19/2022 Time: 06:26 Bed 5 Private MD: Diagnosis: Abnormal uterine and vaginal bleeding, unspecified Presentation: 01/19 06:31 Chief complaint: Patient states: I started bleeding and i am not supposed to have my kd3 period until the . It got heavier and now I am passing clots. I had a tubal ligation in 2019 after my last child. A year after I had my last child I hemorrhaged and i needed a transfusion so i am just worried that is going to happen again. Coronavirus screen: Vaccine status: Patient reports being unvaccinated. Ebola Screen: No symptoms or risks identified at this time. Initial Sepsis Screen: Does the patient meet any 2 criteria? No. Patient's initial sepsis screen is negative. Does the patient have a suspected source of infection? No. Patient's initial sepsis screen is negative. Risk Assessment: Do you want to hurt yourself or someone else? Patient reports no desire to harm self or others. Onset of symptoms was January 19, 2022. 06:31 Method Of Arrival: Ambulatory kd3 06:31 Acuity: RALEIGH 3 kd3 Triage Assessment: 06:34 General: Appears in no apparent distress. Behavior is calm, cooperative. : Reports kd3 vaginal bleeding that is with clots. 06:39 Pain: Denies pain. 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 - Social history:: Smoking status: unknown. - Family history:: not pertinent. - Hospitalizations: : No recent hospitalization is reported. Screenin:35 Abuse screen: Denies threats or abuse. Denies injuries from another. Nutritional kd3 screening: No deficits noted. Tuberculosis screening: No symptoms or risk factors identified. Fall Risk None identified. Assessment: 06:41 General: Appears in no apparent distress. Behavior is calm, cooperative. Pain: kd3 Complains of pain in period cramps. Neuro: Level of Consciousness is awake, alert, obeys commands, Oriented to person, place, time, situation. Respiratory: Airway is patent Trachea midline Respiratory effort is even, unlabored, Respiratory pattern is regular, symmetrical. 06:49 : Urine is blood tinged. kd3 07:08 Reassessment: pt. at ultrasound. ha1 07:35 Reassessment: Patient and/or family updated on plan of care and expected duration. Pain ha1 level reassessed. Patient is alert, oriented x 3, equal unlabored respirations, skin warm/dry/pink. 08:11 Reassessment: Patient and/or family updated on plan of care and expected duration. Pain ha1 level reassessed. Patient is alert, oriented x 3, equal unlabored respirations, skin warm/dry/pink. Vital Signs: 06:31 Weight 65.77 kg; Height 5 ft. 5 in. (165.10 cm); kd3 06:48 BP 119 / 89; Pulse 82; Resp 18; Temp 98.2(O); Pulse Ox 100% on R/A; kd3 07:35 BP 102 / 61; Pulse 72; Resp 15 S; Pulse Ox 99% on R/A; ha1 08:10 BP 102 / 61; Pulse 71; Resp 15; Pulse Ox 100% on R/A; ha1 06:31 Body Mass Index 24.13 (65.77 kg, 165.10 cm) kd3 ED Course: 06:26 Patient arrived in ED. bp1 06:29 Devang Garrett MD is Attending Physician. rn 06:31 Tiffanie Tran RN is Primary Nurse. kd3 06:34 Triage completed. kd3 06:35 Patient has correct armband on for positive identification. kd3 06:35 Arm band placed on. kd3 06:51 Inserted saline lock: 20 gauge in right antecubital area, using aseptic technique. ds4 Blood collected. 07:07 Attending Physician role handed off by Devang Garrett MD sp3 07:07 Joshua Dinero MD is Attending Physician. sp3 07:10 Transvaginal Study Probe In Process Unspecified. EDMS 08:10 No provider procedures requiring assistance completed. ha1 08:10 IV discontinued, intact, bleeding controlled, No redness/swelling at site. Pressure ha1 dressing applied. Administered Medications: No medications were administered Medication: 06:39 VIS not applicable for this client. kd3 Outcome: 07:52 Discharge ordered by . sp3 08:10 Discharged to home ambulatory. ha1 08:10 Condition: stable 08:10 Discharge instructions given to patient, Instructed on discharge instructions, follow up and referral plans. Demonstrated understanding of instructions, follow-up care. 08:19 Patient left the ED. ha1 Signatures: Dispatcher [employer] EDMS Devang Garrett MD MD rn Swanson, Donovan ds4 Danisha aFye Setul, MD MD sp3 Tiffanie Tran RN RN kd3 Cece Eason RN RN ha1 Corrections: (The following items were deleted from the chart) 06:50 06:39 : kd3 kd3
--- NOTE | 2022-01-19 07:53 | EDPHYS ---
Physician Documentation [facility] Name: Lena Doty Age: 21 yrs Sex: Female : 2000 Arrival Date: 01/19/2022 Time: 06:26 Bed 5 Private MD: ED Physician Joshua Dinero HPI: 01/19 06:39 This 21 yrs old Female presents to ER via Ambulatory with complaints of Vaginal rn Bleeding. 06:39 The patient presents with vaginal bleeding that is moderate, with clots. Onset: The rn symptoms/episode began/occurred 2 day(s) ago. Modifying factors: The symptoms are alleviated by nothing, the symptoms are aggravated by nothing. Associated signs and symptoms: Pertinent positives: cramping, Pertinent negatives: fever, vomiting. Severity of symptoms: At their worst the symptoms were moderate, in the emergency department the symptoms are unchanged. The patient has experienced similar episodes in the past. The patient has not recently seen a physician. Pt reports vaginal bleeding for 2-3 days, LMP 2 weeks ago, + hx of fibroids. Reports sometimes heavy periods but this time is happening with irregular timing. Reports similar episode last year that required admission with surgery to remove fibroid and blood transfusion. Denies trauma. No anticoagulation. + mild abd cramping. Has had tubal ligation.. 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 - Social history:: Smoking status: unknown. - Family history:: not pertinent. - Hospitalizations: : No recent hospitalization is reported. ROS: 06:39 Constitutional: Negative for fever, chills, and weight loss, Eyes: Negative for injury, rn pain, redness, and discharge, Neck: Negative for injury, pain, and swelling, Cardiovascular: Negative for chest pain, palpitations, and edema, Respiratory: Negative for shortness of breath, cough, wheezing, and pleuritic chest pain, Abdomen/GI: Negative for nausea, vomiting, diarrhea, and constipation, Back: Negative for injury and pain, : Negative for injury, and swelling, + vaginal bleeding MS/Extremity: Negative for injury and deformity, Neuro: Negative for headache, weakness, numbness, tingling, and seizure. Exam: 06:39 Constitutional: This is a well developed, well nourished patient who is awake, alert, rn and in no acute distress. Ambulatory to room and bathroom without difficulty or requiring assistance. Standing in room when I walked into room. Head/Face: Normocephalic, atraumatic. Eyes: Normal conjunctivae Cardiovascular: Regular rate and rhythm. No pulse deficits. Respiratory: Speaking full sentences, unlabored. No increased work of breathing, no retractions or nasal flaring. Abdomen/GI: soft, non-tender, non-distended Skin: Warm, dry MS/ Extremity: Pulses equal, no cyanosis. Neuro: Awake and alert, GCS 15 Vital Signs: 06:31 Weight 65.77 kg; Height 5 ft. 5 in. (165.10 cm); kd3 06:48 BP 119 / 89; Pulse 82; Resp 18; Temp 98.2(O); Pulse Ox 100% on R/A; kd3 07:35 BP 102 / 61; Pulse 72; Resp 15 S; Pulse Ox 99% on R/A; ha1 08:10 BP 102 / 61; Pulse 71; Resp 15; Pulse Ox 100% on R/A; ha1 06:31 Body Mass Index 24.13 (65.77 kg, 165.10 cm) kd3 MDM: 06:29 Patient medically screened. rn 06:54 Transition of care: After a detail discussion of the patient's case, care is rn transferred to Joshua Dinero MD. 07:51 Data reviewed: vital signs, lab test result(s). ED course: 21-year-old female with sp3 history of dysfunctional uterine bleeding signed out to me by overnight physician. Vital signs remained stable and hemoglobin is 10.3. Review of records indicates that on November 29 of this year, her hemoglobin was 10.1. Given this fact her hemoglobin remained stable and we will discharge her with follow-up with her junior graphic designer at this time.. 01/19 06:38 Order name: Basic Metabolic Panel; Complete Time: 07:49 rn 01/19 06:38 Order name: CBC with Diff; Complete Time: 07:49 rn 01/19 06:38 Order name: Type And Screen rn 01/19 06:39 Order name: PT-INR; Complete Time: 07:49 rn 01/19 06:39 Order name: Ptt, Activated; Complete Time: 07:49 rn 01/19 06:38 Order name: IV Saline Lock; Complete Time: 06:48 rn 01/19 06:38 Order name: Labs collected and sent; Complete Time: 06:50 rn 01/19 06:38 Order name: NPO; Complete Time: 06:44 rn 01/19 07:10 Order name: Transvaginal Study Probe; Complete Time: 07:49 EDMN 01/19 07:57 Interpretation: No acute disease. sp3 Administered Medications: No medications were administered Disposition Summary: 01/19/22 07:52 Discharge Ordered Location: Home sp3 Condition: Stable sp3 Diagnosis - Abnormal uterine and vaginal bleeding, unspecified sp3 Followup: sp3 - With: Private Physician - When: Upon discharge from the Emergency Department - Reason: Continuance of care Discharge Instructions: - Discharge Summary Sheet sp3 - Abnormal Uterine Bleeding sp3 Forms: - Medication Reconciliation Form sp3 - Thank You Letter sp3 - Antibiotic Education sp3 - Prescription Opioid Use sp3 Signatures: Dispatcher [employer] EDMN Devang Garrett MD MD rn Patel, Setul, MD MD sp3 Tiffanie Tran, RN RN kd3 Corrections: (The following items were deleted from the chart) 07:10 06:39 Pelvis Complete+US.RAD.BRZ ordered. EDMN EDMN 08:18 06:38 Urine Dipstick-Ancillary ordered. vinicio ha1
[2022-01-19 08:24] VITALS: TEMP 98.2
[2022-01-19 08:26] VITALS: BP 102/61
[2022-01-19 08:29] VITALS: O2SAT 100
== END 2022-01-19 08:19 | disposition home or self-care (01) ==
LOC: ER 06:22
DX: N93.9 Abnormal uterine and vaginal bleeding, unspecified (principal)
CPT/HCPCS: 36415; 76830; 80048; 85025; 85610; 85730; 86850; 86900; 86901; 99283

== ENCOUNTER 2022-04-01 05:41 | Emergency (ER) | payer OTHER ==
--- OUTSIDE RECORDS SUMMARY | 2022-04-01 05:50 | XMS REPORT | Continuity of Care Document ---
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 Procedures Procedure Date / Time Performing Clinician Source Performed POCT TEST 2022-01-20 21:17:00 Jenelle Parker [facility] URINALYSIS, AUTOMATED 2020-09-29 15:48:00 [facility] WITH MICROSCOPY Shruthi HCG QUALITATIVE, URINE 2020-09-29 15:48:00 [facility] SCREEN Shruthi COVID-19 QUALITATIVE 2020-09-29 15:37:00 [facility] RT-PCR Shruthi INFLUENZA ANTIGEN 2020-09-29 15:35:00 [facility] Shruthi XR CHEST 1 VW PORTABLE 2020-09-29 15:18:58 Arvind Marieah [facility] Shruthi CBC W/PLT COUNT & AUTO 2020-03-08 13:02:00 Delbert [facility] DIFFERENTIAL Center BASIC METABOLIC PANEL 2020-03-08 13:02:00 Delbert [facility] (7) Center CBC W/PLT COUNT & AUTO 2020-03-08 13:02[facility] C[facility] 2020-03-08 11:48[facility] 2020-03-08 11:48[facility]00 [facility] W/ 2020-03-08 11:48:00 Delbert [facility] Tonsillectomy [facility] Plan of Care Planned Activity Planned Date Details Comments Source Future Scheduled 2029-10-17 DTAP/TDAP/TD VACCINES [facility] Test 00:00:00 (2 - Td) [code = [facility] DTAP/TDAP/TD VACCINES (2 - Td)] Future Scheduled 2029-10-17 DTAP/TDAP/TD VACCINES [facility] Test 00:00:00 (2 - Td or Tdap) [facility] [address] [code = DTAP/TDAP/TD VACCINES (2 - Td or Tdap)] Future Scheduled 2022-02-11 Screening for [facility] Test 15:58:07 Chlamydia trachomatis (procedure) [code = 089253396] Future Scheduled 2022-02-11 Hepatitis C screening [facility] Test 15:58:07 (procedure) [code = 211903114] Future Scheduled 2022-02-11 Screening for [facility] Test 15:58:07 malignant neoplasm of cervix (procedure) [code = 049410831] Future Scheduled 2022-02-11 INFLUENZA VACCINE [facility] Test 15:58:07 [code = INFLUENZA VACCINE] Future Scheduled 2022-02-11 HEPATITIS B VACCIN[facility] Test 15:58:07 (1 of 3 - 3-dose series) [code = HEPATITIS B VACCINES (1 of 3 - 3-dose series)] Future Scheduled 2022-02-11 COVID-19 VACCINE (#1) [facility] Test 15:58:07 [code = COVID-19 VACCINE (#1)] Future Scheduled 2022-02-[address] [facility] Test 00:00:00 (#1) [code = Medical Center INFLUENZA VACCINE (#1)] Future Scheduled 2021-06-[address] [facility] Test 00:00:00 (12+) [code = Medical Center DEPRESSION SCREENING (12+)] Future Scheduled 2020-06-[address] [facility] Test 00:00:00 (12+) [code = Medical Center DEPRESSION SCREENING (12+)] Future Scheduled 2020-02-[address] [facility] Test 00:00:00 (#1) [code = [facility] INFLUENZA VACCINE (#1)] Future Scheduled [address] [facility] 00[facility]:00 malignant neoplasm of Medica l Center cervix (procedure) [code = 607601578] Future Scheduled [address] [facility] Test 00:00:00 malignant neoplasm of Medica [facility] Center cervix (procedure) [code = 366342495] Future Scheduled 2016-02-21 HEPATITIS C SCREENING [facility] Test 00:00:00 [code = HEPATITIS C Medical Center SCREENING] Future Scheduled 2016-02-21 HEPATITIS C [facility]CRE[facility]ING [facility] Test 00:00:00 [code = HEPATITIS C Medical Center SCREENING] Future Scheduled 1998 COVID-19 VACCINE (#1) [facility] Test 00:00:00 [code = COVID-[address] VACCINE (#1)] Future Scheduled COVID-19 VACCINE (1) [facility] [code = COVID-19 VACCINE (1)] Future Scheduled Hepatitis C [facility] (procedure) [code = 373849780] Future Scheduled [facility] Test malignant neoplasm of cervix (procedure) [code = 130674648] Future Scheduled INFLUENZA VACCINE [facility] Test [code = INFLUENZA VACCINE] Future Scheduled CHLAMYDIA [facility]CREENING [facility] Test [code = CHLAMYDIA SCREENING] Encounters Start End Encounter Admission Attending Care Care Encounter Source Date/Time Date/Time Type Type Clinicians Facility Department ID 2021-04-16 Outpatient R LUCIA [facility] WELL REACTIVATOR 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 [id number] Univers 10:38:06 [facility] 2021-04-08 Outpatient P [facility] BOBBY [id number] Univers 23:44:31 ity [facility] 2021-04-08 Outpatient P [facility] BOBBY [id number] Univers 21:26:00 ity [facility] 2021-04-08 Outpatient P [facility] BOBBY [id number] Univers 21:25:48 [facility] 2021-02-26 Outpatient [id number] Memoria 18:42:48 [id number]- B l -I2JO-[id number] [place] [id number] [id number] [id number] 2020-11-06 Inpatient HCATB EO3 [id number] [facility] 20:24:00 01 [facility] 2020-07-30 Inpatient HCATB HCATB [id number] [facility] 08:31:07 45 [facility] 2020-01-24 Inpatient HCATB EO3 [id number] [facility] 03:04:00 44 [facility] 2022-03-11 2022-03-11 Outpatient Whitney CRYSTAL [facility] [id number] Univers 13:00:00 13:00:00 LAURNE elias [facility] 2022-03-11 2022-03-11 Outpatient Whitney CRYSTAL [facility] [id number] Univers 13:00:00 13:00:00 LAURENFUNMI elias [facility] 2022-03-11 2022-03-11 Outpatient Whitney CRYSTAL [facility] [id number] Univers 10:30:00 10:30:00 LAUREN porfirio [facility] 2022-03-11 2022-03-11 Outpatient Whitney BARTON [facility] [id number] Univers 10:30:00 10:30:00 BOGDAN elias o f [facility] 2022-02-04 2022-02-04 [facility] [id number] Univers 00:00:00 00:00:00 JENELLE nunez [facility] 2022-02-02 2022-02-02 Outpatient Whitney PARKER [facility] [id number] Univers 17:15:00 17:15:00 JENELLE nunez [facility] 2022-01-20 2022-01-20 [facility] 1.2.840.114 [id number] Univers 15:45:00 16:22:23 Visit Jenelle R PHYSICIAN ALLERGIST IMMUNOLOGIST [facility].1.13.10 [facility] 4.2.7.2.686 [place] MATERNAL [phone] [facility] ical & CHILD [address] [place] [address] 2022-01-20 2022-01-20 Outpatient [facility] [id number] Univers 15:45:00 16:22:23 JENELLE avery [facility] 2022-01-20 2022-01-20 Outpatient R ELENA [facility] [id number] Univers 15:45:00 15:45:00 JENELLE avery [facility] 2022-01-19 2022-01-19 Outpatient R AKINRENETTA, [facility] [id number] Univers 12:45:00 12:45:00 BOGDAN avery [facility] 2021-12-03 2021-12-03 Emergency X WILSON, [facility] ERT [id number] Univers 15:03:00 18:18:00 LEEANN alma rosaporfirio [facility] 2021-12-03 2021-12-03 Emergency Wilson, [facility] 1.2.840.114 [id number] Univers 15:03:00 18:18:00 Leeann [place] 350.1.13.10 i ty of [address]686 [phone] [address] 2021-12-03 2021-12-03 Telephone Wilson, [facility] 1.2.840.114 [id number] Univers 00:00:00 00:00:00 Leeann [place] 350.1.13.10 i ty of [place] [phone] [facility] [address] 2021-10-31 2021-10-31 Emergency X ANDREW CANO [facility] ERT 1 [id number] Univers 07:22:00 10:50:00 ANDREW CANO ity of [facility] 2021-10-31 2021-10-31 Emergency Ben, TRAU[place] 1.2.980.877 [id number] Univers 07:22:00 10:50:00 [facility] 350.1.13.10 it[place] [phone] [facility] [address] 2021-07-13 2021-07-13 Telephone CARLOS Eduardo 1.2.929.512 [id number] Univers 00:00:00 00:00:00 Viridiana MAXWELLY 350.1.13.10 it y of [facility] 4.2.7.2.686 [place] [phone] [facility] [address] [place] 2021-07-12 2021-07-12 Laboratory Only, Ang Db Test [facility] 1.2.8 40.114 [id number] Univers 11:30:00 11:45:00 Only Margaret Galindo [facility] 350.1.13.10 ity of [place] 4.2.7.2.686 [place] NELLA?BLEA [phone] [address] MEDICAL OFFICE BUILDING 2021-07-12 2021-07-12 Outpatient R EDWINA [facility] [id number] Univers 11:30:00 11:30:00 MARGARET ity o f [facility] 2021-06-05 2021-06-05 Telephone CARLOS Eduardo 1.2.844.760 [id number] Univers 00:00:00 00:00:00 Viridiana JIM 350.1.13.10 it y of [facility] 4.2.7.2.686 [place] [phone] [address] 2021-06-04 2021-06-04 Outpatient R [facility] [id number] Univers 17:45:00 17:45:00 ity of [facility] 2021-06-04 2021-06-04 Laboratory Only, Ang Db Test [facility] 1.2.8 40.114 [id number] Univers 12:30:00 12:45:00 Only Rosemary Galindotany [facility] 350.1.13.10 [facility] 4.2.7.2.686 [place] NELLA?BLEA [phone] In regan [address] MEDICAL OFFICE BUILDING 2021-06-04 2021-06-04 [facility] [id number] Univers 12:30:00 12:30:00 MARGARET elisa o f [facility] 2021-05-27 2021-05-27 Outpatient R [facility] [id number] Univers 14:15:00 14:15:00 ity [facility] 2021-04-29 2021-04-29 [facility] 1.2.840.114 [id number] Univers 00:00:00 00:00:00 Lauren Flores PHYSICIAN ALLERGIST IMMUNOLOGIST 350.1.13.10 it y [facility] 4.2.7.2.686 [place] MATERNAL [phone] [facility] [place] ical & CHILD [address] [place] [address] 2021-04-22 2021-04-22 Nurse CARLOS Saxena 1.2.840.114 [id number] Univers 00:00:00 00:00:00 Triage Erica FERNANDEZ 350.1.13.10 i ty [facility] 4.2.7.2.686 [place] [phone] [facility] [address] [place] 2021-04-21 2021-04-21 [facility] WELL REACTIVATOR OPERATOR [id number] Univers 14:08:00 19:24:00 MOI ity [facility] 2021-04-21 2021-04-21 Hospital LUCIEN Myers 1.2.941.467 [id number] Univers 14:08:00 19:24:00 Encounter Moi FERNANDEZ 350.1.13.10 ity [facility] 4.2.7.2.686 [place] [phone] [facility] [address] [place] 2021-04-21 2021-04-21 [facility] WELL REACTIVATOR OPERATOR [id number] Univers 14:08:00 19:24:00 MOI ity [facility] 2021-04-21 2021-04-21 Surgery LUCIEN Myers 1.2.840.114 [id number] Univers 15:55:00 18:05:00 Moi FERNANDEZ 350.1.13.10 it y of [facility] 4.2.7.2.686 [place] as [phone] [facility] [address] 2021-04-18 2021-04-18 Telephone CARLOS Manriquez 1.2.051.890 [id number] Univers 00:00:00 00:00:00 Fallon FERNANDEZ 350.1.13.10 ity [facility] 4.2.7.2.686 [place] [phone] [facility] [address] 2021-04-17 2021-04-17 Laboratory Only, Ang Db Test [facility] 1.2.8 40.114 [id number] Univers 19:33:30 19:36:54 Only Jose Roberto Isis [facility] 350.1.13.10 ity [facility] 4.2.7.2.686 [place] NELLA?BLEA [phone] [address] MEDICAL OFFICE BUILDING 2021-04-17 2021-04-17 Outpatient R JOSE ROBERTO [facility] [id number] Univers 19:30:00 19:30:00 ISIS ity [facility] 2021-04-17 2021-04-17 Outpatient Whitney PERALTA [facility] [id number] Univers 19:15:00 19:15:00 ISIS ity [facility] 2021-04-16 2021-04-16 Prep For ROSALBA Marquez 1.2.840.114 [id number] Univers 00:00:00 00:00:00 Surgery Trupti Y HEALTH 350.1.13.10 i ty of [place] [phone] [facility] [address] 2021-04-15 2021-04-15 Office Pgy2 UNIVERSIT 1.2.533.769 [id number] Univers 13:14:39 15:53:34 Visit Emigdio Muse Y HEALTH 350.1.13.10 ity of CL[place] [phone] [facility] [address] [place] 2021-04-15 2021-04-15 [facility] [id number] Univers 13:00:00 15:53:34 [facility] 2021-04-15 2021-04-15 Outpatient R JEANNE [facility] [id number] Univers 13:00:00 15:53:34 [facility] 2021-03-24 2021-03-24 Orders Doctor CARLOS 1.2.840.114 [id number] Univers 00:00:00 00:00:00 Only Unassigned, JIM 350.1.13.10 ity of [place] [facility] 4.2.7.2.686 [place] [phone] [address] 2021-03-22 2021-03-22 [facility]phone [facility] 1.2.840.114 [id number] Univers 00:00:00 00:00:00 Lauren Flores PHYSICIAN ALLERGIST IMMUNOLOGIST 350.1.13.10 it y of [facility] 4.2.7.2.686 [place] as MATERNAL [phone] Med ical & CHILD [address] [place] [address] 2021-03-19 2021-03-19 Outpatient R KITTY [facility] [id number] Univers 14:00:00 14:00:00 ATTENDING [facility] 2021-03-18 2021-03-18 Outpatient R [facility] [id number] Univers 12:00:00 12:00:00 ity [facility] 2021-03-15 2021-03-15 [facility]phone [facility] 1.2.840.114 [id number] Univers 00:00:00 00:00:00 Lauren Flores PHYSICIAN ALLERGIST IMMUNOLOGIST 350.1.13.10 it y of [facility] 4.2.7.2.686 [place] as MATERNAL [phone] [facility] [place] ical & CHILD [address] [place] [address] 2021-03-11 2021-03-11 Office [facility] 1.2.366.188 [id number] Univers 13:27:34 14:45:53 Visit Lauren Flores PHYSICIAN ALLERGIST IMMUNOLOGIST 350.1.13.10 it y of [facility] 4.2.7.2.686 [place] as MATERNAL [phone] Med ical & CHILD [address] [place] [address] 2021-03-11 2021-03-11 Outpatient Whitney CRYSTAL [facility] [id number] Univers 13:45:00 13:45:00 LAUREN itporfirio [facility] 2021-03-11 2021-03-11 Orders Doctor CARLOS 1.2.840.114 [id number] Univers 00:00:00 00:00:00 Only Unassigned, JIM 350.1.13.[address] [facility] 4.2.7.2.686 [place] [phone] [address] 2021-03-01 2021-03-02 Observatio nullFlavo [facility] [id number] Memoria 00:55:00 04:15:00 mark valero [facility] 2021-03-01 2021-03-01 Outpatient E CHAD VILLAREAL [facility] MED [id number] [facility]NW 00:34:00 23:15:00 2021-02-28 2021-03-01 Outpatient Chad Villareal MHR MHR [id number] 19:55:00 23:15:00 Christopher 2021-02-28 2021-03-01 Outpatient Chad Villareal MHGHR MHGHR [id number] 19:55:00 23:15:00 Christopher 2021-02-27 2021-02-28 [facility] [id number] Memoria 18:37:27 01:23:00 whitney valero [facility] 2021-02-27 2021-02-27 Out[facility] [id number] 13:37:27 20:23:00 Aminah Mota 2021-02-27 2021-02-27 Emergency E LATOYA GAGNON [facility] 7505 MHNW 13:37:00 20:23:00 AMINAH 2021-02-26 2021-02-26 Inpatient Baljinder Nina [facility] [id number] [facility] 18:28:00 20:22:[address] [place] [address] 2020-09-29 2020-09-29 Emergency Nojanuszinger, 1.2.840.1 [id number] Methodi 09:51:00 13:15:00 Carla Hawkins 42616.1.1 344 s t 3.430.2.7 Hospit a .3.953455 l .8 2020-09-29 2020-09-29 Travel 1.2.840.1 1.2.449.625 [id number] Methodi 00:00:00 00:00:[address] 3.430.2.7 0.2.7.3.698 Ho spita .3.867001 084.8 l .8 2020-09-13 2020-09-[address] [facility] [id number] Memoria 20:40:59 01:50:00 whitney Blunt 04 [facility] 2020-09-13 2020-09-13 Outpatient Osmar [facility] [id number] 15:40:59 20:50:00 Dariel 04 2020-03-08 2020-03-[address] [facility] [id number] 11:45:27 13:46:00 [facility] 2020-03-08 2020-03-08 Emergency ER [facility] Emergency [id number] [facility] 11:39:00 11:39:00 2020-03-08 2020-03-08 Travel [facility] [id number] 00[facility]00 [facility] 2020-02-24 2020-02-24 Outpatient Jordan Pierce [id number] [facility]Clinic 15:30:00 15:30:00 Aron HAMILTON 2020-02-18 2020-02-18 Emergency ER [facility] Emergency [id number] [facility] 20:19:00 20:19:00 2020-01-15 2020-01-15 Outpatient Whitney PARKER [facility] [id number] Univers 14:45:00 14:45:00 JENELLE nunez [facility] 2019-12-24 2019-12-24 Jocy GONZALEZ 1.2.840.114 [id number] 00:00:00 00:00:00 Only Unassigned, JIM 350.1.13.10 [facility] 4.2.7.2.686 [id number] 2019-12-24 2019-12-24 Orders Doctor CARLOS 1.2.840.114 [id number] [facility] 00:00:00 00:00:00 Only Unassigned, JIM 350.1.13.10 ity of [facility] [facility] 4.2.7.2.686 [place] as [phone] [address] 2019-11-18 2019-11-21 [facility] 1.2.840.114 [id number] 18:15:00 13:26:00 Encounter Pelon MAXWELLY 350.1.13.10 HOSPITAL 4.2.7.2.686 [id number] 2019-11-18 2019-11-21 [facility] 1.2.840.114 [id number] [facility] 18:15:00 13:26:00 Encounter Pelon Nunez JIM 350.1.13.10 ity of [facility] 4.2.7.2.686 [place] [phone] [address] 2019-11-19 2019-11-19 Telephone [facility] 1.2.498.938 [id number] 00:00:00 00:00:00 Rosnda R PHYSICIAN ALLERGIST IMMUNOLOGIST 350.1.13.10 REGIONAL 4.2.7.2.686 MATERNAL [phone] & CHILD [address] [place] [address] 2019-11-19 2019-11-19 Orders Doctor CARLOS 1.2.840.114 [id number] 00:00:00 00:00:00 Only Unassigned, JIM 350.1.13.10 [facility] 4.2.7.2.686 [id number] 2019-11-19 2019-11-19 Telephone Elena [facility] 1.2.890.833 [id number] Univers 00:00:00 00:00:00 Roshunda R PHYSICIAN ALLERGIST IMMUNOLOGIST 350.1.13.10 ity of [facility] 4.2.7.2.686 [place] MATERNAL [id number] [facility] [place] ical & CHILD [address] [place] [address] 2019-11-19 2019-11-19 Orders Doctor CARLOS 1.2.840.114 [id number] Univers 00:00:00 00:00:00 Only Unassigned, JIM 350.1.13.10 ity of [facility] 4.2.7.2.686 [place] as [id number] [address] 2019-11-18 2019-11-18 Routine [facility] 1.2.840.114 [id number] Univers 12:55:35 13:28:10 Luis Enriquenda R PHYSICIAN ALLERGIST IMMUNOLOGIST 350.1.13.10 ity of Visit REGIONAL 4.2.7.2.686 [place] MATERNAL [id number] Med ical & CHILD 107 [facility] 2019-11-18 2019-11-18 Outpatient R [facility] [id number] Univers 12:45:00 12:45:00 ROSLILANDA ity o f [facility] 2019-11-18 2019-11-18 Orders Doctor GONZALEZ 1.2.840.114 [id number] 00:00:00 00:00:00 Only Unassigned, JIM 350.1.13.10 [facility] 4.2.7.2.686 [id number] [facility] 2019-11-18 2019-11-18 Orders Doctor GONZALEZ 1.2.840.114 [id number] Univers 00:00:00 00:00:00 Only Unassigned, JIM 350.1.13.10 ity of [facility] 4.2.7.2.686 [place] as [phone] [address] 2019-11-15 2019-11-15 [facility] 1.2.840.114 [id number] Univers 12:52:00 16:30:00 Encounter Cheryl Sue 350.1.13.10 ity of [place] 4.2.7.2.686 [place] [facility] [phone] [facility] [address] [place] 2019-11-14 2019-11-14 Orders Doctor CARLOS 1.2.840.114 [id number] Univers 00:00:00 00:00:00 Only Unassigned, JIM 350.1.13.10 ity of [facility] 4.2.7.2.686 [place] as [id number] [facility] [address] 2019-11-14 2019-11-14 [facility]phone [facility] 1.2.342.872 [id number] Univers 00:00:00 00:00:00 Jenelle R PHYSICIAN ALLERGIST IMMUNOLOGIST 350.1.13.10 ity of [facility] 4.2.7.2.686 [place] as MATERNAL [phone] [facility] & CHILD [address] [place] [address] 2019-11-08 2019-11-08 [facility] [id number] Univers 14:30:00 14:30:00 BOGDAN ity o f [facility] 2019-11-01 2019-11-01 Routine [facility] 1.2.696.432 [id number] Univers 12:54:39 13:29:42 Bogdan C PHYSICIAN ALLERGIST IMMUNOLOGIST 350.1.13.10 ity of Visit [facility] 4.2.7.2.686 [place] as MATERNAL [phone] [address] 2019-11-01 2019-11-01 [facility] [id number] Univers 13:00:00 13:00:00 BOGDAN ity o f [facility] 2019-10-28 2019-10-28 [facility] [id number] Univers 19:05:00 22:05:00 Encounter Dimple Sue [id number] ity of [place] 4.2.7.2.686 [place] [facility] [phone] [facility] [address] [place] 2019-10-22 2019-10-22 Abstract [facility] [id number] Univers 00:00:00 00:00:00 Bogdan C PHYSICIAN ALLERGIST IMMUNOLOGIST [id number] ity of [facility] 4.2.7.2.686 [place] as MATERNAL [phone] [facility] & CHILD [address] [place] [address] 2019-10-21 2019-10-21 Barrel Scraper 3, [facility] Us Room UNIVERSIT [id number] .2.840.114 [id number] Univers 14:08:34 15:08:34 Visit Jennifer Beckman 350.1.13.10 ity of [place].2.[place] [phone] [facility] [address] [place] 2019-10-21 2019-10-21 Outpatient P [facility] [id number] Univers 14:15:00 14:15:00 ity of [facility] 2019-10-21 2019-10-21 Telephone [facility] [id number] Univers 00:00:00 00:00:00 Bogdan Trevino PHYSICIAN ALLERGIST IMMUNOLOGIST [id number] ity of [facility] 4.2.7.2.686 [place] as MATERNAL [phone] Med ical & CHILD [address] [place] [address] 2019-10-18 2019-10-18 Initial [facility] [id number] Univers 09:05:19 11:09:05 Bogdan Trevino PHYSICIAN ALLERGIST IMMUNOLOGIST [id number] ity of Visit [facility] [id number] [place] as MATERNAL [phone] Med ical & CHILD [address] [place] [address] 2019-10-18 2019-10-18 Outpatient R [facility] [id number] Univers 08:30:00 08:30:00 BOGDAN elias o f [facility] 2019-10-18 2019-10-18 Orders Doctor CARLOS [id number] Univers 00:00:00 00:00:00 Only Unassigned, JIM [id number] ity of [place] [facility] [id number] [place] as [phone] [facility] 009 [place] 2019-09-04 2019-09-04 Telephone [facility] [id number] Univers 00:00:00 00:00:00 Jenelle Olson PHYSICIAN ALLERGIST IMMUNOLOGIST [id number] ity of [facility] [id number] [place] as MATERNAL [phone] Med ical & CHILD [address] [place] [address] 2019-01-15 2019-01-15 Emergency [facility] [id number] Univers 12:00:53 14:39:00 Candelaria Sue [id number] i ty of [place] [id number] [facility] [phone] [facility] [address] [place] 2019-01-15 2019-01-15 Emergency X TIM [facility] ERT [id number] Univers 12:00:53 14:39:00 CANDELARIA elias [facility] 2019-01-15 2019-01-15 Telephone Trung Wills [facility] [id number] Univers 00:00:00 00:00:00 Iggy Sue [id number] i ty of [place] [id number] [facility] [id number] In dical [address] 2018-12-12 2018-12-12 Outpatient R JUANCHERYL BEDOYA [facility] B [id number] Univers 12:45:00 12:45:00 NOAH CHERYL [facility] 2018-11-27 2018-11-27 Outpatient R BRENNENWill CHERYL [facility] B [id number] Univers 13:00:00 13:00:00 BRENNENCHERYL Solis [facility] 2018-11-20 2018-11-20 Outpatient R JUANCHERYL BEDOYA [facility] B [id number] Univers 09:15:00 09:15:00 JUANCHERYL BEDOYA porfirio [facility] 2018-11-12 2018-11-12 Outpatient R FRANKIECHERYL GUERIN [facility] B [id number] Univers 14:15:00 14:15:00 NOAH CHERYL [facility] 2015-07-08 2015-07-09 [facility] [id number] Memoria 22:51:00 02:05:00 Emergency r Dryden 03 l [facility] 2015-07-08 2015-07-08 Outpatient Bacilio, MHSE MHSE [id number] 16:51:00 20:05:00 Yisel Aron 03 2015-06-23 2015-06-23 [facility] [id number] Memoria 04:13:00 08:46:00 Emergency r Dryden 02 l [facility] 2015-06-22 2015-06-23 Outpatient Belgica, EROSSE MHSE [id number] 22:13:00 02:46:00 Aminah 02 Lloyd[place]Nam 2015-04-10 2015-04-10 EC nullFlavo [facility] [id number] Memoria 01:22:00 08:57:00 Emergency r Dryden 01 l [facility] 2015-04-09 2015-04-10 Outpatient Quirino, EROSSE MHSE [id number] 20:22:00 03:57:00 Juan 01 2015-02-08 2015-02-08 EC nullFlavo [facility] [id number] Memoria 18:21:00 21:34:00 Emergency r Jose Raul 00 l [facility] 2015-02-08 2015-02-08 Outpatient SILVIA Pham [place] [id number] 13:21:00 16:34:00 Ellen 00 Results Test Description Test Time Test Comments Results Result Comments Source POCT TEST 2022-01-20 21:17:00 Test Item Value Reference Range Interpretation Comme nts POCT PREG (test code = 1605) Negative On board controls acceptable with C Line (test code = 3574) Yes POCT PREG LOT # (test code = 3575) POCT PREG TEST DATE (test code = 3576) [facility]2021-09-20 23:13:00 Test Item Value Reference Range Interpretation Comments Hgb (test code = Hgb) 7.7 12.0-16.0 [facility]volguxNVLWIESNQO5440-85-59 23:13:00 Test Item Value Reference Range Interpretation Comments Hct (test code = Hct) 22.5 36.0-48.0 [facility] HospitalHnqjyojPARAYZUMNI9779-22-63 11:40:00 Test Item Value Reference Range Interpretation Comments Hgb (test code = Hgb) 7.8 12.0-16.0 [facility] HospitalKtpjwotPEKCKIEYRD8038-62-99 11:40:00 Test Item Value Reference Range Interpretation Comments Hct (test code = Hct) 23.2 36.0-48.0 [facility] HospitalQyghzstWUWINPRLVX7420-15-33 07:43:00 Test Item Value Reference Range Interpretation Comments Hgb (test code = Hgb) 8.1 12.0-16.0 [facility] HospitalSlnfqbdIVUYOUUDSL8330-34-19 07:43:00 Test Item Value Reference Range Interpretation Comments Hct (test code = Hct) 23.9 36.0-48.0 [facility] BANK [id number] 05:48:00 Test Item Value Reference Range Interpretation Comments ABO/Rh (test code = ABO/Rh) O POS [facility] [id number] 05:48:00 Test Item Value Reference Range Interpretation Comments Antibody Scrn (test Negative (03/01/21 code = Antibody Scrn) 12:48 AM) [facility]ognfynUPZKPDLTFP3737-33-56 05:48:00 Test Item Value Reference Range Interpretation Comments Coronavirus (COVID-19) Detected MARLY (test code = 2*ABN*(03/01/21 12:48 Coronavirus (COVID-19) AM) MARLY) [facility] AND [id number] 05:23:00 Test Item Value Reference Range Interpretation Comments UA Sq Epi (test code = None Seen (03/01/21 UA Sq Epi) 12:23 AM) [facility] [id number] 05:23:00 Test Item Value Reference Range Interpretation Comments UA WBC (test code = UA WBC) 0-2 /HPF [facility] [id number] 05:23:00 Test Item Value Reference Range Interpretation Comments UA RBC (test code = UA Packed *ABN*(03/01/21 RBC) 12:23 AM) [facility] AND [id number] 05:23:00 Test Item Value Reference Range Interpretation Comments UA Bacteria (test code = UA Moderate /HPF Bacteria) [facility] [id number] 05:23:00 Test Item Value Reference Range Interpretation Comments UA Mucus (test code = None Seen (03/01/21 UA Mucus) 12:23 AM) [facility] [id number] 05:23:00 Test Item Value Reference Range Interpretation Comments UA Color (test code = Yellow *NA*(03/01/21 UA Color) 12:23 AM) [facility] [id number] 05:23:00 Test Item Value Reference Range Interpretation Comments UA Turbidity (test code = Clear (03/01/21 12:23 UA Turbidity) AM) [facility] [id number] 05:23:00 Test Item Value Reference Range Interpretation Comments UA Spec Grav (test >=1.030 *ABN*(03/01/21 code = UA Spec Grav) 12:23 AM) [facility] [id number] 05:23:00 Test Item Value Reference Range Interpretation Comments UA pH (test code = UA pH) 6.5 1 5.0-8.0 [facility] [id number] 05:23:00 Test Item Value Reference Range Interpretation Comments UA Protein (test code = UA >=300 mg/dL Protein) [facility] [id number] 05:23:00 Test Item Value Reference Range Interpretation Comments UA Glucose (test code Negative (03/01/21 12:23 = UA Glucose) AM) [facility] [id number] 05:23:00 Test Item Value Reference Range Interpretation Comments UA Ketones (test code Negative *NA*(03/01/21 = UA Ketones) 12:23 AM) [facility] [id number] 05:23:00 Test Item Value Reference Range Interpretation Comments UA Bili (test code = Negative *NA*(03/01/21 UA Bili) 12:23 AM) [facility] [id number] 05:23:00 Test Item Value Reference Range Interpretation Comments UA Blood (test code = Large *ABN*(03/01/21 UA Blood) 12:23 AM) [facility] [id number] 05:23:00 Test Item Value Reference Range Interpretation Comments UA Urobilinogen (test code = UA 0.2 0.1-1.0 Urobilinogen) [facility] [id number] 05:23:00 Test Item Value Reference Range Interpretation Comments UA Nitrite (test code Negative (03/01/21 12:23 = UA Nitrite) AM) [facility] [id number] 05:23:00 Test Item Value Reference Range Interpretation Comments UA Leuk Est (test Negative (03/01/21 12:23 code = UA Leuk Est) AM) [facility] [id number] 02:38:00 Test Item Value Reference Range Interpretation Comments Calcium Lvl (test code = Calcium Lvl) 9.4 8.5-10.5 [place] 187991-09-20 02:38:00 Test Item Value Reference Range Interpretation Comments Total Protein (test code = Total 7.6 6.4-8.4 Protein) [place] 187991-09-20 02:38:00 Test Item Value Reference Range Interpretation Comments Albumin Lvl (test code = Albumin Lvl) 3.8 3.5-5.0 [place] 187991-09-20 02:38:00 Test Item Value Reference Range Interpretation Comments ALT (test code = ALT) 14 See_Comment [Auto mated message] The system which ge nerated this result transmit shalini reference range : <=65. The reference range was not used to interpr et this result as kena l/abnormal. [facility] [id number] 02:38:00 Test Item Value Reference Range Interpretation Comments AST (test code = AST) 13 See_Comment [Auto mated message] The system which ge nerated this result transmit shalini reference range : <=37. The reference range was not used to interpr et this result as kena l/abnormal. [facility] [id number] 02:38:00 Test Item Value Reference Range Interpretation Comments Alk Phos (test code = Alk Phos) 68 39-136 [facility] [id number] 02:38:00 Test Item Value Reference Range Interpretation Comments Bili Total (test code = Bili Total) 0.3 0.2-1.3 [place] 187991-09-20 02:38:00 Test Item Value Reference Range Interpretation Comments AGAP (test code = AGAP) 8.6 10.0-20.0 [facility] [id number] 02:38:00 Test Item Value Reference Range Interpretation Comments B/C Ratio (test code = B/C Ratio) 18 1 6-25 [facility] [id number] 02:38:00 Test Item Value Reference Range Interpretation Comments Globulin (test code = Globulin) 3.8 2.7-4.2 [facility] [id number] 02:38:00 Test Item Value Reference Range Interpretation Comments A/G Ratio (test code = A/G Ratio) 1.0 1 0.7-1.6 [facility]2021-09-20 02:38:00 Test Item Value Reference Range Interpretation Comments eGFR (test code = eGFR) 112 [place] 49872021-09-20 02:38:00 Test Item Value Reference Range Interpretation Comments S Preg (test code = S Negative *NA*(02/28/21 Preg) 9:38 PM) [facility] HospitalUlhvfeoCYOUKQMNJB2878-82-77 02:38:00 Test Item Value Reference Range Interpretation Comments Segs (test code = Segs) 62.7 45.0-75.0 [facility] HospitalLtvtifmHHIOKARNEG5716-17-19 02:38:00 Test Item Value Reference Range Interpretation Comments Lymphocytes (test code = Lymphocytes) 26.5 20.0-40.0 [facility] HospitalRotqlxkNEHAFAVGNI8111-99-67 02:38:00 Test Item Value Reference Range Interpretation Comments Monocytes (test code = Monocytes) 8.3 2.0-12.0 [facility] HospitalTjbpeupNNVWJGBGYX8244-74-38 02:38:00 Test Item Value Reference Range Interpretation Comments Eosinophils (test code = 2.1 See_Comment [A utomated message] The Eosinophils) system which ge nerated this result tra nsmitted reference range : <=4.0. The reference r evie was not used to int erpret this result as normal/abnormal . [facility] HospitalYcfheemMPMCJZKYMY1731-01-90 02:38:00 Test Item Value Reference Range Interpretation Comments Basophils (test code = 0.4 See_Comment [Aut omated message] The Basophils) system which ge nerated this result tra nsmitted reference range : <=1.0. The reference r evie was not used to int erpret this result as normal/abnormal . [facility] HospitalIrxptbcZKSYVKHDPE7345-26-21 02:38:00 Test Item Value Reference Range Interpretation Comments Neutrophils # (test code = Neutrophils 4.8 1.5-8.1 #) [place] 454311-09-20 02:38:00 Test Item Value Reference Range Interpretation Comments Lymphocytes # (test code = Lymphocytes 2.0 1.0-5.5 #) [place] 454311-09-20 02:38:00 Test Item Value Reference Range Interpretation Comments Monocytes # (test code 0.6 See_Comment [Aut omated message] The = Monocytes #) system which generated this result tra nsmitted reference range : <=0.8. The reference r evie was not used to int erpret this result as normal/abnormal . [facility] HospitalAnepnelEWVYMJILPR2299-82-21 02:38:00 Test Item Value Reference Range Interpretation Comments Eosinophils # (test code 0.2 See_Comment [A utomated message] The = Eosinophils #) system [employer] h generated this result tra nsmitted reference range : <=0.5. The reference r evie was not used to int erpret this result as normal/abnormal . [facility] HospitalRmhgkrjCODBXISVCK0940-23-61 02:38:00 Test Item Value Reference Range Interpretation Comments WBC (test code = WBC) 7.7 3.7-10.4 [facility] HospitalIjrxvjvICRHWAEQBV0336-66-74 02:38:00 Test Item Value Reference Range Interpretation Comments RBC (test code = RBC) 3.73 4.20-5.40 [facility] HospitalZmpukamITQPJNJPTX3733-89-64 02:38:00 Test Item Value Reference Range Interpretation Comments MCV (test code = MCV) 85.7 80.0-98.0 [facility] HospitalPxvfalnIQUSKNPZUJ1318-09-49 02:38:00 Test Item Value Reference Range Interpretation Comments MCH (test code = MCH) 28.8 pg 27.0-31.0 [facility] HospitalKiclauiZUFCOIXKJA5484-64-74 02:38:00 Test Item Value Reference Range Interpretation Comments MCHC (test code = MCHC) 33.6 32.0-36.0 [facility] HospitalVaknqmkMPKNDNBSEN9968-88-90 02:38:00 Test Item Value Reference Range Interpretation Comments RDW (test code = RDW) 14.4 11.5-14.5 [place] 454311-09-20 02:38:00 Test Item Value Reference Range Interpretation Comments Platelet (test code = Platelet) 378 133-450 [facility] HospitalVbtdwlyYCFPMXHWWF7888-15-96 02:38:00 Test Item Value Reference Range Interpretation Comments MPV (test code = MPV) 7.4 7.4-10.4 [facility]2021-09-20 02:38:00 Test Item Value Reference Range Interpretation Comments Glucose Lvl (test code = Glucose Lvl) 97 70-99 [facility]2021-09-20 02:38:00 Test Item Value Reference Range Interpretation Comments BUN (test code = BUN) 14 7-22 [facility]2021-09-20 02:38:00 Test Item Value Reference Range Interpretation Comments Creatinine Lvl (test code = Creatinine 0.76 0.50-1.40 Lvl) [facility]2021-09-20 02:38:00 Test Item Value Reference Range Interpretation Comments Sodium Lvl (test code = Sodium Lvl) 138 135-145 [facility]2021-09-20 02:38:00 Test Item Value Reference Range Interpretation Comments Potassium Lvl (test code = Potassium 3.6 3.5-5.1 Lvl) [facility]2021-09-20 02:38:00 Test Item Value Reference Range Interpretation Comments Chloride Lvl (test code = Chloride Lvl) 106 95-109 [facility]2021-09-20 02:38:00 Test Item Value Reference Range Interpretation Comments CO2 (test code = CO2) 27 24-32 [facility] AND [id number] 23:51:00 Test Item Value Reference Range Interpretation Comments UA Color (test code = Yellow *NA*(02/27/21 UA Color) 6:51 PM) [facility] AND [id number] 23:51:00 Test Item Value Reference Range Interpretation Comments UA Turbidity (test code = Clear (02/27/21 6:51 UA Turbidity) PM) [facility] AND [id number] 23:51:00 Test Item Value Reference Range Interpretation Comments UA Spec Grav (test code = UA Spec 1.029 1 Grav) [facility] AND [id number] 23:51:00 Test Item Value Reference Range Interpretation Comments UA pH (test code = UA pH) 5.0 1 5.0-8.0 [facility] AND [id number] 23:51:00 Test Item Value Reference Range Interpretation Comments UA Protein (test code = UA Negative mg/dL Protein) [facility] AND [id number] 23:51:00 Test Item Value Reference Range Interpretation Comments UA Glucose (test code = UA Negative mg/dL Glucose) [facility] AND [id number] 23:51:00 Test Item Value Reference Range Interpretation Comments UA Bili (test code = Negative *NA*(02/27/21 UA Bili) 6:51 PM) [facility] [id number] 23:51:00 Test Item Value Reference Range Interpretation Comments UA Blood (test code = Large *ABN*(02/27/21 UA Blood) 6:51 PM) [facility] [id number] 23:51:00 Test Item Value Reference Range Interpretation Comments UA Urobilinogen (test code = UA 2.0 0.1-1.0 Urobilinogen) [facility] [id number] 23:51:00 Test Item Value Reference Range Interpretation Comments UA Nitrite (test code Negative (02/27/21 6:51 = UA Nitrite) PM) [facility] [id number] 23:51:00 Test Item Value Reference Range Interpretation Comments UA Leuk Est (test Negative (02/27/21 6:51 code = UA Leuk Est) PM) [facility] AND [id number] 23:51:00 Test Item Value Reference Range Interpretation Comments UA Sq Epi (test code = UA Sq Occasional /LPF Epi) [facility] [id number] 23:51:00 Test Item Value Reference Range Interpretation Comments UA WBC (test code = 1 See_Comment [Automa shalini message] The UA WBC) system which ge nerated this result transmit shalini reference range : <=5. The reference range was not used to interpr et this result as kena l/abnormal. [facility] [id number] 23:51:00 Test Item Value Reference Range Interpretation Comments UA RBC (test code = 124 See_Comment [Automa shalini message] The UA RBC) system which ge nerated this result transmit shalini reference range : <=2. The reference range was not used to interpr et this result as kena l/abnormal. [facility] [id number] 23:51:00 Test Item Value Reference Range Interpretation Comments UA Mucus (test code = UA Mucus) Moderate /LPF [facility] [id number] 23:51:00 Test Item Value Reference Range Interpretation Comments UA Ketones (test code = UA Ketones) Negative [facility] [employer]annCHEM [id number] 23:47:00 Test Item Value Reference Range Interpretation Comments Glucose Lvl (test code = Glucose Lvl) 93 70-99 [facility]ann[facility] [id number] 23:47:00 Test Item Value Reference Range Interpretation Comments BUN (test code = BUN) 13 7-22 [place] [address]-09-18 23:47:00 Test Item Value Reference Range Interpretation Comments Creatinine Lvl (test code = Creatinine 0.75 0.50-1.40 Lvl) [address]09-18 23:47:00 Test Item Value Reference Range Interpretation Comments Sodium Lvl (test code = Sodium Lvl) 139 135-145 [place] [address]-09-18 23:47:00 Test Item Value Reference Range Interpretation Comments Potassium Lvl (test code = Potassium 3.4 3.5-5.1 Lvl) [address]09-18 23:47:00 Test Item Value Reference Range Interpretation Comments Chloride Lvl (test code = Chloride Lvl) 105 95-109 [address]09-18 23:47:00 Test Item Value Reference Range Interpretation Comments CO2 (test code = CO2) 29 24-32 [place] [address]-09-18 23:47:00 Test Item Value Reference Range Interpretation Comments Calcium Lvl (test code = Calcium Lvl) 9.2 8.5-10.5 [place] [address]-09-18 23:47:00 Test Item Value Reference Range Interpretation Comments Total Protein (test code = Total 8.0 6.4-8.4 Protein) [address]09-18 23:47:00 Test Item Value Reference Range Interpretation Comments Albumin Lvl (test code = Albumin Lvl) 4.0 3.5-5.0 [place] [address]-09-18 23:47:00 Test Item Value Reference Range Interpretation Comments ALT (test code = ALT) 16 See_Comment [Auto mated message] The system which ge nerated this result transmit shalini reference range : <=65. The reference range was not used to interpr et this result as kena l/abnormal. [place] [address]-09-18 23:47:00 Test Item Value Reference Range Interpretation Comments AST (test code = AST) 10 See_Comment [Auto mated message] The system which ge nerated this result transmit shalini reference range : <=37. The reference range was not used to interpr et this result as kena l/abnormal. [place] 187991-09-18 23:47:00 Test Item Value Reference Range Interpretation Comments Alk Phos (test code = Alk Phos) 70 39-136 [place] 187991-09-18 23:47:00 Test Item Value Reference Range Interpretation Comments Bili Total (test code = Bili Total) 0.5 0.2-1.3 [place] 187991-09-18 23:47:00 Test Item Value Reference Range Interpretation Comments AGAP (test code = AGAP) 8.4 10.0-20.0 [place] 187991-09-18 23:47:00 Test Item Value Reference Range Interpretation Comments B/C Ratio (test code = B/C Ratio) 17 1 6-25 [place] [address]-09-18 23:47:00 Test Item Value Reference Range Interpretation Comments Globulin (test code = Globulin) 4.0 2.7-4.2 [place] 187991-09-18 23:47:00 Test Item Value Reference Range Interpretation Comments A/G Ratio (test code = A/G Ratio) 1.0 1 0.7-1.6 [place] [address]-09-18 23:47:00 Test Item Value Reference Range Interpretation Comments eGFR (test code = eGFR) 113 [place] 506181-09-18 23:47:00 Test Item Value Reference Range Interpretation Comments S Preg (test code = S Negative *NA*(02/27/21 Preg) 6:47 PM) [place] [address]-09-18 23:47:00 Test Item Value Reference Range Interpretation Comments WBC (test code = WBC) 5.7 3.7-10.4 [place] 454311-09-18 23:47:00 Test Item Value Reference Range Interpretation Comments RBC (test code = RBC) 4.28 4.20-5.40 [place] [address]-09-18 23:47:00 Test Item Value Reference Range Interpretation Comments Hgb (test code = Hgb) 12.1 12.0-16.0 [place] [address]-09-18 23:47:00 Test Item Value Reference Range Interpretation Comments Hct (test code = Hct) 37.0 36.0-48.0 [place] 454311-09-18 23:47:00 Test Item Value Reference Range Interpretation Comments MCV (test code = MCV) 86.3 80.0-98.0 [place] 454311-09-18 23:47:00 Test Item Value Reference Range Interpretation Comments MCH (test code = MCH) 28.3 pg 27.0-31.0 [place] 454311-09-18 23:47:00 Test Item Value Reference Range Interpretation Comments MCHC (test code = MCHC) 32.8 32.0-36.0 [place] 454311-09-18 23:47:00 Test Item Value Reference Range Interpretation Comments RDW (test code = RDW) 14.1 11.5-14.5 [place] 454311-09-18 23:47:00 Test Item Value Reference Range Interpretation Comments Platelet (test code = Platelet) 326 133-450 [facility] HospitalAkafvmeDZESTRWGBY5391-99-13 23:47:00 Test Item Value Reference Range Interpretation Comments MPV (test code = MPV) 7.3 7.4-10.4 [place] 454311-09-18 23:47:00 Test Item Value Reference Range Interpretation Comments Segs (test code = Segs) 55.7 45.0-75.0 [place] 454311-09-18 23:47:00 Test Item Value Reference Range Interpretation Comments Lymphocytes (test code = Lymphocytes) 32.6 20.0-40.0 [place] 454311-09-18 23:47:00 Test Item Value Reference Range Interpretation Comments Monocytes (test code = Monocytes) 7.7 2.0-12.0 [place] [address]-09-18 23:47:00 Test Item Value Reference Range Interpretation Comments Eosinophils (test code = 3.7 See_Comment [A utomated message] The Eosinophils) system which ge nerated this result tra nsmitted reference range : <=4.0. The reference r evie was not used to int erpret this result as normal/abnormal . [place] 454311-09-18 23:47:00 Test Item Value Reference Range Interpretation Comments Basophils (test code = 0.3 See_Comment [Aut omated message] The Basophils) system which ge nerated this result tra nsmitted reference range : <=1.0. The reference r evie was not used to int erpret this result as normal/abnormal . [facility] HospitalVwdwqmuTHFQUZELYL0856-56-29 23:47:00 Test Item Value Reference Range Interpretation Comments Neutrophils # (test code = Neutrophils 3.2 1.5-8.1 #) [facility]XOCOBH9689[facility]00-14 23:47:00 Test Item Value Reference Range Interpretation Comments Lymphocytes # (test code = Lymphocytes 1.9 1.0-5.5 #) [facility]OshmkjfPICMQAPYWL7158-98-21 23:47:00 Test Item Value Reference Range Interpretation Comments Monocytes # (test code 0.4 See_Comment [Aut omated message] The = Monocytes #) system which generated this result tra nsmitted reference range : <=0.8. The reference r evie was not used to int erpret this result as normal/abnormal . [facility] HospitalTdaucdaVAUVPFLSET9469-30-97 23:47:00 Test Item Value Reference Range Interpretation Comments Eosinophils # (test code 0.2 See_Comment [A utomated message] The = Eosinophils #) system whic h generated this result tra nsmitted reference range : <=0.5. The reference r evie was not used to int erpret this result as normal/abnormal . [facility] RFLX MICR CULT IF [id number] 19:43:00 Test Item Value Reference Range Interpretation Comments UA COLOR (test code GI YELLOW A = COLU) UA APPEARANCE (test [...] BACU) reported result : RARE /HPFEdited by: DELMA on 02/26/21:194~~ Corrected Repor t ~~Reason (required): UA SQUAMOUS CELLS Many /HPF FEW (test code = SQU) Indication for culture: Suprapubic PainSpecimen Description: CLEAN CATCHUR HCG [id number] 19:23:00 Test Item Value Reference Range Interpretation Comments UR HCG QUAL (test code = HCGQLU) NEGATIVE NEGATIVE XR Chest 1 Vw Vbqkahcb2522-10-50 15:20:04Study:XR CHEST 1 VW PORTABLE History: cough COMPARISON: None. IMPRESSION: A single view of the chest. There is no focal consolidation, pleural effusion or pneumothorax. Cardiac silhouette is normal. Visualized osseous structures are without acute abnormality. HMWB- [id number] Interface, Radiology Results Incoming - 09/29/2020 10:23 AM CDT Study:XR CHEST 1 PORTABLEHistory: coughCOMPARISON: None.IMPRESSION:A single view of the chest. There is no focal consolidation, pleural effusion or pneumothorax. Cardiac silhouette is normal. Visualized osseous structures are without acute abnormality.[id number] [id number] 00:18:00 Test Item Value Reference Range Interpretation Comments Source APTIMA (test Vaginal *NA*(09/13/20 code = Source APTIMA) 7:18 PM) [facility] [id number] 00:18:00 Test Item Value Reference Range Interpretation Comments C trachomatis by Amp Det Negative *NA*(09/13/20 (APTIMA) (test code = C 7:18 PM) trachomatis by Amp Det (APTIMA)) [facility]2021-04-05 00:18:00 Test Item Value Reference Range Interpretation Comments N gonorrhea by Amp Det Negative *NA*(09/13/20 (APTIMA) (test code = N 7:18 PM) gonorrhea by Amp Det (APTIMA)) [facility]2021-04-04 22:10:00 Test Item Value Reference Range Interpretation Comments Glucose Lvl (test code = Glucose Lvl) 77 70-99 [place] 187991-04-04 22:10:00 Test Item Value Reference Range Interpretation Comments BUN (test code = BUN) 8 7-22 [facility]2021-04-04 22:10:00 Test Item Value Reference Range Interpretation Comments Creatinine Lvl (test code = Creatinine 0.74 0.50-1.40 Lvl) [facility]2021-04-04 22:10:00 Test Item Value Reference Range Interpretation Comments Sodium Lvl (test code = Sodium Lvl) 141 135-145 [facility]2021-04-04 22:10:00 Test Item Value Reference Range Interpretation Comments Potassium Lvl (test code = Potassium 3.7 3.5-5.1 Lvl) [facility]2021-04-04 22:10:00 Test Item Value Reference Range Interpretation Comments Chloride Lvl (test code = Chloride Lvl) 107 95-109 [facility]2021-04-04 22:10:00 Test Item Value Reference Range Interpretation Comments CO2 (test code = CO2) 28 24-32 [facility]2021-04-04 22:10:00 Test Item Value Reference Range Interpretation Comments Calcium Lvl (test code = Calcium Lvl) 8.5 8.5-10.5 [facility]2021-04-04 22:10:00 Test Item Value Reference Range Interpretation Comments Total Protein (test code = Total 6.8 6.4-8.4 Protein) [facility]2021-04-04 22:10:00 Test Item Value Reference Range Interpretation Comments Albumin Lvl (test code = Albumin Lvl) 3.6 3.5-5.0 [facility]2021-04-04 22:10:00 Test Item Value Reference Range Interpretation Comments ALT (test code = ALT) 14 See_Comment [Auto mated message] The system which ge nerated this result transmit shalini reference range : <=65. The reference range was not used to interpr et this result as kena l/abnormal. [facility] [id number] 22:10:00 Test Item Value Reference Range Interpretation Comments AST (test code = AST) 10 See_Comment [Auto mated message] The system which ge nerated this result transmit shalini reference range : <=37. The reference range was not used to interpr et this result as kena l/abnormal. [facility]2021-04-04 22:10:00 Test Item Value Reference Range Interpretation Comments Alk Phos (test code = Alk Phos) 65 39-136 [facility] [id number] 22:10:00 Test Item Value Reference Range Interpretation Comments Bili Total (test code = Bili Total) 0.4 0.2-1.3 [place] 187991-04-04 22:10:00 Test Item Value Reference Range Interpretation Comments AGAP (test code = AGAP) 9.7 10.0-20.0 [facility]2021-04-04 22:10:00 Test Item Value Reference Range Interpretation Comments B/C Ratio (test code = B/C Ratio) 11 1 6-25 [place] 187991-04-04 22:10:00 Test Item Value Reference Range Interpretation Comments Globulin (test code = Globulin) 3.2 2.7-4.2 [facility] [id number] 22:10:00 Test Item Value Reference Range Interpretation Comments A/G Ratio (test code = A/G Ratio) 1.1 1 0.7-1.6 [facility] [id number] 22:10:00 Test Item Value Reference Range Interpretation Comments eGFR (test code = eGFR) 115 [facility]vjtluuHBVSNVMIXAOHZ0091-41-70 22:10:00 Test Item Value Reference Range Interpretation Comments S Preg (test code = S Negative *NA*(09/13/20 Preg) 5:10 PM) [facility] HospitalXvnwtscHPFLSGYLHD1967-80-14 22:10:00 Test Item Value Reference Range Interpretation Comments WBC (test code = WBC) 6.2 3.7-10.4 [place] 454311-04-04 22:10:00 Test Item Value Reference Range Interpretation Comments RBC (test code = RBC) 3.90 4.20-5.40 [facility] HospitalSnzcwciIMSPFZCWYL7788-61-06 22:10:00 Test Item Value Reference Range Interpretation Comments Hgb (test code = Hgb) 11.1 12.0-16.0 [facility] HospitalJcgfdwvXXZMDCZICB9810-84-95 22:10:00 Test Item Value Reference Range Interpretation Comments Hct (test code = Hct) 33.8 36.0-48.0 [place] 454311-04-04 22:10:00 Test Item Value Reference Range Interpretation Comments MCV (test code = MCV) 86.6 80.0-98.0 [facility] HospitalQubarmuMOJGTFGTOX4012-94-25 22:10:00 Test Item Value Reference Range Interpretation Comments MCH (test code = MCH) 28.5 pg 27.0-31.0 [place] 454311-04-04 22:10:00 Test Item Value Reference Range Interpretation Comments MCHC (test code = MCHC) 32.9 32.0-36.0 [facility] HospitalHjvirruMGEVZVVZTO0149-08-74 22:10:00 Test Item Value Reference Range Interpretation Comments RDW (test code = RDW) 13.9 11.5-14.5 [facility] HospitalFckqaypFGJZUGDKYJ1030-80-14 22:10:00 Test Item Value Reference Range Interpretation Comments Platelet (test code = Platelet) 290 133-450 [facility] HospitalNjebcanEAAUPTWQJC3419-48-41 22:10:00 Test Item Value Reference Range Interpretation Comments MPV (test code = MPV) 7.3 7.4-10.4 [place] 454311-04-04 22:10:00 Test Item Value Reference Range Interpretation Comments Segs (test code = Segs) 56.5 45.0-75.0 [facility] HospitalWwvqarzTLTGJVBLVH0593-09-47 22:10:00 Test Item Value Reference Range Interpretation Comments Lymphocytes (test code = Lymphocytes) 30.4 20.0-40.0 [facility] HospitalLxggukxVLULRKBFXI5310-20-05 22:10:00 Test Item Value Reference Range Interpretation Comments Monocytes (test code = Monocytes) 10.3 2.0-12.0 [facility] HospitalPgvstxhDPRAWYSIWH5019-17-71 22:10:00 Test Item Value Reference Range Interpretation Comments Eosinophils (test code = 2.6 See_Comment [A utomated message] The Eosinophils) system which ge nerated this result tra nsmitted reference range : <=4.0. The reference r evie was not used to int erpret this result as normal/abnormal . [facility] HospitalRpwascvHLJXGWHCLE6420-61-67 22:10:00 Test Item Value Reference Range Interpretation Comments Basophils (test code = 0.2 See_Comment [Aut omated message] The Basophils) system which ge nerated this result tra nsmitted reference range : <=1.0. The reference r evie was not used to int erpret this result as normal/abnormal . [facility] HospitalInzaodeRCCSPUFVZH0501-65-02 22:10:00 Test Item Value Reference Range Interpretation Comments Neutrophils # (test code = Neutrophils 3.5 1.5-8.1 #) [facility] HospitalHirsulnNHZIIUZKHF6954-73-21 22:10:00 Test Item Value Reference Range Interpretation Comments Lymphocytes # (test code = Lymphocytes 1.9 1.0-5.5 #) [facility] HospitalLwryrtbSFWYPZTSYV6575-91-80 22:10:00 Test Item Value Reference Range Interpretation Comments Monocytes # (test code 0.6 See_Comment [Aut omated message] The = Monocytes #) system which generated this result tra nsmitted reference range : <=0.8. The reference r evie was not used to int erpret this result as normal/abnormal . [facility] HospitalVacpszqGOBDKHMXWC2842-00-79 22:10:00 Test Item Value Reference Range Interpretation Comments Eosinophils # (test code 0.2 See_Comment [A utomated message] The = Eosinophils #) system whic h generated this result tra nsmitted reference range : <=0.5. The reference r evie was not used to int erpret this result as normal/abnormal . [facility] AND [id number] 22:10:00 Test Item Value Reference Range Interpretation Comments UA Color (test code = Light Yellow UA Color) *NA*(09/13/20 5:10 PM) [facility] AND [id number] 22:10:00 Test Item Value Reference Range Interpretation Comments UA Turbidity (test code Slight *ABN*(09/13/20 = UA Turbidity) 5:10 PM) [facility] AND [id number] 22:10:00 Test Item Value Reference Range Interpretation Comments UA Spec Grav (test code = UA Spec 1.008 1 Grav) [facility] AND [id number] 22:10:00 Test Item Value Reference Range Interpretation Comments UA pH (test code = UA pH) 5.0 1 5.0-8.0 [facility] AND [id number] 22:10:00 Test Item Value Reference Range Interpretation Comments UA Protein (test code = UA Negative mg/dL Protein) [facility] AND [id number] 22:10:00 Test Item Value Reference Range Interpretation Comments UA Glucose (test code = UA Negative mg/dL Glucose) [facility] AND [id number] 22:10:00 Test Item Value Reference Range Interpretation Comments UA Bili (test code = Negative *NA*(09/13/20 UA Bili) 5:10 PM) [facility] AND [id number] 22:10:00 Test Item Value Reference Range Interpretation Comments UA Blood (test code = Negative (09/13/20 5:10 UA Blood) PM) [facility] AND [id number] 22:10:00 Test Item Value Reference Range Interpretation Comments UA Nitrite (test code Negative (09/13/20 5:10 = UA Nitrite) PM) [facility] AND [id number] 22:10:00 Test Item Value Reference Range Interpretation Comments UA Leuk Est (test Negative (09/13/20 5:10 code = UA Leuk Est) PM) [facility] AND [id number] 22:10:00 Test Item Value Reference Range Interpretation Comments UA Sq Epi (test code = UA Sq Epi) Many /LPF [facility] AND [id number] 22:10:00 Test Item Value Reference Range Interpretation Comments UA WBC (test code = 2 See_Comment [Automa shalini message] The UA WBC) system which ge nerated this result transmit shalini reference range : <=5. The reference range was not used to interpr et this result as kena l/abnormal. [facility] AND [id number] 22:10:00 Test Item Value Reference Range Interpretation Comments UA RBC (test code = no gt See_Comment [Automa shalini message] The UA RBC) system which ge nerated this result transmit shalini reference range : <=2. The reference range was not used to interpr et this result as kena l/abnormal. [facility] AND [id number] 22:10:00 Test Item Value Reference Range Interpretation Comments UA Bacteria (test code = UA Occasional /HPF Bacteria) [facility] AND [id number] 22:10:00 Test Item Value Reference Range Interpretation Comments UA Mucus (test code = UA Mucus) Few /LPF [facility] [id number] 22:10:00 Test Item Value Reference Range Interpretation Comments UA Ketones (test code = UA Ketones) Negative [facility] AND [id number] 22:10:00 Test Item Value Reference Range Interpretation Comments UA Urobilinogen (test code = UA <=1.0 mg/dL 0.1-1.0 Urobilinogen) [facility] Jose Raul- XR PELVIS 1/2 [id number] 09:11:00 [facility] : 2000 Sex: FPatientName: ALMAS DEY Unit No: [id number] EXAMS: CPT: [id number] XR PELVIS 1/2 VIEWS 51682 Clinical History: Buttock pain. Exam: - XR [...] CC: MANOLO BELL MD Technologist: MONIQUE JEFF [facility] Dt/Tm: 07/30/2020 (0911) by:[email or web address] Orig Print D/T: S: 07/13 (0914) BATCH NO: N/A Name: ALMAS DEY Emergency Dept Phys: [place] [id number] [facility] : 2000 Age: 20 Sex: [place] [address] Loc: DELIA Exam Date: 07/30/2020 Status: PRE ER PH: [phone] FAX: PAGE 1 Signed ReportURINALYSIS DIPSTICK POC [...] YES NEEDED? (test code = UAMICRO) UA [id number] 08:51:00 Test Item Value Reference Range Interpretation Comments UA WBC (test code = WBCU) NONE SEEN /HPF 0-3 UA RBC (test code = RBCU) 3-5 /HPF 0-3 A UA EPITHELIAL CELLS (test code FEW /LPF NONE-FEW = EPIU) UA BACTERIA (test code = BACU) FEW /HPF NONE SEEN UA MUCUS (test code = MUCU) 1+ /LPF NONE-FEW A URINALYSIS DIPSTICK [id number] 08:43:00 Test Item Value Reference Range Interpretation [...] NEEDED? (test code = UAMICRO) URINALYSIS DIPSTICK [id number] 08:43:00 Test Item Value Reference Range Interpretation [...] NEEDED? (test code = UAMICRO) UR HCG [id number] 08:43:00 Test Item Value Reference Range Interpretation Comments UR HCG QUAL (test code = HCGQLU) NEGATIVE NEGATIVE URINALYSIS DIPSTICK [id number] 08:42:00 Test Item Value Reference Range Interpretation [...] ESTERASE DIPSTICK (test code = LEUU) URINE [id number] 10:40:00 Test Item Value Reference Range Interpretation [...] = 47) 20-29,000 col/mL skin floraBASIC METABOLIC [id number] 13:18:00 Test Item Value Reference Range Interpretation [...] PATIEN TS. CBC W/PLT COUNT & AUTO [id number] 13:08:00 Test Item Value Reference Range Interpretation [...] (BEAKER) (test code = 2801) URINALYSIS W/ [id number] 12:23:00 Test Item Value Reference Range Interpretation [...] 1663) SOURCE(BEAKER) (test code = 2795) SCREEN, [id number] 11:56:00 Test Item Value Reference Range Interpretation Comments TEST URINE (BEAKER) (test Negative code = 583) U/S, PELVIS, WITH ENDOVAG AND [id number] 00:46:00Reason for exam:- >VAGINAL BLEEDING and discomfort [...] physiologic. Otherwise, no acute findings. Signed: Toni Negroneport Verified Date/Time: 02/19/2020 00:46:24 HCG, SERUM, [id number] 21:48:00 Test Item Value Reference Range Interpretation Comments TEST SERUM (BEAKER) (test Negative code = 584) COMPREHENSIVE METABOLIC [id number] 21:48:00 Test Item Value Reference Range Interpretation [...] S NOT APPLICABLE FOR DIALYSIS PATIEN TS. Field Ironworker ID - [id number] W/ REFLEX URINE [id number] 21:39:00 Test Item Value Reference Range Interpretation [...] = 516) SOURCE(BEAKER) (test code = 2795) Field Ironworker ID - [auto]Field Ironworker ID - techOperator ID - techCBC W/PLT COUNT & AUTO [id number] 21:29:00 Test Item Value Reference Range Interpretation [...] 2801) - XR WRIST 3 + V [id number] 03:53:00Patient Name: ALMAS DEY Unit No: [id number] EXAMS: CPT: [id number] XR WRIST 3 + [place] [address] LEFTWRIST 4 VIEWS: CLINICAL HISTORY: Fall FINDINGS: There is a nondisplaced fracture of the distal radial metaphysis with intra-articular involvement.. A nondisplaced fracture of the base of the ulnar styloid process is also present. No joint or soft tissue abnormalities are seen. IMPRESSION: Nondisplaceddistal radial and ulnar fractures. at 0353 Reported and signed by: Nilay Fernando MD CC: Eric Mccabe DO Technologist: Edna Grossman TrscrDt/Tm: 01/24/2020 (0353) by:[email or web address] Orig Print D/T: S: 01/24/2020 (0356) BATCH NO: N/A Name: ALMAS DEY [facility] Emergency Dept Phys: [place] [id number] [facility] : 1991 Age: 28 Sex: [place] [address] Loc: DANETTES Exam Date: 01/24/2020 Status: REG ER PH: [phone] FAX: PAGE 1 Signed Report- CT C-SPINE W/O CONT 2020-01-24 03:52:00Patient Name: ALMAS DEY Unit No: [id number] EXAMS: CPT: [id number] CT C-SPINE W/O CONT [address] CT CERVICAL SPINE WITHOUT IV CONTRAST: CLINICAL [...] with ACR practice standards and adherence to hospital sales representative's recommendations with automated exposure control. ElectronicallySigned by Nilay Fernando MD on 01/24/2020 at 0352 Reported and signed by: Nilay Fernando MD CC: Eric Mccabe DO Technologist: Edna Grossman CTDI: 14.84 DLP: 312.96 Trscr Dt/Tm: 01/24/2020 (0352) by:[email or web address] Orig Print D/T: S: 01/24/2020 (0355) BATCH NO: N/A Name: ALMAS DEY [facility] Emergency Dept [place]: [place] [address] [address] [facility] : 1991 Age: 28 Sex: [place] [address] Loc: DELIA Exam Date: 01/24/2020 Status: REG ER PH: [phone] FAX: PAGE 1Signed Report- CT HEAD/BRAIN W/O [id number] 03:50:00 Patient Name: ALMAS DEY Unit No: [id number] EXAMS: CPT: [id number] CT HEAD/BRAIN W/O CONT [id number] HEAD WITHOUT CONTRAST: CLINICAL HISTORY: Fall TECHNIQUE: [...] with ACR practice standards and adherence to hospital sales representative's recommendations with automated exposure control. at 0350 Reported and signed by: Nilay Fernando MD CC: Eric Mccabe DO Technologist: Edna Grossman CTDI: 20.39 DLP: 290.78 Trscr Dt/Tm: 01/24/2020 (0350) by:[email or web address] Orig Print D/T: S: 01/24/2020 (0353) BATCH NO: N/A Name: ALMAS DEY Emergency Dept [place]: [place] [address] [facility] : 1991 Age: 28 Sex: [place] [address] [id number] Exam Date: 01/24/2020 Status: REG ER PH: [phone] FAX: PAGE 1 [facility]2016-01-27 23:49:00 Test Item Value Reference Range Interpretation Comments Lipase Lvl (test code = Lipase Lvl) 93 73-393 [facility]2016-01-27 23:49:00 Test Item Value Reference Range Interpretation Comments Alk Phos (test code = Alk Phos) 53 39-136 [facility]2016-01-27 23:49:00 Test Item Value Reference Range Interpretation Comments Bili Total (test code = Bili Total) 0.3 0.2-1.3 [facility]2016-01-27 23:49:00 Test Item Value Reference Range Interpretation Comments AST (test code = AST) 12 See_Comment [Auto mated message] The system which ge nerated this result transmit shalini reference range : <=37. The reference range was not used to interpr et this result as kena l/abnormal. [facility]2016-01-27 23:49:00 Test Item Value Reference Range Interpretation Comments eGFR (test code = eGFR) 117 [facility]2016-01-27 23:49:00 Test Item Value Reference Range Interpretation Comments Albumin Lvl (test code = Albumin Lvl) 3.5 3.5-5.0 [facility]2016-01-27 23:49:00 Test Item Value Reference Range Interpretation Comments ALT (test code = ALT) 17 See_Comment [Auto mated message] The system which ge nerated this result transmit shalini reference range : <=65. The reference range was not used to interpr et this result as kena l/abnormal. [facility]2016-01-27 23:49:00 Test Item Value Reference Range Interpretation Comments Glucose Lvl (test code = Glucose Lvl) 106 70-99 [facility]2016-01-27 23:49:00 Test Item Value Reference Range Interpretation Comments BUN (test code = BUN) 5 7-22 [facility]2016-01-27 23:49:00 Test Item Value Reference Range Interpretation Comments Creatinine Lvl (test code = Creatinine 0.58 0.50-1.40 Lvl) [facility]2016-01-27 23:49:00 Test Item Value Reference Range Interpretation Comments Sodium Lvl (test code = Sodium Lvl) 138 135-145 [facility]2016-01-27 23:49:00 Test Item Value Reference Range Interpretation Comments Chloride Lvl (test code = Chloride Lvl) 107 95-109 [facility]2016-01-27 23:49:00 Test Item Value Reference Range Interpretation Comments Calcium Lvl (test code = Calcium Lvl) 8.8 8.5-10.5 [facility]2016-01-27 23:49:00 Test Item Value Reference Range Interpretation Comments Potassium Lvl (test code = Potassium 3.3 3.5-5.1 Lvl) [facility]2016-01-27 23:49:00 Test Item Value Reference Range Interpretation Comments CO2 (test code = CO2) 24 24-32 [facility]2016-01-27 23:49:00 Test Item Value Reference Range Interpretation Comments Total Protein (test code = Total 7.1 6.4-8.4 Protein) [facility]2016-01-27 23:49:00 Test Item Value Reference Range Interpretation Comments A/G Ratio (test code = A/G Ratio) 1.0 0.7-1.6 [place] 196416-01-27 23:49:00 Test Item Value Reference Range Interpretation Comments AGAP (test code = AGAP) 10.3 10.0-20.0 [place] 196416-01-27 23:49:00 Test Item Value Reference Range Interpretation Comments B/C Ratio (test code = B/C Ratio) 9 6- [facility]2016-01-27 23:49:00 Test Item Value Reference Range Interpretation Comments Globulin (test code = Globulin) 3.6 2.0-4.0 [facility]HljtgkxRFMDRQNDNP7306-22-89 23:49:00 Test Item Value Reference Range Interpretation Comments Eosinophils # (test code 0.2 See_Comment [A utomated message] The = Eosinophils #) system whic h generated this result tra nsmitted reference range : <=0.5. The reference r evie was not used to int erpret this result as normal/abnormal . [facility] HospitalWzjfvexCZTBESIXYX2765-08-85 23:49:00 Test Item Value Reference Range Interpretation Comments Monocytes # (test code 0.5 See_Comment [Aut omated message] The = Monocytes #) system which generated this result tra nsmitted reference range : <=0.8. The reference r evie was not used to int erpret this result as normal/abnormal . [facility] HospitalWiapedxCDSIYAJDWC8784-94-55 23:49:00 Test Item Value Reference Range Interpretation Comments Lymphocytes # (test code = Lymphocytes 2.1 1.0-5.5 #) [facility] HospitalSehfpvuDJUODARULU8855-41-45 23:49:00 Test Item Value Reference Range Interpretation Comments Monocytes (test code = Monocytes) 6.5 2.0-12.0 [place] 024786-01-27 23:49:00 Test Item Value Reference Range Interpretation Comments Segs (test code = Segs) 64.0 45.0-75.0 [facility] HospitalRynzvmdGCUAWYBMRN3171-72-08 23:49:00 Test Item Value Reference Range Interpretation Comments Lymphocytes (test code = Lymphocytes) 26.2 20.0-40.0 [facility] HospitalUzoifkzKROQRPWXOE9239-05-02 23:49:00 Test Item Value Reference Range Interpretation Comments Eosinophils (test code = 3.0 See_Comment [A utomated message] The Eosinophils) system which ge nerated this result tra nsmitted reference range : <=4.0. The reference r evie was not used to int erpret this result as normal/abnormal . [facility] HospitalGduxotiFVMRWAIWJS0578-96-85 23:49:00 Test Item Value Reference Range Interpretation Comments Segs-Bands # (test code = Segs-Bands #) 5.0 1.5-8.1 [id number] 23:49:00 Test Item Value Reference Range Interpretation Comments Basophils (test code = 0.3 See_Comment [Aut omated message] The Basophils) system which ge nerated this result tra nsmitted reference range : <=1.0. The reference r evie was not used to int erpret this result as normal/abnormal . [facility] HospitalUakosgnQVPUECDGNX0554-13-19 23:49:00 Test Item Value Reference Range Interpretation Comments WBC (test code = WBC) 7.9 3.7-10.4 [facility] HospitalFopiqyjRJQIZQQQCE9837-32-70 23:49:00 Test Item Value Reference Range Interpretation Comments MCHC (test code = MCHC) 34.3 32.0-36.0 [facility] HospitalJwtyccvGEWSGADNXG8588-66-69 23:49:00 Test Item Value Reference Range Interpretation Comments RDW (test code = RDW) 13.0 11.5-14.5 [facility] HospitalFtxuqecEYZWRFBHPG2892-76-80 23:49:00 Test Item Value Reference Range Interpretation Comments Platelet (test code = Platelet) 260 133-450 [facility] HospitalQswygckWJOXWZZIPG5146-93-37 23:49:00 Test Item Value Reference Range Interpretation Comments MPV (test code = MPV) 7.4 7.4-10.4 [facility] HospitalRevmrynCVBFQCCTTA1088-38-69 23:49:00 Test Item Value Reference Range Interpretation Comments MCH (test code = MCH) 30.9 pg 27.0-31.0 [facility] HospitalUpizupbYLGMEEZXNP1503-89-81 23:49:00 Test Item Value Reference Range Interpretation Comments RBC (test code = RBC) 4.00 4.20-5.40 [facility] HospitalFhtwetaBVQBVOROYY7998-32-33 23:49:00 Test Item Value Reference Range Interpretation Comments MCV (test code = MCV) 90.0 80.0-98.0 [facility] HospitalLdmxefdXZZPATQZXS8973-46-07 23:49:00 Test Item Value Reference Range Interpretation Comments Hgb (test code = Hgb) 12.3 12.0-16.0 [facility] HospitalNlpfjciYIOIXLMWPU8848-18-62 23:49:00 Test Item Value Reference Range Interpretation Comments Hct (test code = Hct) 36.0 36.0-48.0 [facility] AND [id number] 23:49:00 Test Item Value Reference Range Interpretation Comments UA RBC (test code = 2 See_Comment [Automa shalini message] The UA RBC) system which ge nerated this result transmit shalini reference range : <=2. The reference range was not used to interpr et this result as kena l/abnormal. [facility] AND [id number] 23:49:00 Test Item Value Reference Range Interpretation Comments UA Sq Epi (test code = UA Sq Epi) Few /LPF [facility] AND [id number] 23:49:00 Test Item Value Reference Range Interpretation Comments UA Leuk Est (test Negative (07/08/15 5:49 code = UA Leuk Est) PM) [facility] AND [id number] 23:49:00 Test Item Value Reference Range Interpretation Comments UA Nitrite (test code Negative (07/08/15 5:49 = UA Nitrite) PM) [facility] AND [id number] 23:49:00 Test Item Value Reference Range Interpretation Comments UA Urobilinogen (test code = UA 4.0 0.1-1.0 Urobilinogen) [facility] AND [id number] 23:49:00 Test Item Value Reference Range Interpretation Comments UA Blood (test code = Negative (07/08/15 5:49 UA Blood) PM) [facility] AND [id number] 23:49:00 Test Item Value Reference Range Interpretation Comments UA Bili (test code = Negative *NA*(07/08/15 UA Bili) 5:49 PM) [facility] AND [id number] 23:49:00 Test Item Value Reference Range Interpretation Comments UA Ketones (test code = UA Ketones) 20 mg/dL [facility] AND [id number] 23:49:00 Test Item Value Reference Range Interpretation Comments UA Glucose (test code = UA Negative mg/dL Glucose) [facility] AND [id number] 23:49:00 Test Item Value Reference Range Interpretation Comments UA Color (test code = UA Color) Gi [facility] AND [id number] 23:49:00 Test Item Value Reference Range Interpretation Comments UA Amorph Shakira (test code = Occasional /HPF UA Amorph Shakira) [facility] AND [id number] 23:49:00 Test Item Value Reference Range Interpretation Comments UA Mucus (test code = UA Mucus) Moderate /LPF [facility] AND [id number] 23:49:00 Test Item Value Reference Range Interpretation Comments UA Spec Grav (test code = UA Spec Grav) 1.024 [facility] AND [id number] 23:49:00 Test Item Value Reference Range Interpretation Comments UA Protein (test code = UA Negative mg/dL Protein) [facility] AND [id number] 23:49:00 Test Item Value Reference Range Interpretation Comments UA pH (test code = UA pH) 7.0 5.0-8.0 [facility] AND [id number] 23:49:00 Test Item Value Reference Range Interpretation Comments UA Turbidity (test code Marked *ABN*(07/08/15 = UA Turbidity) 5:49 PM) [facility] [id number] 05:27:00 Test Item Value Reference Range Interpretation Comments U Preg (test code = U Positive *ABN*(06/22/15 Preg) 11:27 PM) [facility] AND [id number] 05:25:00 Test Item Value Reference Range Interpretation Comments UA RBC (test code = 7 See_Comment [Automa shalini message] The UA RBC) system which ge nerated this result transmit shalini reference range : <=2. The reference range was not used to interpr et this result as kena l/abnormal. [facility] AND [id number] 05:25:00 Test Item Value Reference Range Interpretation Comments UA Sq Epi (test code = UA Sq Epi) Many /[facility]F [facility] [id number] 05:25:00 Test Item Value Reference Range Interpretation Comments UA Mucus (test code = UA Mucus) Many /LPF [facility] AND [id number] 05:25:00 Test Item Value Reference Range Interpretation Comments UA WBC (test code = 10 See_Comment [Automa shalini message] The UA WBC) system which ge nerated this result transmit shalini reference range : <=5. The reference range was not used to interpr et this result as kena l/abnormal. [facility] AND [id number] 05:25:00 Test Item Value Reference Range Interpretation Comments UA Color (test code = UA Color) Gi [facility] AND [id number] 05:25:00 Test Item Value Reference Range Interpretation Comments UA Leuk Est (test Negative (06/22/15 11:25 code = UA Leuk Est) PM) [facility] AND [id number] 05:25:00 Test Item Value Reference Range Interpretation Comments UA Nitrite (test code Negative (06/22/15 11:25 = UA Nitrite) PM) [facility] AND [id number] 05:25:00 Test Item Value Reference Range Interpretation Comments UA Urobilinogen (test code = UA 4.0 0.1-1.0 Urobilinogen) [facility] AND [id number] 05:25:00 Test Item Value Reference Range Interpretation Comments UA Blood (test code = Negative (06/22/15 11:25 UA Blood) PM) [facility] AND [id number] 05:25:00 Test Item Value Reference Range Interpretation Comments UA Bili (test code = Negative *NA*(06/22/15 UA Bili) 11:25 PM) [facility] AND [id number] 05:25:00 Test Item Value Reference Range Interpretation Comments UA Turbidity (test code Marked *ABN*(06/22/15 = UA Turbidity) 11:25 PM) [facility] AND [id number] 05:25:00 Test Item Value Reference Range Interpretation Comments UA pH (test code = UA pH) 5.0 5.0-8.0 [facility] AND [id number] 05:25:00 Test Item Value Reference Range Interpretation Comments UA Protein (test code = UA Negative mg/dL Protein) [facility] AND [id number] 05:25:00 Test Item Value Reference Range Interpretation Comments UA Spec Grav (test code = UA Spec Grav) 1.027 [facility] AND [id number] 05:25:00 Test Item Value Reference Range Interpretation Comments UA Glucose (test code = UA Negative mg/dL Glucose) [facility] AND [id number] 05:25:00 Test Item Value Reference Range Interpretation Comments UA Ketones (test code = UA Ketones) 20 mg/dL [facility] HospitalSatitzzSQLJRMJYJSGK4746-91-22 05:54:00 Test Item Value Reference Range Interpretation Comments Potassium Lvl (test code = Potassium 3.8 3.5-5.1 Lvl) [facility] [id number] 05:03:00 Test Item Value Reference Range Interpretation Comments ABO/Rh (test code = ABO/Rh) O POS [facility] HospitalRbnkmiiLNJVSWFNHPPD3943-77-61 05:03:00 Test Item Value Reference Range Interpretation Comments Sodium Lvl (test code = Sodium Lvl) 136 135-145 [facility] HospitalFqriiceMDLDLOHPWZKJ7117-09-22 05:03:00 Test Item Value Reference Range Interpretation Comments Potassium Lvl (test code See Note 1(04/10/15 3.5-5.1 = Potassium Lvl) 12:03 AM) [facility] HospitalSoudquaOINBPRWUAOYH7343-35-39 05:03:00 Test Item Value Reference Range Interpretation Comments Chloride Lvl (test code = Chloride Lvl) 107 95-109 [facility] HospitalRmysvyyYMQYYLEIIHDH4342-64-40 05:03:00 Test Item Value Reference Range Interpretation Comments Calcium Lvl (test code = Calcium Lvl) 9.2 8.5-10.5 [facility] HospitalLqhuvsoMYJVMKCLMUIH8974-65-87 05:03:00 Test Item Value Reference Range Interpretation Comments eGFR (test code = eGFR) 115 [facility] HospitalVgzazqcJGYZLZSGTAXE1571-31-66 05:03:00 Test Item Value Reference Range Interpretation Comments AST (test code = AST) 69 See_Comment [Auto mated message] The system which ge nerated this result transmit shalini reference range : <=37. The reference range was not used to interpr et this result as kena l/abnormal. [facility] HospitalGqdqszlVOHTLHZZIKIG6616-03-77 05:03:00 Test Item Value Reference Range Interpretation Comments ALANINE AMINOTRANSFERASE 29 See_Comment [A utomated message] (test code = ALANINE The sys tem which AMINOTRANSFERASE) generated this result transmitted ref erence range: <=65. Th e reference range was not used to int erpret this result as normal/abnormal . [facility] HospitalLvslchxOSIELFZHHHCE5854-63-06 05:03:00 Test Item Value Reference Range Interpretation Comments Alk Phos (test code = Alk Phos) 78 39-136 [facility] HospitalPqaduwaWMTXRQLLJRDX6565-38-61 05:03:00 Test Item Value Reference Range Interpretation Comments Bili Total (test code = Bili Total) 0.3 0.2-1.3 [facility] HospitalVsduednIIICFLNTLUMF8043-95-01 05:03:00 Test Item Value Reference Range Interpretation Comments A/G Ratio (test code = A/G Ratio) 0.8 0.7-1.6 [facility] HospitalTxwjekyJWBQRISWNEXE8694-79-56 05:03:00 Test Item Value Reference Range Interpretation Comments Globulin (test code = Globulin) 4.5 2.0-4.0 [facility] HospitalDdddofoUTDLNYKIJLQA7620-98-38 05:03:00 Test Item Value Reference Range Interpretation Comments Albumin Lvl (test code = Albumin Lvl) 3.5 3.5-5.0 [facility] HospitalHgbpfvzVFJUPIVOOPCY2642-98-65 05:03:00 Test Item Value Reference Range Interpretation Comments B/C Ratio (test code = B/C Ratio) 15 6-25 [facility] HospitalQmgozcoCCPJJPAMXDVW2143-91-08 05:03:00 Test Item Value Reference Range Interpretation Comments Total Protein (test code = Total 8.0 6.4-8.4 Protein) [facility] HospitalXwiqqbhRLDUDFOAUSWV0162-44-54 05:03:00 Test Item Value Reference Range Interpretation Comments CO2 (test code = CO2) 23 24-32 [facility] HospitalAycoyviIXRQIMYNNEPW2564-40-89 05:03:00 Test Item Value Reference Range Interpretation Comments Creatinine Lvl (test code = Creatinine 0.6 0.5-1.4 Lvl) [facility] HospitalAklsgclQRNOPAGKDXIQ5224-40-98 05:03:00 Test Item Value Reference Range Interpretation Comments Glucose Lvl (test code = Glucose Lvl) 88 70-99 [facility]sldkhfCJYTXIJNAONS5069-89-27 05:03:00 Test Item Value Reference Range Interpretation Comments BUN (test code = BUN) 9 7-22 [place] [id number] 05:03:00 Test Item Value Reference Range Interpretation Comments hCG Tot (test code = hCG Tot) 941 [facility] HospitalObopiclQOVEYXGSMF2121-43-28 05:03:00 Test Item Value Reference Range Interpretation Comments Hct (test code = Hct) 39.1 36.0-48.0 [facility] HospitalVcezrvhOFNTVGYIDU0869-54-72 05:03:00 Test Item Value Reference Range Interpretation Comments MCV (test code = MCV) 91.6 80.0-98.0 [facility] HospitalGgxdvioYWNRHWDYWQ1327-98-03 05:03:00 Test Item Value Reference Range Interpretation Comments RDW (test code = RDW) 12.1 11.5-14.5 [facility] HospitalLfsdbihGHREWPBTAB0597-76-58 05:03:00 Test Item Value Reference Range Interpretation Comments Platelet (test code = Platelet) 301 926-450 [facility] HospitalOsxwbouKZPPSVSWHG2772-54-41 05:03:00 Test Item Value Reference Range Interpretation Comments MCH (test code = MCH) 31.1 pg 27.0-31.0 [facility] HospitalXlylxxeBPOUOTOISQ8814-92-88 05:03:00 Test Item Value Reference Range Interpretation Comments MCHC (test code = MCHC) 33.9 32.0-36.0 [facility] HospitalKsjnvdzOHRFUVAJXJ3490-26-25 05:03:00 Test Item Value Reference Range Interpretation Comments MPV (test code = MPV) 7.2 7.4-10.4 [facility] HospitalShibgvjTJUWSXXRSN3495-36-89 05:03:00 Test Item Value Reference Range Interpretation Comments WBC (test code = WBC) 10.2 3.7-10.4 [facility] HospitalGngfeljHESKDHQLHL3744-61-55 05:03:00 Test Item Value Reference Range Interpretation Comments Hgb (test code = Hgb) 13.3 12.0-16.0 [facility] HospitalLdjlokdAHZHTMAYWF6782-69-47 05:03:00 Test Item Value Reference Range Interpretation Comments RBC (test code = RBC) 4.27 4.20-5.40 [facility] HospitalGafaxyeGTNEGOHHJE2086-68-97 05:03:00 Test Item Value Reference Range Interpretation Comments Lymphocytes # (test code = Lymphocytes 2.8 1.0-5.5 #) [facility] HospitalGtpfedfHRBBOUNOOX3709-59-01 05:03:00 Test Item Value Reference Range Interpretation Comments Basophils (test code = 1.2 See_Comment [Aut omated message] The Basophils) system which ge nerated this result tra nsmitted reference range : <=1.0. The reference r evie was not used to int erpret this result as normal/abnormal . [facility] HospitalHwfvwlqVSMUHLZUVA5417-77-45 05:03:00 Test Item Value Reference Range Interpretation Comments Eosinophils (test code = 1.6 See_Comment [A utomated message] The Eosinophils) system which ge nerated this result tra nsmitted reference range : <=4.0. The reference r evie was not used to int erpret this result as normal/abnormal . [facility] HospitalJeivaoxQXETOUWTTB5872-57-50 05:03:00 Test Item Value Reference Range Interpretation Comments Monocytes # (test code 1.0 See_Comment [Aut omated message] The = Monocytes #) system which generated this result tra nsmitted reference range : <=0.8. The reference r evie was not used to int erpret this result as normal/abnormal . [facility] HospitalIvixjreOQNXTCAAYM7007-03-19 05:03:00 Test Item Value Reference Range Interpretation Comments Basophils # (test code 0.1 See_Comment [Aut omated message] The = Basophils #) system which generated this result tra nsmitted reference range : <=0.2. The reference r evie was not used to int erpret this result as normal/abnormal . [facility] HospitalMiexpzyUOLWWLWWWW8836-27-76 05:03:00 Test Item Value Reference Range Interpretation Comments Segs-Bands # (test code = Segs-Bands #) 6.1 1.5-8.1 [facility] HospitalZncakhlWADJGQTAAU0492-93-47 05:03:00 Test Item Value Reference Range Interpretation Comments Eosinophils # (test code 0.2 See_Comment [A utomated message] The = Eosinophils #) system whic h generated this result tra nsmitted reference range : <=0.5. The reference r evie was not used to int erpret this result as normal/abnormal . [facility] HospitalOuezzfaVFKDRRIULY6111-38-74 05:03:00 Test Item Value Reference Range Interpretation Comments Monocytes (test code = Monocytes) 10.0 2.0-12.0 [facility] HospitalIypcxbfQHYKLHIDOO1377-18-75 05:03:00 Test Item Value Reference Range Interpretation Comments Lymphocytes (test code = Lymphocytes) 27.6 20.0-40.0 [facility] HospitalBnkjcjjEMEFFFTFNL6135-23-30 05:03:00 Test Item Value Reference Range Interpretation Comments Segs (test code = Segs) 59.6 45.0-75.0 [facility] AND [id number] 05:03:00 Test Item Value Reference Range Interpretation Comments UA Urobilinogen (test code = UA <=1.0 mg/dL 0.1-1.0 Urobilinogen) [facility] AND [id number] 05:03:00 Test Item Value Reference Range Interpretation Comments UA Mucus (test code = UA Mucus) Moderate /LPF [facility] AND [id number] 05:03:00 Test Item Value Reference Range Interpretation Comments UA CaOx Shakira (test code = UA Occasional /HPF CaOx Shakira) [facility] AND [id number] 05:03:00 Test Item Value Reference Range Interpretation Comments UA Lovell Yeast (test code = UA Occasional /HPF Lovell Yeast) [facility] AND [id number] 05:03:00 Test Item Value Reference Range Interpretation Comments UA RBC (test code = 40 See_Comment [Automa shalini message] The UA RBC) system which ge nerated this result transmit shalini reference range : <=2. The reference range was not used to interpr et this result as kena l/abnormal. [facility] AND [id number] 05:03:00 Test Item Value Reference Range Interpretation Comments UA WBC (test code = 8 See_Comment [Automa shalini message] The UA WBC) system which ge nerated this result transmit shalini reference range : <=5. The reference range was not used to interpr et this result as kena l/abnormal. [facility] AND [id number] 05:03:00 Test Item Value Reference Range Interpretation Comments UA Nitrite (test code Negative (04/10/15 = UA Nitrite) 12:03 AM) [facility] AND [id number] 05:03:00 Test Item Value Reference Range Interpretation Comments UA Blood (test code = Large *ABN*(04/10/15 UA Blood) 12:03 AM) [facility] AND [id number] 05:03:00 Test Item Value Reference Range Interpretation Comments UA Leuk Est (test Negative (04/10/15 12:03 code = UA Leuk Est) AM) [facility] AND [id number] 05:03:00 Test Item Value Reference Range Interpretation Comments UA Sq Epi (test code = UA Sq Epi) Few /LPF [facility] AND [id number] 05:03:00 Test Item Value Reference Range Interpretation Comments UA pH (test code = UA pH) 5.0 5.0-8.0 [facility] AND [id number] 05:03:00 Test Item Value Reference Range Interpretation Comments UA Spec Grav (test code = UA Spec Grav) 1.029 [facility] AND [id number] 05:03:00 Test Item Value Reference Range Interpretation Comments UA Turbidity (test code Marked *ABN*(04/10/15 = UA Turbidity) 12:03 AM) [facility] AND [id number] 05:03:00 Test Item Value Reference Range Interpretation Comments UA Color (test code = Yellow *NA*(04/10/15 UA Color) 12:03 AM) [facility] AND [id number] 05:03:00 Test Item Value Reference Range Interpretation Comments UA Bili (test code = Negative *NA*(04/10/15 UA Bili) 12:03 AM) [facility] AND [id number] 05:03:00 Test Item Value Reference Range Interpretation Comments UA Glucose (test code = UA Negative mg/dL Glucose) [facility] AND [id number] 05:03:00 Test Item Value Reference Range Interpretation Comments UA Protein (test code = UA Negative mg/dL Protein) [facility] AND [id number] 05:03:00 Test Item Value Reference Range Interpretation Comments UA Ketones (test code = UA Negative mg/dL Ketones) [facility] [id number] 05:03:00 Test Item Value Reference Range Interpretation Comments U Preg (test code = U Positive *ABN*(04/10/15 Preg) 12:03 AM) [facility]2015-08-30 19:17:00 Test Item Value Reference Range Interpretation Comments B/C Ratio (test code = B/C Ratio) 10 6-25 [facility]2015-08-30 19:17:00 Test Item Value Reference Range Interpretation Comments AGAP (test code = AGAP) 9.7 10.0-20.0 [facility]2015-08-30 19:17:00 Test Item Value Reference Range Interpretation Comments Globulin (test code = Globulin) 3.5 2.0-4.0 [facility]2015-08-30 19:17:00 Test Item Value Reference Range Interpretation Comments A/G Ratio (test code = A/G Ratio) 1.1 0.7-1.6 [facility]2015-08-30 19:17:00 Test Item Value Reference Range Interpretation Comments Sodium Lvl (test code = Sodium Lvl) 138 135-145 [facility]2015-08-30 19:17:00 Test Item Value Reference Range Interpretation Comments Potassium Lvl (test code = Potassium 3.7 3.5-5.1 Lvl) [facility]2015-08-30 19:17:00 Test Item Value Reference Range Interpretation Comments Chloride Lvl (test code = Chloride Lvl) 107 95-109 [facility]2015-08-30 19:17:00 Test Item Value Reference Range Interpretation Comments BUN (test code = BUN) 7 7-22 [facility]2015-08-30 19:17:00 Test Item Value Reference Range Interpretation Comments Glucose Lvl (test code = Glucose Lvl) 90 70-99 [facility]2015-08-30 19:17:00 Test Item Value Reference Range Interpretation Comments CO2 (test code = CO2) 25 24-32 [facility]2015-08-30 19:17:00 Test Item Value Reference Range Interpretation Comments Albumin Lvl (test code = Albumin Lvl) 3.9 3.5-5.0 [facility]2015-08-30 19:17:00 Test Item Value Reference Range Interpretation Comments AST (test code = AST) 13 See_Comment [Auto mated message] The system which ge nerated this result transmit shalini reference range : <=37. The reference range was not used to interpr et this result as kena l/abnormal. [facility]2015-08-30 19:17:00 Test Item Value Reference Range Interpretation Comments eGFR (test code = eGFR) 97 [facility]2015-08-30 19:17:00 Test Item Value Reference Range Interpretation Comments Creatinine Lvl (test code = Creatinine 0.7 0.5-1.4 Lvl) [facility]2015-08-30 19:17:00 Test Item Value Reference Range Interpretation Comments ALT (test code = ALT) 18 See_Comment [Auto mated message] The system which ge nerated this result transmit shalini reference range : <=65. The reference range was not used to interpr et this result as kena l/abnormal. [facility]2015-08-30 19:17:00 Test Item Value Reference Range Interpretation Comments Calcium Lvl (test code = Calcium Lvl) 8.9 8.5-10.5 [facility]2015-08-30 19:17:00 Test Item Value Reference Range Interpretation Comments Alk Phos (test code = Alk Phos) 74 39-136 [facility]2015-08-30 19:17:00 Test Item Value Reference Range Interpretation Comments Total Protein (test code = Total 7.4 6.4-8.4 Protein) [facility]2015-08-30 19:17:00 Test Item Value Reference Range Interpretation Comments Bili Total (test code = Bili Total) 0.7 0.2-1.3 [facility]lEDTPRSSBZSSRL7666-60-75 19:17:00 Test Item Value Reference Range Interpretation Comments hCG Tot (test code = hCG Tot) no gt [id number] 19:17:00 Test Item Value Reference Range Interpretation Comments Platelet (test code = Platelet) 245 133-450 [id number] 19:17:00 Test Item Value Reference Range Interpretation Comments RDW (test code = RDW) 12.5 11.5-14.5 [id number] 19:17:00 Test Item Value Reference Range Interpretation Comments MPV (test code = MPV) 7.2 7.4-10.4 [id number] 19:17:00 Test Item Value Reference Range Interpretation Comments RBC (test code = RBC) 4.09 4.20-5.40 [id number] 19:17:00 Test Item Value Reference Range Interpretation Comments Hct (test code = Hct) 37.0 36.0-48.0 [id number] 19:17:00 Test Item Value Reference Range Interpretation Comments MCH (test code = MCH) 31.7 pg 27.0-31.0 [id number] 19:17:00 Test Item Value Reference Range Interpretation Comments MCV (test code = MCV) 90.6 80.0-98.0 [id number] 19:17:00 Test Item Value Reference Range Interpretation Comments Hgb (test code = Hgb) 13.0 12.0-16.0 [facility] H[id number] 19:17:00 Test Item Value Reference Range Interpretation Comments MCHC (test code = MCHC) 35.0 32.0-36.0 [facility] H[id number] 19:17:00 Test Item Value Reference Range Interpretation Comments WBC (test code = WBC) 8.4 3.7-10.4 [facility] H[id number] 19:17:00 Test Item Value Reference Range Interpretation Comments Segs-Bands # (test code = Segs-Bands #) 6.0 1.5-8.1 [facility] H[id number] 19:17:00 Test Item Value Reference Range Interpretation Comments Lymphocytes # (test code = Lymphocytes 1.5 1.0-5.5 #) [facility] Hospit[id number] 19:17:00 Test Item Value Reference Range Interpretation Comments Segs (test code = Segs) 71.4 45.0-75.0 [facility] Hos[id number] 19:17:00 Test Item Value Reference Range Interpretation Comments Basophils (test code = 0.5 See_Comment [Aut omated message] The Basophils) system which ge nerated this result tra nsmitted reference range : <=1.0. The reference r evie was not used to int erpret this result as normal/abnormal . [facility] Hospit[id number] 19:17:00 Test Item Value Reference Range Interpretation Comments Lymphocytes (test code = Lymphocytes) 18.0 20.0-40.0 [facility] H[id number] 19:17:00 Test Item Value Reference Range Interpretation Comments Eosinophils (test code = 1.0 See_Comment [A utomated message] The Eosinophils) system which ge nerated this result tra nsmitted reference range : <=4.0. The reference r evie was not used to int erpret this result as normal/abnormal . [facility] H[id number] 19:17:00 Test Item Value Reference Range Interpretation Comments Eosinophils # (test code 0.1 See_Comment [A utomated message] The = Eosinophils #) system whic h generated this result tra nsmitted reference range : <=0.5. The reference r evie was not used to int erpret this result as normal/abnormal . [facility] H[id number] 19:17:00 Test Item Value Reference Range Interpretation Comments Monocytes (test code = Monocytes) 9.1 2.0-12.0 [facility] H[id number] 19:17:00 Test Item Value Reference Range Interpretation Comments Monocytes # (test code 0.8 See_Comment [Aut omated message] The = Monocytes #) system which generated this result tra nsmitted reference range : <=0.8. The reference r evie was not used to int erpret this result as normal/abnormal . [facility]
--- NOTE | 2022-04-01 06:06 | ER ---
Nurse's Notes [facility] Name: Lena Doty Age: 22 yrs Sex: Female : 2000 Arrival Date: 04/01/2022 Time: 05:45 Bed DIS3 Private MD: Diagnosis: Left ear pain;Upper respiratory infection Presentation: 04/01 05:52 Chief complaint: Patient states: "I have been having flu like symptoms for a week and vc1 today I woke up with really bad ear pain. It hurts so bad I can't sleep.". Coronavirus screen: Vaccine status: Patient reports being unvaccinated. Ebola Screen: No symptoms or risks identified at this time. Initial Sepsis Screen: Does the patient meet any 2 criteria? HR > 90 bpm. No. Patient's initial sepsis screen is negative. Does the patient have a suspected source of infection? Yes: Other: ear. Risk Assessment: Do you want to hurt yourself or someone else? Patient reports no desire to harm self or others. Onset of symptoms was April 01, 2022. 05:52 Method Of Arrival: Ambulatory vc1 05:52 Acuity: RALE[place] 4 vc1 Triage Assessment: 05:56 General: Appears in no apparent distress. uncomfortable, Behavior is calm, cooperative, vc1 appropriate for age. Pain: Complains of pain in left ear Pain radiates to left submandibular area Pain currently is 9 out of 10 on a pain scale. EENT: Reports pain in left ear. Neuro: No deficits noted. Cardiovascular: No deficits noted. Respiratory: Airway is patent Respiratory effort is even, unlabored, Respiratory pattern is regular, symmetrical. GI: No deficits noted. : No deficits noted. Derm: No deficits noted. Musculoskeletal: No deficits noted. 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 - Social history:: Smoking status: Patient denies any tobacco usage or history of. Screenin:57 Abuse screen: Denies threats or abuse. Nutritional screening: No deficits noted. vc1 Tuberculosis screening: No symptoms or risk factors identified. Fall Risk None identified. Assessment: 05:57 Reassessment: See triage assessment. vc1 Vital Signs: 05:52 BP 115 / 67; Pulse 100; Resp 17; Temp 98.8(O); Pulse Ox 100% ; Weight 68.04 kg; Height vc1 5 ft. 5 in. (165.10 cm); Pain 9/10; 05:52 Body Mass Index 24.96 (68.04 kg, 165.10 cm) vc1 ED Course: 05:45 Patient arrived in ED. bp1 05:47 Cordelia Segal MD is Attending Physician. sd2 05:55 Triage completed. vc1 05:56 Arm band placed on left wrist. vc1 05:57 Patient has correct armband on for positive identification. vc1 06:08 Dilcia English RN is Primary Nurse. vc1 06:18 No provider procedures requiring assistance completed. Patient did not have IV access vc1 during this emergency room visit. Administered Medications: 06:16 Drug: Decadron (dexamethasone) 10 mg Route: PO; vc1 06:16 Follow up: Response: No adverse reaction; Medication administered at discharge. vc1 06:16 Drug: Ibuprofen 600 mg Route: PO; vc1 06:16 Follow up: Response: No adverse reaction; Medication administered at discharge. vc1 Medication: 05:57 VIS not applicable for this client. vc1 Outcome: 06:05 Discharge ordered by . sd2 06:18 Discharged to home ambulatory. vc1 06:18 Condition: good 06:18 Discharge instructions given to patient, Instructed on discharge instructions, follow up and referral plans. medication usage, Demonstrated understanding of instructions, follow-up care, medications, Prescriptions given X 1. 06:18 Patient left the ED. vc1 Signatures: Danisha Faye Vanessa, RN RN vc1 Cordelia Segal MD MD sd2
--- NOTE | 2022-04-01 06:06 | EDPHYS ---
Physician Documentation [facility] Name: Lena Doty Age: 22 yrs Sex: Female : 2000 Arrival Date: 04/01/2022 Time: 05:45 Bed DIS3 Private MD: ED Physician Cordelia Segal HPI: 04/01 06:00 This 22 yrs old Female presents to ER via Ambulatory with complaints of Ear Pain. sd2 06:00 22-year-old female presents with chief complaint of left-sided ear pain that started sd2 abruptly overnight. The patient reports that the pain radiates from her left ear down to her left lower jawline. She has had flulike symptoms including congestion, runny nose and sore throat for the past week that had been improving until the ear pain started tonight. She has not taken anything for it prior to arrival. She denies any fevers, chest pain or shortness of breath. She denies any chance of . She otherwise has no acute complaints at this time. . 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 - Social history:: Smoking status: Patient denies any tobacco usage or history of. ROS: 06:00 Constitutional: Negative for fever, chills, and weight loss, Eyes: Negative for injury, sd2 pain, redness, and discharge. 06:00 Cardiovascular: Negative for chest pain, palpitations, and edema, Respiratory: Negative for shortness of breath, cough, wheezing. Abdomen/GI: Negative for abdominal pain, nausea, vomiting, diarrhea. MS/Extremity: Negative for injury and deformity, Skin: Negative for injury, rash, and discoloration, Neuro: Negative for headache, numbness and tingling. 06:00 ENT: Positive for ear pain, rhinorrhea, sinus congestion, Teeth pain Negative for injury or acute deformity, tinnitus, difficulty swallowing. Exam: 06:00 Constitutional: This is a well developed, well nourished patient who is awake, alert, sd2 and in no acute distress. Head/Face: Normocephalic, atraumatic. Eyes: EOMI, normal conjunctiva bilaterally ENT: Nares patent. No nasal discharge, no septal abnormalities noted. Tympanic membranes are normal and external auditory canals are clear. Oropharynx with no redness, swelling, or masses, exudates, or evidence of obstruction, uvula midline. Mucous membranes moist. Dentition normal with no percussion tenderness or visible abscesses. Chest/axilla: Normal chest wall appearance and motion. Nontender with no deformity. Cardiovascular: Regular rate and rhythm with a normal S1 and S2. No gallops, murmurs, or rubs. 2+ distal pulses. Respiratory: Lungs have equal breath sounds bilaterally, clear to auscultation and percussion. No rales, rhonchi or wheezes noted. No increased work of breathing, no retractions or nasal flaring. Skin: Warm, dry with normal turgor. Normal color with no rashes, no lesions, and no evidence of cellulitis. MS/ Extremity: Pulses equal, no cyanosis. Neurovascular intact. Full, normal range of motion. Ambulatory without difficulty. Psych: Awake, alert, with orientation to person, place and time. Behavior, mood, and affect are within normal limits. Vital Signs: 05:52 BP 115 / 67; Pulse 100; Resp 17; Temp 98.8(O); Pulse Ox 100% ; Weight 68.04 kg; Height vc1 5 ft. 5 in. (165.10 cm); Pain 9/10; 05:52 Body Mass Index 24.96 (68.04 kg, 165.10 cm) vc1 MDM: 05:48 Patient medically screened. sd2 06:00 Differential diagnosis: AOM, AOE, doubt mastoiditis, effusion, pharyngitis, viral URI sd2 among others. Data reviewed: vital signs, nurses notes. Counseling: I had a detailed discussion with the patient and/or guardian regarding: the historical points, exam findings, and any diagnostic results supporting the discharge/admit diagnosis, the need for outpatient follow up, to return to the emergency department if symptoms worsen or persist or if there are any questions or concerns that arise at home. Medical screen evaluation completed. [facility] emergency medical condition absent. ED course: Clinical exam with no evidence of infection in the L ear or associated with the L teeth. Pt has had viral symptoms recently with possible small effusion behind the L ear. Dose of steroids and Ibuprofen given for pain control. VS otherwise stable. No indications for further emergent workup at this time. 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 pt is in agreement with treatment plan and verbalizes understanding of discharge plan and strict return precautions.. Administered Medications: 06:16 Drug: Decadron (dexamethasone) 10 mg Route: PO; vc1 06:16 Follow up: Response: No adverse reaction; Medication administered at discharge. vc1 06:16 Drug: Ibuprofen 600 mg Route: PO; vc1 06:16 Follow up: Response: No adverse reaction; Medication administered at discharge. vc1 Disposition Summary: 04/01/22 06:05 Discharge Ordered Location: Home sd2 Problem: new sd2 Symptoms: have improved sd2 Condition: Stable sd2 Diagnosis - Left ear pain sd2 - Upper respiratory infection sd2 Followup: sd2 - With: Private Physician - When: 2 - 3 days - Reason: Recheck today's complaints, Continuance of care, Re-evaluation by your physician Discharge Instructions: - Discharge Summary Sheet sd2 - Upper Respiratory Infection, Adult sd2 Forms: - Medication Reconciliation Form sd2 - Thank You Letter sd2 - Antibiotic Education sd2 - Prescription Opioid Use sd2 Prescriptions: - Ibuprofen 600 mg Oral Tablet - take 1 tablet by ORAL route every 6 hours As needed take with food; 15 tablet; sd2 Refills: 0, Product Selection Permitted Signatures: Dilcai English RN RN vc1 Cordelia Segal MD MD sd2
[2022-04-01] MEDS ORDERED: IBUPROFEN 400 MG TAB ONE (06:11)
[2022-04-01] MEDS ORDERED: IBUPROFEN 200 MG TAB PO ONE (06:11)
[2022-04-01] MEDS ORDERED: dexAMETHasone 4 MG TAB ONE (06:11)
[2022-04-01 06:23] VITALS: BP 115/67; TEMP 98.8; O2SAT 100
== END 2022-04-01 06:18 | disposition home or self-care (01) ==
LOC: ER 05:41
DX: H92.02 Otalgia, left ear (principal); J06.9 Acute upper respiratory infection, unspecified; D64.9 Anemia, unspecified
CPT/HCPCS: 99283; J8540

== ENCOUNTER 2024-01-14 15:56 | Emergency (ER) | payer SELFPAY ==
[2024-01-14 16:22] LABS: Absolute Eosinophils 0.1 K/uL (0-0.5); Absolute Lymphocytes (CBC) 1.7 K/uL (0.7-4.9); Absolute Monocytes 0.7 K/uL (0.1-1.3); Absolute Neutrophil 4.1 K/uL (1.8-8.0); Basophils % 0.4 % (0-1.3); Eosinophils % 2.2 % (0-4.4); Hemoglobin 11.5 g/dL (12.0-15.0); Lymphocytes % 26.3 % (15.3-44.8); MCH 26.7 pg (27.0-35.0); MCHC 31.9 g/dL (32.0-36.0); MCV 83.9 fL (80-100); MPV 7.3 fL (7.6-11.3); Monocytes % 9.9 % (3.3-12.3); Neutrophils % 61.2 % (41.7-73.7); Platelets 369 thou/uL (152-406); Red Cell Distribution Width 17.6 % (12.1-15.2)
[2024-01-14 16:41] LABS: Anion Gap 6.1 mEq/L (5.0-15.0); BUN Blood Urea Nitrogen 13 mg/dL (7-18); Bicarbonate 27 mEq/L (21-32); Glomerular Filtration Rate 108 ml/min (=/>90); Glucose Level 91 mg/dL (74-106); Potassium 4.1 mEq/L (3.5-5.1); Sodium Level 136 mEq/L (136-145)
[2024-01-14 16:44] LABS: Troponin High Sensitivity < 3.0 pg/mL (<58.9)
--- NOTE | 2024-01-14 17:48 | RAD REPORT ---
EXAM DESCRIPTION: RADChest Single View01/14/2024 4:27 pm CLINICAL HISTORY: CHEST PAIN COMPARISON: Chest Single View dated 11/29/2021; Chest Single View dated 12/03/2020 TECHNIQUE: Portable AP view of the chest. FINDINGS: The lungs are clear. No pneumothorax or effusion. The cardiomediastinal contours are unre markable. IMPRESSION: No acute cardiopulmonary process.
--- NOTE | 2024-01-14 17:49 | ER ---
Nurse's Notes [facility] Name: Lena Doty Age: 23 yrs Sex: Female : 2000 Arrival Date: 01/14/2024 Time: 15:56 Bed 6 Private MD: Diagnosis: Chest pain, unspecified Presentation: 01/13 16:06 Chief complaint: Patient states: Cough, SOB, CP for 2-3 weeks. Coronavirus screen: ll1 Client denies travel out of the [place] in the last 14 days. cough unrelated to allergies, difficulty breathing, shortness of breath. Ebola Screen: Patient denies travel to an Ebola-affected area in the 21 days before illness onset. Initial Sepsis Screen: Does the patient meet any 2 criteria? No. Patient's initial sepsis screen is negative. Does the patient have a suspected source of infection? No. Patient's initial sepsis screen is negative. Risk Assessment: Do you want to hurt yourself or someone else? Patient reports no desire to harm self or others. Onset of symptoms was December 24, 2023. 16:06 Method Of Arrival: Ambulatory 1 16:06 Acuity: [place]ALE[place] 3 ll1 Triage Assessment: 16:07 General: Appears in no apparent distress. Behavior is calm, cooperative, appropriate ll1 for age. Pain: Complains of pain in chest Quality of pain is described as aching. Cardiovascular: Reports chest pain, shortness of breath. Respiratory: Reports cough that is. Historical: - Allergies: 16:06 No Known Drug Allergies; ll1 - Home Meds: 16:06 Iron CR Oral [Active]; ll1 - PMHx: 16:06 Anemia; ll1 - PSHx: 16:06 Ligation of fallopian tube; Tonsillectomy; ll1 - Immunization history:: Adult Immunizations up to date. - Infectious Disease History:: Denies. - Social history:: Smoking status: Patient denies any tobacco usage or history of. Screenin:28 [facility] ED Fall Risk Assessment (Adult) History of falling in the last 3 months, db including since admission No falls in past 3 months (0 pts) Confusion or Disorientation No (0 pts) Intoxicated or Sedated No (0 pts) Impaired Gait No (0 pts) Mobility Assist Device Used No (0 pt) Altered Elimination No (0 pt) Score/Fall Risk Level 0 - 2 = Low Risk Oriented to surroundings, Maintained a safe environment. Abuse screen: Denies threats or abuse. Denies injuries from another. Nutritional screening: No deficits noted. Tuberculosis screening: No symptoms or risk factors identified. Assessment: 16:27 Reassessment: Patient appears in no apparent distress at this time. Patient and/or db family updated on plan of care and expected duration. Pain level reassessed. Patient is alert, oriented x 3, equal unlabored respirations, skin warm/dry/pink. General: Appears in no apparent distress. comfortable, Behavior is calm, cooperative. Pain: Complains of pain in chest Pain does not radiate. Pain began gradually, 1 WEEK. Neuro: Level of Consciousness is awake, alert, obeys commands, Oriented to person, place, time, situation. Cardiovascular: Reports chest pain, shortness of breath, Rhythm is sinus rhythm. Respiratory: Airway is patent Respiratory effort is even, unlabored, Respiratory pattern is regular, symmetrical. 18:11 Reassessment: Patient appears in no apparent distress at this time. Patient and/or db family updated on plan of care and expected duration. Pain level reassessed. Patient is alert, oriented x 3, equal unlabored respirations, skin warm/dry/pink. Patient states feeling better. Patient states symptoms have improved. Vital Signs: 16:06 BP 143 / 90; Pulse 76; Resp 17; Temp 98.1; Pulse Ox 100% on R/A; Weight 65.77 kg; ll1 Height 5 ft. 6 in. ; 16:15 BP 121 / 85; Pulse 84; Resp 16; Pulse Ox 100% on R/A; db 17:15 BP 112 / 70; Pulse 88; Resp 16; Pulse Ox 100% on R/A; db 18:00 BP 105 / 76; Pulse 84; Resp 16; Temp 98; Pulse Ox 97% ; db 16:06 Body Mass Index 23.40 (65.77 kg, 167.64 cm) ll1 ED Course: 15:58 Patient arrived in ED. gm2 16:01 [facility]ab[facility] Marley [facility]C [facility] kb 16:01 Wesley Olmstead MD is Attending Physician. kb 16:05 Haylie Trent, SARINA is Primary Nurse. db 16:06 Arm band placed on Patient placed in an exam room, on a stretcher. ll1 16:07 Triage completed. ll1 16:15 Initial lab(s) drawn, by me, sent to lab. EKG done, by ED staff, reviewed by Shabana OCHOA. Inserted saline lock: 20 gauge in right antecubital area, using aseptic technique. Blood collected. Flushed with 10 mL NS. 16:28 Patient has correct armband on for positive identification. Bed in low position. Call db light in reach. Side rails up X 1. Provided Education on: LABS AND RADIOLOGY. Client placed on continuous cardiac and pulse oximetry monitoring. NIBP monitoring applied. fisher pot on. Pulse ox on. NIBP on. Warm blanket given. Pillow given. 16:29 XRAY Chest (1 view) In Process Unspecified. EDMS 18:11 No provider procedures requiring assistance completed. IV discontinued, intact, db bleeding controlled, No redness/swelling at site. Patient maintains SpO2 saturation greater than 95% on room air. Administered Medications: 18:00 Drug: Ketorolac IVP 15 mg IVP once Route: IVP; Site: right antecubital; rs5 18:13 Follow up: Response: No adverse reaction; Pain is decreased rs5 Medication: 16:30 VIS not applicable for this client. db Outcome: 17:49 Discharge ordered by . ngozi 18:11 Discharged to home ambulatory, db 18:11 Condition: stable 18:11 Discharge instructions given to patient, Instructed on discharge instructions, follow up and referral plans. 18:14 Patient left the ED. rs5 Signatures: Dispatcher [employer] EDAR Shabana Marley FNP-C FNP-Ckb Lewis, Lynsay RN RN 1 Haylie Trent RN RN db Arie Carrizales, RN RN rs5 Gill Gomez 2
--- NOTE | 2024-01-14 17:49 | EDPHYS ---
Physician Documentation [facility] Name: Lena Doty Age: 23 yrs Sex: Female : 2000 Arrival Date: 01/14/2024 Time: 15:56 Bed 6 Private MD: ED Physician Wesley Olmstead HPI: 01/13 17:06 This 23 yrs old Female presents to ER via Ambulatory with complaints of Chest Pain - kb x2wks, Shortness Of Breath. 17:06 Pt is a 23 year old female who presents for chest pain and shortness of breath that kb started 2 weeks ago. States symptoms began while she had flu-like symptoms. States the illness resolved, but she is still having the pain and shortness of breath. Denies cough, congestion, fever. . Historical: - Allergies: 16:06 No Known Drug Allergies; ll1 - Home Meds: 16:06 Iron CR Oral [Active]; ll1 - PMHx: 16:06 Anemia; ll1 - PSHx: 16:06 Ligation of fallopian tube; Tonsillectomy; ll1 - Immunization history:: Adult Immunizations up to date. - Infectious Disease History:: Denies. - Social history:: Smoking status: Patient denies any tobacco usage or history of. ROS: 17:05 Constitutional: As per HPI kb Exam: 16:25 Constitutional: This is a well developed, well nourished patient who is awake, alert, kb and in no acute distress. Head/Face: Normocephalic, atraumatic. ENT: Moist Mucous membranes Cardiovascular: Regular rate Respiratory: Respirations even and unlabored. No increased work of breathing. Talking in full sentences Abdomen/GI: Soft, non-tender. No distention Skin: Warm, dry with normal turgor. Normal color. MS/ Extremity: Pulses equal, no cyanosis. Neurovascular intact. Full, normal range of motion. Neuro: Awake and alert, GCS 15, oriented to person, place, time, and situation. Moves all extremities. Normal gait. 16:25 ECG was reviewed by the Attending Physician. Vital Signs: 16:06 BP 143 / 90; Pulse 76; Resp 17; Temp 98.1; Pulse Ox 100% on R/A; Weight 65.77 kg; ll1 Height 5 ft. 6 in. ; 16:15 BP 121 / 85; Pulse 84; Resp 16; Pulse Ox 100% on R/A; db 17:15 BP 112 / 70; Pulse 88; Resp 16; Pulse Ox 100% on R/A; db 18:00 BP 105 / 76; Pulse 84; Resp 16; Temp 98; Pulse Ox 97% ; db 16:06 Body Mass Index 23.40 (65.77 kg, 167.64 cm) ll1 MDM: 16:01 Patient medically screened. kb 17:05 Differential diagnosis: MO, pneumonia, PE, chest wall pain. Data reviewed: vital signs, kb nurses notes. Test considered but Not performed: CT: CT PE considered but d-dimer negative. Scoring Tools PERC Rule for PE Age >/= 50 No HR >/= 100 No O2 Sat Room Air < 95% No Unilateral leg swelling No Hemoptysis No Recent surgery or trauma </= 4 wks ago requiring treatment with general anesthesia No (0 pt) Prior PE or DVT No Hormone use (Oral contraceptives, hormone replacement or estrogenic hormones use in males or female patients No. Counseling: I had a detailed discussion with the patient and/or guardian regarding the historical points, exam findings, and any diagnostic results supporting the discharge/admit diagnosis, lab results, radiology results, the need for outpatient follow up, a family practitioner, to return to the emergency department if symptoms worsen or persist or if there are any questions or concerns that arise at home. 01/13 16:05 Order name: Basic Metabolic Panel; Complete Time: 16:46 kb 01/13 16:05 Order name: CBC with Diff; Complete Time: 16:24 kb 01/13 16:05 Order name: D-Dimer; Complete Time: 16:32 kb 01/13 16:05 Order name: Troponin HS; Complete Time: 16:46 kb 01/13 16:05 Order name: XRAY Chest (1 view); Complete Time: 17:49 kb 01/13 16:05 Order name: EKG; Complete Time: 16:05 kb 01/13 16:05 Order name: Cardiac monitoring; Complete Time: 16:26 kb 01/13 16:05 Order name: EKG - Nurse/Tech; Complete Time: 16:26 kb 01/13 16:05 Order name: IV Saline Lock; Complete Time: 16:26 kb 01/13 16:05 Order name: Labs collected and sent; Complete Time: 16:26 kb 01/13 16:05 Order name: O2 Per Protocol; Complete Time: 16:27 kb 01/13 16:05 Order name: O2 Sat Monitoring; Complete Time: 16:27 kb EC:25 Rate is 85 beats/min. Rhythm is regular. QRS [place] is Normal. UT interval is normal at kb 130 msec. QRS interval is normal at 82 msec. QT interval is normal at 418 msec. Administered Medications: 18:00 Drug: Ketorolac IVP 15 mg IVP once Route: IVP; Site: right antecubital; rs5 18:13 Follow up: Response: No adverse reaction; Pain is decreased rs5 Disposition Summary: 01/14/24 17:49 Discharge Ordered Notes: Location: Home kb Condition: Stable kb Diagnosis - Chest pain, unspecified kb Followup: kb - With: Emergency Department - When: As needed - Reason: Worsening of condition Followup: kb - With: Private Physician - When: 2 - 3 days - Reason: Recheck today's complaints, Continuance of care, Re-evaluation by your physician Discharge Instructions: - Discharge Summary Sheet kb - Nonspecific Chest Pain, Adult, [id number] kb Forms: - Medication Reconciliation Form kb - Antibiotic Education kb - Prescription Opioid Use kb - Patient Portal Instructions kb - Leadership Thank You Letter kb Signatures: Dispatcher [employer] Shabana Hernandez, SAM-Belinda APPRAISAL COORDINATOR-Pelon Stover, RN RN ll1 Haylie Trent, RN RN db Arie Carrizales RN RN rs5
[2024-01-14] MEDS ORDERED: KETOROLAC 30 MG/ML INJ ONE (18:03)
[2024-01-14 22:09] VITALS: BP 105/76; TEMP 98; O2SAT 97
--- NOTE | 2024-01-15 16:58 | EKG ---
Test Date: 2024-01-14 Test Time: 16:21:41 Auto Painter Helper: CAROL MEASUREMENT RESULTS: Intervals: Rate: 85 SD: 130 QRSD: 82 QT: 352 QTc: 418 [place]: P: 56 SD: 130 QRS: 55 T: 53 INTERPRETIVE STATEMENTS: Normal sinus rhythm Normal ECG No previous ECG available for comparison Electronically Signed On 01-15-24 16:56:53 CDT by Obinna Durán
== END 2024-01-14 18:14 | disposition home or self-care (01) ==
LOC: ER 15:56
DX: R07.9 Chest pain, unspecified (principal)
CPT/HCPCS: 36415; 71045; 80048; 84484; 85025; 85379; 93005; 96374; 99285

== ENCOUNTER 2024-04-22 11:07 | Emergency (ER) | payer SELFPAY ==
[2024-04-22 12:05] LABS: Specific Gravity 1.007 (1.005-1.030); Urine Bilirubin Negative (Negative); Urine Blood Negative (Negative); Urine Clarity Clear (Clear); Urine Color Colorless (Yellow); Urine Glucose NEGATIVE (Negative); Urine Ketones Negative (Negative); Urine Microscopic Reflex YN NO UMIC; Urine Nitrite Negative (Negative); Urine Protein Negative (Negative); Urine Urobilinogen Normal mg/dL (0.2-1.0); Urine pH 7.5 (5.0-7.0)
[2024-04-22 12:06] LABS: Specific Gravity 1.007 (1.005-1.030)
--- NOTE | 2024-04-22 12:47 | ER ---
Nurse's Notes [facility] Name: Lena Doty Age: 24 yrs Sex: Female : 2000 Arrival Date: 04/22/2024 Time: 11:07 Bed 18 Private MD: Diagnosis: Anemia, unspecified;Weakness Presentation: 04/22 11:28 Chief complaint: Patient states: L sided CP, dizziness, fatigue for 4 days. Coronavirus ll1 screen: Client denies travel out of the [place] in the last 14 days. At this time, the client does not indicate any symptoms associated with coronavirus-19. Ebola Screen: Patient denies travel to an Ebola-affected area in the 21 days before illness onset. Initial Sepsis Screen: Does the patient meet any 2 criteria? No. Patient's initial sepsis screen is negative. Does the patient have a suspected source of infection? No. Patient's initial sepsis screen is negative. Risk Assessment: Do you want to hurt yourself or someone else? Patient reports no desire to harm self or others. Onset of symptoms was April 19, 2024. 11:28 Method Of Arrival: Ambulatory ll1 11:28 Acuity: [place] 3 ll1 Triage Assessment: :30 General: Appears in no apparent distress. Behavior is cooperative, appropriate for age, bp anxious. Pain: Denies pain. EENT: No deficits noted. Neuro: Reports dizziness. Cardiovascular: Reports chest pain. Respiratory: No deficits noted. GI: No signs and/or symptoms were reported involving the gastrointestinal system. : No signs and/or symptoms were reported regarding the genitourinary system. Derm: No deficits noted. Musculoskeletal: No deficits noted. Historical: - Allergies: 11:13 No Known Drug Allergies; ll1 - PMHx: 11:13 Anemia; ll1 - PSHx: 11:13 Ligation of fallopian tube; Tonsillectomy; ll1 - Immunization history:: Adult Immunizations up to date. - Infectious Disease History:: Denies. - Social history:: Smoking status: unknown. Screenin:30 [facility] ED Fall Risk Assessment (Adult) History of falling in the last 3 months, bp including since admission No falls in past 3 months (0 pts) Confusion or Disorientation No (0 pts) Intoxicated or Sedated No (0 pts) Impaired Gait No (0 pts) Mobility Assist Device Used No (0 pt) Altered Elimination No (0 pt) Score/Fall Risk Level 0 - 2 = Low Risk Oriented to surroundings. Abuse screen: Denies threats or abuse. Denies injuries from another. Nutritional screening: No deficits noted. Tuberculosis screening: No symptoms or risk factors identified. Assessment: 11:30 General: Appears in no apparent distress. comfortable, Behavior is calm, cooperative, bp appropriate for age. Pain: Denies pain. Pain does not radiate. Pain began gradually. 12:23 Reassessment: Patient appears in no apparent distress at this time. Patient is alert, bp oriented x 3, equal unlabored respirations, skin warm/dry/pink. 12:49 Reassessment: D/C ON HOLD FOR RAD RESULTS. bp Vital Signs: 11:28 BP 133 / 90; Pulse 80; Resp 17; Temp 97; Pulse Ox 100% ; Weight 68.04 kg; Height 5 ft. ll1 5 in. ; Pain 7/10; 12:23 BP 109 / 78; Pulse 57; Resp 16; Pulse Ox 99% ; bp 13:25 BP 107 / 78; Pulse 58; Resp 16; Pulse Ox 99% ; bp 11:28 Body Mass Index 24.96 (68.04 kg, 165.1 cm) ll1 11:28 Pain Scale: Adult ll1 ED Course: 11:10 Patient arrived in ED. mr 11:11 Jeet Staples MD is Attending Physician. edwar 11:13 Arm band placed on Patient placed in an exam room, on a stretcher. ll1 11:14 Matthew Rooney, RN is Primary Nurse. bp 11:20 EKG completed in triage. Results shown to MD. ll1 11:29 Triage completed. ll1 11:30 Patient has correct armband on for positive identification. Provided Education on: N/A. bp Client placed on continuous cardiac and pulse oximetry monitoring. NIBP monitoring applied. parts and service manager on. Pulse ox on. NIBP on. 11:30 No provider procedures requiring assistance completed. Patient maintains SpO2 bp saturation greater than 95% on room air. 12:46 Sidney Dinero DO is Referral Physician. edwar 12:51 Chest Pa And Lat (2 Views) XRAY In Process Unspecified. EDMS 13:26 Patient did not have IV access during this emergency room visit. bp Administered Medications: No medications were administered Medication: 11:30 VIS not applicable for this client. bp Outcome: 12:47 Discharge ordered by . edwar 13:25 Discharged to home ambulatory, with family, bp 13:25 Condition: stable 13:25 Discharge instructions given to patient, Instructed on discharge instructions, follow up and referral plans. medication usage, Demonstrated understanding of instructions, follow-up care, medications, Prescriptions given X 1, 13:26 Patient left the ED. bp Signatures: Dispatcher [employer] EDMS Jeet Staples MD MD cha Rivera, Mary, Reg Reg Matthew Cruz, RN RN bp Pelon Dimas RN RN ll1
--- NOTE | 2024-04-22 12:47 | EDPHYS ---
Physician Documentation [facility] Name: Lena Doty Age: 24 yrs Sex: Female : 2000 Arrival Date: 04/22/2024 Time: 11:07 Bed 18 Private MD: MADDIE Physician Jeet Staples HPI: 04/22 12:34 This 24 yrs old Female presents to ER via Ambulatory with complaints of Chest edwar Wall Pain, Dizziness, fatigue. 12:34 The patient or guardian reports chest pain that is located primarily in the anterior [facility] chest wall. The pain does not radiate. Associated signs and symptoms: The patient has no apparent associated signs or symptoms. The chest pain is described as aching. Duration: The patient or guardian reports multiple episodes, with no pattern. Modifying factors: The symptoms are alleviated by nothing. the symptoms are aggravated by SUPINE. Severity of pain: At its worst the pain was NO PAIN. The patient has experienced similar episodes in the past, several times. Historical: - Allergies: 11:13 No Known Drug Allergies; ll1 - PMHx: 11:13 Anemia; ll1 - PSHx: 11:13 Ligation of fallopian tube; Tonsillectomy; ll1 - Immunization history:: Adult Immunizations up to date. - Infectious Disease History:: Denies. - Social history:: Smoking status: unknown. ROS: 12:35 Constitutional: Negative for fever, chills, and weight loss, Eyes: Negative for injury, edwar pain, redness, and discharge, ENT: Negative for injury, pain, and discharge, Neck: Negative for injury, pain, and swelling, Cardiovascular: Negative for chest pain, palpitations, and edema, Abdomen/GI: Negative for abdominal pain, nausea, vomiting, diarrhea, and constipation, Back: Negative for injury and pain, : Negative for injury, bleeding, discharge, and swelling, MS/Extremity: Negative for injury and deformity, Skin: Negative for injury, rash, and discoloration, Neuro: Negative for headache, weakness, numbness, tingling, and seizure, Psych: Negative for depression, anxiety, suicide ideation, homicidal ideation, and hallucinations, Allergy/Immunology: Negative for hives, rash, and allergies, Endocrine: Negative for neck swelling, polydipsia, polyuria, polyphagia, and marked weight changes, Hematologic/Lymphatic: Negative for swollen nodes, abnormal bleeding, and unusual bruising, 12:35 Respiratory: Positive for orthopnea, 12:35 MS/extremity: Negative for acute changes, Exam: 12:35 Constitutional: This is a well developed, well nourished patient who is awake, alert, edwar and in no acute distress. Head/Face: Normocephalic, atraumatic. Eyes: Pupils equal round and reactive to light, extra-ocular motions intact. Lids and lashes normal. Conjunctiva and sclera are non-icteric and not injected. Cornea within normal limits. Periorbital areas with no swelling, redness, or edema. ENT: Nares patent. No nasal discharge, no septal abnormalities noted. Tympanic membranes are normal and external auditory canals are clear. Oropharynx with no redness, swelling, or masses, exudates, or evidence of obstruction, uvula midline. Mucous membranes moist. Neck: Trachea midline, no thyromegaly or masses palpated, and no cervical lymphadenopathy. Supple, full range of motion without nuchal rigidity, or vertebral point tenderness. No Meningismus. Chest/axilla: Normal chest wall appearance and motion. Nontender with no deformity. No lesions are appreciated. Cardiovascular: Regular rate and rhythm with a normal S1 and S2. No gallops, murmurs, or rubs. Normal PMI, no JVD. No pulse deficits. Respiratory: Lungs have equal breath sounds bilaterally, clear to auscultation and percussion. No rales, rhonchi or wheezes noted. No increased work of breathing, no retractions or nasal flaring. Abdomen/GI: Soft, non-tender, with normal bowel sounds. No distension or tympany. No guarding or rebound. No evidence of tenderness throughout. Back: No spinal tenderness. No costovertebral tenderness. Full range of motion. Skin: Warm, dry with normal turgor. Normal color with no rashes, no lesions, and no evidence of cellulitis. MS/ Extremity: Pulses equal, no cyanosis. Neurovascular intact. Full, normal range of motion. Neuro: Awake and alert, GCS 15, oriented to person, place, time, and situation. Cranial nerves II-XII grossly intact. Motor strength 5/5 in all extremities. Sensory grossly intact. Cerebellar exam normal. Normal gait. Psych: Awake, alert, with orientation to person, place and time. Behavior, mood, and affect are within normal limits. 12:35 ECG was reviewed by the Attending Physician. 12:35 Musculoskeletal/extremity: DVT Exam: No signs of deep vein thrombosis. no pain, no swelling, no tenderness, negative Homans' sign noted on exam, no appreciated bluish discoloration, no erythema, no increased warmth, Vital Signs: 11:28 BP 133 / 90; Pulse 80; Resp 17; Temp 97; Pulse Ox 100% ; Weight 68.04 kg; Height 5 ft. ll1 5 in. ; Pain 7/10; 12:23 BP 109 / 78; Pulse 57; Resp 16; Pulse Ox 99% ; bp 13:25 BP 107 / 78; Pulse 58; Resp 16; Pulse Ox 99% ; bp 11:28 Body Mass Index 24.96 (68.04 kg, 165.1 cm) ll1 11:28 Pain Scale: Adult ll1 MDM: 11:12 Medical Screening Exam initiated edwar 12:44 Differential diagnosis: abnormal EKG, chest wall pain, Cholelithiasis gastritis, edwar pneumonia, pulmonary embolus, stable angina, unstable angina. HEART Score: History: Slightly Suspicious (0), ECG: Normal (0), Age: < or = 45 years (0), Risk Factors: No Risk Factors Known (0). Differential diagnosis: generalized weakness, hypovolemia, idiopathic dizziness, near-syncope, , sepsis. Data reviewed: vital signs, nurses notes, lab test result(s), urinalysis, EKG, radiologic studies, plain films. I considered the following discharge prescriptions or medication management in the emergency department Medications were administered in the Emergency Department. See AUG. 04/22 11:17 Order name: Urinalysis w/ reflexes; Complete Time: 12:[address] [facility] 04/22 11:17 Order name: PREGU; Complete Time: 12:[address] [facility] 04/22 11:17 Order name: Chest Pa And Lat (2 Views) XRAY [facility] 04/22 11:17 Order name: EKG - Nurse/Tech; Complete Time: 11:[address] [facility] 04/22 12:34 Order name: Orthostatics; Complete Time: 12:[address] [facility] EC:35 Rate is 75 beats/min. Rhythm is regular. QRS [place] is Normal. [place] interval is normal. QRS edwar interval is normal. QT interval is normal. No Q waves. T waves are Normal. No ST changes noted. Clinical impression: Normal ECG and No evidence of ischemia. Interpreted by me. Reviewed by me. Administered Medications: No medications were administered Disposition Summary: 04/22/24 12:47 Discharge Ordered Notes: Location: Home edwar Problem: new edwar Symptoms: have improved edwar Condition: Stable edwar Diagnosis - Anemia, unspecified edwar - Weakness edwar Followup: edwar - With: Private Physician - When: 2 - 3 days - Reason: Recheck today's complaints, Continuance of care, Re-evaluation by your physician Followup: edwar - With: Sidney Dinero, DO - When: 2 - 3 days - Reason: Recheck today's complaints, Re-evaluation by your physician Discharge Instructions: - Discharge Summary Sheet edwar - Anemia edwar - Steps to Quit Smoking edwar - Health Risks of Smoking edwar - Weakness edwar - Fatigue dewar - Steps to Quit Smoking, Cpni-cu-Xnrx edwar - Weakness, Yusb-co-Qery edwar - Smokeless Tobacco Information, Adult edwar - Deconditioning edwar Forms: - Medication Reconciliation Form edwar - Antibiotic Education edwar - Prescription Opioid Use edwar - Patient Portal Instructions edwar - Leadership Thank You Letter [facility] Prescriptions: - Ferrous Sulfate 325 mg (65 mg Iron) Oral tablet - take 1 tablet ORAL route 2 times per day; 60 tablet; Refills: 0, Product edwar Selection Permitted Signatures: Dispatcher [employer] EDJeet Zuniga MD MD cha Peltier, Brian, RN RN [address] RN RN ll1 Corrections: (The following items were deleted from the chart) 11:18 11:18 Chest Pa And Lat (2 Views)+RAD.RAD.BRZ ordered. EDMS EDMS 11:18 11:18 Urinalysis+U.LAB.BRZ ordered. EDMS EDMS 11:18 11:18 Test, Urine+UC.LAB.BRZ ordered. EDMS EDMS
[2024-04-22 14:01] VITALS: TEMP 97.2
[2024-04-22 14:02] VITALS: BP 96/55; O2SAT 100
--- NOTE | 2024-04-22 14:41 | RAD REPORT ---
EXAMINATION: TWO VIEW CHEST XR CLINICAL INDICATION: Female, 24 years old. [facility] MAIN COUGH Bed Name: 18 TECHNIQUE: 2 view radiographs of the chest were performed. COMPARISON: 01/14/2024 FINDINGS: The lungs are well inflated and clear. No pneumothorax or sizable effusion. The heart is normal in si ze. Mediastinal contours are unremarkable. IMPRESSION: No acute or significant abnormalities.
--- NOTE | 2024-04-23 08:53 | EKG ---
Test Date: 2024-04-22 Test Time: 11:23:37 Change Person: LML MEASUREMENT RESULTS: Intervals: Rate: 75 AK: 126 QRSD: 86 QT: 372 QTc: 415 [place]: P: 60 AK: 126 QRS: 80 T: 66 INTERPRETIVE STATEMENTS: Normal sinus rhythm with sinus arrhythmia Normal ECG Compared to ECG 01/14/2024 16:21:41 No significant changes Electronically Signed On 04-23-24 08:51:32 RELEASE SPECIALIST by Wallace Vigil
== END 2024-04-22 13:26 | disposition home or self-care (01) ==
LOC: ER 11:07
DX: R53.1 Weakness (principal); D64.9 Anemia, unspecified
CPT/HCPCS: 71046; 81003; 81025; 93005

== ENCOUNTER 2024-09-25 01:54 | Emergency (ER) | payer SELFPAY ==
--- NOTE | 2024-09-25 04:55 | ER ---
Nurse's Notes [facility] Name: Lena Doty Age: 24 yrs Sex: Female : 2000 Arrival Date: 09/25/2024 Time: 01:54 Bed IW1 Private MD: Diagnosis: Presentation: 09/25 02:33 Chief complaint: Patient states: right abdominal pain 3-4 months. Coronavirus screen: vc1 Client denies travel out of the [place] in the last 14 days. At this time, the client does not indicate any symptoms associated with coronavirus-19. Ebola Screen: Patient negative for fever greater than or equal to 101.5 degrees Fahrenheit, and additional compatible Ebola Virus Disease symptoms Patient denies exposure to infectious person. Patient denies travel to an Ebola-affected area in the 21 days before illness onset. No symptoms or risks identified at this time. Initial Sepsis Screen: Does the patient meet any 2 criteria? No. Patient's initial sepsis screen is negative. Does the patient have a suspected source of infection? No. Patient's initial sepsis screen is negative. Risk Assessment: Do you want to hurt yourself or someone else? Patient reports no desire to harm self or others. Onset of symptoms is unknown. 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 Flu vaccine is not up to date. - Infectious Disease History:: Denies. - Social history:: Smoking status: Patient denies any tobacco usage or history of. Vital Signs: 02:33 Weight 68.04 kg; Height 5 ft. 6 in. ; Pain 7/10; vc1 02:38 BP 105 / 80; Pulse 87; Resp 15; Temp 98.6; Pulse Ox 100% ; vc1 02:33 Body Mass Index 24.21 (68.04 kg, 167.64 cm) vc1 02:33 Pain Scale: Adult vc1 ED Course: 01:57 Patient arrived in ED. gm2 01:58 Jeet Devries PA is PHCP. cp 01:58 Jeet Staples MD is Attending Physician. cp 02:36 Triage completed. vc1 02:36 Arm band placed on right wrist. vc1 02:45 Radiology exam delayed due to test not completed at this time. marsha Administered Medications: No medications were administered Outcome: 04:53 Eloped from waiting room, after seeing physician Time discovered patient gone: September vc1 2024 at 04:54 04:53 Condition: stable 04:54 Patient left the ED. vc1 Signatures: Jeet Devries PA PA cp Jordan, Nathan nj Calcote, Vanessa RN RN vc1 Gill Gomze gm2
--- NOTE | 2024-09-25 04:55 | EDPHYS ---
Physician Documentation [facility] Name: Lena Doty Age: 24 yrs Sex: Female : 2000 Arrival Date: 09/25/2024 Time: 01:54 Bed IW1 Private MD: ED Physician Jeet Staples HPI: 09/25 02:35 This 24 yrs old Female presents to ER via Ambulatory with complaints of Pelvic Pain, cp Leg Pain. 02:35 The patient presents with right lower abdomen/adnexal pain. cp 02:35 Onset: The symptoms/episode began/occurred for past 3-4 months. cp 02:35 Associated signs and symptoms: Pertinent positives: vaginal bleeding, Pertinent cp negatives: diarrhea, dysuria, fever, vomiting. Severity of symptoms: in the emergency department the symptoms are unchanged, despite home interventions. 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 Flu vaccine is not up to date. - Infectious Disease History:: Denies. - Social history:: Smoking status: Patient denies any tobacco usage or history of. ROS: 02:40 Constitutional: Negative for body aches, chills, fever, poor PO intake, cp 02:40 Eyes: Negative for injury, pain, redness, and discharge, cp 02:40 ENT: Negative for drainage from ear(s), ear pain, sore throat, difficulty swallowing, difficulty handling secretions, 02:40 Cardiovascular: Negative for chest pain, palpitations, 02:40 Abdomen/GI: Positive for abdominal pain, of the right lower abdomen/adnexal area, Negative for nausea, vomiting, and diarrhea, 02:40 : Positive for vaginal bleeding, Negative for urinary symptoms, hematuria, bladder incontinence, 02:40 All other systems are negative, Exam: 02:45 Constitutional: The patient appears in no acute distress, alert, awake, non-toxic, well cp developed, well nourished, 02:45 Head/Face: Normocephalic, atraumatic. cp 02:45 Eyes: Periorbital structures: appear normal, Conjunctiva: normal, no exudate, no injection, Sclera: no appreciated abnormality, Lids and lashes: appear normal, bilaterally, 02:45 ENT: External ear(s): are unremarkable, Nose: is normal, Mouth: Lips: moist, Oral mucosa: moist, Posterior pharynx: Airway: no evidence of obstruction, patent, 02:45 Chest/axilla: Inspection: normal, 02:45 Cardiovascular: Rate: normal, Rhythm: regular, 02:45 Respiratory: the patient does not display signs of respiratory distress, Respirations: normal, no use of accessory muscles, no retractions, labored breathing, is not present, Breath sounds: are clear throughout, no decreased breath sounds, 02:45 Abdomen/GI: Inspection: abdomen appears normal, Bowel sounds: active, all quadrants, Palpation: soft, in all quadrants, mild abdominal tenderness, in the right lower quadrant and right adnexa, rebound tenderness, is not appreciated, voluntary guarding, is not appreciated, involuntary guarding, is not appreciated, 02:45 Back: CVA tenderness, is absent, 02:45 Neuro: Orientation: is normal, Mentation: is normal, Motor: moves all fours, strength is normal, Gait: is steady, at a normal pace, without difficulty, Vital Signs: 02:33 Weight 68.04 kg; Height 5 ft. 6 in. ; Pain 7/10; vc1 02:38 BP 105 / 80; Pulse 87; Resp 15; Temp 98.6; Pulse Ox 100% ; vc1 02:33 Body Mass Index 24.21 (68.04 kg, 167.64 cm) vc1 02:33 Pain Scale: Adult vc1 MDM: 02:30 Medical Screening Exam initiated cp 02:40 Differential diagnosis: appendicitis, ectopic , molar preganancy, Neoplasm cp ovarian cyst, pelvic inflammatory disease, uterine fibroids, urinary tract infection, vaginosis. 02:45 Data reviewed: vital signs, nurses notes. 09/25 02:38 Order name: IV Saline Lock 09/25 02:38 Order name: Labs collected and sent 09/25 02:38 Order name: NPO cp Administered Medications: No medications were administered Disposition Summary: 09/25/24 04:54 Eloped Notes: Disposition: after being seen by provider vc1 Reason: wait time vc1 Signatures: Dispatcher [employer] EDMS Jeet Devries PA PA cp Calcote, Vanessa RN RN vc1 Corrections: (The following items were deleted from the chart) 02:39 02:38 BASIC METABOLIC PANEL+C.LAB.BRZ ordered. EDMS EDMS 02:39 02:38 CBC+H.LAB.BRZ ordered. EDMS EDMS 02:39 02:38 Test, Urine+UC.LAB.BRZ ordered. EDMS EDMS 02:39 02:38 Urinalysis+U.LAB.BRZ ordered. EDMS EDMS 02:39 02:38 HEPATIC FUNCTION+C.LAB.BRZ ordered. EDMS EDMS
[2024-09-25 05:00] VITALS: BP 105/80; TEMP 98.6; O2SAT 100
== END 2024-09-25 04:54 | disposition left against medical advice (07) ==
LOC: ER 01:54
DX: R10.31 Right lower quadrant pain (principal); N93.9 Abnormal uterine and vaginal bleeding, unspecified

== ENCOUNTER 2024-10-04 02:01 | Emergency (ER) | payer SELFPAY ==
[2024-10-04] MEDS ORDERED: HYDROCODONE/APAP 5/325 MG TAB ONE (02:22)
--- NOTE | 2024-10-04 04:06 | EDPHYS ---
Physician Documentation [facility] Name: Lena Doty Age: 24 yrs Sex: Female : 2000 Arrival Date: 10/04/2024 Time: 02:01 Bed 19 Private MD: ED Physician Devang Garrett HPI: 10/04 02:24 This 24 yrs old Female presents to ER via Ambulatory with complaints of Hand Injury, rn Right Hand. 02:24 The patient or guardian reports decreased range of motion, pain, swelling. Onset: The rn symptoms/episode began/occurred yesterday. Modifying factors: The symptoms are alleviated by nothing, the symptoms are aggravated by movement. The patient has not experienced similar symptoms in the past. Patient reports right hand got caught in a stall door of bathroom yesterday. Patient reports pain near the 4th and 5th metacarpal region of the right hand. No other injuries. No numbness or tingling. No weakness.. 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 - Infectious Disease History:: Denies. - Social history:: Smoking status: Patient denies any tobacco usage or history of. Patient uses alcohol, occasionally. Patient/guardian denies using street drugs. - Family history:: not pertinent. - Hospitalizations: : No recent hospitalization is reported. ROS: 02:24 Constitutional: Negative for fever, chills, and weight loss, MS/Extremity: Positive for rn right hand injury and swelling Exam: 02:24 Constitutional: This is a well developed, well nourished patient who is awake, alert, rn and in no acute distress. MS/ Extremity: Pulses equal, no cyanosis. Neurovascular intact. Patient has swelling and ecchymosis to the right hand near the 4th and 5th metacarpals or distal metacarpals. No open wounds or bleeding. When making a fist there is no evidence of scissoring. Vital Signs: 02:11 BP 129 / 86; Pulse 77; Resp 16 S; Temp 97.6(O); Pulse Ox 98% on R/A; Weight 65.77 kg lg3 (R); Height 5 ft. 6 in. (R); Pain 8/10; 03:00 BP 110 / 70; Pulse 71; Resp 17 S; Pulse Ox 98% on R/A; ha1 02:11 Body Mass Index 23.40 (65.77 kg, 167.64 cm) lg3 02:11 Pain Scale: Adult lg3 MDM: 02:02 Medical Screening Exam initiated rn 04:04 Differential diagnosis: closed fracture, contusion. Data reviewed: vital signs, nurses rn notes, radiologic studies, plain films, and as a result, I will discharge patient. Counseling: I had a detailed discussion with the patient and/or guardian regarding the historical points, exam findings, and any diagnostic results supporting the discharge/admit diagnosis, radiology results, the need for outpatient follow up, to return to the emergency department if symptoms worsen or persist or if there are any questions or concerns that arise at home. Special discussion: I discussed with the patient/guardian in detail that at this point there is no indication for admission to the hospital. It is understood, however, that if the symptoms persist or worsen the patient needs to return immediately for re-evaluation. ED course: X-ray images of the right hand negative for acute fracture or dislocation per my interpretation.. 10/04 02:20 Order name: XRAY Hand RIGHT 3 View rn Administered Medications: 02:25 Drug: HYDROcodone-acetaminophen PO 5 mg-325 mg 1 tabs PO once Route: PO; ha1 03:00 Follow up: Response: No adverse reaction; Pain is decreased ha1 Disposition Summary: 10/04/24 04:05 Discharge Ordered Notes: Location: Home rn Problem: new rn Symptoms: have improved rn Condition: Stable rn Diagnosis - Contusion of right hand rn Followup: rn - With: Private Physician - When: As needed - Reason: Recheck today's complaints, Re-evaluation by your physician Discharge Instructions: - Discharge Summary Sheet rn - Hand Contusion rn Forms: - Medication Reconciliation Form rn - 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
--- NOTE | 2024-10-04 04:06 | ER ---
Nurse's Notes [facility] Name: Lena Doty Age: 24 yrs Sex: Female : 2000 Arrival Date: 10/04/2024 Time: 02:01 Bed 19 Private MD: Diagnosis: Contusion of right hand Presentation: 10/04 02:11 Chief complaint: Patient states: smashed right hand in door yesterday around 1700. lg3 pain, swelling and bruising to 3rd-5th knuckles. Coronavirus screen: Client denies travel out of the [place] in the last 14 days. At this time, the client does not indicate any symptoms associated with coronavirus-19. Ebola Screen: No symptoms or risks identified at this time. Initial Sepsis Screen: Does the patient meet any 2 criteria? No. Patient's initial sepsis screen is negative. Does the patient have a suspected source of infection? No. Patient's initial sepsis screen is negative. Risk Assessment: Do you want to hurt yourself or someone else? Patient reports no desire to harm self or others. Onset of symptoms was October 03, 2024. 02:11 Method Of Arrival: Ambulatory lg3 02:11 Acuity: RALEIGH 4 lg3 Triage Assessment: 02:17 General: Appears in no apparent distress. uncomfortable, Behavior is calm, cooperative. lg3 Pain: Complains of pain in right hand. EENT: No deficits noted. No signs and/or symptoms were reported regarding the EENT system. Neuro: No deficits noted. Quintana Agitation-Sedation Scale (RASS): 0 - Alert and Calm Level of Consciousness is awake, alert, obeys commands, Oriented to person, place, time, situation. Cardiovascular: No deficits noted. Denies chest pain, shortness of breath, Capillary refill < 3 seconds Clubbing of nail beds is absent JVD is absent Patient's skin is warm and dry. Respiratory: No deficits noted. Airway is patent Respiratory effort is even, unlabored, Respiratory pattern is regular, symmetrical. GI: No deficits noted. No signs and/or symptoms were reported involving the gastrointestinal system. : No signs and/or symptoms were reported regarding the genitourinary system. Derm: Skin is intact, is healthy with good turgor, Skin is dry, Skin is normal, Skin temperature is warm Bruising that is brown, green, yellow, on right hand. Musculoskeletal: Circulation, motion, and sensation intact. Range of motion: intact in all extremities, Swelling present in right hand. Injury Description: Crush injury sustained to right hand. 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 - Infectious Disease History:: Denies. - Social history:: Smoking status: Patient denies any tobacco usage or history of. Patient uses alcohol, occasionally. Patient/guardian denies using street drugs. - Family history:: not pertinent. - Hospitalizations: : No recent hospitalization is reported. Screenin:20 [facility] ED Fall Risk Assessment (Adult) History of falling in the last 3 months, lg3 including since admission No falls in past 3 months (0 pts) Confusion or Disorientation No (0 pts) Intoxicated or Sedated No (0 pts) Impaired Gait No (0 pts) Mobility Assist Device Used No (0 pt) Altered Elimination No (0 pt) Score/Fall Risk Level 0 - 2 = Low Risk Oriented to surroundings, Maintained a safe environment, Educated pt \T\ family on fall prevention, incl call for assistance when getting out of bed, Assessed \T\ reinforced patient's understanding of fall precautions. Abuse screen: Denies threats or abuse. Denies injuries from another. Nutritional screening: No deficits noted. Tuberculosis screening: No symptoms or risk factors identified. Assessment: 02:11 General: Appears uncomfortable, Behavior is calm, cooperative. Pain: Complains of pain ha1 in right hand Pain does not radiate. Pain currently is 9 out of 10 on a pain scale. Quality of pain is described as throbbing. Neuro: Level of Consciousness is awake, alert, obeys commands, Oriented to person, place, time, situation. Cardiovascular: Capillary refill < 3 seconds Patient's skin is warm and dry. Respiratory: Airway is patent Respiratory effort is even, unlabored, Respiratory pattern is regular, symmetrical. GI: No signs and/or symptoms were reported involving the gastrointestinal system. Abdomen is round non-distended. Derm: Skin is normal, Bruising that is bright red, on right hand. Musculoskeletal: Circulation, motion, and sensation intact. Range of motion: intact in all extremities, Reports pain in right hand. 02:59 Reassessment: Patient and/or family updated on plan of care and expected duration. Pain ha1 level reassessed. Patient is alert, oriented x 3, equal unlabored respirations, skin warm/dry/pink. Vital Signs: 02:11 BP 129 / 86; Pulse 77; Resp 16 S; Temp 97.6(O); Pulse Ox 98% on R/A; Weight 65.77 kg lg3 (R); Height 5 ft. 6 in. (R); Pain 8/10; 03:00 BP 110 / 70; Pulse 71; Resp 17 S; Pulse Ox 98% on R/A; ha1 02:11 Body Mass Index 23.40 (65.77 kg, 167.64 cm) lg3 02:11 Pain Scale: Adult lg3 ED Course: 02:02 Patient arrived in ED. jj6 02:02 Devang Garrett MD is Attending Physician. rn 02:17 Triage completed. lg3 02:17 Arm band placed on right wrist. lg3 02:20 Cece Eason RN is Primary Nurse. ha1 02:20 Patient has correct armband on for positive identification. Bed in low position. Call lg3 light in reach. Side rails up X 1. Client placed on continuous cardiac and pulse oximetry monitoring. NIBP monitoring applied. Door closed. Noise minimized. Warm blanket given. Pillow given. Family accompanied patient. 02:35 Provided Education on: MEDICATION ADMINISTRATION . ha1 02:57 XRAY Hand RIGHT 3 View In Process Unspecified. EDMS 04:26 No provider procedures requiring assistance completed. Patient did not have IV access ha1 during this emergency room visit. Administered Medications: 02:25 Drug: HYDROcodone-acetaminophen PO 5 mg-325 mg 1 tabs PO once Route: PO; ha1 03:00 Follow up: Response: No adverse reaction; Pain is decreased ha1 Medication: 02:57 VIS not applicable for this client. ha1 Outcome: 04:05 Discharge ordered by . rn 04:26 Discharged to home ambulatory, with family, ha1 04:26 Condition: stable 04:26 Discharge instructions given to patient, Instructed on discharge instructions, follow up and referral plans. medication usage, Demonstrated understanding of instructions, follow-up care, medications, 04:29 Patient left the ED. ha1 Signatures: Dispatcher [employer] EDMS Devang Garrett MD MD rn Able, Lacie, RN RN lg3 Shobha Gaines jj6 Cece Eason RN RN ha1
[2024-10-04 04:49] VITALS: BP 110/70; O2SAT 98
--- NOTE | 2024-10-04 05:48 | RAD REPORT ---
EXAM: XR Right Hand Complete, 3 or More Views CLINICAL HISTORY: PAIN TECHNIQUE: Frontal, lateral and oblique views of the right hand. COMPARISON: No relevant prior studies available. FINDINGS: Bones/joints: Unremarkable. No acute fracture. No dislocation. Soft tissues: Dorsal soft tissue swelling. No radiopaque foreign body. IMPRESSION: Dorsal soft tissue swelling. No acute fracture. Electronically signed by: Margy Cortés MD 10/04/2024 03:55 AM CDT RP Due to temporary technical issues with the PACS/[employer] reporting system, reports are being kenyon d by the in-house radiologist without review as a courtesy to ensure prompt reporting the interpreting radiologist is fully responsible for the content of the report. Transcribed Date/Time: 10/04/2024 5:48 AM
== END 2024-10-04 04:29 | disposition home or self-care (01) ==
LOC: ER 02:01
DX: S60.221A Contusion of right hand, initial encounter (principal)
CPT/HCPCS: 99283

== ENCOUNTER 2025-03-14 18:23 | Emergency (ER) | payer BC, SELFPAY ==
[2025-03-14] MEDS ORDERED: KETOROLAC 30 MG/ML INJ ONE (19:00)
--- NOTE | 2025-03-14 19:49 | RAD REPORT ---
EXAMINATION: Shoulder Left 2+ Views CLINICAL INDICATION: Female, 25 years old. PAIN COMPARISON: No prior exam. FINDINGS: No acute fracture. No malalignment/dislocation. No significant focal degenerative change. Other: n/a IMPRESSION: No acute osseous abnormality.
--- NOTE | 2025-03-14 20:09 | ER ---
Nurse's Notes [facility] Name: Lena Doty Age: 25 yrs Sex: Female : 2000 Arrival Date: 03/14/2025 Time: 18:23 Bed 17 Private MD: Diagnosis: Pain in left shoulder Presentation: 03/14 18:39 Chief complaint: Patient states: BEGAN WAKING UP WITH LT SHOULDER PAIN AND LT ARM dd2 NUMBNESS APPROX 1 MONTH AGO, AND NOW THE PAIN AND NUMBNESS IS LASTING ALL DAY. Coronavirus screen: At this time, the client does not indicate any symptoms associated with coronavirus-19. Ebola Screen: No symptoms or risks identified at this time. Initial Sepsis Screen: Does the patient meet any 2 criteria? No. Patient's initial sepsis screen is negative. Does the patient have a suspected source of infection? No. Patient's initial sepsis screen is negative. Risk Assessment: Do you want to hurt yourself or someone else? Patient reports no desire to harm self or others. Onset of symptoms is unknown. 18:39 Method Of Arrival: Ambulatory dd2 18:39 Acuity: RALEIGH 4 dd2 Triage Assessment: 18:40 General: Appears in no apparent distress. uncomfortable, well nourished, Behavior is dd2 calm, cooperative, appropriate for age. Pain: Complains of pain in left trapezius, thoracic area, anterior aspect of left shoulder and posterior aspect of left shoulder Pain currently is 5 out of 10 on a pain scale. EENT: No deficits noted. No signs and/or symptoms were reported regarding the EENT system. Neuro: No deficits noted. Cardiovascular: No deficits noted. Respiratory: No deficits noted. GI: No deficits noted. No signs and/or symptoms were reported involving the gastrointestinal system. : No deficits noted. No signs and/or symptoms were reported regarding the genitourinary system. Derm: No deficits noted. No signs and/or symptoms reported regarding the dermatologic system. Musculoskeletal: Reports numbness in left arm pain in left trapezius, thoracic area, anterior aspect of left shoulder and posterior aspect of left shoulder. 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 - Infectious Disease History:: Denies. - Social history:: Smoking status: Patient denies any tobacco usage or history of. Screenin:43 [facility] ED Fall Risk Assessment (Adult) History of falling in the last 3 months, dd2 including since admission No falls in past 3 months (0 pts) Confusion or Disorientation No (0 pts) Intoxicated or Sedated No (0 pts) Impaired Gait No (0 pts) Mobility Assist Device Used No (0 pt) Altered Elimination No (0 pt) Score/Fall Risk Level 0 - 2 = Low Risk Oriented to surroundings, Maintained a safe environment, Educated pt \T\ family on fall prevention, incl call for assistance when getting out of bed, Assessed \T\ reinforced patient's understanding of fall precautions, Hourly rounding (assess needs \T\ fall precautionary measures) done. Abuse screen: Denies threats or abuse. Denies injuries from another. Nutritional screening: No deficits noted. Tuberculosis screening: No symptoms or risk factors identified. Assessment: 19:04 General: Appears in no apparent distress. Behavior is cooperative. Pain: Complains of kj2 pain in left arm and posterior aspect of left shoulder Pain currently is 8 out of 10 on a pain scale. Neuro: Level of Consciousness is awake, alert, obeys commands, Oriented to person, place, time, situation. Cardiovascular: Patient's skin is warm and dry. Respiratory: Airway is patent Respiratory effort is even, unlabored. GI: No signs and/or symptoms were reported involving the gastrointestinal system. : No signs and/or symptoms were reported regarding the genitourinary system. 20:00 Reassessment: Patient appears in no apparent distress at this time. Patient and/or kj2 family updated on plan of care and expected duration. Pain level reassessed. Patient is alert, oriented x 3, equal unlabored respirations, skin warm/dry/pink. Vital Signs: 18:39 BP 111 / 75; Pulse 72; Resp 16; Temp 98.1; Pulse Ox 100% on R/A; Weight 63.5 kg; Height dd2 5 ft. 6 in. ; Pain 5/10; 20:18 BP 121 / 84; Pulse 64; Resp 20; Temp 98; Pulse Ox 100% on R/A; kj2 18:39 Body Mass Index 22.60 (63.50 kg, 167.64 cm) dd2 18:39 Pain Scale: Adult dd2 ED Course: 18:25 Patient arrived in ED. cj3 18:33 Jeet Devries PA-C is PHCP. cp 18:33 Joshua Dinero MD is Attending Physician. cp 18:40 Triage completed. dd2 18:40 Arm band placed on left wrist. dd2 18:43 Patient has correct armband on for positive identification. Bed in low position. dd2 18:57 Yelena Patel, RN is Primary Nurse. kj2 19:05 No provider procedures requiring assistance completed. kj2 19:06 Provided Education on: call light. kj2 19:42 XRAY Shoulder LEFT 2 view In Process Unspecified. EDMS 20:08 Willis Patel MD is Referral Physician. cp 20:18 Patient did not have IV access during this emergency room visit. kj2 Administered Medications: 19:04 Drug: Ketorolac IM 30 mg IM once; if patient not Route: IM; Site: left deltoid;kj2 20:00 Follow up: Response: No adverse reaction kj2 Medication: 18:43 VIS not applicable for this client. dd2 Outcome: 20:08 Discharge ordered by . cp 20:18 Discharged to home ambulatory, kj2 20:18 Condition: stable 20:18 Discharge instructions given to patient, Instructed on discharge instructions, follow up and referral plans. Demonstrated understanding of instructions, follow-up care, medications, Prescriptions given X 2, 20:30 Patient left the ED. kj2 Signatures: Dispatcher [employer] EDSC Jeet Devries PA-C PA-C cp Jordan, Krystal, RN RN kj2 ERLINDA PAREDES RN RN dd2 Rachel Vega cj3
--- NOTE | 2025-03-14 20:09 | EDPHYS ---
Physician Documentation [facility] Name: Lena Doty Age: 25 yrs Sex: Female : 2000 Arrival Date: 03/14/2025 Time: 18:23 Bed 17 Private MD: ED Physician Joshua Dinero HPI: 03/14 19:00 This 25 yrs old Female presents to ER via Ambulatory with complaints of Shoulder Pain - cp LT, Numbness Of Arm - LT. 19:00 The patient or guardian complains of pain, that is acute. posterior aspect of left cp shoulder. Context: resulted from an unknown reason, The patient reports no decreased range of motion. The patient reports no obvious deformity. denies history and/or acute injury. 19:00 Onset: The symptoms/episode began/occurred 1 month(s) ago. Modifying factors: The cp symptoms are aggravated by lifting weight. Associated signs and symptoms: Pertinent positives: Numbness in left arm intermittent, Pertinent negatives: chest pain, neck pain, shortness of breath. Severity of symptoms: in the emergency department the symptoms are unchanged, despite home interventions. Treatment prior to arrival includes: no previous treatment. 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 - Infectious Disease History:: Denies. - Social history:: Smoking status: Patient denies any tobacco usage or history of. ROS: 19:05 Constitutional: Negative for body aches, chills, fever, poor PO intake, cp 19:05 Eyes: Negative for injury, pain, redness, and discharge, cp 19:05 Neck: Negative for pain with movement, pain at rest, stiffness, 19:05 Cardiovascular: Negative for chest pain, edema, palpitations, 19:05 Respiratory: Negative for cough, shortness of breath, wheezing, 19:05 Abdomen/GI: Negative for abdominal pain, vomiting, diarrhea, constipation, 19:05 MS/extremity: Positive for pain, of the posterior aspect of left shoulder, intermittent numbness of left arm, Negative for injury or acute deformity, decreased range of motion, deformity, 19:05 All other systems are negative, Exam: 19:10 Constitutional: The patient appears in no acute distress, alert, awake, cp non-diaphoretic, non-toxic, well developed, well nourished, 19:10 Head/Face: Normocephalic, atraumatic. cp 19:10 Neck: C-spine: vertebral tenderness, is not appreciated, crepitus, is not appreciated, ROM/movement: pain, is not appreciated, limited range of motion, is not appreciated, 19:10 Chest/axilla: Inspection: normal, 19:10 Cardiovascular: Rate: normal, Rhythm: regular, Pulses: Pulses are 2+ in left radial artery. 19:10 Respiratory: the patient does not display signs of respiratory distress, Respirations: normal, no use of accessory muscles, no retractions, labored breathing, is not present, Breath sounds: are clear throughout, no decreased breath sounds, no stridor, no wheezing, 19:10 Abdomen/GI: Inspection: abdomen appears normal, 19:10 Back: pain, that is moderate, of the medial to scapula left upper back, 19:10 Musculoskeletal/extremity: Extremities: noted in the left shoulder: There is no evidence of decreased ROM, deformity, ROM: full active range of motion, in the left shoulder, the left hand and left arm Sensation intact. peoplesoft consultant strength equal and symmetric. 19:10 Skin: cellulitis, is not appreciated, no rash present. Vital Signs: 18:39 BP 111 / 75; Pulse 72; Resp 16; Temp 98.1; Pulse Ox 100% on R/A; Weight 63.5 kg; Height dd2 5 ft. 6 in. ; Pain 5/10; 20:18 BP 121 / 84; Pulse 64; Resp 20; Temp 98; Pulse Ox 100% on R/A; kj2 18:39 Body Mass Index 22.60 (63.50 kg, 167.64 cm) dd2 18:39 Pain Scale: Adult dd2 MDM: 18:33 Medical Screening Exam initiated cp 19:05 Differential diagnosis: tendonitis, muscle spasm, , cervical radiculopathy, thoracic cp outlet syndrome. 20:08 Data reviewed: vital signs, nurses notes, radiologic studies, plain films, and as a cp result, I will discharge patient. 20:08 I considered the following discharge prescriptions or medication management in the cp emergency department Medications were administered in the Emergency Department. See MAR. Independent interpretation of the following test(s) in the Emergency Department X-Ray: My interpretation is images of left shoulder negative for fracture and/or dislocation. Counseling: I had a detailed discussion with the patient and/or guardian regarding the historical points, exam findings, and any diagnostic results supporting the discharge/admit diagnosis, radiology results, the need for outpatient follow up, a orthopedic surgeon, to return to the emergency department if symptoms worsen or persist or if there are any questions or concerns that arise at home. Response to treatment: the patient's symptoms have mildly improved after treatment, and as a result, I will discharge patient. 03/14 18:50 Order name: XRAY Shoulder LEFT 2 view; Complete Time: 19:59 cp 03/14 19:59 Interpretation: Report reviewed. cp 03/14 19:59 Order name: Sling; Complete Time: 20:18 cp Administered Medications: 19:04 Drug: Ketorolac IM 30 mg IM once; if patient not Route: IM; Site: left deltoid;kj2 20:00 Follow up: Response: No adverse reaction kj2 Disposition Summary: 03/14/25 20:08 Discharge Ordered Notes: Location: Home cp Problem: new cp Symptoms: have improved cp Condition: Stable cp Diagnosis - Pain in left shoulder cp Followup: cp - With: Willis Patel MD - When: 5 - 6 days - Reason: Recheck today's complaints Discharge Instructions: - Discharge Summary Sheet cp - Shoulder Pain cp - Shoulder Range of Motion Exercises cp Forms: - Medication Reconciliation Form cp - Antibiotic Education cp - Prescription Opioid Use cp - Patient Portal Instructions cp - Leadership Thank You Letter cp - Work release form kj2 Prescriptions: - diclofenac potassium 50 mg Oral tablet - take 1 tablet ORAL route every 12 hours As needed as needed for pain; 20 cp tablet; Refills: 0, Product Selection Permitted - Cyclobenzaprine 10 mg Oral Tablet - take 1 tablet ORAL route every 8 hours As needed; 30 tablet; Refills: 0, cp Product Selection Permitted Signatures: Dispatcher [employer] EDMS Jeet Devries PA-C PA-C cp Jordan, Krystal, RN RN kj2 ERLINDA PAREDES RN RN dd2 Corrections: (The following items were deleted from the chart) 18:50 18:50 Shoulder Left 2 View+[email or web address] ordered. EDMS EDMS
[2025-03-14 20:58] VITALS: O2SAT 100
[2025-03-14 21:00] VITALS: BP 121/84; TEMP 98
== END 2025-03-14 20:30 | disposition home or self-care (01) ==
LOC: ER 18:23
DX: M25.512 Pain in left shoulder (principal)
CPT/HCPCS: 73030; 96372; 99284; J1885